=== PATIENT | female | born 1955 | race Caucasian/White ===

== ENCOUNTER 2023-05-05 10:41 | Outpatient (OUT) | payer MEDICARE, OTHER, SELFPAY ==
--- NOTE | 2023-05-05 10:57 | XR_ITS ---
[address] [address] Patient Name: MAXIMILIAN BLAIR MRN: [id number] date: 1955 Sex: F Assigned Patient Location: [facility] Current Patient Location: [facility] Accession/Order Number: [id number] Exam Date: 05/05/2023 10:59 Report Date: 05/05/2023 12:10 At the request of: DENISE DUGGAN Procedure: XR ankle LT min 3V PROCEDURE: XR ankle LT min 3V DATE: 05/05/2023 9:59 AM CDT COMPARISONS: None CLINICAL INDICATION: Ankle pain M25.579 FINDINGS: There is no evidence of fractures or other acute osseous abnormalities. Mild spurring of the distal medial lateral malleolar. Slight spurring of the distal tibia at the tibiotalar joint space. Diffuse soft tissue swelling about the ankle. Possible small ankle joint effusion identified on lateral view. Lateral view shows small amount of ascites spur off the posterior inferior os calcis. IMPRESSION: 1. No evidence of fractures of the left ankle 2. Mild scattered ankle degenerative changes 3. Soft tissue swelling about the ankle. 4. Possible small ankle joint effusion is demonstrated on lateral view.. Electronically authenticated by: ANGELICA PEARCE Date: 05/05/2023 12:10
== END 2023-05-05 10:42 | disposition home or self-care (01) ==
LOC: RAD 10:48
PROVIDERS: PCP Family Medicine; Visit Provider Family Medicine
DX: M25.572 Pain in left ankle and joints of left foot (principal)
CPT/HCPCS: 73610

== ENCOUNTER 2023-09-20 07:35 | Outpatient (OUT) | payer MEDICARE, OTHER, SELFPAY ==
[2023-09-20 07:54] LABS: Basophils Absolute Auto 0.1 10^3/uL (0.0-0.1); Basophils Percent Auto 0.7 % (0.2-2.0); Eosinophils Absolute Auto 0.1 10^3/uL (0.0-0.7); Eosinophils Percent Auto 0.9 % (0.9-7.0); Hematocrit 45.8 % (36.0-48.0); Hemoglobin 14.8 g/dL (12.0-16.0); Immature Granulocytes Abs Auto 0.04 10^3/uL (0.00-0.03); Immature Granulocytes Pct Auto 0.4 % (0.0-0.5); Lymphocytes Absolute Auto 2.9 10^3/uL (1.2-3.8); Lymphocytes Percent Auto 31.9 % (20.5-60.0); Mean Corpuscular HGB Conc 32.3 g/dL (29.9-35.2); Mean Corpuscular Hemoglobin 27.5 pg (26.7-34.0); Mean Corpuscular Volume 85.1 fL (81.0-99.0); Mean Platelet Volume 9.2 fL (9.5-13.5); Monocytes Absolute Auto 0.5 10^3/uL (0.3-0.8); Monocytes Percent Auto 5.9 % (1.7-12.0); Neutrophils Absolute Auto 5.5 10^3/uL (1.4-6.5); Neutrophils Percent Auto 60.2 % (43.0-75.0); Platelet Count 218 10^3/uL (150-450); Red Blood Count 5.38 10^6/uL (4.20-5.40); Red Cell Distribution Width 14.9 % (11.0-15.0); White Blood Count 9.1 10^3/uL (4.0-11.0)
[2023-09-20 08:16] LABS: Estimated Average Glucose 160 mg/dL; Glycohemoglobin A1C 7.2 % (4.5-6.2)
[2023-09-20 09:16] LABS: Alanine Aminotransferase 42 U/L (14-59); Albumin Globulin Ratio 1.1; Alkaline Phosphatase 36 U/L (46-116); Anion Gap 17.1; Aspartate Amino Transferase 24 U/L (15-37); BUN Creatinine Ratio 26.5; Bilirubin Total 0.4 mg/dL (0.2-1.0); Calcium 9.1 mg/dL (8.5-10.1); Carbon Dioxide 25.8 mmol/L (21.0-32.0); Chloride 99 mmol/L (98-107); Chol HDL Ratio 3.2; Cholesterol 123 mg/dL (<=200); Estimated GFR (African America >60 (>=60); Estimated GFR (Non-African Ame >60 (>=60); Free T3 2.34 pg/mL (2.18-3.98); Globulin 3.7 g/dL; Glucose 152 mg/dL (74-106); HDL Cholesterol 38 mg/dL (40-60); Potassium 3.9 mmol/L (3.5-5.1); Sodium 138 mmol/L (136-145); Thyroid Stimulating Hormone 2.944 uIU/mL (0.358-3.740); Total Protein 7.7 g/dL (6.4-8.2); Triglycerides 154 mg/dL (<=150); VLDL CHOLESTEROL 30.8 mg/dL
[2023-09-22 12:11] LABS: Insulin 16.4 uIU/mL (2.6-24.9)
== END 2023-09-20 07:36 | disposition home or self-care (01) ==
LOC: LAB 07:36
PROVIDERS: PCP Family Medicine; Visit Provider Nurse Practitioner Family
DX: R53.83 Other fatigue (principal); E11.9 Type 2 diabetes mellitus without complications; E78.00 Pure hypercholesterolemia, unspecified; D64.9 Anemia, unspecified; E03.9 Hypothyroidism, unspecified; E55.9 Vitamin D deficiency, unspecified
CPT/HCPCS: 36415; 80053; 80061; 82306; 83036; 83525; 83540; 84436; 84443; 84481; 85025

== ENCOUNTER 2023-09-30 08:44 | Outpatient (OUT) | payer MEDICARE, OTHER, SELFPAY ==
--- NOTE | 2023-09-30 | XR_ITS ---
The [address] [address] Patient Name: MAXIMILIAN BLAIR MRN: [id number] date: 1955 Sex: F Assigned Patient Location: Current Patient Location: Accession/Order Number: [id number] Exam Date: 09/30/2023 08:50 Report Date: 10/01/2023 04:47 At the request of: SANDRO TABARES Procedure: XR abdomen 1V EXAMINATION: XR abdomen 1V HISTORY: hx kidney stones COMPARISON: No relevant comparison available. FINDINGS: KIDNEY/URETER - RIGHT: No visible renal or ureteral calcifications. KIDNEY/URETER - LEFT: 3 mm stone projecting over inferior pole of kidney. PELVIS: Multiple calcifications within the pelvis favoring phleboliths. BOWEL: No abnormal dilation or deviation. BONES: No acute abnormality. OTHER: Negative. No abnormal gaseous collections. XR/XR abdomen 1V IMPRESSION: 1. Left nephrolithiasis. No visible right kidney stones, but evaluation is limited by dense overlying bowel content. 2. Bilateral pelvic calcifications suspected to represent phleboliths. Distal ureteral stones cannot be completely excluded. No prior studies for comparison. Electronically authenticated by: BLANCA MARIE Date: 10/01/2023 04:47
--- NOTE | 2023-09-30 | US_ITS ---
The [address] [address] Patient Name: MAXIMILIAN BLAIR MRN: [id number] date: 1955 Sex: F Assigned Patient Location: [place] Current Patient Location: [place] Accession/Order Number: [id number] Exam Date: 09/30/2023 09:00 Report Date: 09/30/2023 11:00 At the request of: SANDRO TABARES Procedure: US renal BI EXAM: Renal ultrasound HISTORY: . hx of kidney stones . COMPARISON: None. TECHNIQUE: Davis scale and color imaging was performed FINDINGS: Scanning of the right kidney demonstrates right kidney measure 9.8 x 5.8 x 4.9 cm. Color-flow is noted. There is a 6 mm nonobstructing calculus in the midpole of the right kidney. There are several a smaller echogenic foci within the right kidney consistent with nonobstructing calculi. Left kidney measures 10.7 x 5.4 x 5.7 cm. Color-flow is noted. Several echogenic foci are noted within the left kidney. The largest measures 4 mm. Findings are consistent with nonobstructing calculi. No hydronephrosis is noted. US/US renal BI IMPRESSION: 1. Bilateral nephrolithiasis. No hydronephrosis. Electronically authenticated by: LD ARAGON Date: 09/30/2023 11:00
== END 2023-09-30 08:45 | disposition home or self-care (01) ==
LOC: US 08:44
PROVIDERS: PCP Family Medicine; Visit Provider Physician Assistant
DX: N20.0 Calculus of kidney (principal)
CPT/HCPCS: 74018; 76775

== ENCOUNTER 2023-10-13 07:54 | Outpatient (OUT) | payer MEDICARE, OTHER, SELFPAY ==
--- NOTE | 2023-10-13 08:06 | CT_ITS ---
The [address] [address] Patient Name: MAXIMILIAN BLAIR MRN: [id number] date: 1955 Sex: F Assigned Patient Location: CT Current Patient Location: CT Accession/Order Number: [id number] Exam Date: 10/13/2023 08:04 Report Date: 10/13/2023 10:33 At the request of: SANDRO TABARES Procedure: CT abdomen pelvis wo con CT abdomen pelvis wo con, 10/13/2023 8:04 AM EST INDICATION: Kidney Stone COMPARISON: Renal ultrasound 09/30/2023. No prior CT scan of the abdomen and pelvis available for comparison at the time of this dictation. TECHNIQUE: Axial images of the abdomen and pelvis were obtained without IV contrast. Multiplanar reformatted images were generated and reviewed as needed. Dose reduction techniques were achieved by using automated exposure control and/or adjustment of mA and/or kV according to patient size and/or use of iterative reconstruction technique. FINDINGS: Scattered areas subsegmental atelectasis/scar at the lung bases. Calcified right middle lobe granuloma. No effusion. The gallbladder is contracted. Diffuse fatty infiltration within an enlarged liver. The pancreas, spleen and adrenals are unremarkable on the noncontrast scan. No hydronephrosis. Bilateral nonobstructing renal calculi, the largest a 5 mm left lower pole calculus. Calcified parenchymal scar lower pole the right kidney. Subcentimeter cortical hypodensities bilaterally to small to characterize. No ureteral or urinary bladder calculi. Hysterectomy. No adnexal mass. No aortic aneurysm. Small sliding hiatal hernia. No bowel obstruction or acute focal inflammation. Normal appendix. Large amount stool throughout the majority of the colon. No pneumatosis, pneumoperitoneum or ascites. No mesenteric or retroperitoneal lymphadenopathy. No acute fracture. Multilevel degenerative disc disease. Bilateral L5 pars defects with grade 1 anterolisthesis L5 on S1. Multiple small well-defined sclerotic lesions within the sternum, spine, pelvis and femur bilaterally. CT/CT abdomen pelvis wo con IMPRESSION: 1. Bilateral nonobstructing nephrolithiasis. 2. Hepatomegaly with diffuse hepatic steatosis. 3. Multiple small well-defined sclerotic osseous lesions. This finding is nonspecific. Differential considerations include bone islands, osteopoikilosis, metastasis. 4. Bilateral L5 spondylolysis with grade 1 spondylolisthesis L5/S1. 5. Large amount of stool throughout the majority of the colon can present clinically as constipation. Electronically authenticated by: RAMON HILL Date: 10/13/2023 10:33
== END 2023-10-13 07:55 | disposition home or self-care (01) ==
LOC: CT 07:54
PROVIDERS: PCP Family Medicine; Visit Provider Physician Assistant
DX: N20.0 Calculus of kidney (principal); R16.0 Hepatomegaly, not elsewhere classified
CPT/HCPCS: 74176

== ENCOUNTER 2023-10-14 07:47 | Outpatient (OUT) | payer MEDICARE, OTHER, SELFPAY ==
[2023-10-15 08:11] LABS: CA 19-9 23 U/mL (0-35)
== END 2023-10-14 07:48 | disposition home or self-care (01) ==
LOC: LAB 07:47
PROVIDERS: PCP Family Medicine; Visit Provider Family Medicine
DX: C43.9 Malignant melanoma of skin, unspecified (principal)
CPT/HCPCS: 36415; 86301

== ENCOUNTER 2024-01-17 12:31 | Outpatient (OUT) | payer MEDICARE, OTHER, SELFPAY ==
--- OUTSIDE RECORDS SUMMARY | 2024-01-17 12:47 | XMS_ITS | CCD ---
Author Organization [facility] Care Team Providers Care Nurse Consultant Name Role Phone AVINASH PAREDES Primary Care Physician AVINASH THORNTON Admitting Unavailable AVINASH THORNTON Attending Unavailable AVINASH THORNTON Primary Care Unavailable AVINASH THORNTON Consulting Unavailable AVINASH THORNTON Admitting Unavailable AVINASH THORNTON Attending Unavailable AVINASH THORNTON Primary Care Unavailable AVINASH THORNTON Consulting Unavailable EHSAN MORALES Referring Unavailable EHSAN MORALES Attending Unavailable SANDRO TABARES Attending Unavailable AVINASH PAREDES Consulting Unavailable REFERRAL, SELF Admitting Unavailable REFERRAL, SELF Attending Unavailable REFERRAL, SELF Referring Unavailable Fredy POTTS Attending Unavailable Allergies Allergy Classification Reported Allergen(s) Allergy Type Date of Onset Reaction(s) Facility (5 sources) Acetaminophen / oxyCODONE; Translations: [acetaminophen-ox ycodone] Drug Allergy Upset stomach (finding) [facility] (6 sources) Adhesive bandage; Translations: [Adhesive Bandage] Drug allergy Skin irritation (disorder) General [facility] (5 sources) catgut sutures; Translations: [catgut sutures] Drug allergy Irritation [facility] (1 source) Acetaminophen / oxyCODONE Drug Allergy [facility] Repository (1 source) Latex; Translations: [Latex] Propensity to adverse reactions (disorder) [facility] Repository Medications Current Medications Medication Drug Class(es) Dates Sig (Normalized) Sig (Original) allopurinol 300 mg oral tablet (4 sources) Xanthine Oxidase Inhibitor Start: 09-26-2023 take 1 tablet by mouth once daily allopurinol 300 mg Tab 300 mg, Oral, Daily, # 90 tab(s), Refills(s) 3, Pharmacy: [facility]/pharmacy #[id number], 163, cm, 09/26/23 14:05:00 EST, Height/Length Dosing, 98.1, kg, 09/26/23 14:05:00 EST, Weight Dosing Start Date: 09/26/23 Status: Ordered Start: 04-20-2020 take 1 tablet by eulogio once daily allopurinol 300 mg Tab 300 mg, Oral, Daily, # 90 tab(s), Refills(s) 3, Pharmacy: [facility]/pharmacy #[id number], 163, cm, 04/20/20 9:30:00 EDT, Height/Length Measured, 98.1, kg, 04/20/20 9:30:00 EDT, Weight Measured Start Date: 04/20/20 Status: Ordered aspirin 81 mg delayed release oral tablet (4 sources) Platelet Aggregation Inhibitor, Nonsteroidal Anti-inflammatory Drug Start: 07-19-2021 take 1 tablet by mouth once daily aspirin 81 mg Oral EC Tab 81 mg = 1 tab(s), Oral, Daily, Refills(s) 0 Start Date: 07/19/21 Status: Ordered ertugliflozin 5 mg oral tablet (4 sources) Start: 07-19-2021 take 1 tablet by mouth once daily in the morning Steglatro 5 mg oral tablet 5 mg = 1 tab(s), Oral, qAM, Refills(s) 0 Start Date: 07/19/21 Status: Ordered 3 ml insulin glargine 100 unt/ml pen injector (4 sources) Insulin Analog Start: 07-19-2021 Basaglar KwikPen 100 units/mL subcutaneous solution 38 unit(s), SubCutaneous, Daily, Refills(s) 0 Start Date: 07/19/21 Status: Ordered levothyroxine sodium 0.025 mg oral tablet (4 sources) l-Thyroxine Start: 07-19-2021 take 1 tablet by mouth once daily levothyroxine 25 mcg (0.025 mg) Tab 25 mcg = 1 tab(s), Oral, Daily, Refills(s) 0 Start Date: 07/19/21 Status: Ordered metFORMIN hydrochloride 1000 mg oral tablet (4 sources) Biguanide Start: 07-19-2021 take 1 tablet by mouth twice daily metformin 1000 mg oral tablet 1,000 mg = 1 tab(s), Oral, BID, Refills(s) 0 Start Date: 07/19/21 Status: Ordered sertraline 50 mg oral tablet (4 sources) Serotonin Reuptake Inhibitor Start: 07-19-2021 take 1 tablet by mouth once daily Zoloft 50 mg Tab 50 mg = 1 tab(s), Oral, Daily, Refills(s) 0 Start Date: 07/19/21 Status: Ordered simvastatin 20 mg oral tablet (4 sources) HMG-CoA Reductase Inhibitor Start: 07-19-2021 take 1 tablet by mouth once daily at bedtime simvastatin 20 mg Tab 20 mg = 1 tab(s), Oral, Once a day (at bedtime), Refills(s) 0 Start Date: 07/19/21 Status: Ordered Problems Active Problems Problem Classification Problem Date Documented Da te Episodic/Chronic Anxiety disorders (4 sources) Mixed anxiety and depressive disorder 07-19-2021 Chronic Calculus of urinary tract (5 sources) Kidney stone; Translations: [Calculus of kidney] Onset: 08-16-2022 04-16-2020 Episodic Cancer; other and unspecified primary (4 sources) H/O Malignant melanoma 07-19-2021 Episodic Deficiency and other anemia (1 source) Anemia, unspecified; Translations: [ANEMIA UNSPECIFIED] Onset: 10-28-2022 Episodic Diabetes mellitus without complication (9 sources) Diabetes mellitus; Translations: [Type 2 diabetes mellitus without complications] Onset: 10-28-2022 07-19-2021 Chronic Diabetes mellitus without complication (6 sources) Glycosuria; Translations: [Glycosuria] Onset: 08-16-2022 04-16-2020 Episodic Disorders of lipid metabolism (8 sources) Hyperlipidemia; Translations: [Hyperlipidemia, unspecified] Onset: 10-26-2022 07-19-2021 Chronic Nutritional deficiencies (1 source) Vitamin D deficiency, unspecified; Translations: [VITAMIN D DEFICIENCY UNSPECIFIED] Onset: 06-07-2022 Chronic Other and unspecified benign neoplasm (4 sources) Benign neoplasm of descending colon 08-20-2021 Episodic Other and unspecified benign neoplasm (4 sources) Hyperplastic polyp of large intestine 08-20-2021 Episodic Other nutritional; endocrine; and metabolic disorders (4 sources) Body mass index 30+ - obesity 07-21-2021 Chronic Other screening for suspected conditions (not mental disorders or infectious disease) (4 sources) Stool DNA-based colorectal cancer screening positive 07-21-2021 Episodic Thyroid disorders (5 sources) Hypothyroidism; Translations: [Hypothyroidism, unspecified] Onset: 06-07-2022 07-19-2021 Chronic Past or Other Problems Problem Classification Problem Date Documented Da te Episodic/Chronic Malaise and fatigue (1 source) Other fatigue; Translations: [OTHER FATIGUE] Onset: 06-07-2022 Episodic Results Test Name Value Interpretation Reference Range Facility [facility] Mamm Screen w/CAD if perf and 3D Bilon 10-19-2023 MA Mamm Screen w/CAD if perf and 3D Saleem Exam Date/Time: 10/17/2023 14:28 EST Reason for Exam: SCREENING Report IMPRESSION: BIRADS 1 NEGATIVE, NORMAL INTERVAL FOLLOW-UP Follow-up: 12 MONTH RECALL Density: Almost entirely fatty. Vascular calcifications: Absent. EXAM: MA Mamm Screen w/CAD if perf and 3D Saleem DATE: 10/17/2023 2:17 PM CLINICAL HISTORY: SCREENING. COMPARISONS: 10/17/2022, 10/15/2021, and 10/29/2020. TECHNIQUE: Routine full-field digital mammograms and 3D breast tomosynthesis of both breasts were obtained. FINDINGS: There are no developing masses, suspicious microcalcifications, or areas of architectural distortion identified on the current study. No significant changes are identified from the prior studies, given differences in technique and positioning. Dense Breast: No. CAD analysis was performed and used in the interpretation. Board Certified Radiologists. Accredited by the ACR and FDA. MAMMOGRAPHY IS VERY IMPORTANT TO YOUR HEALTH. THE CURRENT [employer] GUIDELINES RECOMMENDS ANNUAL MAMMOGRAPHY BEGINNING AT AGE 40. THIS FACILITY UTILIZES A REMINDER SYSTEM TO ENSURE ALL PATIENTS RECEIVE REMINDER NOTIFICATIONS AT THE APPROPRIATE TIME BASED ON THE RECOMMENDATIONS OF THIS EXAM. Report Ordering Provider: REFERRAL, SELF FINAL REPORT Dictated: 10/19/2023 11:21 am Gianni Lyn MD Signed (Electronic Signature): 10/19/2023 11:21 am Signed by: Gianni Lyn MD Transcribed by: FRANKO Technologist: TIANNA Assessment: BI-RADS Category 1-Negative Recommendation: Normal interval follow-up Normal [facility] Consent for Treatmenton 09-29 Consent for Treatment [id number] #1.00TIFF Normal [facility] RAD - CT Reporton 10-17-2023 RAD - CT Report [id number] #1.00TIFF Normal [facility] Lab Reportson 10-06-2023 Lab Reports [id number] #1.00TIFF Normal [facility] RAD - MISCon 10-06-2023 RAD - MISC [id number] 1#1.00TIFF Normal [facility] RAD - Ultrasound Reporton RAD - Ultrasound Report [id number] #1.00TIFF Normal [facility] Screenson 09-27-2023 Screens [id number] 1#1.00TIFF Normal [facility] Patient Educationon 09-26-20 Patient Education Urology Kidney Stones Kidney stones are rock-like masses that form inside of the kidneys. Kidneys are organs that make pee (urine). A kidney stone may move into other parts of the urinary tract, including: ? The tubes that connect the kidneys to the bladder (ureters). ? The bladder. ? The tube that carries urine out of the body (urethra). Kidney stones can cause very bad pain and can block the flow of pee. The stone usually leaves your body (passes) through your pee. You may need to have a doctor take out the stone. What are the causes? Kidney stones may be caused by: ? A condition in which certain glands make too much parathyroid hormone (primary hyperparathyroidism) . ? A buildup of a type of crystals in the bladder made of a chemical called uric acid. The body makes uric acid when you eat certain foods. ? Narrowing (stricture) of one or both of the ureters. ? A kidney blockage that you were born with. ? Past surgery on the kidney or the ureters, such as gastric bypass surgery. What increases the risk? You are more likely to develop this condition if: ? You have had a kidney stone in the past. ? You have a family history of kidney stones. ? You do not drink enough water. ? You eat a diet that is high in protein, salt (sodium), or sugar. ? You are overweight or very overweight (obese). What are the signs or symptoms? Symptoms of a kidney stone may include: ? Pain in the side of the belly, right below the ribs (flank pain). Pain usually spreads (radiates) to the groin. ? Needing to pee often or right away (urgently). ? Pain when going pee (urinating). ? Blood in your pee (hematuria). ? Feeling like you may vomit (nauseous). ? Vomiting. ? Fever and chills. How is this treated? Treatment depends on the size, location, and makeup of the kidney stones. The stones will often pass out of the body through peeing. You may need to: ? Drink more fluid to help pass the stone. In some cases, you may be given fluids through an IV tube put into one of your veins at the hospital. ? Take medicine for pain. ? Make changes in your diet to help keep kidney stones from coming back. Sometimes, medical procedures are needed to remove a kidney stone. This may involve: ? A procedure to break up kidney stones using a beam of light (laser) or shock waves. ? Surgery to remove the kidney stones. Follow these instructions at home: Medicines ? Take [id number] and prescription medicines only as told by your doctor. ? Ask your doctor if the medicine prescribed to you requires you to avoid driving or using heavy machinery. Eating and drinking ? Drink enough fluid to keep your pee pale yellow. You may be told to drink at least 8?10 glasses of water each day. This will help you pass the stone. ? If told by your doctor, change your diet. This may include: ? Limiting how much salt you eat. ? Eating more fruits and vegetables. ? Limiting how much meat, poultry, fish, and eggs you eat. ? Follow instructions from your doctor about eating or drinking restrictions. General instructions ? Collect pee samples as told by your doctor. You may need to collect a pee sample: ? 24 hours after a stone comes out. ? 8?12 weeks after a stone comes out, and every 6?12 months after that. ? Strain your pee every time you pee (urinate), for as long as told. Use the strainer that your doctor recommends. ? Do not throw out the stone. Keep it so that it can be tested by your doctor. ? Keep all follow-up visits as told by your doctor. This is important. You may need follow-up tests. How is this prevented? To prevent another kidney stone: ? Drink enough fluid to keep your pee pale yellow. This is the best way to prevent kidney stones. ? Eat healthy foods. ? Avoid certain foods as told by your doctor. You may be told to eat less protein. ? Stay at a healthy weight. Where to find more information ? National Kidney Foundation (NKF): www.kidney.org ? [employer] (UCF): www.urologyhealth.or g Contact a doctor if: ? You have pain that gets worse or does not get better with medicine. Get help right away if: ? You have a fever or chills. ? You get very bad pain. ? You get new pain in your belly (abdomen). ? You pass out (faint). ? You cannot pee. Summary ? Kidney stones are rock-like masses that form inside of the kidneys. ? Kidney stones can cause very bad pain and can block the flow of pee. ? The stones will often pass out of the body through peeing. ? Drink enough fluid to keep your pee pale yellow. This information is not intended to replace advice given to you by your health care provider. Make sure you discuss any questions you have with your health care provider. Document Revised: 06/20/2022 Document Reviewed: 06/20/2022 [employer] Patient Education ? 2022 [employer]. [facility] Urology Office/Clinic Noteon 09-26-2023 Urology Office/Clinic Note Chief Complaint F/U HPI Staff Former Dr. Potts pt. 68 yo female here for 1 yr f/u with KUB. Previous Dx: kidney stone, glycosuria. Pt. did not have KUB. Labs done 09/20/23. Dysuria: no Incomplete bladder emptying: no Hematuria: no Frequency: 2-3 hours Urgency: no Nocturia: no Stream: good stream Post void dripping: no Wearing pads/ Depends: no Urge incontinence: no Stress incontinence: no Incontinence without Sensory Awareness: no Abdominal pain: no Flank pain: no no UTIS. no gross hematuria. no issues/complaints. Review of Systems PHQ Score Initial Depression Screen Score: 0 SCORE no fever, chills, malaise, myalgia. no rash/lesions. no chest pain, palpitations, or SOB. no abdominal pain, nausea, vomiting. no unilateral calf swelling, redness, pain Physical Exam Vitals & Measurements HR: 105(Peripheral) RR: 16 BP: 127/91 HT: 64 in HT: 163 cm WT: 98.1 kg WT: 215.82 lb BMI: 36.92 General: nontoxic, NAD Mouth: moist mucosa Lungs: normal respiratory effort Cardio: regular rate, good distal perfusion Abdomen: nondistended, no suprapubic distention or tenderness, no CVA tenderness Neurologic: Grossly normal Skin: No rashes or suspicious lesions Assessment/Plan 1. Kidney stone (N20.0: Calculus of kidney) hx stones. can't recall last stone episode, was >5 yrs ago (last litho in our system was 2016). on Allopurinol 300mg qd. no bothersome side effects. refills sent. did not update imaging prior to today's appt. renal function looks good. UA completed in office today shows no microhematuria or signs of infection. -KUB/HARINI ordered today at [facility]. will call pt w results. if significant stone burden will need appt to discuss litho. if no stones/small stones can f/u in 1 yr w repeat imaging prior. may want to consider metabolic work-up in future to see if she still needs the allopurinol. didn't discuss this today since we didn't' have imaging to prove she's stone free. Ordered: Body Mass Index (BMI) documented 3008F Current tobacco non-user 1036F Depression Screening Negative 3352F E&M of Est. Patient Moderate 30-39 Min 29533 Influenza immunization status assessed 1030F Patient screen for fall risk: no falls in last year or 1 fall with no injury in last year 1101F Urnls Dip Stick Auto w/o Microscopy POC 63437 US Renal XR Abdomen 1 View Orders: allopurinol, 300 mg, Oral, Daily, # 90 tab(s), Refills(s) 3, Pharmacy: [facility] #[id number], 163, cm, 09/26/23 14:05:00 EST, Height/Length Dosing, 98.1, kg, 09/26/23 14:05:00 EST, Weight Dosing Follow-up With When Contact Information RAYSA BROOKE, SANDRO Salazar, URL Within 1 year Additional Instructions: Patient Education Kidney Stones, Iwxl-qh-Zlhj Problem List/Past Medical History Ongoing BMI 35.0-35.9,adult Depression with anxiety Diabetes Glycosuria History of melanoma Hyperlipidemia Hyperplastic colon polyp Hypothyroidism Kidney stone Positive colorectal cancer screening using Cologuard test Tubular adenoma Historical Diabetes Procedure/Surgical History Colonoscopy (08/11/2021), Cystoscopy, left retrograde ureteropyelogram, double-J stent (03/24/2017), cystoscopy, retrograde, laser ablation of any stone fragments with removal and restenting of the patient (06/30/2015), Stent removal (06/29/2015), Stent placement (06/24/2015), H/O: hysterectomy, Lithotripsy, Number of sections. Medications allopurinol 300 mg Tab, 300 mg, Oral, Daily, 3 refills aspirin 81 mg Oral EC Tab, 81 mg= 1 tab(s), Oral, Daily Basaglar KwikPen 100 units/mL subcutaneous solution, 38 unit(s), SubCutaneous, Daily levothyroxine 25 mcg (0.025 mg) Tab, 25 mcg= 1 tab(s), Oral, Daily metformin 1000 mg oral tablet, 1000 mg= 1 tab(s), Oral, BID simvastatin 20 mg Tab, 20 mg= 1 tab(s), Oral, Once a day (at bedtime) Steglatro 5 mg oral tablet, 5 mg= 1 tab(s), Oral, qAM Zoloft 50 mg Tab, 50 mg= 1 tab(s), Oral, Daily Allergies Adhesive Bandage (Skin irritation) Percocet 5/325 (Upset stomach) catgut sutures (Irritation) Social History Alcohol - Denies Alcohol Use, 06/28/2012 Substance Abuse - Denies Substance Abuse, 06/30/2015 Tobacco - Denies Tobacco Use, 06/30/2015 Never (less than 100 in lifetime) Tobacco Use:. Never Smokeless Tobacco Use:., 08/16/2022 Family History Diabetes mellitus type 2: Mother, Father, Sister and Brother. Heart failure: Father and Brother. Pancreatic adenocarcinoma: Mother and Sister. Immunizations Vaccine Date Status SARS-CoV-2 (COVID-19) mRNA BNT-162b2 vax 01/01/2021 Recorded SARS-CoV-2 (COVID-19) mRNA BNT-162b2 vax 12/11/2020 Recorded Lab Results Ambulatory Point of Care Results Bilirubin Urine Dipstick: Negative (09/26/23 14:02:00) Blood Urine Dipstick: Negative (09/26/23 14:02:00) Glucose Urine Dipstick: Negative (09/26/23 14:02:00) Ketones Urine Dipstick: Trace - 5 mg/dl (09/26/23 14:02:00) Leukocytes Urine Dipstick: Negative (09/26/23 14:02:00) Nitrite Urine Dipsti (more content not included)... Normal [facility] Comment on above: Result Comment: Elec tronically Signed By: RAYSA BROOKE, SANDRO Salazar\.br\Date and Time Signed: 09/26/23 14:50 EST INSULINon 10-27-2022 Insulin 37.5 uIU/mL Critically high 2.6-24.9 [facility] Comment on above: Performed By: #### L IPID, T7, CMP, TSH #### [facility] [address] [place] [address] Dr. Ora Samaniego CBC AUTO DIFFon 10-26-2022 BASO # 0.1 103/ul Normal 0.0-0.1 [facility] Comment on above: Performed By: #### L IPID, T7, CMP, TSH #### [facility] [address] [address] [address] Ora Samaniego Basophils/100 WBC (Bld) 0.6 % Normal 0.2-2.0 [facility] Comment on above: Performed By: #### L IPID, T7, CMP, TSH #### [facility] [address] [address] [address] Ora Samaniego EO # 0.2 103/ul Normal 0.0-0.7 [facility] Comment on above: Performed By: #### L IPID, T7, CMP, TSH #### [facility] [address] [address] [address] Ora Samaniego Eosinophils/100 WBC (Bld) 1.9 % Normal 0.9-7.0 [facility] Comment on above: Performed By: #### L IPID, T7, CMP, TSH #### [facility] [address] [address] [address] Ora Samaniego Erythrocyte distribution width (RBC) [Ratio] 15.4 % Critically high 11.0-15.0 [facility] Comment on above: Performed By: #### L IPID, T7, CMP, TSH #### [facility] [address] [address] [address] Ora Samaniego Hematocrit (Bld) [Volume fraction] 44.9 % Normal 36.0-48.0 [facility] Comment on above: Performed By: #### L IPID, T7, CMP, TSH #### [facility] [address] [place] [address] Dr. Ora Samaniego Hemoglobin (Bld) [Mass/Vol] 14.7 g/dL Normal 12.0-16.0 [facility] Comment on above: Performed By: #### L IPID, T7, CMP, TSH #### [facility] [address] [place] [address] Dr. Ora Samaniego IG # 0.07 10e3/ul Critically high 0.00-0.03 [facility] Comment on above: Performed By: #### L IPID, T7, CMP, TSH #### [facility] [address] [place] [address] Dr. Ora Samaniego IG % 0.8 % Critically high 0.0-0.5 [facility] Comment on above: Performed By: #### L IPID, T7, CMP, TSH #### [facility] [address] [place] [address] Dr. Ora Samaniego LYMPH # 2.8 103/ul Normal 1.2-3.8 [facility] Comment on above: Performed By: #### L IPID, T7, CMP, TSH #### [facility] [address] [place] [address] Dr. Ora Samaniego Lymphocytes/100 WBC (Bld) 31.5 % Normal 20.5-60.0 [facility] Comment on above: Performed By: #### L IPID, T7, CMP, TSH #### [facility] [address] [place] [address] Dr. Ora Samaniego MANUAL DIFF REQ NO Normal [facility] Comment on above: Performed By: #### L IPID, T7, CMP, TSH #### [facility] [address] [place] [address] Dr. Ora Samaniego MCH (RBC) [Entitic mass] 26.5 pg Critically low 26.7-34.0 [facility] Comment on above: Performed By: #### L IPID, T7, CMP, TSH #### [facility] [address] [place] [address] Dr. Ora Samaniego MCHC (RBC) [Mass/Vol] 32.7 g/dL Normal 29.9-35.2 [facility] Comment on above: Performed By: #### L IPID, T7, CMP, TSH #### [facility] [address] [place] [address] Dr. Ora Samaniego MCV (RBC) [Entitic vol] 81.0 fL Normal 81.0-99.0 [facility] Comment on above: Performed By: #### L IPID, T7, CMP, TSH #### [facility] [address] [place] [address] Dr. Ora Samaniego MONO # 0.6 103/ul Normal 0.3-0.8 [facility] Comment on above: Performed By: #### L IPID, T7, CMP, TSH #### [facility] [address] [place] [address] Dr. Ora Samaniego Monocytes/100 WBC (Bld) 6.3 % Normal 1.7-12.0 [facility] Comment on above: Performed By: #### L IPID, T7, CMP, TSH #### [facility] [address] [place] [address] Dr. Ora Samaniego NEUT # 5.2 103/ul Normal 1.4-6.5 [facility] Comment on above: Performed By: #### L IPID, T7, CMP, TSH #### [facility] [address] [place] [address] Dr. Ora Samaniego Neutrophils/100 WBC (Bld) 58.9 % Normal 43.0-75.0 [facility] Comment on above: Performed By: #### L IPID, T7, CMP, TSH #### [facility] [address] [address] [address] Ora Samaniego Platelet mean volume (Bld) [Entitic vol] 9.5 fL Normal 9.5-13.5 [facility] Comment on above: Performed By: #### L IPID, T7, CMP, TSH #### [facility] [address] [address] [address] Ora Samaniego PLT 249 103/ul Normal 150-450 [facility] Comment on above: Performed By: #### L IPID, T7, CMP, TSH #### [facility] [address] [place] [address] Dr. Ora Samaniego RBC 5.54 106/ul Critically high 4.20-5.40 [facility] Comment on above: Performed By: #### L IPID, T7, CMP, TSH #### [facility] [address] [place] [address] Dr. Ora Samaniego WBC 8.8 103/ul Normal 4.0-11.0 [facility] Comment on above: Performed By: #### L IPID, T7, CMP, TSH #### [facility] [address] [place] [address] Dr. Ora Samaniego FREE THYROXINE INDEX T7on FTI 2.65 Normal 1.30-4.50 [facility] Comment on above: Performed By: #### L IPID, T7, CMP, TSH #### [facility] [address] [place] [address] Dr. Ora Samaniego T3U 34.0 % Normal 30.0-39.0 [facility] Comment on above: Performed By: #### L IPID, T7, CMP, TSH #### [facility] [address] [place] [address] Dr. Ora Samaniego T4 [Mass/Vol] 7.80 ug/dL Normal 4.80-13.90 [facility] Comment on above: Performed By: #### L IPID, T7, CMP, TSH #### [facility] [address] [address] [address] Ora Samaniego GLYCOHEMOGLOBIN A1Con 2021 ADA RECOMMENDATION SEE BELOW Normal [facility] Comment on above: Result Comment: ADA RECOMMENDED LIMIT 4.0 - 6.0 ADA THERAPEUTIC TARGET < 7.0 ACTION SUGGESTED > 7.0 Performed By: #### L IPID, T7, CMP, TSH #### [facility] [address] [address] [address] Ora Samaniego Glucose [Mass/Vol] 148 mg/dL Normal [facility] Comment on above: Performed By: #### L IPID, T7, CMP, TSH #### [facility] [address] [address] [address] Ora Samaniego HbA1c (Bld) [Mass fraction] 6.8 % Critically high 4.5-6.2 [facility] Comment on above: Performed By: #### L IPID, T7, CMP, TSH #### [facility] [address] [address] [address] Ora Samaniego IRONon 10-26-2022 Iron [Mass/Vol] 51.0 ug/dL Normal 50.0-170.0 [facility] Comment on above: Performed By: #### I TEMITOPE #### [facility] [address] [address] [address] Ora Samaniego LIPID PROFILEon 10-26-2022 CHOL-HDL RATIO NORM SEE BELOW Normal [facility] Comment on above: Result Comment: 3.3 - 4.4 LOW RISK 4.4 - 7.1 AVERAGE RISK 7.1 - 11.0 MODERATE RISK >11.0 HIGH RISK Performed By: #### L IPID, T7, CMP, TSH #### [facility] [address] [address] [address] Ora Samaniego Cholesterol [Mass/Vol] 120 mg/dL Normal <=200 [facility] Comment on above: Performed By: #### L IPID, T7, CMP, TSH #### [facility] [address] [address] [address] Ora Samaniego Cholesterol in HDL [Mass/Vol] 34 mg/dL Critically low 40-60 [facility] Comment on above: Performed By: #### L IPID, T7, CMP, TSH #### [facility] [address] [address] [address] Ora Samaniego Cholesterol in LDL [Mass/Vol] 47.8 mg/dL Normal [facility] Comment on above: Performed By: #### L IPID, T7, CMP, TSH #### [facility] [address] [address] [address] Ora Samaniego Cholesterol.total/Chol esterol in HDL [Mass ratio] 3.5 {ratio} Normal [facility] Comment on above: Performed By: #### L IPID, T7, CMP, TSH #### [facility] [address] [address] [address] Ora Samaniego HDL NORMAL > or = 60 mg/dl - LOW CARDIOVASCULAR RISK <40 mg/dl - HIGH CARDIOVASCULAR RISK Normal [facility] Comment on above: Performed By: #### L IPID, T7, CMP, TSH #### [facility] [address] [address] [address] Ora Samaniego LDL CALC NORMAL SEE BELOW Normal [facility] Comment on above: Result Comment: <100 mg/dl OPTIMAL 100 - 129 mg/dl NEAR OR ABOVE OPTIMAL 130 - 159 mg/dl BORDERLINE HIGH 160 - 189 mg/dl HIGH >190 mg/dl VERY HIGH Performed By: #### L IPID, T7, CMP, TSH #### [facility] [address] [address] [address] Ora Samaniego Triglyceride [Mass/Vol] 191 mg/dL Critically high <=150 [facility] Comment on above: Performed By: #### L IPID, T7, CMP, TSH #### [facility] [address] [address] [address] Ora Samaniego VLDL CALC 38.2 mg/dL Normal [facility] Comment on above: Performed By: #### L IPID, T7, CMP, TSH #### [facility] [address] [place] [address] Dr. Ora Samaniego PROF 14(COMP METB)on 022 Albumin [Mass/Vol] 4.0 g/dL Normal 3.4-5.0 [facility] Comment on above: Performed By: #### L IPID, T7, CMP, TSH #### [facility] [address] [place] [address] Dr. Ora Samaniego Albumin/Globulin [Mass ratio] 1.0 {ratio} Normal [facility] Comment on above: Performed By: #### L IPID, T7, CMP, TSH #### [facility] [address] [place] [address] Dr. Ora Samaniego ALP [Catalytic activity/Vol] 34 U/L Critically low 46-116 [facility] Comment on above: Performed By: #### L IPID, T7, CMP, TSH #### [facility] [address] [place] [address] Dr. Ora Samaniego ALT [Catalytic activity/Vol] 27 U/L Normal 14-59 [facility] Comment on above: Performed By: #### L IPID, T7, CMP, TSH #### [facility] [address] [address] [address] Ora Samaniego Anion gap [Moles/Vol] 16.6 mmol/L Normal [facility] Comment on above: Performed By: #### L IPID, T7, CMP, TSH #### [facility] [address] [place] [address] Dr. Ora Samaniego AST [Catalytic activity/Vol] 19 U/L Normal 15-37 [facility] Comment on above: Performed By: #### L IPID, T7, CMP, TSH #### [facility] [address] [place] [address] Dr. Ora Samaniego Bilirubin [Mass/Vol] 0.2 mg/dL Normal 0.2-1.0 [facility] Comment on above: Performed By: #### L IPID, T7, CMP, TSH #### [facility] [address] [place] [address] Dr. Ora Samaniego Calcium [Mass/Vol] 9.5 mg/dL Normal 8.5-10.1 [facility] Comment on above: Performed By: #### L IPID, T7, CMP, TSH #### [facility] [address] [address] [address] Ora Samaniego Chloride [Moles/Vol] 98 mmol/L Normal 98-107 [facility] Comment on above: Performed By: #### L IPID, T7, CMP, TSH #### [facility] [address] [address] [address] Ora Samaniego CO2 [Moles/Vol] 27.5 mmol/L Normal 21.0-32.0 [facility] Comment on above: Performed By: #### L IPID, T7, CMP, TSH #### [facility] [address] [place] [address] Dr. Ora Samaniego Creatinine [Mass/Vol] 0.81 mg/dL Normal 0.55-1.02 [facility] Comment on above: Performed By: #### L IPID, T7, CMP, TSH #### [facility] [address] [address] [address] Ora Samaniego EGFR-AF SAO TOMEAN >60 Normal >=60 [facility] Comment on above: Performed By: #### L IPID, T7, CMP, TSH #### [facility] [address] [place] [address] Dr. Ora Samaniego EGFR-NON AF SAO TOMEAN >60 Normal >=60 [facility] Comment on above: Performed By: #### L IPID, T7, CMP, TSH #### [facility] [address] [address] [address] Ora Samaniego Globulin (S) [Mass/Vol] 4.1 g/dL Normal [facility] Comment on above: Performed By: #### L IPID, T7, CMP, TSH #### [facility] [address] [address] [address] Ora Samaniego Glucose [Mass/Vol] 169 mg/dL Critically high 74-106 [facility] Comment on above: Performed By: #### L IPID, T7, CMP, TSH #### [facility] [address] [address] [address] Ora Samaniego Potassium [Moles/Vol] 4.1 mmol/L Normal 3.5-5.1 [facility] Comment on above: Performed By: #### L IPID, T7, CMP, TSH #### [facility] [address] [place] [address] Dr. Ora Samaniego Protein [Mass/Vol] 8.1 g/dL Normal 6.4-8.2 [facility] Comment on above: Performed By: #### L IPID, T7, CMP, TSH #### [facility] [address] [place] [address] Dr. Ora Samaniego Sodium [Moles/Vol] 138 mmol/L Normal 136-145 [facility] Comment on above: Performed By: #### L IPID, T7, CMP, TSH #### [facility] [address] [place] [address] Dr. Ora Samaniego Urea nitrogen [Mass/Vol] 19.0 mg/dL Critically high 7.0-18.0 [facility] Comment on above: Performed By: #### L IPID, T7, CMP, TSH #### [facility] [address] [place] [address] Dr. Ora Samaniego Urea nitrogen/Creatinine [Mass ratio] 23.5 mg/mg Normal [facility] Comment on above: Performed By: #### L IPID, T7, CMP, TSH #### [facility] [address] [place] [address] Dr. Ora Samaniego TSHon 10-26-2022 TSH 2.769 uIU/mL Normal 0.358-3.740 [facility] Comment on above: Performed By: #### L IPID, T7, CMP, TSH #### [facility] [address] [place] [address] Dr. Ora Samaniego CHEMISTRYOrdered By: SYSTEM SYSTEM on 08-15-2022 Anion gap [Moles/Vol] 16 mmol/L Normal 6 - 16 mEq/L [facility] Chloride [Moles/Vol] 99 mmol/L Low 101 - 1 11 mmol/L [facility] CO2 [Moles/Vol] 27 mmol/L Normal 21 - 31 mmol/L [facility] Creatinine [Mass/Vol] 0.8 mg/dL Normal 0.5 - 1.3 mg/dL [facility] GFR/1.73 sq M.predicted among blacks MDRD (S/P/Bld) [Vol rate/Area] mL/min/1.73 m2 Normal >=59mL/min/1.7 3 m2 [facility] Chem S GFR/1.73 sq M.predicted among non-blacks MDRD (S/P/Bld) [Vol rate/Area] mL/min/1.73 m2 Normal >=59mL/min/1.7 3 m2 [facility] Chem S Potassium [Moles/Vol] 3.8 mmol/L Normal 3.5 - 5.3 mmol/L [facility]isol Sodium [Moles/Vol] 138 mmol/L Normal 135 - 145 mmol/L [facility] Urea nitrogen [Mass/Vol] 19 mg/dL Normal 5 - 21 mg/dL [facility] 25-HYDROXY VIT D (D2+D3 FRAC ) LC/MS-MSon 06-11-2022 25-Hydroxy, Vitamin D 21 ng/mL Critically low [facility] Comment on above: Result Comment: Refe rence Range: All Ages: Target levels 30 - 100 Performed By: #### L IPID, T7, CMP, TSH #### [facility] [address] [address] [address] Ora Samaniego 25-Hydroxy, Vitamin D-2 <1.0 Normal [facility] Comment on above: Result Comment: This test was developed and its performance characteristics determined by [facility]. It has not been cleared or approved by the Food and Drug Administration. Performed By: #### L IPID, T7, CMP, TSH #### [facility] [address] [place], [place] [address] Dr. Ora Samaniego 25-Hydroxy, Vitamin D-3 21 ng/mL Normal [facility] Comment on above: Result Comment: This test was developed and its performance characteristics determined by [facility]. It has not been cleared or approved by the Food and Drug Administration. Performed By: #### L IPID, T7, CMP, TSH #### [facility] [address] [place] [address] Dr. Ora Samaniego INSULINon 06-06-2022 Insulin 23.2 uIU/mL Normal 2.6-24.9 [facility] Comment on above: Performed By: #### L IPID, T7, CMP, TSH #### [facility] [address] [place] [address] Dr. Ora Samaniego BILIRUBIN CONJUGATED (DIRECT )on 06-04-2022 BILI, CONJUGATED 0.1 mg/dL Normal 0.0-0.2 [facility] Comment on above: Performed By: #### L IPID, T7, CMP, TSH #### [facility] [address] [place] [address] Dr. Ora Samaniego CBC AUTO DIFFon 06-04-2022 BASO # 0.1 103/ul Normal 0.0-0.1 [facility] Comment on above: Performed By: #### L IPID, T7, CMP, TSH #### [facility] [address] [place] [address] Dr. Ora Samaniego Basophils/100 WBC (Bld) 0.7 % Normal 0.2-2.0 [facility] Comment on above: Performed By: #### L IPID, T7, CMP, TSH #### [facility] [address] [place] [address] Dr. Ora Samaniego EO # 0.1 103/ul Normal 0.0-0.7 [facility] Comment on above: Performed By: #### L IPID, T7, CMP, TSH #### [facility] [address] [place] [address] Dr. Ora Samaniego Eosinophils/100 WBC (Bld) 1.4 % Normal 0.9-7.0 [facility] Comment on above: Performed By: #### L IPID, T7, CMP, TSH #### [facility] [address] [place] [address] Dr. Ora Samaniego Erythrocyte distribution width (RBC) [Ratio] 15.8 % Critically high 11.0-15.0 [facility] Comment on above: Performed By: #### L IPID, T7, CMP, TSH #### [facility] [address] [address] [address] Ora Samaniego Hematocrit (Bld) [Volume fraction] 46.3 % Normal 36.0-48.0 [facility] Comment on above: Performed By: #### L IPID, T7, CMP, TSH #### [facility] [address] [place] [address] Dr. Ora Samaniego Hemoglobin (Bld) [Mass/Vol] 14.9 g/dL Normal 12.0-16.0 [facility] Comment on above: Performed By: #### L IPID, T7, CMP, TSH #### [facility] [address] [place] [address] Dr. Ora Samaniego IG # 0.10 10e3/ul Critically high 0.00-0.03 [facility] Comment on above: Performed By: #### L IPID, T7, CMP, TSH #### [facility] [address] [place] [address] Dr. Ora Samaniego IG % 1.1 % Critically high 0.0-0.5 [facility] Comment on above: Performed By: #### L IPID, T7, CMP, TSH #### [facility] [address] [place] [address] Dr. Ora Samaniego LYMPH # 2.4 103/ul Normal 1.2-3.8 [facility] Comment on above: Performed By: #### L IPID, T7, CMP, TSH #### [facility] [address] [place] [address] Dr. Ora Samaniego Lymphocytes/100 WBC (Bld) 26.6 % Normal 20.5-60.0 [facility] Comment on above: Performed By: #### L IPID, T7, CMP, TSH #### [facility] [address] [place] [address] Dr. Ora Samaniego MANUAL DIFF REQ NO Normal [facility] Comment on above: Performed By: #### L IPID, T7, CMP, TSH #### [facility] [address] [place] [address] Dr. Ora Samaniego MCH (RBC) [Entitic mass] 26.6 pg Critically low 26.7-34.0 [facility] Comment on above: Performed By: #### L IPID, T7, CMP, TSH #### [facility] [address] [place] [address] Dr. Ora Samaniego MCHC (RBC) [Mass/Vol] 32.2 g/dL Normal 29.9-35.2 [facility] Comment on above: Performed By: #### L IPID, T7, CMP, TSH #### [facility] [address] [place] [address] Dr. Ora Samaniego MCV (RBC) [Entitic vol] 82.5 fL Normal 81.0-99.0 [facility] Comment on above: Performed By: #### L IPID, T7, CMP, TSH #### [facility] [address] [place] [address] Dr. Ora Samaniego MONO # 0.6 103/ul Normal 0.3-0.8 [facility] Comment on above: Performed By: #### L IPID, T7, CMP, TSH #### [facility] [address] [place] [address] Dr. Ora Samaniego Monocytes/100 WBC (Bld) 6.9 % Normal 1.7-12.0 [facility] Comment on above: Performed By: #### L IPID, T7, CMP, TSH #### [facility] [address] [place] [address] Dr. Ora Samaniego NEUT # 5.6 103/ul Normal 1.4-6.5 [facility] Comment on above: Performed By: #### L IPID, T7, CMP, TSH #### [facility] [address] [place] [address] Dr. Ora Samaniego Neutrophils/100 WBC (Bld) 63.3 % Normal 43.0-75.0 [facility] Comment on above: Performed By: #### L IPID, T7, CMP, TSH #### [facility] [address] [place] [address] Dr. Ora Samaniego Platelet mean volume (Bld) [Entitic vol] 9.4 fL Critically low 9.5-13.5 [facility] Comment on above: Performed By: #### L IPID, T7, CMP, TSH #### [facility] [address] [address] [address] Ora Samaniego PLT 213 103/ul Normal 150-450 [facility] Comment on above: Performed By: #### L IPID, T7, CMP, TSH #### [facility] [address] [address] [address] Ora Samaniego RBC 5.61 106/ul Critically high 4.20-5.40 [facility] Comment on above: Performed By: #### L IPID, T7, CMP, TSH #### [facility] [address] [place] [address] Dr. Ora Samaniego WBC 8.8 103/ul Normal 4.0-11.0 [facility] Comment on above: Performed By: #### L IPID, T7, CMP, TSH #### [facility] [address] [address] [address] Ora Samaniego FREE T3on 06-04-2022 FREE T3 2.87 pg/mlL Normal 2.18-3.98 [facility] Comment on above: Performed By: #### T 4, CMP, TSH, LIPID, FT3 #### [facility] [address] [place] [address] Dr. Ora Samaniego GLYCOHEMOGLOBIN A1Con 2021 ADA RECOMMENDATION SEE BELOW Normal [facility] Comment on above: Result Comment: ADA RECOMMENDED LIMIT 4.0 - 6.0 ADA THERAPEUTIC TARGET < 7.0 ACTION SUGGESTED > 7.0 Performed By: #### L IPID, T7, CMP, TSH #### [facility] [address] [place] [address] Dr. Ora Samaniego Glucose [Mass/Vol] 180 mg/dL Normal [facility] Comment on above: Performed By: #### L IPID, T7, CMP, TSH #### [facility] [address] [place] [address] Dr. Ora Samaniego HbA1c (Bld) [Mass fraction] 7.9 % Critically high 4.5-6.2 [facility] Comment on above: Performed By: #### L IPID, T7, CMP, TSH #### [facility] [address] [address] [address] Ora Samaniego IRONon 06-04-2022 Iron [Mass/Vol] 67.0 ug/dL Normal 50.0-170.0 [facility] Comment on above: Performed By: #### L IPID, T7, CMP, TSH #### [facility] [address] [address] [address] Ora Samaniego LIPID PROFILEon 06-04-2022 CHOL-HDL RATIO NORM SEE BELOW Normal [facility] Comment on above: Result Comment: 3.3 - 4.4 LOW RISK 4.4 - 7.1 AVERAGE RISK 7.1 - 11.0 MODERATE RISK >11.0 HIGH RISK Performed By: #### T 4, CMP, TSH, LIPID, FT3 #### [facility] [address] [address] [address] Ora Samaniego Cholesterol [Mass/Vol] 214 mg/dL Critically high <=200 [facility] Comment on above: Performed By: #### T 4, CMP, TSH, LIPID, FT3 #### [facility] [address] [address] [address] Ora Samaniego Cholesterol in HDL [Mass/Vol] 38 mg/dL Critically low 40-60 [facility] Comment on above: Performed By: #### T 4, CMP, TSH, LIPID, FT3 #### [facility] [address] [address] [address] Ora Samaniego Cholesterol in LDL [Mass/Vol] 110.6 mg/dL Normal [facility] Comment on above: Performed By: #### T 4, CMP, TSH, LIPID, FT3 #### [facility] [address] [place] [address] Dr. Ora Samaniego Cholesterol.total/Chol esterol in HDL [Mass ratio] 5.6 {ratio} Normal [facility] Comment on above: Performed By: #### T 4, CMP, TSH, LIPID, FT3 #### [facility] [address] [address] [address] Ora Samaniego HDL NORMAL > or = 60 mg/dl - LOW CARDIOVASCULAR RISK <40 mg/dl - HIGH CARDIOVASCULAR RISK Normal [facility] Comment on above: Performed By: #### T 4, CMP, TSH, LIPID, FT3 #### [facility] [address] [address] [address] Ora Samaniego LDL CALC NORMAL SEE BELOW Normal [facility] Comment on above: Result Comment: <100 mg/dl OPTIMAL 100 - 129 mg/dl NEAR OR ABOVE OPTIMAL 130 - 159 mg/dl BORDERLINE HIGH 160 - 189 mg/dl HIGH >190 mg/dl VERY HIGH Performed By: #### T 4, CMP, TSH, LIPID, FT3 #### [facility] [address] [address] [address] Ora Samaniego Triglyceride [Mass/Vol] 327 mg/dL Critically high <=150 [facility] Comment on above: Performed By: #### T 4, CMP, TSH, LIPID, FT3 #### [facility] [address] [place] [address] Dr. Ora Samaniego VLDL CALC 65.4 mg/dL Normal [facility] Comment on above: Performed By: #### T 4, CMP, TSH, LIPID, FT3 #### [facility] [address] [place] [address] Dr. Ora Samaniego PROF 14(COMP METB)on 022 Albumin [Mass/Vol] 4.1 g/dL Normal 3.4-5.0 [facility] Comment on above: Performed By: #### T 4, CMP, TSH, LIPID, FT3 #### [facility] [address] [address] [address] Ora Samaniego Albumin/Globulin [Mass ratio] 1.1 {ratio} Normal [facility] Comment on above: Performed By: #### T 4, CMP, TSH, LIPID, FT3 #### [facility] [address] [address] [address] Ora Samaniego ALP [Catalytic activity/Vol] 37 U/L Critically low 46-116 [facility] Comment on above: Performed By: #### T 4, CMP, TSH, LIPID, FT3 #### [facility] [address] [place] [address] Dr. Ora Samaniego ALT [Catalytic activity/Vol] 43 U/L Normal 14-59 [facility] Comment on above: Performed By: #### T 4, CMP, TSH, LIPID, FT3 #### [facility] [address] [place] [address] Dr. Ora Samaniego Anion gap [Moles/Vol] 14.9 mmol/L Normal Th [facility] Comment on above: Performed By: #### T 4, CMP, TSH, LIPID, FT3 #### [facility] [address] [place] [address] Dr. Ora Samaniego AST [Catalytic activity/Vol] 25 U/L Normal 15-37 [facility] Comment on above: Performed By: #### T 4, CMP, TSH, LIPID, FT3 #### [facility] [address] [place] [address] Dr. Ora Samaniego Bilirubin [Mass/Vol] 0.5 mg/dL Normal 0.2-1.0 [facility] Comment on above: Performed By: #### T 4, CMP, TSH, LIPID, FT3 #### [facility] [address] [place] [address] Dr. Ora Samaniego Calcium [Mass/Vol] 9.6 mg/dL Normal 8.5-10.1 [facility] Comment on above: Performed By: #### T 4, CMP, TSH, LIPID, FT3 #### [facility] [address] [place] [address] Dr. Ora Samaniego Chloride [Moles/Vol] 100 mmol/L Normal 98-107 [facility] Comment on above: Performed By: #### T 4, CMP, TSH, LIPID, FT3 #### [facility] [address] [place] [address] Dr. Ora Samaniego CO2 [Moles/Vol] 28.4 mmol/L Normal 21.0-32.0 [facility] Comment on above: Performed By: #### T 4, CMP, TSH, LIPID, FT3 #### [facility] [address] [address] [address] Ora Samaniego Creatinine [Mass/Vol] 0.87 mg/dL Normal 0.55-1.02 [facility] Comment on above: Performed By: #### T 4, CMP, TSH, LIPID, FT3 #### [facility] [address] [place] [address] Dr. Ora Samaniego EGFR-AF SAO TOMEAN >60 Normal >=60 [facility] Comment on above: Performed By: #### T 4, CMP, TSH, LIPID, FT3 #### [facility] [address] [place] [address] Dr. Ora Samaniego EGFR-NON AF SAO TOMEAN >60 Normal >=60 [facility] Comment on above: Performed By: #### T 4, CMP, TSH, LIPID, FT3 #### [facility] [address] [place] [address] Dr. Ora Samaniego Globulin (S) [Mass/Vol] 3.8 g/dL Normal [facility] Comment on above: Performed By: #### T 4, CMP, TSH, LIPID, FT3 #### [facility] [address] [place] [address] Dr. Ora Samaniego Glucose [Mass/Vol] 175 mg/dL Critically high 74-106 [facility] Comment on above: Performed By: #### T 4, CMP, TSH, LIPID, FT3 #### [facility] [address] [place] [address] Dr. Ora Samaniego Potassium [Moles/Vol] 4.3 mmol/L Normal 3.5-5.1 [facility] Comment on above: Performed By: #### T 4, CMP, TSH, LIPID, FT3 #### [facility] [address] [place] [address] Dr. Ora Samaniego Protein [Mass/Vol] 7.9 g/dL Normal 6.4-8.2 [facility] Comment on above: Performed By: #### T 4, CMP, TSH, LIPID, FT3 #### [facility] [address] [address] [address] Ora Sam[place]go Sodium [Moles/Vol] 139 mmol/L Normal 136-145 [facility] Comment on above: Performed By: #### T 4, CMP, TSH, LIPID, FT3 #### [facility] [address] [address] [address] Ora Samaniego Urea nitrogen [Mass/Vol] 19.0 mg/dL Critically high 7.0-18.0 [facility] Comment on above: Performed By: #### T 4, CMP, TSH, LIPID, FT3 #### [facility] [address] [address] [address] Ora Samaniego Urea nitrogen/Creatinine [Mass ratio] 21.8 mg/mg Normal [facility] Comment on above: Performed By: #### T 4, CMP, TSH, LIPID, FT3 #### [facility] [address] [address] [address] Ora Samaniego T4on 06-04-2022 T4 [Mass/Vol] 8.90 ug/dL Normal 4.80-13.90 [facility] Comment on above: Performed By: #### T 4, CMP, TSH, LIPID, FT3 #### [facility] [address] [address] [address] Ora Samaniego TSHon 06-04-2022 TSH 1.631 uIU/mL Normal 0.358-3.740 [facility] Comment on above: Performed By: #### T 4, CMP, TSH, LIPID, FT3 #### [facility] [address] [place] [address] Dr. Ora Samaniego Encounters Encounter Date Encounter Type Care Provider Facility Start: 10-17-2023 End: 10-18-2023 ambulatory AVINASH PARED[place] [place]: 10-17-2023 End: 10-17-2023 Patient encounter procedure SELF REFERRAL [facility] Start: 09-26-2023 End: 09-27-2023 ambulatory SANDRO TABARES Facility:[facility] Start: 09-26-2023 End: 09-26-2023 ambulatory EHSAN MORALES Not Available Start: 08-22-2023 ambulatory Fredy POTTS Facility: [facility] Start: 06-21-2023 ambulatory SANDRO TABARES Facility :[facility] Start: 10-26-2022 End: 10-27-2022 ambulatory AVINASH THORNTON Facility:[facility] Start: 10-17-2022 End: 10-17-2022 Patient encounter procedure SELF REFERRAL [facility] Start: 08-16-2022 End: 08-16-2022 Patient encounter procedure Fredy POTTS [facility] Start: 08-15-2022 End: 08-15-2022 Patient encounter procedure Fredy POTTS [facility] Start: 06-04-2022 End: 06-05-2022 ambulatory AVINASH THORNTON Facility:[facility] Procedures Date Procedure Procedure Detail Performing Clinician Start: 08-11-2021 Colonoscopy Fredy KEZIA Salazar Start: 03-24-2017 Cystoscopy, left retrograde ureteropyelogram, double-J stent Fredy POTTS Start: 06-30-2015 cystoscopy, retrogra de, laser ablation of any stone fragments with removal and restenting of the patient Fredy POTTS Start: 06-29-2015 Removal of stent Fredy POTTS Start: 06-24-2015 Placement of stent Robe CHETAN H/O: hysterectomy Fredy KEZIA E Lithotripsy Fredy POTTS Number of sections (observable entity) Fredy POTTS Comment on above: x3 Immunizations Immunization Date Immunization Notes Care Provider Fa cility 01-01-2021 SARS-CoV-2 (COVID-19 ) mRNA BNT-162b2 vax Fredy POTTS [facility] 12-11-2020 SARS-CoV-2 (COVID-19 ) mRNA BNT-162b2 saimax Fredy POTTS [facility] Payers Date Payer Category Payer Medicare [id number] 1958 Unknown [id number] 1955 Unknown [id number] 2.16.84 [id number] 1955 Unknown [id number] 2.16.84 [id number] 1955 Unknown [id number] 1955 Unknown [id number] 2.16.8 [id number] 1955 Unknown [id number] 2.16.8 [id number] 1955 Unknown [id number] 2.16.8 [id number] Social History Date Type Detail Facility Start: 08-20-2021 End: 08-16-2022 Tobacco smoking status Never smoked tobacco (finding) [facility] Tobacco smoking status Never [facility] Sex Assigned At Female [facility] Functional Status Date Assessment Result Facility 08-16-2022 Functional Status N/A [facility] Evaluation + Plan note 02-27-2023 LaboratoryRadiology Note Date & Type Note Facility 02-27-2023 Evaluation + Plan note Future Scheduled TestsBUN 02/27/23Creatinine 02/27/23Electrolyte Panel 02/27/23Electrolyte Panel 06/21/23XR Abdomen 1 View 02/27/23XR Abdomen 1 View 06/28/23 [facility] Hospital Discharge instructions 08-16-2022 Note Date & Type Note Facility 08-16-2022 Hospital Discharg e instructions Patient Education 08/16/2022 08:55:20 Kidney Stones, [place] Kidney Stones Kidney stones are rock-like masses that form inside of the kidneys. Kidneys are organs that make pee (urine). A kidney stone may move into other parts of the urinary tract, including: The tubes that connect the kidneys to the bladder (ureters). The bladder. The tube that carries urine out of the body (urethra). Kidney stones can cause very bad pain and can block the flow of pee. The stone usually leaves your body (passes) through your pee. You may need to have a doctor take out the stone. What are the causes? Kidney stones may be caused by: A condition in which certain glands make too much parathyroid hormone (primary hyperparathyroidism). A buildup of a type of crystals in the bladder made of a chemical called uric acid. The body makes uric acid when you eat certain foods. Narrowing (stricture) of one or both of the ureters. A kidney blockage that you were born with. Past surgery on the kidney or the ureters, such as gastric bypass surgery. What increases the risk? You are more likely to develop this condition if: You have had a kidney stone in the past. You have a family history of kidney stones. You do not drink enough water. You eat a diet that is high in protein, salt (sodium), or sugar. You are overweight or very overweight (obese). What are the signs or symptoms? Symptoms of a kidney stone may include: Pain in the side of the belly, right below the ribs (flank pain). Pain usually spreads (radiates) to the groin. Needing to pee often or right away (urgently). Pain when going pee (urinating). Blood in your pee (hematuria). Feeling like you may vomit (nauseous). Vomiting. Fever and chills. How is this treated? Treatment depends on the size, location, and makeup of the kidney stones. The stones will often pass out of the body through peeing. You may need to: Drink more fluid to help pass the stone. In some cases, you may be given fluids through an IV tube put into one of your veins at the hospital. Take medicine for pain. Make changes in your diet to help keep kidney stones from coming back. Sometimes, medical procedures are needed to remove a kidney stone. This may involve: A procedure to break up kidney stones using a beam of light (laser) or shock waves. Surgery to remove the kidney stones. Follow these instructions at home: Medicines Take wcyn-bxn-[id number] and prescription medicines only as told by your doctor. Ask your doctor if the medicine prescribed to you requires you to avoid driving or using heavy machinery. Eating and drinking Drink enough fluid to keep your pee pale yellow. You may be told to drink at least 8 10 glasses of water each day. This will help you pass the stone. If told by your doctor, change your diet. This may include: ?Limiting how much salt you eat. ?Eating more fruits and vegetables. ?Limiting how much meat, poultry, fish, and eggs you eat. Follow instructions from your doctor about eating or drinking restrictions. General instructions Collect pee samples as told by your doctor. You may need to collect a pee sample: ?24 hours after a stone comes out. ?8 12 weeks after a stone comes out, and every 6 12 months after that. Strain your pee every time you pee (urinate), for as long as told. Use the strainer that your doctor recommends. Do not throw out the stone. Keep it so that it can be tested by your doctor. Keep all follow-up visits as told by your doctor. This is important. You may need follow-up tests. How is this prevented? To prevent another kidney stone: Drink enough fluid to keep your pee pale yellow. This is the best way to prevent kidney stones. Eat healthy foods. Avoid certain foods as told by your doctor. You may be told to eat less protein. Stay at a healthy weight. Where to find more information National Kidney Foundation (NKF): www.kidney.org U[employer] (UCF): www.urologyhealth.org Contact a doctor if: You have pain that gets worse or does not get better with medicine. Get help right away if: You have a fever or chills. You get very bad pain. You get new pain in your belly (abdomen). You pass out (faint). You cannot pee. Summary Kidney stones are rock-like masses that form inside of the kidneys. Kidney stones can cause very bad pain and can block the flow of pee. The stones will often pass out of the body through peeing. Drink enough fluid to keep your pee pale yellow. This information is not intended to replace advice given to you by your health care provider. Make sure you discuss any questions you have with your health care provider. Document Released: 04/03/2009 Document Revised: 03/03/2020 Document Reviewed: 03/03/2020 [employer] Patient Education 2020 [employer]. Follow Up Care 08/17/2021 13:28:48 With:Fredy POTTS MD, URL Address: [address] [place] [address] [address] [id number]- When: Unknown [facility] Evaluation + Plan note Radiology Note Date & Type Note Facility Evaluation + Plan note Future Appointments Appointment Date:08/16/2022 08:15:00 AM Scheduled Provider:Fredy POTTS MD Location:[facility] Appointment Type:URO Office Visit Future Scheduled TestsXR Abdomen 1 View 07/30/22 [facility] Evaluation + Plan note LaboratoryRadiology Note Date & Type Note Facility Evaluation + Plan note Future Appointments Appointment Date:08/22/2023 08:15:00 AM Scheduled Provider:Fredy POTTS MD Location:[facility] Appointment Type:URO Office Visit Future Scheduled TestsBUN 02/27/23Creatinine 02/27/23Electrolyte Panel 02/27/23XR Abdomen 1 View 02/27/23XR Abdomen 1 View 07/30/22 [facility] Hospital course Narrative Note Date & Type Note Facility Hospital course Narrative No data available for this section [facility] Hospital Discharge instructions Note Date & Type Note Facility Hospital Discharge instructions No data available for this section [facility] Progress note Note Date & Type Note Facility Progress note No data available for this section [facility] Summary Purpose Family History No Family History Records FoundNo Family History Records Found No data available for this section No Family History Records Found Advance Directives No Advanced Directives Records FoundNo Advanced Directives Records FoundNo Advanced Directives Records Found Additional Source Comments Patient Care team informatio n (unrecognized section and content) Personnel Name: AVINASH PAREDES CNP Address: Address: [address] [place] [address] [place], [place] [address] Personnel Name: AVINASH PAREDES CNP Address: Address: [address] [facility], [place] [address]- Personnel Name: AVINASH PAREDES CNP Address: Address: [address] [facility], [place] [address]- Personnel Name: AVINASH PAREDES CNP Address: Address: [address] [facility], [place] [address]- INFORMATION SOURCE (unrecogn ized section and content) DATE CREATED AUTHOR 10/28/2022 [facility] DATE CREATED AUTHOR AUTHOR'S ORGANIZ ATION 09/27/2023 [facility] EPIC DATE CREATED AUTHOR AUTHOR'S ORGANIZ ATION 10/20/2023 [facility] FOR RECORDS PERTAINING TO PATIENTS WHO ARE OR HAVE BEEN ENROLLED IN A CHEMICAL DEPENDENCY/SUBSTANCEABUSE PROGRAM, SOME INFORMATION MAY BE OMITTED. This clinical summary was aggregated from multiple sources. Caution should be exercised in using it in the provision of clinical care. This summary normalizes information from multiple sources, and as a consequence, information in this document may materially change the coding, format and clinical context of patient data. In addition, data may be omitted in some cases. CLINICAL DECISIONS SHOULD BE BASED ON THE PRIMARY CLINICAL RECORDS. [employer] [facility]. provides no warranty or guarantee of the accuracy or completeness of information in this document.
--- NOTE | 2024-01-17 12:49 | XR_ITS ---
The [address] [address] Patient Name: MAXIMILIAN BLAIR MRN: [id number] date: 1955 Sex: F Assigned Patient Location: LAB Current Patient Location: Accession/Order Number: [id number] Exam Date: 01/17/2024 12:55 Report Date: 01/18/2024 06:59 At the request of: AVINASH THORNTON Procedure: XR abdomen 1V EXAMINATION: XR abdomen 1V HISTORY: Kidney Stone N20.0 COMPARISON: XR abdomen 09/30/2023, CT abdomen pelvis 10/13/2023 FINDINGS: KIDNEY/URETER - RIGHT: A few small faint calcifications projecting over the kidney. KIDNEY/URETER - LEFT: A few small faint calcifications projecting over the kidney. PELVIS: No convincing ureteral stones. Stable pelvic calcifications favoring phleboliths. BOWEL: No abnormal dilation or deviation. BONES: No acute abnormality. OTHER: Negative. No abnormal gaseous collections. XR/XR abdomen 1V IMPRESSION: 1. Bilateral nephrolithiasis. Electronically authenticated by: BLANCA MARIE Date: 01/18/2024 06:59
[2024-01-18 04:09] LABS: CA 19-9 24 U/mL (0-35)
== END 2024-01-17 12:32 | disposition home or self-care (01) ==
LOC: LAB 12:34
PROVIDERS: PCP Family Medicine; Visit Provider Nurse Practitioner Family
DX: N20.0 Calculus of kidney (principal); C43.9 Malignant melanoma of skin, unspecified
CPT/HCPCS: 36415; 74018; 86301

== ENCOUNTER 2025-02-13 07:37 | Outpatient (OUT) | payer MEDICARE, OTHER, SELFPAY ==
--- OUTSIDE RECORDS SUMMARY | 2025-02-13 07:45 | XMS_ITS | CCD ---
Author Organization [facility] Care Team Providers Care Multimedia Teacher Name Role Phone AVINASH PAREDES Primary Care Physician [phone] AVINASH THORNTON Admitting Unavailable AVINASH THORNTON Attending Unavailable AVINASH THORNTON Primary Care Unavailable AVINASH THORNTON Consulting Unavailable HILLARY, AVINASH Admitting Unavailable HILLARY, AVINASH Attending Unavailable AVINASH THORNTON Primary Care Unavailable AVINASH THORNTON Consulting Unavailable REFERRAL, SELF Admitting Unavailable REFERRAL, SELF Attending Unavailable REFERRAL, SELF Referring Unavailable AVINASH THORNTON Consulting Unavailable Jennifer Hart Attending Unavailable Fredy POTTS Attending Unavailable Galea, Jennifer Pretty Attending Unavailable SANDRO TABARES Attending Unavailable GalJennifer spain Referring Unavailable Galgrabiel, Jennifer Pretty Admitting Unavailable Jennifer Hart Attending Unavailable Paulette Morales DO Unavailable [phone] Denise Shane MD Primary Care Provider REFERRAL, SELF Referring Unavailable AVINASH THORNTON Consulting Unavailable REFERRAL, SELF Admitting Unavailable REFERRAL, SELF Attending Unavailable Jennifer Hart J Admitting Unavailable GalJennifer spain Attending Unavailable Jennifer Hart Referring Unavailable Paulette Morales DO Unavailable [phone] PAULETTE MORALES Attending Unavailable DENISE SHANE Referring Unavailable PAULETTE MORALES Attending Unavailable PAULETTE MORALES Attending Unavailable Allergies Allergy Classification Reported Allergen(s) Allergy Type Date of Onset Reaction(s) Facility (9 sources) Acetaminophen / oxyCODONE; Translations: [acetaminophen-ox ycodone] Drug Allergy Upset stomach (finding) [facility] (10 sources) Adhesive bandage; Translations: [Adhesive Bandage] Drug allergy Skin irritation (disorder) [facility] (9 sources) catgut sutures; Translations: [catgut sutures] Drug allergy Irritation [facility] (1 source) Acetaminophen / oxyCODONE Drug Allergy [facility] Repository (2 sources) Latex; Translations: [Latex] Propensity to adverse reactions (disorder) [facility] Repository (5 sources) Acetaminophen / oxyCODONE Drug Allergy 3 GI intolerance [facility] (5 sources) Wound Dressing Adhesive Drug Allergy 3 [facility] Healthcare Medications Current Medications Medication Drug Class(es) Dates Sig (Normalized) Sig (Original) allopurinol 300 mg oral tablet (12 sources) Xanthine Oxidase Inhibitor Start: 04-20-2020 take 1 tablet by mouth once daily allopurinol 300 mg Tab 300 mg, Oral, Daily, # 90 tab(s), Refills(s) 3, Pharmacy: [facility]/pharmacy #[id number], 163, cm, 09/26/23 14:05:00 EST, Height/Length Dosing, 98.1, kg, 09/26/23 14:05:00 EST, Weight Dosing Start Date: 09/26/23 Status: Ordered aspirin 81 mg delayed release oral tablet (12 sources) Platelet Aggregation Inhibitor, Nonsteroidal Anti-inflammatory Drug Start: 07-19-2021 take 1 tablet by mouth once daily aspirin 81 mg Oral EC Tab 81 mg = 1 tab(s), Oral, Daily, Refills(s) 0 Start Date: 07/19/21 Status: Ordered take 81 mg by mouth once daily A SPIRIN 81 PO Take 81 mg by mouth once per day. Active empagliflozin 25 mg oral tablet (2 sources) Sodium-Glucose Cotransporter 2 Inhibitor empagliflozin (Jardiance) 25 MG Take by mouth Active ergocalciferol 1.25 mg oral capsule (5 sources) Provitamin D2 Compound Start: 023 take 1 capsule by mouth every week ergocalciferol (Vitamin D2) 1.25 MG (71348 UT) capsule Take 1.25 mg by mouth 1 (one) time per week. 02/01/2023 Active ertugliflozin 15 mg oral tablet (12 sources) Start: 023 End: 025 take 1 tablet by mouth in the morning ertugliflozin (Steglatro) Indications: Type 2 diabetes mellitus without complication, with long-term current use of insulin Take 1 tablet (15 mg) by mouth in the morning. 09/26/2023 01/27/2025 Discontinued Start: 07-19-2021 take 1 tablet by eulogio th once daily in the morning Steglatro 5 mg oral tablet 5 mg = 1 tab(s), Oral, qAM, Refills(s) 0 Start Date: 07/19/21 Status: Ordered hydroCHLOROthiazide 25 mg oral tablet (5 sources) Thiazide Diuretic take 1 tablet by mouth in the morning hydroCHLOROthiazide (HYDRODiuril) 25 MG tablet Take 25 mg by mouth in the morning. Active 3 ml insulin glargine 100 unt/ml pen injector (14 sources) Insulin Analog Start: 2024 insulin glargine (Basaglar KwikPen) 100 UNIT/ML pen Indications: Type 2 diabetes mellitus without complication, with long-term current use of insulin Inject 25 units subcutaneous daily 3 mL 1 01/27/2025 Active Start: 01-27-2025 insulin glargi ne (Basaglar KwikPen) 100 UNIT/ML pen Indications: Type 2 diabetes mellitus without complication, with long-term current use of insulin Inject 25 units subcutaneous daily 3 mL 1 01/27/2025 Active Start: 11-13-2023 End: 01-27-2025 insulin glargine (Basaglar K Jayson) 100 UNIT/ML pen Indications: Type 2 diabetes mellitus without complication, with long-term current use of insulin Inject 22 units subcutaneous daily 3 mL 1 11/13/2023 01/27/2025 Discontinued (Dose adjustment) Start: 07-19-2021 Basaglar KwikP en 100 units/mL subcutaneous solution 38 unit(s), SubCutaneous, Daily, Refills(s) 0 Start Date: 07/19/21 Status: Ordered levothyroxine sodium 0.025 mg oral tablet (12 sources) l-Thyroxine Start: 07-19-2021 take 1 tablet by mouth once daily levothyroxine 25 mcg (0.025 mg) Tab 25 mcg = 1 tab(s), Oral, Daily, Refills(s) 0 Start Date: 07/19/21 Status: Ordered take 1 tablet by mouth in the mo rning levothyroxine (Synthroid, Levoxyl) 25 MCG tablet Take 25 mcg by mouth in the morning. Active metFORMIN hydrochloride 1000 mg oral tablet (12 sources) Biguanide Start: 07-19-2021 take 1 tablet by mouth in the morning metFORMIN (Glucophage) 1000 MG tablet Indications: Type 2 diabetes mellitus without complication, with long-term current use of insulin Take 1 tablet (1,000 mg) by mouth in the morning and 1 tablet (1,000 mg) before bedtime. 09/26/2023 Active Semaglutide, 2 MG/DOSE, (Ozempic, 2 MG/DOSE,) 8 MG/3ML solution pen-injector (5 sources) Start: 04-25-2024 inject 2 mg by subcutaneous injection every week Semaglutide, 2 MG/DOSE, (Ozempic, 2 MG/DOSE,) 8 MG/3ML solution pen-injector Indications: Type 2 diabetes mellitus without complication, with long-term current use of insulin Inject 2 mg under the skin 1 (one) time per week 9 mL 3 04/25/2024 Active Start: 04-25-2024 inject 2 mg by subcu taneous injection every week Semaglutide, 2 MG/DOSE, (Ozempic, 2 MG/DOSE,) 8 MG/3ML solution pen-injector Indications: Type 2 diabetes mellitus without complication, with long-term current use of insulin (CMS/HCC) Inject 2 mg under the skin 1 (one) time per week 9 mL 3 04/25/2024 Active sertraline 50 mg oral tablet (12 sources) Serotonin Reuptake Inhibitor Start: 07-19-2021 End: 01-27-2025 take 1 tablet by mouth once daily Zoloft 50 mg Tab 50 mg = 1 tab(s), Oral, Daily, Refills(s) 0 Start Date: 07/19/21 Status: Ordered simvastatin 20 mg oral tablet (12 sources) HMG-CoA Reductase Inhibitor Start: 07-19-2021 take 1 tablet by mouth once daily at bedtime simvastatin 20 mg Tab 20 mg = 1 tab(s), Oral, Once a day (at bedtime), Refills(s) 0 Start Date: 07/19/21 Status: Ordered tamsulosin hydrochloride 0.4 mg oral capsule (3 sources) alpha-Adrenergic Joy Start: 10-18-2023 take 1 capsule by mouth once daily Flomax 0.4 mg Cap 0.4 mg = 1 cap(s), Oral, Daily, # 10 cap(s), Refills(s) 0, Pharmacy: [facility]/pharmacy #[id number], 163, cm, 09/26/23 14:05:00 EST, Height/Length Dosing, 98.1, kg, 09/26/23 14:05:00 EST, Weight Dosing Start Date: 10/18/23 Status: Ordered triamcinolone acetonide 1 mg/ml topical cream (5 sources) Corticosteroid Start: 03-30-2023 triamcinolone (Kenalog) 0.1 % cream USE ONE APPLICATION EXTERNALLY TWICE A DAY FOR 28 DAYS 03/30/2023 Active Problems Active Problems Problem Classification Problem Date Documented Da te Episodic/Chronic Anxiety disorders (12 sources) Mixed anxiety and depressive disorder; Translations: [Other specified anxiety disorders] Onset: 09-26-2023 07-19-2021 Chronic Deficiency and other anemia (1 source) Anemia, unspecified; Translations: [ANEMIA UNSPECIFIED] Onset: 10-28-2022 Episodic Diabetes mellitus without complication (20 sources) Diabetes mellitus; Translations: [Type 2 diabetes mellitus without complications] Onset: 10-28-2022 Resolved: 09-26-2023 07-19-2021 Chronic Disorders of lipid metabolism (16 sources) Hyperlipidemia; Translations: [Hyperlipidemia, unspecified] Onset: 10-26-2022 07-19-2021 Chronic Nutritional deficiencies (1 source) Vitamin D deficiency, unspecified; Translations: [VITAMIN D DEFICIENCY UNSPECIFIED] Onset: 06-07-2022 Chronic Thyroid disorders (13 sources) Hypothyroidism; Translations: [Hypothyroidism, unspecified] Onset: 06-07-2022 07-19-2021 Chronic Past or Other Problems Problem Classification Problem Date Documented Da te Episodic/Chronic Calculus of urinary tract (14 sources) Kidney stone; Translations: [Calculus of kidney] Onset: 08-16-2022 04-16-2020 Episodic Cancer; other and unspecified primary (12 sources) H/O Malignant melanoma; Translations: [Personal history of malignant melanoma of skin] Onset: 09-26-2023 07-19-2021 Episodic Diabetes mellitus without complication (15 sources) Glycosuria; Translations: [Glycosuria] Onset: 08-16-2022 04-16-2020 Episodic Malaise and fatigue (1 source) Other fatigue; Translations: [OTHER FATIGUE] Onset: 06-07-2022 Episodic Other aftercare (5 sources) Long-term current use of insulin; 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] Onset: 06-12-2018 Resolved: 09-26-2023 09-26-2023 Episodic Other and unspecified benign neoplasm (12 sources) Benign neoplasm of descending colon; Translations: [Benign neoplasm of descending colon] Onset: 09-26-2023 08-20-2021 Episodic Other and unspecified benign neoplasm (12 sources) Hyperplastic polyp of large intestine; Translations: [Polyp of colon] Onset: 09-26-2023 08-20-2021 Episodic Other nutritional; endocrine; and metabolic disorders (12 sources) Body mass index 30+ - obesity; Translations: [Body mass index (BMI) 35.0-35.9, adult] Onset: 09-26-2023 Resolved: 09-26-2023 07-21-2021 Chronic Other nutritional; endocrine; and metabolic disorders (5 sources) Severe obesity; Translations: [Morbid (severe) obesity due to excess calories] Onset: 03-08-2023 Resolved: 09-26-2023 09-26-2023 Chronic Other screening for suspected conditions (not mental disorders or infectious disease) (12 sources) Stool DNA-based colorectal cancer screening positive; Translations: [Other fecal abnormalities] Onset: 09-26-2023 07-21-2021 Episodic Results Test Name Value Interpretation Reference Range Facility HbA1c (Bld) [Mass fraction]o n 01-27-2025 Interpretation and review of laboratory results Normal [facility] - Hematology and Cell countson 01-27-2025 HbA1c (Bld) [Mass fraction] 7.4 % [facility] Mamm Screen w/CAD if perf and 3D Bilon 10-25-2024 [place] Mamm Screen w/CAD if perf and 3D Saleem Exam Date/Time: 10/24/2024 14:05 EST Reason for Exam: Z12.31 Report IMPRESSION: BIRADS 1 NEGATIVE, NORMAL INTERVAL FOLLOW-UP Follow-up: 12 MONTH RECALL Density: There are scattered areas of fibroglandular density. Vascular calcifications: Absent. EXAM: MA Mamm Screen w/CAD if perf and 3D Saleem DATE: 10/24/2024 1:51 PM CLINICAL HISTORY: Z12.31. COMPARISONS: 10/17/2023, 10/17/2022, 10/15/2021, and 10/29/2020. TECHNIQUE: Routine full-field digital mammograms and 3D breast tomosynthesis were obtained of both breasts. FINDINGS: There are no developing densities, suspicious microcalcifications, or areas of architectural distortion identified on the current study. No significant changes are identified from the prior studies, given differences in technique and positioning. Dense Breast: No. CAD analysis was performed and used in the interpretation. Board Certified Radiologists. Accredited by the ACR and FDA. MAMMOGRAPHY IS VERY IMPORTANT TO YOUR HEALTH. THE CURRENT [employer] [place] AND [employer] GUIDELINES RECOMMENDS ANNUAL MAMMOGRAPHY BEGINNING AT AGE 40. THIS FACILITY UTILIZES A REMINDER SYSTEM TO ENSURE ALL PATIENTS RECEIVE REMINDER NOTIFICATIONS AT THE APPROPRIATE TIME BASED ON THE RECOMMENDATIONS OF THIS EXAM. Report Ordering Provider: REFERRAL, SELF FINAL REPORT Dictated: 10/25/2024 2:54 pm Gianni Lyn MD Signed (Electronic Signature): 10/25/2024 2:54 pm Signed by: Gianni Lyn MD Transcribed by: FRANKO Technologist: [facility] Assessment: BI-RADS Category 1-Negative Recommendation: Normal interval follow-up Normal [facility] HbA1c (Bld) [Mass fraction]o n 07-25-2024 Interpretation and review of laboratory results Normal [facility] POCT glycosylated hemoglobin (Hb A1C) docked deviceon 07-25-2024 HbA1c (Bld) [Mass fraction] 7.4 % [facility] Ambulatory Visit Summaryon 0 07-24-2024 Ambulatory Visit Summary Ambulatory Visit Summary ROSSY KERRI L :1955 Visit Date:08/05/2019 Ambulatory Visit Instructions Your Diagnosis Kidney stone Your Care Team Primary Care Physician - AVINASH PAREDES CNP This Is Your Medications List allopurinol (allopurinol 300 mg Tab) aspirin (aspirin 81 mg Oral EC Tab) ertugliflozin (Steglatro 5 mg oral tablet) insulin glargine (Basaglar KwikPen 100 units/mL subcutaneous solution) levothyroxine (levothyroxine 25 mcg (0.025 mg) Tab) metformin (metformin 1000 mg oral tablet) sertraline (Zoloft 50 mg Tab) simvastatin (simvastatin 20 mg Tab) tamsulosin (Flomax 0.4 mg Cap) Procedures Performed Colonoscopy (08/11/2021), Cystoscopy, left retrograde ureteropyelogram, double-J stent (03/24/2017), cystoscopy, retrograde, laser ablation of any stone fragments with removal and restenting of the patient (06/30/2015), Stent removal (06/29/2015), Stent placement (06/24/2015), H/O: hysterectomy, Lithotripsy, Number of sections. Medications What How Much When Instructions Changed allopurinol (allopurinol 300 mg Tab) 300 Milligram By Mouth Every day Changed metformin (metformin 1000 mg oral tablet) 1 Tablets By Mouth 2 times a day Unchanged aspirin (aspirin 81 mg Oral EC Tab) 1 Tablets By Mouth Every day Unchanged ertugliflozin (Steglatro 5 mg oral tablet) 1 Tablets By Mouth Once a day (in the morning) Unchanged insulin glargine (Basaglar KwikPen 100 units/ mL subcutaneous solution) 38 Units Subcutaneous Every day Unchanged levothyroxine (levothyroxine 25 mcg (0.025 mg) Tab) 1 Tablets By Mouth Every day Unchanged sertraline (Zoloft 50 mg Tab) 1 Tablets By Mouth Every day Unchanged simvastatin (simvastatin 20 mg Tab) 1 Tablets By Mouth Once a day (at bedtime) Unchanged tamsulosin (Flomax 0.4 mg Cap) 1 Capsules By Mouth Every day Allergies Adhesive Bandage (Skin irritation) Percocet 5/325 (Upset stomach) catgut sutures (Irritation) Problems Ongoing - Any problem that you are currently receiving treatment for. BMI 35.0-35.9,adult Depression with anxiety Diabetes Glycosuria History of melanoma Hyperlipidemia Hyperplastic colon polyp Hypothyroidism Kidney stone Positive colorectal cancer screening using Cologuard test Tubular adenoma Historical - Any problem that you are no longer receiving treatment for. Diabetes Patient Survey You may receive a survey via text or e-mail asking about your office visit. Please share your experience with us by completing your survey. We appreciate your feedback and thank you for choosing us for your care. Kristina [facility] Reminderson 07-24-2024 Reminders Reminders - From: Vielka Linder To: EU - Administrative; Sent: 07/24/2024 14:47:39 EDT Show up: 05/19/2025 14:47:00 EDT Subject: ONE YR APPT Due Date/Time: 07/21/2025 14:47:00 EDT Reminder/Recall SCHEDULE KERRI HORN IN ONE YEAR AND YURIYAll WITH JENNIFER Campbell [facility] Urology Office/Clinic Noteon 07-24-2024 Urology Office/Clinic Note Urology Office/Clinic Note Chief Complaint 10 mth f/u HPI Staff 69 yr old female here for f/u- stones Dysuria: _no Incomplete bladder emptying: _no Hematuria: _no Frequency: _q3-4hrs Urgency: _no Nocturia: _0-1x Stream: _normal Leaking: _no Post void dripping: _no Wearing pads/ Depends: _no Urge incontinence: _no Stress incontinence: _no Incontinence without Sensory Awareness: _no Abdominal pain: _no Flank pain: _no Sexual complaints: _no History of Present Illness Staff HPI reviewed and agree. Review of Systems PHQ Score Initial Depression Screen Score: 0 SCORE no fever, chills, malaise, myalgia. no rash/lesions. no chest pain, palpitations, or SOB. no abdominal pain, nausea, vomiting. no unilateral calf swelling, redness, pain Physical Exam Vitals & Measurements HR: 110(Peripheral) BP: 148/86 HT: 64 in HT: 163 cm WT: 85.0 kg WT: 187 lb BMI: 31.99 General: nontoxic, well-nourished, appears stated age Mouth: moist mucosa Lungs: normal respiratory effort Cardio: regular rate, good distal perfusion Abdomen: nondistended, no suprapubic distention or tenderness, no CVA tenderness Neurologic: Grossly normal Skin: No rashes or suspicious lesions Assessment/Plan Previous Dr. Potts pt 07/22/24 - BUN 16, Cre 0.6, GFR 97 1. Kidney stone (N20.0: Calculus of kidney) 10/13/23 CT abd/pelvis w/o con - 5mm L lower pole calculi 07/22/24 KUB - phleboliths unchanged 07/22/24 HARINI - no hydronephrosis, calculi or cystic/solid lesions UA today negative for blood or infection Pt denies recent stone episodes. Last stone treatment was in 2017. Pt reports that she completed a metabolic workup in [address] Potts started her on Allopurinol. Pt reports her stones are uric acid (unable to find stone analysis). Pt continues on Allopurinol 300mg PO daily. Discussed repeating a metabolic workup with patient to determine if she still needs allopurinol. Pt reports that she would like to continue this without completing workup. Discussed recent imaging and labs with patient. Pt aware that she has a 5mm stone in her L kidney. Pt denies recent pain or hematuria. Pt knows to call our office if she feels this stone is beginning to move out of the kidney and we can try MET or discuss treatment with MD. Advised pt to increase fluids. -Continue Allopurinol 300mg PO daily, pt reports PCP fills this -Increase fluids -HARINI/KUB & BUN/Cre labs in 1 year Ordered: Body Mass Index (BMI) documented 3008F Current tobacco non-user 1036F Depression Screening Negative 3352F E&M of Est. Patient Moderate 30-39 Min 29904 Influenza immunization status assessed 1030F Medication list documented in medical record 1159F Most recent diastolic blood pressure >=90 mm Hg 3080F Most recent systolic blood pressure >= 140 mm Hg 3077F Patient screen for fall risk: no falls in last year or 1 fall with no injury in last year 1101F Review of all meds by a prescribing practitioner or clinical pharmacist documented in EHR 1160F Urnls Dip Stick Auto w/o Microscopy POC 71491 US Renal XR Abdomen 1 View 2. Glycosuria (R81: Glycosuria) UA Glu >1000mg/dl BBSQ 4 Pt diabetic on insulin & metformin. Pt denies bothersome urination symptoms. Ordered: E&M of Est. Patient Moderate 30-39 Min 77006 Follow-up With When Contact Information Tanner MILNER, Jennifer Pretty, URL Within 1 year Additional Instructions: w/ KUB/HARINI & BUN/Cre Patient Education Kidney Stones, Ggzi-[id number] Total time spent reviewing previous notes/results/bridge crew member al documents, preparing the chart, conducting the encounter with the patient and family, ordering tests/medications, and documenting the encounter was 40 minutes. Problem List/Past Medical History Ongoing BMI 35.0-35.9,adult [...] units/mL subcutaneous solution, 38 unit(s), SubCutaneous, Daily Flomax 0.4 mg Cap, 0.4 mg= 1 cap(s), Oral, Daily levothyroxine 25 mcg (0.025 mg) Tab, 25 mcg= 1 tab(s), Oral, Daily metformin 1000 mg oral tablet, 1000 mg= 1 tab(s), Oral, BID simvastatin 20 mg Tab, 20 mg= 1 tab(s), Oral, Once a day (at bedtime) Steglatro 5 mg oral tablet, 5 mg= 1 tab(s), Oral, qAM Zoloft 50 mg Tab, 50 mg= 1 tab(s), Oral, Daily Allergies Adh (more content not included)... Normal [facility] Comment on above: Result Comment: Elec tronically Signed By: Jennifer Sherwood\.br\Date and Time Signed: 07/24/24 15:02 EDT US Renalon 07-23-2024 US Renal Exam Date/Time: 07/22/2024 09:52 EDT Reason for Exam: kidney stones;Other (please specify) Report IMPRESSION: NEGATIVE ULTRASOUND OF THE KIDNEYS. CLINICAL HISTORY: kidney stones. Asymptomatic. COMPARISON: NONE. Findings: Right kidney measures 11.3 x 5 x 6.3 cm. Left kidney measures 12.8 x 4.1 x 6.8 cm. Both kidneys normal in size, shape, echogenicity, color flow. No hydronephrosis, calculi, cystic/solid lesions, or cortical thinning bilaterally. Ordering Provider: Jennifer Hart FINAL REPORT Dictated: 07/23/2024 4:19 pm Bryan Jaffe MD Signed (Electronic Signature): 07/23/2024 4:19 pm Signed by: Bryan Jaffe MD Transcribed by: FRANKO Technologist: ALLISON Acevedo [facility] XR Abdomen 1 Viewon 07-23-20 XR Abdomen 1 View Exam Date/Time: 07/22/2024 09:53 EDT Reason for Exam: N20.0 Calculus of kidney;Kidney stone Report IMPRESSION: NONSPECIFIC ABDOMEN. CLINICAL HISTORY: Kidney stone, N20.0 Calculus of kidney COMPARISON: KUB, August 15, 2022. FINDINGS: Gas and stool in colon. Gas in small bowel. No diffuse small bowel dilatation. Phleboliths unchanged. Osseous structures intact. Ordering Provider: Jennifer Hart FINAL REPORT Dictated: 07/23/2024 5:16 pm Bryan Jaffe MD Signed (Electronic Signature): 07/23/2024 5:16 pm Signed by: Bryan Jaffe MD Transcribed by: FRANKO Technologist: RENNY Technical Comments Radiation Dose: Ka,r in mGy = na DAP = na Normal [facility] BMPon 07-22-2024 Anion gap [Moles/Vol] 13 mmol/L Normal 6-[address] [facility] Comment on above: Performed By: #### 2 [id number] #### [facility] [address] [place] [address] Calcium [Mass/Vol] 9.7 mg/dL Normal 8.9-11.1 [facility] Comment on above: Performed By: #### 2 [id number] #### [facility] [address] [place] [address] Chloride [Moles/Vol] 101 mmol/L Normal 101-111 [facility] Comment on above: Performed By: #### 2 [id number] #### [facility] [address] [place] [address] CO2 [Moles/Vol] 28 mmol/L Normal 21-31 [facility] Comment on above: Performed By: #### 2 [id number] #### [facility] [address] [place] [address] Creatinine [Mass/Vol] 0.6 mg/dL Normal 0.5-1.[address] [facility] Comment on above: Performed By: #### 2 [id number] #### [facility] [address] [place] [address] Glucose [Mass/Vol] 131 mg/dL Normal 55-199 [facility] Comment on above: Performed By: #### 2 [id number] #### [facility] [address] [place] [address] Potassium [Moles/Vol] 4.3 mmol/L Normal 3.5-5.[address] [facility] Comment on above: Performed By: #### 2 [id number] #### [facility] [address] [place] [address] Sodium [Moles/Vol] 138 mmol/L Normal 135-145 [facility] Comment on above: Performed By: #### 2 [id number] #### [facility] [address] [place] [address] Urea nitrogen [Mass/Vol] 16 mg/dL Normal 5-21 [facility] Comment on above: Performed By: #### 2 [id number] #### [facility] [address] [place] [address] Urea nitrogen/Creatinine [Mass ratio] 27 No Units High 10-20 [facility] Comment on above: Performed By: #### 2 [id number] #### [facility] [address] [place] [address] CHEMISTRYOrdered By: SYSTEM SYSTEM on 07-22-2024 Anion gap [Moles/Vol] 13 mmol/L Normal 6 - 16 mEq/L R emisol Chem Calcium [Mass/Vol] 9.7 mg/dL Normal 8.9 - 11. 1 mg/dL Remisol Chem Chloride [Moles/Vol] 101 mmol/L Normal 101 - 1 11 mmol/L Remisol Chem CO2 [Moles/Vol] 28 mmol/L Normal 21 - 31 mmol/L Remis ol Chem Creatinine [Mass/Vol] 0.6 mg/dL Normal 0.5 - 1.3 mg/dL Remisol Chem eGFR 97 mL/min/1.73 m2 Normal >=59mL/min /1.7 3 m2 Remisol Chem Glucose [Mass/Vol] 131 mg/dL Normal 55 - 199 mg/dL Re misol Chem Potassium [Moles/Vol] 4.3 mmol/L Normal 3.5 - 5.3 mmol/L [facility] Sodium [Moles/Vol] 138 mmol/L Normal 135 - 145 mmol/L [facility] Urea nitrogen [Mass/Vol] 16 mg/dL Normal 5 - 21 mg/dL [facility] Urea nitrogen/Creatinine [Mass ratio] 27 mg/mg High 10 - 20 [facility] eGFRon 07-22-2024 eGFR 97 mL/min/1.73 m2 Normal >=59 [facility] Comment on above: Performed By: #### 1 [id number] #### [facility] [address] [place] [address] MA Mamm Screen w/CAD if perf and [...] VERY IMPORTANT TO YOUR HEALTH. THE CURRENT [place] [employer] N[employer] COMPREHENSIVE CANCER [...] Category 1-Negative Recommendation: Normal interval follow-up Normal [facility] Consent for Treatmenton 09-29 Consent for Treatment [id number] #1.00TIFF Normal [facility] RAD - CT Reporton 10-16-2023 RAD - CT Report [id number] #1.00TIFF Normal [facility] Lab Reportson 10-06-2023 Lab Reports [id number] #1.00TIFF Normal [facility] RAD - MISCon 10-06-2023 RAD - MISC [id number] 1#1.00TIFF Normal [facility] RAD - Ultrasound Reporton RAD - Ultrasound Report [id number] #1.00TIFF Normal [facility] Screenson 09-27-2023 Screens [id number] 1#1.00TIFF Normal [facility] Patient Educationon 09-26-20 Patient Education Urology Kidney [...] these instructions at home: Medicines ? Take hyry-oje-dzxlklg and prescription medicines only as told by [...] provider. Document Revised: 06/20/2022 Document Reviewed: 06/20/2022 [employer] Patient Education ? 2022 [employer] Kristina Campbell [facility] Urology Office/Clinic Noteon 09-26-2023 Urology Office/Clinic Note [...] ago (last litho in our system was 2017). on Allopurinol 300mg qd. no bothersome side effects. refills sent. did not update imaging prior to today's appt. renal function looks good. UA completed in office today shows no microhematuria or signs of infection. -KUB/HARINI ordered today at [facility]. will call pt w results. if [...] E&M of Est. Patient Moderate 30-39 Min 72898 Influenza immunization status assessed 1030F Patient screen for fall risk: no falls in last year or 1 fall with no injury in last year 1101F Urnls Dip Stick Auto w/o Microscopy POC 43664 US Renal XR Abdomen 1 View Orders: allopurinol, 300 mg, Oral, Daily, # 90 tab(s), Refills(s) 3, Pharmacy: [facility]/pharmacy #[id number], 163, cm, 09/26/23 14:05:00 EST, Height/Length Dosing, 98.1, kg, 09/26/23 14:05:00 EST, Weight Dosing Follow-up With When Contact Information RAYSA BROOKE, JACI DOAN Within 1 year Additional Instructions: Patient Education Kidney Stones, [id number] Problem List/Past Medical History Ongoing BMI 35.0-35.9,adult [...] Urine Dipsti (more content not included)... Normal [facility] Comment on above: Result Comment: Elec tronically Signed By: SANDRO TABARES PA-C\.br\Date and Time Signed: 09/26/23 14:50 EST INSULINon 10-27-2022 Insulin 37.5 uIU/mL Critically high 2.6-24.9 [facility] Comment on above: Performed By: #### L IPID, T7, CMP, TSH #### [facility] [address] [address] [address] Ora Samaniego CBC AUTO DIFFon 10-26-2022 BASO # 0.1 103/ul Normal 0.0-0.1 [facility] Comment on above: Performed By: #### L IPID, T7, CMP, TSH #### [facility] [address] [address] [address] Ora Samaniego Basophils/100 WBC (Bld) 0.6 % Normal 0.2-2.0 [facility] Comment on above: Performed By: #### L IPID, T7, CMP, TSH #### [facility] [address] [place] [address] Dr. Ora Samaniego EO # 0.2 103/ul Normal 0.0-0.7 [facility] Comment on above: Performed By: #### L IPID, T7, CMP, TSH #### [facility] [address] [place] [address] Dr. Ora Samaniego Eosinophils/100 WBC (Bld) 1.9 % Normal 0.9-7.0 [facility] Comment on above: Performed By: #### L IPID, T7, CMP, TSH #### [facility] [address] [place] [address] Dr. Ora Samaniego Erythrocyte distribution width (RBC) [Ratio] 15.4 % Critically high 11.0-15.0 [facility] Comment on above: Performed By: #### L IPID, T7, CMP, TSH #### [facility] [address] [place] [address] Dr. Ora Samaniego Hematocrit (Bld) [Volume fraction] 44.9 % Normal 36.0-48.0 [facility] Comment on above: Performed By: #### L IPID, T7, CMP, TSH #### [facility] [address] [place] [address] Dr. Ora Samaniego Hemoglobin (Bld) [Mass/Vol] 14.7 g/dL Normal 12.0-16.0 [facility] Comment on above: Performed By: #### L IPID, T7, CMP, TSH #### [facility] [address] [place] [address] Dr. Ora Samaniego IG # 0.07 10e3/ul Critically high 0.00-0.03 [facility] Comment on above: Performed By: #### L IPID, T7, CMP, TSH #### [facility] [address] [place] [address] Dr. Ora Samaniego IG % 0.8 % Critically high 0.0-0.5 [facility] Comment on above: Performed By: #### L IPID, T7, CMP, TSH #### [facility] [address] [address] [address] Ora Samaniego LYMPH # 2.8 103/ul Normal 1.2-3.8 [facility] Comment on above: Performed By: #### L IPID, T7, CMP, TSH #### [facility] [address] [place] [address] Dr. Ora Samaniego Lymphocytes/100 WBC (Bld) 31.5 % Normal 20.5-60.0 [facility] Comment on above: Performed By: #### L IPID, T7, CMP, TSH #### [facility] [address] [place] [address] Dr. Ora Samaniego MANUAL DIFF REQ NO Normal [facility] Comment on above: Performed By: #### L IPID, T7, CMP, TSH #### [facility] [address] [place] [address] Dr. Ora Samaniego MCH (RBC) [Entitic mass] 26.5 pg Critically low 26.7-34.0 [facility] Comment on above: Performed By: #### L IPID, T7, CMP, TSH #### [facility] [address] [place] [address] Dr. Ora Samaniego MCHC (RBC) [Mass/Vol] 32.7 g/dL Normal 29.9-35.2 [facility] Comment on above: Performed By: #### L IPID, T7, CMP, TSH #### [facility] [address] [place] [address] Dr. Ora Samaniego MCV (RBC) [Entitic vol] 81.0 fL Normal 81.0-99.0 [facility] Comment on above: Performed By: #### L IPID, T7, CMP, TSH #### [facility] [address] [place] [address] Dr. Ora Samaniego MONO # 0.6 103/ul Normal 0.3-0.8 [facility] Comment on above: Performed By: #### L IPID, T7, CMP, TSH #### [facility] [address] [address] [address] Ora Samaniego Monocytes/100 WBC (Bld) 6.3 % Normal 1.7-12.0 [facility] Comment on above: Performed By: #### L IPID, T7, CMP, TSH #### [facility] [address] [address] [address] Ora Samaniego NEUT # 5.2 103/ul Normal 1.4-6.5 [facility] Comment on above: Performed By: #### L IPID, T7, CMP, TSH #### [facility] [address] [place] [address] Dr. Ora Samaniego Neutrophils/100 WBC (Bld) 58.9 % Normal 43.0-75.0 [facility] Comment on above: Performed By: #### L IPID, T7, CMP, TSH #### [facility] [address] [place] [address] Dr. Ora Samaniego Platelet mean volume (Bld) [Entitic vol] 9.5 fL Normal 9.5-13.5 [facility] Comment on above: Performed By: #### L IPID, T7, CMP, TSH #### [facility] [address] [place] [address] Dr. Ora Samaniego PLT 249 103/ul Normal 150-450 [facility] Comment on above: Performed By: #### L IPID, T7, CMP, TSH #### [facility] [address] [place] [address] Dr. Ora Samaniego RBC 5.54 106/ul Critically high 4.20-5.40 [facility] Comment on above: Performed By: #### L IPID, T7, CMP, TSH #### [facility] [address] [place] [address] Dr. Ora Samaniego WBC 8.8 103/ul Normal 4.0-11.0 [facility] Comment on above: Performed By: #### L IPID, T7, CMP, TSH #### [facility] [address] [place] [address] Dr. Ora Samaniego FREE THYROXINE INDEX T7on FTI 2.65 Normal 1.30-4.50 [facility] Comment on above: Performed By: #### L IPID, T7, CMP, TSH #### [facility] [address] [address] [address] Ora Samaniego T3U 34.0 % Normal 30.0-39.0 [facility] Comment on above: Performed By: #### L IPID, T7, CMP, TSH #### [facility] [address] [address] [address] Ora Samaniego T4 [Mass/Vol] 7.80 ug/dL Normal 4.80-13.90 [facility] Comment on above: Performed By: #### L IPID, T7, CMP, TSH #### [facility] [address] [place] [address] Dr. Ora Samaniego GLYCOHEMOGLOBIN A1Con 2021 ADA RECOMMENDATION SEE BELOW Normal [facility] Comment on above: Result Comment: ADA RECOMMENDED LIMIT 4.0 - 6.0 ADA THERAPEUTIC TARGET < 7.0 ACTION SUGGESTED > 7.0 Performed By: #### L IPID, T7, CMP, TSH #### [facility] [address] [address] [address] Ora Samaniego Glucose [Mass/Vol] 148 mg/dL Normal [facility] Comment on above: Performed By: #### L IPID, T7, CMP, TSH #### [facility] [address] [address] [address] Ora Samaniego HbA1c (Bld) [Mass fraction] 6.8 % Critically high 4.5-6.2 [facility] Comment on above: Performed By: #### L IPID, T7, CMP, TSH #### [facility] [address] [address] [address] Ora Samaniego IRONon 10-26-2022 Iron [Mass/Vol] 51.0 ug/dL Normal 50.0-170.0 [facility] Comment on above: Performed By: #### I TEMITOPE #### [facility] [address] [place] [address] Dr. Ora Samaniego LIPID PROFILEon 10-26-2022 CHOL-HDL RATIO NORM SEE BELOW Normal [facility] Comment on above: Result Comment: 3.3 - 4.4 LOW RISK 4.4 - 7.1 AVERAGE RISK 7.1 - 11.0 MODERATE RISK >11.0 HIGH RISK Performed By: #### L IPID, T7, CMP, TSH #### [facility] [address] [address] [address] Ora Samaniego Cholesterol [Mass/Vol] 120 mg/dL Normal <=200 [facility] Comment on above: Performed By: #### L IPID, T7, CMP, TSH #### [facility] [address] [address] [address] Ora Samaniego Cholesterol in HDL [Mass/Vol] 34 mg/dL Critically low 40-60 [facility] Comment on above: Performed By: #### L IPID, T7, CMP, TSH #### [facility] [address] [address] [address] Ora Samaniego Cholesterol in LDL [Mass/Vol] 47.8 mg/dL Normal [facility] Comment on above: Performed By: #### L IPID, T7, CMP, TSH #### [facility] [address] [address] [address] Ora Samaniego Cholesterol.total/Cho lesterol in HDL [Mass ratio] 3.5 {ratio} Normal [facility] Comment on above: Performed By: #### L IPID, T7, CMP, TSH #### [facility] [address] [address] [address] Ora Samaniego HDL NORMAL > or = 60 mg/dl - LOW CARDIOVASCULAR RISK <40 mg/dl - HIGH CARDIOVASCULAR RISK Normal [facility] Comment on above: Performed By: #### L IPID, T7, CMP, TSH #### [facility] [address] [address] [address] Ora Samaniego LDL CALC NORMAL SEE BELOW Normal [facility] Comment on above: Result Comment: <100 mg/dl OPTIMAL 100 - 129 mg/dl NEAR OR ABOVE OPTIMAL 130 - 159 mg/dl BORDERLINE HIGH 160 - 189 mg/dl HIGH >190 mg/dl VERY HIGH Performed By: #### L IPID, T7, CMP, TSH #### [facility] [address] [address] [address] Ora Samaniego Triglyceride [Mass/Vol] 191 mg/dL Critically high <=150 [facility] Comment on above: Performed By: #### L IPID, T7, CMP, TSH #### [facility] [address] [address] [address] Ora Samaniego VLDL CALC 38.2 mg/dL Normal [facility] Comment on above: Performed By: #### L IPID, T7, CMP, TSH #### [facility] [address] [address] [address] Ora Samaniego PROF 14(COMP METB)on 022 Albumin [Mass/Vol] 4.0 g/dL Normal 3.4-5.0 [facility] Comment on above: Performed By: #### L IPID, T7, CMP, TSH #### [facility] [address] [address] [address] Ora Samaniego Albumin/Globulin [Mass ratio] 1.0 {ratio} Normal [facility] Comment on above: Performed By: #### L IPID, T7, CMP, TSH #### [facility] [address] [address] [address] Ora Samaniego ALP [Catalytic activity/Vol] 34 U/L Critically low 46-116 [facility] Comment on above: Performed By: #### L IPID, T7, CMP, TSH #### [facility] [address] [address] [address] Ora Samaniego ALT [Catalytic activity/Vol] 27 U/L Normal 14-59 [facility] Comment on above: Performed By: #### L IPID, T7, CMP, TSH #### [facility] [address] [address] [address] Ora Samaniego Anion gap [Moles/Vol] 16.6 mmol/L Normal [facility] Comment on above: Performed By: #### L IPID, T7, CMP, TSH #### [facility] [address] [address] [address] Ora Samaniego AST [Catalytic activity/Vol] 19 U/L Normal 15-37 [facility] Comment on above: Performed By: #### L IPID, T7, CMP, TSH #### [facility] [address] [place] [address] Dr. Ora Samaniego Bilirubin [Mass/Vol] 0.2 mg/dL Normal 0.2-1.0 [facility] Comment on above: Performed By: #### L IPID, T7, CMP, TSH #### [facility] [address] [address] [address] Ora Samaniego Calcium [Mass/Vol] 9.5 mg/dL Normal 8.5-10.1 [facility] Comment on above: Performed By: #### L IPID, T7, CMP, TSH #### [facility] [address] [place] [address] Dr. Ora Samaniego Chloride [Moles/Vol] 98 mmol/L Normal 98-107 [facility] Comment on above: Performed By: #### L IPID, T7, CMP, TSH #### [facility] [address] [place] [address] Dr. Ora Samaniego CO2 [Moles/Vol] 27.5 mmol/L Normal 21.0-32.0 [facility] Comment on above: Performed By: #### L IPID, T7, CMP, TSH #### [facility] [address] [place] [address] Dr. Ora Samaniego Creatinine [Mass/Vol] 0.81 mg/dL Normal 0.55-1.02 [facility] Comment on above: Performed By: #### L IPID, T7, CMP, TSH #### [facility] [address] [place] [address] Dr. Ora Samaniego EGFR-AF [place] >60 Normal >=60 [facility] Comment on above: Performed By: #### L IPID, T7, CMP, TSH #### [facility] [address] [place] [address] Dr. Ora Samaniego EGFR-NON AF [place] >60 Normal >=60 [facility] Comment on above: Performed By: #### L IPID, T7, CMP, TSH #### [facility] [address] [address] [address] Ora Samaniego Globulin (S) [Mass/Vol] 4.1 g/dL Normal [facility] Comment on above: Performed By: #### L IPID, T7, CMP, TSH #### [facility] [address] [address] [address] Ora Samaniego Glucose [Mass/Vol] 169 mg/dL Critically high 74-106 [facility] Comment on above: Performed By: #### L IPID, T7, CMP, TSH #### [facility] [address] [address] [address] Ora Samaniego Potassium [Moles/Vol] 4.1 mmol/L Normal 3.5-5.1 [facility] Comment on above: Performed By: #### L IPID, T7, CMP, TSH #### [facility] [address] [address] [address] Ora Samaniego Protein [Mass/Vol] 8.1 g/dL Normal 6.4-8.2 [facility] Comment on above: Performed By: #### L IPID, T7, CMP, TSH #### [facility] [address] [place] [address] Dr. Ora Samaniego Sodium [Moles/Vol] 138 mmol/L Normal 136-145 [facility] Comment on above: Performed By: #### L IPID, T7, CMP, TSH #### [facility] [address] [place] [address] Dr. Ora Samaniego Urea nitrogen [Mass/Vol] 19.0 mg/dL Critically high 7.0-18.0 [facility] Comment on above: Performed By: #### L IPID, T7, CMP, TSH #### [facility] [address] [place] [address] Dr. Ora Samaniego Urea nitrogen/Creatinine [Mass ratio] 23.5 mg/mg Normal [facility] Comment on above: Performed By: #### L IPID, T7, CMP, TSH #### [facility] [address] [address] [address] Ora Samaniego TSHon 10-26-2022 TSH 2.769 uIU/mL Normal 0.358-3.740 [facility] Comment on above: Performed By: #### L IPID, T7, CMP, TSH #### [facility] [address] [address] [address] Ora Samaniego CHEMISTRYOrdered By: SYSTEM SYSTEM [...] 25-Hydroxy, Vitamin D 21 ng/mL Critically low [facility] Comment on above: Result Comment: Refe rence Range: All Ages: Target levels 30 - 100 Performed By: #### L IPID, T7, CMP, TSH #### [facility] [address] [address] [address] Oar Samaniego 25-Hydroxy, Vitamin D-2 <1.0 Normal [facility] Comment on above: Result Comment: This test was developed and its performance characteristics determined by [facility]. It has not been cleared or approved by the Food and Drug Administration. Performed By: #### L IPID, T7, CMP, TSH #### [facility] [address] [place] [address] Dr. Ora Samaniego 25-Hydroxy, Vitamin D-3 21 ng/mL Normal [facility] Comment on above: Result Comment: This test was developed and its performance characteristics determined by [facility]. It has not been cleared or approved by the Food and Drug Administration. Performed By: #### L IPID, T7, CMP, TSH #### [facility] [address] [place] [address] Dr. Ora Samaniego INSULINon 06-06-2022 Insulin 23.2 uIU/mL Normal 2.6-24.9 [facility] Comment on above: Performed By: #### L IPID, T7, CMP, TSH #### [facility] [address] [place] [address] Dr. Ora Samaniego BILIRUBIN CONJUGATED (DIRECT )on 06-04-2022 BILI, CONJUGATED 0.1 mg/dL Normal 0.0-0.2 [facility] Comment on above: Performed By: #### L IPID, T7, CMP, TSH #### [facility] [address] [place] [address] Dr. Ora Samaniego CBC AUTO DIFFon 06-04-2022 BASO # 0.1 103/ul Normal 0.0-0.1 [facility] Comment on above: Performed By: #### L IPID, T7, CMP, TSH #### [facility] [address] [place] [address] Dr. Ora Samaniego Basophils/100 WBC (Bld) 0.7 % Normal 0.2-2.0 [facility] Comment on above: Performed By: #### L IPID, T7, CMP, TSH #### [facility] [address] [place] [address] Dr. Ora Samaniego EO # 0.1 103/ul Normal 0.0-0.7 [facility] Comment on above: Performed By: #### L IPID, T7, CMP, TSH #### [facility] [address] [address] [address] Ora Samaniego Eosinophils/100 WBC (Bld) 1.4 % Normal 0.9-7.0 [facility] Comment on above: Performed By: #### L IPID, T7, CMP, TSH #### [facility] [address] [place] [address] Dr. Ora Samaniego Erythrocyte distribution width (RBC) [Ratio] 15.8 % Critically high 11.0-15.0 [facility] Comment on above: Performed By: #### L IPID, T7, CMP, TSH #### [facility] [address] [place] [address] Dr. Ora Samaniego Hematocrit (Bld) [Volume fraction] 46.3 % Normal 36.0-48.0 [facility] Comment on above: Performed By: #### L IPID, T7, CMP, TSH #### [facility] [address] [place] [address] Dr. Ora Samanigeo Hemoglobin (Bld) [Mass/Vol] 14.9 g/dL Normal 12.0-16.0 [facility] Comment on above: Performed By: #### L IPID, T7, CMP, TSH #### [facility] [address] [place] [address] Dr. Ora Samaniego IG # 0.10 10e3/ul Critically high 0.00-0.03 [facility] Comment on above: Performed By: #### L IPID, T7, CMP, TSH #### [facility] [address] [place] [address] Dr. Ora Samaniego IG % 1.1 % Critically high 0.0-0.5 [facility] Comment on above: Performed By: #### L IPID, T7, CMP, TSH #### [facility] [address] [place] [address] Dr. Ora Samaniego LYMPH # 2.4 103/ul Normal 1.2-3.8 [facility] Comment on above: Performed By: #### L IPID, T7, CMP, TSH #### [facility] [address] [place] [address] Dr. Ora Samaniego Lymphocytes/100 WBC (Bld) 26.6 % Normal 20.5-60.0 [facility] Comment on above: Performed By: #### L IPID, T7, CMP, TSH #### [facility] [address] [place] [address] Dr. Ora Samaniego MANUAL DIFF REQ NO Normal [facility] Comment on above: Performed By: #### L IPID, T7, CMP, TSH #### [facility] [address] [place] [address] Dr. Ora Samaniego MCH (RBC) [Entitic mass] 26.6 pg Critically low 26.7-34.0 [facility] Comment on above: Performed By: #### L IPID, T7, CMP, TSH #### [facility] [address] [place] [address] Dr. Ora Samaniego MCHC (RBC) [Mass/Vol] 32.2 g/dL Normal 29.9-35.2 [facility] Comment on above: Performed By: #### L IPID, T7, CMP, TSH #### [facility] [address] [place] [address] Dr. Ora Samaniego MCV (RBC) [Entitic vol] 82.5 fL Normal 81.0-99.0 [facility] Comment on above: Performed By: #### L IPID, T7, CMP, TSH #### [facility] [address] [place] [address] Dr. Ora Samaniego MONO # 0.6 103/ul Normal 0.3-0.8 [facility] Comment on above: Performed By: #### L IPID, T7, CMP, TSH #### [facility] [address] [place] [address] Dr. Ora Samaniego Monocytes/100 WBC (Bld) 6.9 % Normal 1.7-12.0 [facility] Comment on above: Performed By: #### L IPID, T7, CMP, TSH #### [facility] [address] [address] [address] Ora Samaniego NEUT # 5.6 103/ul Normal 1.4-6.5 [facility] Comment on above: Performed By: #### L IPID, T7, CMP, TSH #### [facility] [address] [address] [address] Ora Samaniego Neutrophils/100 WBC (Bld) 63.3 % Normal 43.0-75.0 [facility] Comment on above: Performed By: #### L IPID, T7, CMP, TSH #### [facility] [address] [address] [address] Ora Samaniego Platelet mean volume (Bld) [Entitic vol] 9.4 fL Critically low 9.5-13.5 [facility] Comment on above: Performed By: #### L IPID, T7, CMP, TSH #### [facility] [address] [address] [address] Ora Samaniego PLT 213 103/ul Normal 150-450 [facility] Comment on above: Performed By: #### L IPID, T7, CMP, TSH #### [facility] [address] [address] [address] Ora Samaniego RBC 5.61 106/ul Critically high 4.20-5.40 [facility] Comment on above: Performed By: #### L IPID, T7, CMP, TSH #### [facility] [address] [address] [address] Ora Samaniego WBC 8.8 103/ul Normal 4.0-11.0 [facility] Comment on above: Performed By: #### L IPID, T7, CMP, TSH #### [facility] [address] [address] [address] Ora Samaniego FREE T3on 06-04-2022 FREE T3 2.87 pg/mlL Normal 2.18-3.98 [facility] Comment on above: Performed By: #### T 4, CMP, TSH, LIPID, FT3 #### [facility] [address] [address] [address] Ora Samaniego GLYCOHEMOGLOBIN A1Con 2021 ADA RECOMMENDATION SEE BELOW Normal [facility] Comment on above: Result Comment: ADA RECOMMENDED LIMIT 4.0 - 6.0 ADA THERAPEUTIC TARGET < 7.0 ACTION SUGGESTED > 7.0 Performed By: #### L IPID, T7, CMP, TSH #### [facility] [address] [address] [address] Ora Samaniego Glucose [Mass/Vol] 180 mg/dL Normal [facility] Comment on above: Performed By: #### L IPID, T7, CMP, TSH #### [facility] [address] [address] [address] Ora Samaniego HbA1c (Bld) [Mass fraction] 7.9 % Critically high 4.5-6.2 [facility] Comment on above: Performed By: #### L IPID, T7, CMP, TSH #### [facility] [address] [address] [address] Ora Samaniego IRONon 06-04-2022 Iron [Mass/Vol] 67.0 ug/dL Normal 50.0-170.0 [facility] Comment on above: Performed By: #### L IPID, T7, CMP, TSH #### [facility] [address] [address] [address] Ora Samaniego LIPID PROFILEon 06-04-2022 CHOL-HDL RATIO NORM SEE BELOW Normal [facility] Comment on above: Result Comment: 3.3 - 4.4 LOW RISK 4.4 - 7.1 AVERAGE RISK 7.1 - 11.0 MODERATE RISK >11.0 HIGH RISK Performed By: #### T 4, CMP, TSH, LIPID, FT3 #### [facility] [address] [address] [address] Ora Samaniego Cholesterol [Mass/Vol] 214 mg/dL Critically high <=200 [facility] Comment on above: Performed By: #### T 4, CMP, TSH, LIPID, FT3 #### [facility] [address] [address] [address] Ora Samaniego Cholesterol in HDL [Mass/Vol] 38 mg/dL Critically low 40-60 [facility] Comment on above: Performed By: #### T 4, CMP, TSH, LIPID, FT3 #### [facility] [address] [address] [address] Ora Samaniego Cholesterol in LDL [Mass/Vol] 110.6 mg/dL Normal [facility] Comment on above: Performed By: #### T 4, CMP, TSH, LIPID, FT3 #### [facility] [address] [address] [address] Ora Samaniego Cholesterol.total/Cho lesterol in HDL [Mass ratio] 5.6 {ratio} Normal [facility] Comment on above: Performed By: #### T 4, CMP, TSH, LIPID, FT3 #### [facility] [address] [place] [address] Dr. Ora Samaniego HDL NORMAL > or = 60 mg/dl - LOW CARDIOVASCULAR RISK <40 mg/dl - HIGH CARDIOVASCULAR RISK Normal [facility] Comment on above: Performed By: #### T 4, CMP, TSH, LIPID, FT3 #### [facility] [address] [place] [address] Dr. Ora Samaniego LDL CALC NORMAL SEE BELOW Normal [facility] Comment on above: Result Comment: <100 mg/dl OPTIMAL 100 - 129 mg/dl NEAR OR ABOVE OPTIMAL 130 - 159 mg/dl BORDERLINE HIGH 160 - 189 mg/dl HIGH >190 mg/dl VERY HIGH Performed By: #### T 4, CMP, TSH, LIPID, FT3 #### [facility] [address] [address] [address] Ora Samaniego Triglyceride [Mass/Vol] 327 mg/dL Critically high <=150 [facility] Comment on above: Performed By: #### T 4, CMP, TSH, LIPID, FT3 #### [facility] [address] [place] [address] Dr. Ora Samaniego VLDL CALC 65.4 mg/dL Normal [facility] Comment on above: Performed By: #### T 4, CMP, TSH, LIPID, FT3 #### [facility] [address] [address] [address] Ora Samaniego PROF 14(COMP METB)on 022 Albumin [Mass/Vol] 4.1 g/dL Normal 3.4-5.0 [facility] Comment on above: Performed By: #### T 4, CMP, TSH, LIPID, FT3 #### [facility] [address] [place] [address] Dr. Ora Samaniego Albumin/Globulin [Mass ratio] 1.1 {ratio} Normal [facility] Comment on above: Performed By: #### T 4, CMP, TSH, LIPID, FT3 #### [facility] [address] [place] [address] Dr. Ora Samaniego ALP [Catalytic activity/Vol] 37 U/L Critically low 46-116 [facility] Comment on above: Performed By: #### T 4, CMP, TSH, LIPID, FT3 #### [facility] [address] [place] [address] Dr. Ora Samaniego ALT [Catalytic activity/Vol] 43 U/L Normal 14-59 [facility] Comment on above: Performed By: #### T 4, CMP, TSH, LIPID, FT3 #### [facility] [address] [place] [address] Dr. Ora Samaniego Anion gap [Moles/Vol] 14.9 mmol/L Normal [facility] Comment on above: Performed By: #### T 4, CMP, TSH, LIPID, FT3 #### [facility] [address] [place] [address] Dr. Ora Samaniego AST [Catalytic activity/Vol] 25 U/L Normal 15-37 [facility] Comment on above: Performed By: #### T 4, CMP, TSH, LIPID, FT3 #### [facility] [address] [place] [address] Dr. Ora Samaniego Bilirubin [Mass/Vol] 0.5 mg/dL Normal 0.2-1.0 [facility] Comment on above: Performed By: #### T 4, CMP, TSH, LIPID, FT3 #### [facility] [address] [place] [address] Dr. Ora Samaniego Calcium [Mass/Vol] 9.6 mg/dL Normal 8.5-10.1 [facility] Comment on above: Performed By: #### T 4, CMP, TSH, LIPID, FT3 #### [facility] [address] [address] [address] Ora Samaniego Chloride [Moles/Vol] 100 mmol/L Normal 98-107 [facility] Comment on above: Performed By: #### T 4, CMP, TSH, LIPID, FT3 #### [facility] [address] [place] [address] Dr. Ora Samaniego CO2 [Moles/Vol] 28.4 mmol/L Normal 21.0-32.0 [facility] Comment on above: Performed By: #### T 4, CMP, TSH, LIPID, FT3 #### [facility] [address] [place] [address] Dr. Ora Samaniego Creatinine [Mass/Vol] 0.87 mg/dL Normal 0.55-1.02 [facility] Comment on above: Performed By: #### T 4, CMP, TSH, LIPID, FT3 #### [facility] [address] [place] [address] Dr. Ora Samaniego EGFR-AF [place]LANDER >60 Normal >=60 [facility] Comment on above: Performed By: #### T 4, CMP, TSH, LIPID, FT3 #### [facility] [address] [place] [address] Dr. Ora Samaniego EGFR-NON AF [place]ER >60 Normal >=60 [facility] Comment on above: Performed By: #### T 4, CMP, TSH, LIPID, FT3 #### [facility] [address] [place] [address] Dr. Ora Samaniego Globulin (S) [Mass/Vol] 3.8 g/dL Normal [facility] Comment on above: Performed By: #### T 4, CMP, TSH, LIPID, FT3 #### [facility] [address] [place] [address] Dr. Ora Samaniego Glucose [Mass/Vol] 175 mg/dL Critically high 74-106 [facility] Comment on above: Performed By: #### T 4, CMP, TSH, LIPID, FT3 #### [facility] [address] [place] [address] Dr. Ora Samaniego Potassium [Moles/Vol] 4.3 mmol/L Normal 3.5-5.1 [facility] Comment on above: Performed By: #### T 4, CMP, TSH, LIPID, FT3 #### [facility] [address] [place] [address] Dr. Ora Samaniego Protein [Mass/Vol] 7.9 g/dL Normal 6.4-8.2 [facility] Comment on above: Performed By: #### T 4, CMP, TSH, LIPID, FT3 #### [facility] [address] [place] [address] Dr. Ora Samaniego Sodium [Moles/Vol] 139 mmol/L Normal 136-145 [facility] Comment on above: Performed By: #### T 4, CMP, TSH, LIPID, FT3 #### [facility] [address] [place] [address] Dr. Ora Samaniego Urea nitrogen [Mass/Vol] 19.0 mg/dL Critically high 7.0-18.0 [facility] Comment on above: Performed By: #### T 4, CMP, TSH, LIPID, FT3 #### [facility] [address] [place] [address] Dr. Ora Samaniego Urea nitrogen/Creatinine [Mass ratio] 21.8 mg/mg Normal [facility] Comment on above: Performed By: #### T 4, CMP, TSH, LIPID, FT3 #### [facility] [address] [place] [address] Dr. Ora Samaniego T4on 06-04-2022 T4 [Mass/Vol] 8.90 ug/dL Normal 4.80-13.[address] [facility] Comment on above: Performed By: #### T 4, CMP, TSH, LIPID, FT3 #### [facility] [address] [place] [address] Dr. Ora Samaniego TSHon 06-04-2022 TSH 1.631 uIU/mL Normal 0.358-3.740 [facility] Comment on above: Performed By: #### T 4, CMP, TSH, LIPID, FT3 #### [facility] [address] [place] [address] Dr. Ora Samaniego Vital Signs Date Time Vital Sign Value Performing Clinician Facility 01-27-2025 10:41-0400 Body height 157.5 cm Paulette Petznick DO Work Phone: [facility] 01-27-2025 10:41-0400 Body mass index (BMI) [Ratio] 34.02 kg/m2 Paulette Petznick DO Work Phone: [facility] 01-27-2025 10:41-0400 Body temperature 97.81 [degF] Paulette Petznick DO Work Phone: [facility] 01-27-2025 10:41-0400 Body weight 84.37 kg Paulette Petznick DO Work Phone: [facility] 01-27-2025 10:41-0400 Diastolic blood pressure 68 mm[Hg] Paulette Petznick DO Work Phone: [facility] 01-27-2025 10:41-0400 Heart rate 94 /min Paulette Petznick DO Work Phone: [facility] 01-27-2025 10:41-0400 SaO2% (BldA) [Mass fraction] 99 % Paulette Petznick DO Work Phone: [facility] 01-27-2025 10:41-0400 Systolic blood pressure 112 mm[Hg] Paulette Petznick DO Work Phone: [facility] 07-25-2024 10:11-0400 Body height 157.5 cm Paulette Petznick DO Work Phone: [facility] 07-25-2024 10:110400 Body mass index (BMI) [Ratio] 33.84 kg/m2 Paulette Petznick DO Work Phone: [facility] 07-25-2024 10:11-0400 Body temperature 97.81 [degF] Paulette Petznick DO Work Phone: [facility] 07-25-2024 10:11-0400 Body weight 83.92 kg Paulette Petznick DO Work Phone: [facility] 07-25-2024 10:11-0400 Diastolic blood pressure 68 mm[Hg] Paulette Petznick DO Work Phone: [facility] 07-25-2024 10:11-0400 Heart rate 100 /min Paulette Petznick DO Work Phone: [facility] 07-25-2024 10:11-0400 SaO2% (BldA) [Mass fraction] 94 % Paulette Petznick DO Work Phone: [facility] 07-25-2024 10:11-0400 Systolic blood pressure 122 mm[Hg] Paulette Petznick DO Work Phone: [facility] 07-24-2024 14:26-0400 Blood Pressure Location Jennifer Galea [facility] 07-24-2024 14:26-0400 Diastolic blood pressure 86 mm[Hg] Jennifer Galea [facility] 07-24-2024 14:26-0400 Heart rate 110 /min Jennifer Galea [facility] 07-24-2024 14:26-0400 Systolic blood pressure 148 mm[Hg] Jennifer Galea [facility] Encounters Encounter Date Encounter Type Care Provider Facility Start: 01-27-2025 End: 01-27-2025 Bamboo flowsheet Paulette M Petznick DO Work Phone: [facility] Start: 01-27-2025 End: 01-27-2025 Bamboo flowsheet Paulette M Petznick DO Work Phone: [facility] Start: 01-27-2025 End: 01-27-2025 Office outpatient visit 25 minutes Paulette M Petznick DO Work Phone: [facility] [phone] Comment on above: Type 2 diabetes nick itus without complication, with long-term current use of insulin ([facility]) Start: 01-27-2025 End: 01-27-2025 ambulatory PAULETTE MORALES Not Available Start: 01-24-2025 End: 01-24-2025 Telephone encounter Paulette Morales DO Work Phone: [facility] 230 Comment on above: Appointment Confirma tion Start: 10-24-2024 End: 10-24-2024 ambulatory SELF REFERRAL Facility[place] Start: 10-24-2024 End: 10-24-2024 Patient encounter procedure SELF REFERRAL [facility] Start: 07-25-2024 End: 07-25-2024 Office outpatient visit 25 minutes Paulette Morales DO Work Phone: [facility] [phone] Comment on above: Type 2 diabetes nick itus without complication, with long-term current use of insulin ([facility]) Start: 07-25-2024 End: 07-25-2024 ambulatory PAULETTE MORALES Not Available Start: 07-24-2024 End: 07-24-2024 ambulatory Jennifer J Galea Facility:[facility] Start: 07-24-2024 End: 07-24-2024 Patient encounter procedure Jennifer J Galea [facility] Start: 07-22-2024 ambulatory Jennifer J Galea Facility :[facility] Start: 07-22-2024 End: 07-22-2024 ambulatory Jennifer J Galea Facility:[facility] Start: 07-22-2024 End: 07-22-2024 Patient encounter procedure Jennifer J Galea [facility] Start: 04-25-2024 End: 04-25-2024 ambulatory PAULETTE MORALES Not Available Start: 10-17-2023 End: 10-17-2023 ambulatory SELF REFERRAL Facility:[facility] Start: 10-17-2023 End: 10-17-2023 Patient encounter procedure SELF REFERRAL [facility] Start: 09-26-2023 End: 09-26-2023 ambulatory SANDRO TABARES Facility:[facility] Start: 08-22-2023 ambulatory Fredy POTTS Facility: [facility] Start: 10-26-2022 End: 10-27-2022 ambulatory AVINASH HILLARY Facility: Start: 10-17-2022 End: 10-17-2022 Patient encounter procedure SELF REFERRAL [facility] Start: 08-16-2022 End: 08-16-2022 Patient encounter procedure Fredy POTTS [facility] Start: 08-15-2022 End: 08-15-2022 Patient encounter procedure Fredy POTTS [facility] Start: 06-04-2022 End: 06-05-2022 ambulatory AVINASH HILLARY Facility:[facility] Procedures Date Procedure Procedure Detail Performing Clinician Start: 01-27-2025 Hemoglobin glycosyla bobbi a1c Paulette Ashton Petznick DO Work Phone: Start: 07-25-2024 Hemoglobin glycosyla bobbi a1c Paulette Ashton Petznick DO Work Phone: Start: 08-11-2021 Colonoscopy Paulette benedict DO Work Phone: Start: 08-11-2021 Colonoscopy Fredy Salazar Start: 03-24-2017 Cystoscopy, left retrograde ureteropyelogram, double-J stent Fredy POTTS Start: 06-30-2015 cystoscopy, retrogra de, laser ablation of any stone fragments with removal and restenting of the patient Fredy POTTS Start: 06-29-2015 Removal of stent Fredy POTTS Start: 06-24-2015 Placement of stent Rudy POTTS H/O: hysterectomy Fredy Salazar Lithotripsy Fredy POTTS Number of sections (observable entity) Fredy POTTS Comment on above: x3 Plan of Treatment Date Care Activity Detail Author Start: 08-11-2031 Screening for malign ant neoplasm of colon [facility] Start: 07-29-2025 End: 07-29-2025 Patient encounter procedure 07/29/2025 8:15 AM EDT Office Visit [facility] [address] [place] [id number] Paulette Morales, DO [address] [place] [address] [facility] 230 Start: 07-22-2025 Urine screening for protein Diabetes: Urine Protein Screening [facility] Start: 04-28-2025 Hemoglobin A1c measurement Diabetes: Hemoglobin A1C [facility] Start: 01-27-2025 End: 01-27-[address] [facility] 230 Comment on above: Arrived Start: 01-14-2025 End: 01-14-2025 Patient encounter procedure 01/14/2025 10:30 AM EDT Office Visit [facility] [address] [place] [phone] Paulette Morales, DO [address] [place] [address] [facility] 230 Start: 10-24-2024 Hemoglobin A1c measurement Diabetes: Hemoglobin A1C [facility] Start: 09-14-2024 Pneumococcal Vaccine : 65+ Years (3 of 3 - PPSV23 or PCV20) Pneumococcal Vaccine: 65+ Years (3 of 3 - PPSV23 or PCV20) [facility] Start: 06-30-2024 Influenza vaccination Influenza Vacc ine (#1) [facility] Start: 01-29-2020 Glaucoma screening Diabetes: R etinopathy Screening [facility] Start: 1996 Screening for malign ant neoplasm of breast Mammogram [facility] Start: 02-16-1975 Urine screening for protein Diabetes: Urine Protein Screening [facility] Start: 1955 Medicare Annual Well ness (AWV) Medicare Annual Wellness (AWV) [facility] Start: 1955 Screening for malign ant neoplasm of colon [facility] Immunizations Immunization Date Immunization Notes Care Provider Fa madelainety 04-24-2024 zoster vaccine recombinant Paulette Petznick DO Work Phone: [facility] 02-12-2024 zoster vaccine recombinant Paulette Petznick DO Work Phone: [facility] 10-04-2023 Influenza, Seasonal, Quadrivalent, Adjuvanted Paulette Petznick DO Work Phone: [facility] 10-04-2023 influenza virus vacc ine, unspecified formulation Paulette Petznick DO Work Phone: [facility] 08-24-2022 Influenza, Seasonal, Quadrivalent, Adjuvanted Paulette Petznick DO Work Phone: [facility] 08-24-[address] 12 Years And Older Paulette Petznick DO Work Phone: [facility] 08-16-2021 Influenza, High-dose Seasonal, Quadrivalent, Preservative Free Paulette Petznick DO Work Phone: [facility] 06-16-2021 pneumococcal conjuga te vaccine, 13 valent Paulette Petznick DO Work Phone: [facility] 01-01-2021 SARS-CoV-2 (COVID-19 ) mRNA BNT-162b2 vax DoseMe [facility] 12-11-2020 SARS-CoV-2 (COVID-19 ) mRNA BNT-162b2 Lit Building Directory [facility] 08-19-2020 influenza, injectabl e, quadrivalent, preservative free Paulette Petznick DO Work Phone: [facility] 07-30-2020 influenza, high dose seasonal, preservative-free Paulette Petznick DO Work Phone: [facility] 09-14-2019 pneumococcal polysaccharide vaccine, 23 valent Paulette Petznick DO Work Phone: [facility] 08-21-2019 Influenza, injectabl e, Madin Anabell Canine Kidney, preservative free, quadrivalent Paulette Petznick DO Work Phone: [facility] 08-24-2018 influenza, injectabl e, quadrivalent, preservative free Paulette Petznick DO Work Phone: [facility] 09-28-2017 zoster vaccine, live Paulette Petznick DO Work Phone: [facility] Payers Date Payer Category Payer Private Health Insurance [employer] [id number] 2022 Unknown [employer] [id number] 2022-Present [address] [place] [address] [id number] 2021 Medicare [id number] 1959 Medicare [id number] 1959 Unknown [id number] 1956 Unknown [id number]. 593 1956 Unknown [id number] [id number]. 593 1956 Unknown [id number]. 727 1956 Unknown [id number] [id number]. 727 1956 Unknown [id number] [id number]. 727 1956 Unknown [id number] [id number]. 727 1956 Unknown [id number] [id number]. 727 1956 Unknown [id number] [id number]. 727 1956 Unknown [id number] [id number]. 727 1956 Unknown [id number] [id number]. 1259 1956 Unknown [id number]. 1259 1956 Unknown [id number]. 1259 Social History Date Type Detail Facility Start: 08-20-2021 End: 03-21-2023 Tobacco smoking status Never smoked tobacco (finding) [facility] Tobacco smoking status Never [facility] Start: 04-25-2024 End: 01-27-2025 Sex Assigned At Female [facility] Start: 03-21-2023 Tobacco use and exposure Smokeless tobacco non-user [facility] Start: 07-25-2024 End: 01-27-2025 Alcoholic beverage intake Lifetime non-drinker (finding) [facility] Start: 04-25-2024 End: 01-27-2025 History of Social function [facility] How often to you hav e a drink containing alcohol? Never [facility] Start: 1955 Sex assigned at Not on file [facility] Functional Status Date Assessment Result Facility 07-24-2024 Functional Status N/A [facility] [place] 08-16-2022 Functional Status N/A [facility] [place] Clinical Notes 08-16-2022 to 01-27-2025 Paulette Morales DO - 01/27/2025 12:56 PM EDTAvivien Morales DO - 01/27/2025 10:45 AM EDTTelephone Encounter - Adenike Plasencia - 01/24/2025 2:18 PM EDTLaboratoryRadiologyRadiologyLaboratory Note Date & Type Note Facility 01-27-2025 History of Presen t illness Narrative Associated Problem(s): Type 2 diabetes mellitus without complication, with long-term current use of insulin ([facility]) During the appointment today all pertinent labs, imaging, health maintenance, and glucose readings were reviewed. Encouraged to check blood glucose throughout the day with some fasting and some PP readings. They are to bring their glucose meter/cgm in to all appointments. All of the patients questions, treatment options, and current care plan and goals were discussed. A copy of this along with pertinent instructions were given to the patient at the end of the appointment. The patient voices understanding of all of this and is to call in between appointments if they have any problems or questions. Kerri Horn control is stable overall. , Will increase insulin slightly. , Instructions given today include: Dietary education. Will work on increasing her exercise with the goal of at least 150 min moderate intensity exercise weekly. Images from the original note were not included. Kerri Horn is a 69 y.o. female presents with chief complaint of Diabetes HPI: Diabetes Mellitus Follow-up: Kerri Horn is here for follow-up evaluation of diabetes mellitus. The initial diagnosis of diabetes was made in 2007 Complications include: None She has been checking her blood sugars twice a day. Bg running 140's in the am and 130's after dinner. Last A1c: 7.4 (07/25/24) Eye Exam: 01/28/2018 Current concerns include: BG levels: 120-150 during the day Diet: watching carbs and portion sizes Drinks: water, crystal light Exercise: silver sneakers for 90 mins 3 days a week Hypoglycemia: none SUBJECTIVE: PROBLEM LIST SOCIAL ALLERGIES: Patient Active Problem List Diagnosis Acquired hypothyroidism (CMS/HCC) Type 2 diabetes mellitus without complication, with long-term current use of insulin (CMS/HCC) Benign neoplasm of descending colon Depression with anxiety Glycosuria History of melanoma Hyperlipidemia (CMS/HCC) Hyperplastic colon polyp Kidney stone Positive colorectal cancer screening using Cologuard test Social History Tobacco Use Smoking status: Never Smokeless tobacco: Never Substance Use Topics Alcohol use: Never Drug use: Never Allergies Allergen Reactions Oxycodone-Acetaminophen GI intolerance Wound Dressing Adhesive Other Reaction(s): Skin irritation Synopsis SmartLink 01/27/2025 Antidiabetic medications Empagliflozin Take by mouth (25 MG TABS) Ertugliflozin L-PyroglutamicAc 15 mg Daily PO -Discontinued Insulin Glargine Inject 22 units subcutaneous daily (100 UNIT/ML SOPN) -Discontinued (Dose adjustm) Patient has taken differently: Taking as prescribed as of 01/27/2025 10:48 AM 22 Units Nightly as of 04/25/2024 10:05 AM Insulin Glargine Inject 25 units subcutaneous daily (100 UNIT/ML SOPN) metFORMIN HCl 1,000 mg BID PO Semaglutide 2 mg Weekly SC (8 MG/3ML SOPN) Labs [facility] [place] HEMOGLOBIN A1C/HEMOGLOBIN.TOTAL:MFR:PT:BL D:QN: 7.4 Outpatient prescription Medication marked as long-term Patient-reported The ASCVD Risk score ([place] DK, et al., 2019) failed to calculate for the following reasons: Cannot find a previous HDL lab Cannot find a previous total cholesterol lab REVIEW OF SYMPTOMS: Review of Systems Constitutional: Negative for appetite change, fatigue and unexpected weight change. Eyes: Negative for visual disturbance. Respiratory: Negative for cough, shortness of breath and wheezing. Cardiovascular: Negative for chest pain, palpitations and leg swelling. Neurological: Negative for numbness. Endocrine: Negative for polydipsia, polyphagia and polyuria. OBJECTIVE: 01/27/2025 10:41 AM 07/25/2024 10:11 AM 04/25/2024 9:53 AM Vitals BMI 34.02 kg/m2 33.84 kg/m2 34.93 kg/m2 Systolic 112 122 108 Diastolic 68 68 66 Heart Rate 94 100 96 Temp 97.8 F 97.8 F 97.8 F Height (in) 5' 2 5' 2 5' 2 Weight (lb) 186 185 191 Visit Report Report Report Report Physical Exam Constitutional: General: She is not in acute distress. Appearance: Normal appearance. Cardiovascular: Rate and Rhythm: Normal rate and regular rhythm. Heart sounds: No murmur heard. No friction rub. No gallop. Pulmonary: Breath sounds: Normal breath sounds. No wheezing, rhonchi or rales. Musculoskeletal: General: No swelling. Neurological: Mental Status: She is alert. ASSESSMENT AND PLAN: Problem List Items Addressed This Visit Type 2 diabetes mellitus without complication, with long-term current use of insulin ([facility]) During the appointment today all pertinent labs, imaging, health maintenance, and glucose readings were reviewed. Encouraged to check blood glucose throughout the day with some fasting and some PP readings. They are to bring their glucose meter/cgm in to all appointments. All of the patients questions, treatment options, and current care plan and goals were discussed. A copy of this along with pertinent instructions were given to the patient at the end of the appointment. The patient voices understanding of all of this and is to call in between appointments if they have any problems or questions. Kerri Horn control is stable overall. , Will increase insulin slightly. , Instructions given today include: Dietary education. Will work on increasing her exercise with the goal of at least 150 min moderate intensity exercise weekly. Relevant Medications insulin glargine (Basaglar KwikPen) 100 UNIT/ML pen Other Relevant Orders POCT glycosylated hemoglobin (Hb A1C) docked device (Completed) Follow up in about 6 months (around 07/29/2025) for Recheck. Patient's Medications New Prescriptions No medications on file Previous Medications ALLOPURINOL (ZYLOPRIM) 300 MG TABLET Take 300 mg by mouth in the morning. ASPIRIN 81 PO Take 81 mg by mouth once per day. EMPAGLIFLOZIN (JARDIANCE) 25 MG Take by mouth ERGOCALCIFEROL (VITAMIN D2) 1.25 MG (03675 UT) CAPSULE Take 1.25 mg by mouth 1 (one) time per week. HYDROCHLOROTHIAZIDE (HYDRODIURIL) 25 MG TABLET Take 25 mg by mouth in the morning. LEVOTHYROXINE (SYNTHROID, LEVOXYL) 25 MCG TABLET Take 25 mcg by mouth in the morning. METFORMIN (GLUCOPHAGE) 1000 MG TABLET Take 1 tablet (1,000 mg) by mouth in the morning and 1 tablet (1,000 mg) before bedtime. SEMAGLUTIDE, 2 MG/DOSE, (OZEMPIC, 2 MG/DOSE,) 8 MG/3ML SOLUTION PEN-INJECTOR Inject 2 mg under the skin 1 (one) time per week SIMVASTATIN (ZOCOR) 20 MG TABLET Take 20 mg by mouth at bedtime. TRIAMCINOLONE (KENALOG) 0.1 % CREAM USE ONE APPLICATION EXTERNALLY TWICE A DAY FOR 28 DAYS Modified Medications Modified Medication Previous Medication INSULIN GLARGINE (BASAGLAR KWIKPEN) 100 UNIT/ML PEN insulin glargine (Basaglar KwikPen) 100 UNIT/ML pen Inject 25 units subcutaneous daily Inject 22 units subcutaneous daily Discontinued Medications ERTUGLIFLOZIN (STEGLATRO) Take 1 tablet (15 mg) by mouth in the morning. SERTRALINE (ZOLOFT) 50 MG TABLET Take 50 mg by mouth in the morning. I have reviewed and reconciled the history and medication list with the patient today. documented in this encounter [facility] 01-24-2025 Telephone encounter Note P/c appointment reminder. Pt voiced confirmation [facility] 01-24-2025 Miscellaneous Notes P/c appointment reminder. Pt voiced confirmation documented in this encounter [facility] 07-25-2024 History of Presen t illness Narrative Associated Problem(s): Type 2 diabetes mellitus without complication, with long-term current use of insulin ([facility]) During the appointment today all pertinent labs, imaging, health maintenance, and glucose readings were reviewed. Encouraged to check blood glucose throughout the day with some fasting and some PP readings. They are to bring their glucose meter/cgm in to all appointments. All of the patients questions, treatment options, and current care plan and goals were discussed. A copy of this along with pertinent instructions were given to the patient at the end of the appointment. The patient voices understanding of all of this and is to call in between appointments if they have any problems or questions. Kerri Horn is doing very well and encouraged on this. , Will stay on current medications. Images from the original note were not included. Kerri Horn is a 69 y.o. female presents with chief complaint of Diabetes HPI: Diabetes Mellitus Follow-up: Kerri Horn is here for follow-up evaluation of diabetes mellitus. The initial diagnosis of diabetes was made in 2007 Complications include: None She has been checking her blood sugars twice a day Last A1c: 7.6 on 04/25/2024 Eye Exam: appt next Monday with Zoe doctor Current concerns include: Bg have been higher. She has been going to her grand kids activities over the summer and was eating on the go and eating late. Litglatro is expensive $400 for 3 month supply Asking what foods/fruits are good at breakfast Diet: watching carbs and portion sizes Drinks: water, crystal light, occasional coffee with unsweetened cream Exercise: nothing over the summer months. Has been getting back into silver sneakers for 90 mins 3 days a week Hypoglycemia: none SUBJECTIVE: PROBLEM LIST SOCIAL ALLERGIES: Patient Active Problem List Diagnosis Acquired hypothyroidism (CMS/HCC) Type 2 diabetes mellitus without complication, with long-term current use of insulin (CMS/HCC) Benign neoplasm of descending colon Depression with anxiety Glycosuria History of melanoma Hyperlipidemia (CMS/HCC) Hyperplastic colon polyp Kidney stone Positive colorectal cancer screening using Cologuard test Social History Tobacco Use Smoking status: Never Smokeless tobacco: Never Substance Use Topics Alcohol use: Never Drug use: Never Allergies Allergen Reactions Oxycodone-Acetaminophen GI intolerance Wound Dressing Adhesive Other Reaction(s): Skin irritation Synopsis [facility] 07/25/2024 10:23 Antidiabetic medications Ertugliflozin L-PyroglutamicAc 15 mg Daily PO No sig Insulin Glargine Inject 22 units subcutaneous daily (100 UNIT/ML SOPN) Patient taking differently: 22 Units Nightly as of 04/25/2024 10:05 AM No sig metFORMIN HCl 1,000 mg BID PO No sig Semaglutide 2 mg Weekly SC (8 MG/3ML SOPN) No sig Labs [facility] A1C 7.4 Outpatient prescription Medication marked as long-term Patient taking a medication differently REVIEW OF SYMPTOMS: Review of Systems Constitutional: Negative for appetite change, fatigue and unexpected weight change. Eyes: Negative for visual disturbance. Respiratory: Negative for cough, shortness of breath and wheezing. Cardiovascular: Negative for chest pain, palpitations and leg swelling. Neurological: Negative for numbness. Endocrine: Negative for polydipsia, polyphagia and polyuria. OBJECTIVE: 07/25/2024 10:11 AM 04/25/2024 9:53 AM 09/26/2023 8:24 AM Vitals BMI 33.84 kg/m2 34.93 kg/m2 33.43 kg/m2 Systolic 122 108 122 Diastolic 68 66 74 Heart Rate 100 96 108 Temp 97.8 F 97.8 F 96.2 F Height (in) 5' 2 5' 2 5' 2 Weight (lb) 185 191 182.8 Visit Report Report Report Report Physical Exam Constitutional: General: She is not in acute distress. Appearance: Normal appearance. Cardiovascular: Rate and Rhythm: Normal rate and regular rhythm. Heart sounds: No murmur heard. No friction rub. No gallop. Pulmonary: Breath sounds: Normal breath sounds. No wheezing, rhonchi or rales. Musculoskeletal: General: No swelling. Neurological: Mental Status: She is alert. ASSESSMENT AND PLAN: Problem List Items Addressed This Visit Type 2 diabetes mellitus without complication, with long-term current use of insulin ([facility]) During the appointment today all pertinent labs, imaging, health maintenance, and glucose readings were reviewed. Encouraged to check blood glucose throughout the day with some fasting and some PP readings. They are to bring their glucose meter/cgm in to all appointments. All of the patients questions, treatment options, and current care plan and goals were discussed. A copy of this along with pertinent instructions were given to the patient at the end of the appointment. The patient voices understanding of all of this and is to call in between appointments if they have any problems or questions. Kerri Horn is doing very well and encouraged on this. , Will stay on current medications. Relevant Orders POCT glycosylated hemoglobin (Hb A1C) docked device (Completed) Follow up in about 6 months (around 01/22/2025) for Recheck. Patient's Medications New Prescriptions No medications on file Previous Medications ALLOPURINOL (ZYLOPRIM) 300 MG TABLET Take 300 mg by mouth in the morning. ASPIRIN 81 PO Take 81 mg by mouth once per day. ERGOCALCIFEROL (VITAMIN D2) 1.25 MG (17662 UT) CAPSULE Take 1.25 mg by mouth 1 (one) time per week. ERTUGLIFLOZIN (STEGLATRO) Take 1 tablet (15 mg) by mouth in the morning. HYDROCHLOROTHIAZIDE (HYDRODIURIL) 25 MG TABLET Take 25 mg by mouth in the morning. INSULIN GLARGINE (BASAGLAR KWIKPEN) 100 UNIT/ML PEN Inject 22 units subcutaneous daily LEVOTHYROXINE (SYNTHROID, LEVOXYL) 25 MCG TABLET Take 25 mcg by mouth in the morning. METFORMIN (GLUCOPHAGE) 1000 MG TABLET Take 1 tablet (1,000 mg) by mouth in the morning and 1 tablet (1,000 mg) before bedtime. SEMAGLUTIDE, 2 MG/DOSE, (OZEMPIC, 2 MG/DOSE,) 8 MG/3ML SOLUTION PEN-INJECTOR Inject 2 mg under the skin 1 (one) time per week SERTRALINE (ZOLOFT) 50 MG TABLET Take 50 mg by mouth in the morning. SIMVASTATIN (ZOCOR) 20 MG TABLET Take 20 mg by mouth at bedtime. TRIAMCINOLONE (KENALOG) 0.1 % CREAM USE ONE APPLICATION EXTERNALLY TWICE A DAY FOR 28 DAYS Modified Medications No medications on file Discontinued Medications No medications on file I have reviewed and reconciled the history and medication list with the patient today. documented in this encounter [facility] 07-24-2024 Hospital Discharg e instructions Patient Education 07/24/2024 15:00:41 Kidney Stones, Rodr-og-Zlqz Kidney Stones Kidney stones are rock-like masses [...] pee. The stone usually leaves your body through your pee. A doctor may need to take out the stone. What are the causes? Kidney stones may be caused by: Too much calcium in the body. This may be caused by too much parathyroid hormone in the blood. Uric acid crystals in the bladder. The body makes uric acid when you eat certain foods. Narrowing of one or both of the ureters. A kidney blockage that you were born with. Past surgery on the kidney or the ureters. What increases the risk? You are more likely to develop this condition if: You have had a kidney stone in the past. Other people in your family have had kidney stones. You do not drink enough water. You eat a diet that is high in protein, salt (sodium), or sugar. You are very overweight (obese). What are the signs or symptoms? Symptoms of a kidney stone may include: Pain in the side of the belly, right below the ribs. Pain usually spreads to the groin. Needing to pee often or right away. Pain when peeing. Blood in your pee. Feeling like you may vomit (nauseous). Vomiting. Fever and chills. How is this treated? Treatment depends on the size, location, and makeup of the kidney stones. The stones will often pass out of the body when you pee. You may need to: Drink more fluid to help pass the stone. ?In some cases, you may be given fluids through an IV tube at the hospital. Take medicine for pain. Change your diet to help keep kidney stones from coming back. Sometimes, you may need: A procedure to break up kidney stones using a beam of light (laser) or shock waves. Surgery to remove the kidney stones. Follow these instructions at home: Medicines Take xevm-ksj-ybpgqyd and prescription medicines only as told by your doctor. Ask your doctor if the medicine prescribed to you requires you to avoid driving or using machinery. Eating and drinking Drink enough fluid to keep your pee pale yellow. ?You may be told to drink at least 8 10 glasses of water each day. This will help you pass the stone. If told by your doctor, change your diet. You may be told to: ?Limit how much salt you eat. ?Eat more fruits and vegetables. ?Limit how much meat, poultry, fish, and eggs you eat. Follow instructions from your doctor about what you may eat and drink. General instructions Collect pee samples as told by your doctor. You may need to collect a pee sample: ?24 hours after a stone comes out. ?8 12 weeks after a stone comes out, and every 6 12 months after that. Strain your pee every time you pee. Use the strainer that your doctor recommends. Do not throw out the stone. Keep it so that it can be tested by your doctor. Keep all follow-up visits. You may need X-rays and ultrasounds to make sure the stone has come out. How is this prevented? To prevent another kidney stone: Drink enough fluid to keep your pee pale yellow. This is the best way to prevent kidney stones. Eat healthy foods. Avoid certain foods as told by your doctor. You may be told to eat less protein. Stay at a healthy weight. Where to find more information National Kidney Foundation (NKF): kidney.org Urology Care Foundation (F): urologyhealth.org Contact a doctor if: You have pain that gets worse or does not get better with medicine. Get help right away if: You have a fever or chills. You get very bad pain. You get new pain in your belly. You faint. You cannot pee. This information is not intended to replace advice given to you by your health care provider. Make sure you discuss any questions you have with your health care provider. Document Revised: 06/09/2023 Document Reviewed: 06/09/2023 [employer]guide Patient Education 2023 LoggedIn. Follow Up Care 07/22/2024 09:03:03 With:Tanner MILNER, Jennifer Pretty, URL Address: When:1 year Comments:w/ FLORA/HARINI & BUN/Cre [facility] 07-24-2024 Note Patient Education Urology Kidney Stones Kidney stones [...] pee. The stone usually leaves your body through your pee. A doctor may need to take out the stone. What are the causes? Kidney stones may be caused by: ? Too much calcium in the body. This may be caused by too much parathyroid hormone in the blood. ? Uric acid crystals in the bladder. The body makes uric acid when you eat certain foods. ? Narrowing of one or both of the ureters. ? A kidney blockage that you were born with. ? Past surgery on the kidney or the ureters. What increases the risk? You are more likely to develop this condition if: ? You have had a kidney stone in the past. ? Other people in your family have had kidney stones. ? You do not drink enough water. ? You eat a diet that is high in protein, salt (sodium), or sugar. ? You are very overweight (obese). What are the signs or symptoms? Symptoms of a kidney stone may include: ? Pain in the side of the belly, right below the ribs. Pain usually spreads to the groin. ? Needing to pee often or right away. ? Pain when peeing. ? Blood in your pee. ? Feeling like you may vomit (nauseous). ? Vomiting. ? Fever and chills. How is this treated? Treatment depends on the size, location, and makeup of the kidney stones. The stones will often pass out of the body when you pee. You may need to: ? Drink more fluid to help pass the stone. ? In some cases, you may be given fluids through an IV tube at the hospital. ? Take medicine for pain. ? Change your diet to help keep kidney stones from coming back. Sometimes, you may need: ? A procedure to break up kidney stones using a beam of light (laser) or shock waves. ? Surgery to remove the kidney stones. Follow these instructions at home: Medicines ? Take esnv-nvs-wzfvhcp and prescription medicines only as told by your doctor. ? Ask your doctor if the medicine prescribed to you requires you to avoid driving or using machinery. Eating and drinking ? Drink enough fluid to keep your pee pale yellow. ? You may be told to drink at least 8?10 glasses of water each day. This will help you pass the stone. ? If told by your doctor, change your diet. You may be told to: ? Limit how much salt you eat. ? Eat more fruits and vegetables. ? Limit how much meat, poultry, fish, and eggs you eat. ? Follow instructions from your doctor about what you may eat and drink. General instructions ? Collect pee samples as told by your doctor. You may need to collect a pee sample: ? 24 hours after a stone comes out. ? 8?12 weeks after a stone comes out, and every 6?12 months after that. ? Strain your pee every time you pee. Use the strainer that your doctor recommends. ? Do not throw out the stone. Keep it so that it can be tested by your doctor. ? Keep all follow-up visits. You may need X-rays and ultrasounds to make sure the stone has come out. How is this prevented? To prevent another [...] more information ? National Kidney Foundation (NKF): kidney.org ? Urology Care Foundation (UCF): urologyhealth.org Contact a doctor if: ? You have pain that gets worse or does not get better with medicine. Get help right away if: ? You have a fever or chills. ? You get very bad pain. ? You get new pain in your belly. ? You faint. ? You cannot pee. This information is not intended to replace advice given to you by your health care provider. Make sure you discuss any questions you have with your health care provider. Document Revised: 06/09/2023 Document Reviewed: 06/09/2023 Snapguide Patient Education ? 2023 LoggedIn. [facility] 02-27-2023 Evaluation + Plan note Future Scheduled TestsBUN 02/27/23Creatinine 02/27/23Electrolyte Panel 02/27/23Electrolyte Panel 06/21/23XR Abdomen 1 View 02/27/23XR Abdomen 1 View 06/28/23 [facility] 08-16-2022 Hospital Discharg e instructions Patient Education 08/16/2022 08:55:20 Kidney Stones, Oncv-yd-Dmja Kidney Stones Kidney stones are rock-like masses [...] Follow these instructions at home: Medicines Take oytp-fuc-hiaztkh and prescription medicines only as told by [...] 04/03/2009 Document Revised: 03/03/2020 Document Reviewed: 03/03/2020 Elsevier Patient Education 2019 [employer] Follow Up Care 08/17/2021 13:28:48 With:Fredy POTTS MD, URL Address: [address] [place] [address] [place] [address]- When: Unknown [facility] Evaluation + Plan note Future Appointments Appointment Date:08/16/2022 08:15:00 AM Scheduled Provider:Fredy POTTS MD Location:[facility] Appointment Type:URO Office Visit Future Scheduled TestsXR Abdomen 1 View 07/30/22 [facility] Evaluation + Plan note Future Appointments Appointment Date:08/22/2023 08:15:00 AM Scheduled Provider:Fredy POTTS MD Location:[facility] Appointment Type:URO Office Visit Future Scheduled TestsBUN 02/27/23Creatinine 02/27/23Electrolyte Panel 02/27/23XR Abdomen 1 View 02/27/23XR Abdomen 1 View 07/30/22 [facility] Evaluation + Plan note Future Appointments Appointment Date:07/24/2024 02:30:00 PM Scheduled Provider:Jennifer Sherwood Location:[facility] Appointment Type:URO Office Visit [facility] Evaluation note Diagnosis Type 2 diabetes mellitus without complication, with long-term current use of insulin ([facility]) documented in this encounter [facility] HealthcareEvaluation note* Diagnosis Type 2 diabetes mellitus without complication, with long-term current use of insulin Type 2 diabetes mellitus without complication, with long-term current use of insulin Type 2 diabetes mellitus without complication, with long-term current use of insulin Type 2 diabetes mellitus without complication, with long-term current use of insulin documented in this encounter [facility] HealthcareHospital course Narrative No data available for this section [facility] No data available for this section [facility] No data available for this section [facility] Summary Purpose Family History No Family History Records Found No data available for this section No data available for this section No Family History Records Found No data available for this section No Family History Records Found No data available for this section No Family History Records FoundNo Family History Records Found Advance Directives No Advanced Directives Records FoundNo Advanced Directives Records FoundNo Advanced Directives Records FoundNo Advanced Directives Records FoundNo Advanced Directives Records Found Additional Source Comments Patient Care team informatio n (unrecognized section and content) Multimedia Teacher Relationship Specialty Start Date End Date Paulette Morales DO [address] [place] [address] PCP - ACO Reach 02/28/24 Denise Shane MD [address] [place] [address] PCP - General Family Medicine 07/25/24 Multimedia Teacher Relationship Specialty Start Date End Date Paulette Morales DO [address] [place] [address] PCP - ACO Reach 02/28/24 Denise Shane MD [address] [place] [address] PCP - General Family Medicine 07/25/24 Paulette Morales DO [address] [place] [address] PCP - Medical [employer] 01/28/21 10/29/99 Multimedia Teacher Relationship Specialty Start Date End Date Paulette Morales DO [address] [place] [address] PCP - ACO Reach 02/28/24 Denise Shane MD [address] [facility] [place] [address] PCP - General Family Medicine 07/25/24 Paulette Morales, [address] [place] [address] PCP - Medical [employer] 01/28/21 10/29/99 Multimedia Teacher Relationship Specialty Start Date End Date Paulette Morales DO [address] [place] [address] PCP - ACO Reach 02/28/24 Denise Shane MD [address] [facility] [place] [address] PCP - General Family Medicine 07/25/24 Paulette Morales DO [address] [place] [address] PCP - Medical [employer] 01/28/21 10/29/99 INFORMATION SOURCE (unrecogn ized section and content) DATE CREATED AUTHOR 10/28/2022 [facility] DATE CREATED AUTHOR AUTHOR'S ORGANIZ ATION 07/24/2024 [facility] DATE CREATED AUTHOR AUTHOR'S ORGANIZ ATION 07/26/2024 [facility] DATE CREATED AUTHOR AUTHOR'S ORGANIZ ATION 11/09/2024 [facility] DATE CREATED AUTHOR AUTHOR'S ORGANIZ ATION 01/28/2025 [facility] EPIC Reason for Visit (unrecogniz ed section and content) Reason Comments Diabetes Reason Onset Date Comments Appointment Confirmation 01/24/2025 FOR RECORDS PERTAINING TO PATIENTS WHO ARE [...] BE BASED ON THE PRIMARY CLINICAL RECORDS. [facility]. provides no warranty or guarantee of the accuracy or completeness of information in this document.
[2025-02-13 08:14] LABS: Basophils Absolute Auto 0.1 10^3/uL (0.0-0.1); Basophils Percent Auto 0.6 % (0.2-2.0); Eosinophils Absolute Auto 0.1 10^3/uL (0.0-0.7); Eosinophils Percent Auto 1.3 % (0.9-7.0); Hematocrit 44.9 % (36.0-48.0); Hemoglobin 14.5 g/dL (12.0-16.0); Immature Granulocytes Abs Auto 0.04 10^3/uL (0.00-0.03); Immature Granulocytes Pct Auto 0.5 % (0.0-0.5); Lymphocytes Absolute Auto 2.5 10^3/uL (1.2-3.8); Lymphocytes Percent Auto 30.2 % (20.5-60.0); Mean Corpuscular HGB Conc 32.3 g/dL (29.9-35.2); Mean Corpuscular Volume 83.6 fL (81.0-99.0); Mean Platelet Volume 9.7 fL (9.5-13.5); Monocytes Absolute Auto 0.5 10^3/uL (0.3-0.8); Monocytes Percent Auto 5.6 % (1.7-12.0); Neutrophils Absolute Auto 5.2 10^3/uL (1.4-6.5); Neutrophils Percent Auto 61.8 % (43.0-75.0); Platelet Count 194 10^3/uL (150-450); Red Blood Count 5.37 10^6/uL (4.20-5.40); Red Cell Distribution Width 15.1 % (11.0-15.0); White Blood Count 8.4 10^3/uL (4.0-11.0)
[2025-02-13 09:44] LABS: Estimated Average Glucose 177 mg/dL; Glycohemoglobin A1C 7.8 % (4.5-6.2)
[2025-02-13 09:58] LABS: Alanine Aminotransferase 30 U/L (14-59); Albumin Level 3.8 g/dL (3.4-5.0); Alkaline Phosphatase 39 U/L (46-116); Anion Gap 13.5; Aspartate Amino Transferase 26 U/L (15-37); BUN Creatinine Ratio 27.8; Bilirubin Total 0.3 mg/dL (0.2-1.0); Calcium 9.4 mg/dL (8.5-10.1); Carbon Dioxide 28.7 mmol/L (21.0-32.0); Chloride 102 mmol/L (98-107); Chol HDL Ratio 3.1; Cholesterol 136 mg/dL (<=200); Estimated GFR (African America >60 (>=60 mL/min/1.73m^2); Estimated GFR (Non-African Ame >60 (>=60 mL/min/1.73m^2); Free T3 2.41 pg/mL (2.18-3.98); Globulin 3.7 g/dL; Glucose 147 mg/dL (74-106); HDL Cholesterol 44 mg/dL (40-60); Potassium 4.2 mmol/L (3.5-5.1); Sodium 140 mmol/L (136-145); Thyroid Stimulating Hormone 3.814 uIU/mL (0.358-3.740); Total Protein 7.5 g/dL (6.4-8.2); Triglycerides 165 mg/dL (<=150)
[2025-02-14 04:27] LABS: Insulin 18.1 uIU/mL (2.6-24.9)
== END 2025-02-13 07:38 | disposition home or self-care (01) ==
LOC: RAD 07:38
PROVIDERS: PCP Family Medicine; Visit Provider Nurse Practitioner Family
DX: E03.9 Hypothyroidism, unspecified (principal); M81.0 Age-related osteoporosis without current pathological fracture
CPT/HCPCS: 36415; 77080; 80053; 80061; 82306; 83036; 83525; 83540; 84436; 84443; 84481; 85025

== ENCOUNTER 2025-05-04 03:35 | Inpatient (IN) | payer MEDICARE, OTHER, SELFPAY ==
--- OUTSIDE RECORDS SUMMARY | 2025-02-13 08:56 | XMS_ITS ---
Author Organization [facility] in [place] Address [address] [place] [address] Care Team Providers Care Managing Consultant Name Role Phone Lisset Alvarez Primary Care Provider REASON FOR VISIT labs Encounters Encounter Location Date Provider Diagnosis [facility] [address] [place] [address] 02/13/2025 Lisset Alvarez Plan Of Treatment No Information Progress Notes * Kerri HORN LDOB:[birth year] (69 yo F)Acc No.[id number]:02/13/2025 Patient: Poli WOOD Kerri Garrido :1955 A ge:69 Y S ex:Female Address:[facility] [place], [address] * true * Date: Generated for Printi ng/Faxing/eTransmitting on: 0 05/04/2025 03:40 AM EDT
--- OUTSIDE RECORDS SUMMARY | 2025-02-24 10:54 | XMS_ITS ---
Author Organization [facility] in [place] Address [address] [place] [address] Care Team Providers Care Operation Supervisor Name Role Phone Lisset Alvarez Primary Care Provider REASON FOR VISIT dexa results Medications Medication SIG (Take, Route, Fr equency, Duration) Notes Start Date End Date Status Calcium 500 MG 1 tablet with meals Orally Twice a day for 30 day(s) 02/24/2025 Active Encounters Encounter Location Date Provider Diagnosis [address] [address] 02/24/2025 Lisset Alvarez Plan Of Treatment Medication Medication Name Sig Start Date Stop Date Notes Calcium 500 MG 1 tablet with meals Orally Twice a day for 30 day(s) 02/24/2025 Progress Notes * Kerri HORN LDOB:[birth year] (70 yo F)Acc No.[id number]:02/24/2025 Patient: Jani ESPINALulysses Garrido :1955 A ge:70 Y S ex:Female Address:[address], [place], [address] * Refills Start Calcium Tablet, 500 MG, Orally, 60, 1 tablet with meals, Twice a day, 30 day(s) * true * Date: Generated for Nico strauss/Marquez/eTwansmitting on: 0 05/04/2025 03:40 AM EDT
--- OUTSIDE RECORDS SUMMARY | 2025-02-24 10:54 | XMS_ITS ---
Author Organization The [facility] in [place] Address [address] [address] Care Team Providers Care Web Site Project Manager Name Role Phone Lisset Alvarez Primary Care Provider REASON FOR VISIT dexa results Medications Medication SIG (Take, Route, Fr equency, Duration) Notes Start Date End Date Status Calcium 500 MG 1 tablet with meals Orally Twice a day for 30 day(s) 02/24/2025 Active Encounters Encounter Location Date Provider Diagnosis [facility] [address] [place] [address] 02/24/2025 Lisset Alvarez Plan Of Treatment Medication Medication Name Sig Start Date Stop Date Notes Calcium 500 MG 1 tablet with meals Orally Twice a day for 30 day(s) 02/24/2025 Next Appt Details Provider Name:Lisset kebede, 05/13/2025 09:30:00 AM, [address] [place], [address], Progress Notes * Kerri HORN LDOB:[birth year] (70 yo F)Acc No.[id number]:02/24/2025 Patient: Poli WOOD Kerri Garrido :1955 A ge:70 Y S ex:Female Address:[place], [address] * Refills Start Calcium Tablet, 500 MG, Orally, 60, 1 tablet with meals, Twice a day, 30 day(s) * true * Date: Generated for Printi ng/Faxing/eTransmitting on: 0 05/07/2025 09:23 AM EDT
--- OUTSIDE RECORDS SUMMARY | 2025-03-12 11:14 | XMS_ITS ---
Author Organization [facility] in [place] Address [address] [place] [address] Care Team Providers Care Marketing Copywriter Name Role Phone Lisset Alvarez Primary Care Provider [phone] REASON FOR VISIT CGM Medications Medication SIG (Take, Route, Frequency, Duration) Notes Start Date End Date Status FreeStyle Halima 3 Sensor - Use to test b lood sugar, change as directed- DX: E11.9 03/13/2025 Active FreeStyle Halima 3 [place] use as directed to test blood sugar- DX: E11.9 03/13/2025 Active Encounters Encounter Location Date Provider Diagnosis [place] [address] [place] [address] 03/12/2025 Lisset Alvarez Plan Of Treatment Medication Medication Name Sig Start Date Stop Date Notes FreeStyle Halima 3 Sensor - Use to test b lood sugar, change as directed- DX: E11.9 03/13/2025 FreeStyle Halima 3 [place] use as directed to test blood sugar- DX: E11.9 03/13/2025 Progress Notes * Kerri HORN LDOB:[birth year] (70 yo F)Acc No.[id number]:03/12/2025 Patient: Jani ESPINALulysses Garrido :1955 A ge:70 Y S ex:Female Address:[address], [place], [address] * Refills Start FreeStyle Halima 3 [place] Device, 1, use as directed to test blood sugar- DX: E11.9, Refills=0 Start FreeStyle Halima 3 Sensor Miscellaneous, -, 6 Each, Use to test blood sugar, change as directed- DX: E11.9, Refills=3 Subjective: * Chief Complaints: * C GM * Medical History: * Surgical History: * Hospitalization/Major Diagno stic Procedure: * Medications: Objective: * Vitals: * Physical Examination: Assessment: Plan: * Treatment: * Procedure Codes: * true * Date: Generated for Nico strauss/Marquez/[place] on: 0 05/04/2025 03:40 AM EDT
--- OUTSIDE RECORDS SUMMARY | 2025-03-12 11:14 | XMS_ITS ---
Author Organization [facility] in [place] Address [address] [place] [address] Care Team Providers Care Director Prison Name Role Phone Lisset Alvarez Primary Care Provider REASON FOR VISIT CGM Medications Medication SIG (Take, Route, Frequency, Duration) Notes Start Date End Date Status FreeStyle Halima 3 Sensor - Use to test b lood sugar, change as directed- DX: E11.9 03/13/2025 Active FreeStyle Halima 3 [place] use as directed to test blood sugar- DX: E11.9 03/13/2025 Active Encounters Encounter Location Date Provider Diagnosis [facility] [address] [place] [address] 03/12/2025 Lisset Alvarez Plan Of Treatment Medication Medication Name Sig Start Date Stop Date Notes FreeStyle Halima 3 Sensor - Use to test b lood sugar, change as directed- DX: E11.9 03/13/2025 FreeStyle Halima 3 [place] use as directed to test blood sugar- DX: E11.9 03/13/2025 Next Appt Details Provider Name:Lisset kebede, 05/13/2025 09:30:00 AM, [address] [place], [address], Progress Notes * Kerri HORN LDOB:[birth year] (70 yo F)Acc No.[id number]:03/12/2025 Patient: Poli WOOD Kerri Garrido :1955 A ge:70 Y S ex:Female Address:[address] [place] [address] [address], [place], [address] * Refills Start FreeStyle Hailma 3 [place] Device, 1, use as directed to test [...] * true * Date: Generated for Nico strauss/Marquez/[place] on: 0 05/07/2025 09:22 AM EDT
[2025-05-04] VITALS (8 sets, daily range): BP systolic 111–170; BP diastolic 70–92; PULSE 87–110; TEMP 36.5–37; O2SAT 90–98; BMI 32.2; BMI 33.9
--- OUTSIDE RECORDS SUMMARY | 2025-05-04 03:40 | XMS_ITS | Clinical Summary ---
Author Organization [facility] Address [address] [place] [address] Care Team Providers Care Chief Of Planning Name Role Phone Paulette Hurd DO Unavailable [phone] Chandler Shane MD Primary Care Provider +- Paulette Hurd DO Unavailable [phone] Allergies Active Allergy Reactions Criticality Noted Date Comments Oxycodone-Acetaminophen GI intolerance 09/26/20 23 Wound Dressing Adhesive 09/26/2023 Other Reaction(s): Skin irritation Medications allopurinol (Zyloprim) 300 MG tablet Take 300 mg by mouth in the morning. Active ASPIRIN 81 PO Take 81 mg by mouth once per day. Active hydroCHLOROthia zide (HYDRODiuril) 25 MG tablet Take 25 mg by mouth in the morning. Active levothyroxine (Synthroid, Levoxyl) 25 MCG tablet Take 25 mcg by mouth in the morning. Active simvastatin (Zocor) 20 MG tablet Take 20 mg by mouth at bedtime. Active ergocalciferol (Vitamin D2) 1.25 MG (77011 UT) capsule Take 1.25 mg by mouth 1 (one) time per week. 3 Active triamcinolone (Kenalog) 0.1 % cream USE ONE APPLICATION EXTERNALLY TWICE A DAY FOR 28 DAYS 3 Active metFORMIN (Glucophage) 1000 MG tabletIndicatio ns:Type 2 diabetes mellitus without complication, with long-term current use of insulin (HCC) Take 1 tablet (1,000 mg) by mouth in the morning and 1 tablet (1,000 mg) before bedtime. 3 Active Semaglutide, 2 MG/DOSE, (Ozempic, 2 MG/DOSE,) 8 MG/3ML solution pen-injectorInd ications:Type 2 diabetes mellitus without complication, with long-term current use of insulin (HCC) Inject 2 mg under the skin 1 (one) time per week 9 mL 3 4 Active empagliflozin (Jardiance) 25 MG Take by mouth Active insulin glargine (Basaglar KwikPen) 100 UNIT/ML penIndications: Type 2 diabetes mellitus without complication, with long-term current use of insulin (HCC) Inject 25 units subcutaneous daily 3 mL 1 5 Active Active Problems Problem Noted Date Diagnosed Date Benign neoplasm of descending colon 09/26/2023 Depression with anxiety 09/26/2023 Glycosuria 09/26/2023 History of melanoma 09/26/2023 Hyperlipidemia 09/26/2023 Hyperplastic colon polyp 09/26/2023 Kidney stone 09/26/2023 Positive colorectal cancer screening using Colog uard test 09/26/2023 Acquired hypothyroidism 03/08/2023 Type 2 diabetes mellitus wit hout complication, with long-term current use of insulin 03/08/2023 Assessment & Plan (01/27/2025 12:56 PM EDT): During the appointment today all pertinent labs, [...] they have any problems or questions. Kerri Honr control is stable overall. , Will increase insulin slightly. , Instructions given today include: Dietary education. Will work on increasing her exercise with the goal of at least 150 min moderate intensity exercise weekly. Assessment & Plan (07/25/2024 11:54 AM EDT): During the appointment today all pertinent labs, [...] this. , Will stay on current medications. Assessment & Plan (04/25/2024 7:26 PM EDT): During the appointment today all pertinent labs, [...] have any problems or questions. Kerri Horn blood sugars are worsening. , Discussed dietary changes at length. Encouraged to limit simple carbs and focus more on healthy protein/fat with all meals and snacks. They should also avoid any sugary drinks. , Instructions given today include: Dietary education. Will increase ozempic. She is working on getting back on track with lifestyle. Assessment & Plan (09/26/2023 8:48 AM EST): During the appointment today all pertinent labs, [...] this. , Will stay on current medications. Resolved Problems Problem Noted Date Diagnosed Date Resolved Date BMI 35.0-35.9,adult 09/26/2023 09/26/20 Diabetes 09/26/2023 09/26/2023 Severe obesity (BMI 35.0-39. 9) with comorbidity 03/08/2023 09/26/2023 long-term current use of insulin 06/12/2018 09/26/2023 Encounters Date Type Department Care Team Description 02/10/2025 Telephone [facility] [address] [place] [address] Paulette Hurd, DO A1C from Last 3 Months Immunizations Immunization Administration Dates Next Due Influenza, High Dose Seasonal, Preservative Free 07/30/2020 Influenza, High-dose Seasona l, Quadrivalent, Preservative Free 08/16/2021 Influenza, Seasonal, Quadrivalent, Adjuvanted ,08/24/2022 Influenza, injectable, MDCK, preservative free, quadrivalent 08/21/2019 Influenza, injectable, quadrivalent, preservativ e free 08/19/2020,08/24/2018 Pfizer Bivalent Booster 12 Years And Older 08/24 Pneumococcal Conjugate PCV 13 06/16/2021 Pneumococcal Polysaccharide PPSV23 09/14/2019 Zoster, Recombinant 04/24/2024,02/12/2024 Zoster, live 09/28/2017 Family History Medical History Relation Name Comments Diabetes Father Heart disease Father Hyperlipidemia Father Hypertension Father Diabetes Mother Pancreatic cancer Mother Relation Name Status Comments Father Mother Social History Tobacco Use Types Packs/Day Years Used Date Smoking Tobacco: Never Smokeless Tobacco: Never Tobacco Cessation:Counseling Given: Not Answered Alcohol Use Standard Drinks/Week Comments Never 0 (1 standard drink = 0.6 oz pur e alcohol) AUDIT-C Answer Date Recorded Q1: How often do you have a drink containing alcohol? Never 04/25/2024 Q2: How many drinks containi ng alcohol do you have on a typical day when you are drinking? Patient does not drink Q3: How often do you have si x or more drinks on one occasion? Never 04/25/2024 PHQ-2 Answer Date Recorded Patient Health Questionnaire-2 Score 0 01/27/2025 Comments Unknown Sex and Gender Information Value Date Recorded Sex Assigned at Not on file Legal Sex Female 6:41 PM EDT Gender Identity Not on file Sexual Orientation Not on file Last Filed Vital Signs Vital Sign Reading Time Taken Comments Blood Pressure 112/68 01/27/2025 10:41 AM EDT Pulse 94 01/27/2025 10:41 AM EDT Temperature 36.6 C (97.8 F) 01/27/2025 10:41 AM EDT Respiratory Rate - - Oxygen Saturation 99% 01/27/2025 10:41 AM EDT Inhaled Oxygen Concentration - - Weight 84.4 kg (186 lb) 01/27/2025 10:41 AM EDT Height 157.5 cm (5' 2 ) 01/27/2025 10:41 AM EDT Body Mass Index 34.02 01/27/2025 10:41 AM EDT Plan of Treatment Upcoming Encounters Date Type Department Care Team (Late st Contact Info) Description 07/29/2025 8:15 AM EDT Office Visit [facility] [address] [place] [address] Paulette Hurd DO [address] [place] [address] Health Maintenance Due Date Last Done Comments CT Colonography 1955 FIT-DNA 1955 FIT 1955 FOBT 1955 Medicare Annual Wellness (AWV) 1955 Sigmoidoscopy 1955 Diabetes: Urine Protein Screening 02/16/1975 Mammogram 1996 Diabetes: Retinopathy Screening 01/29/2020 8 Diabetes: Hemoglobin A1C 04/28/202501/27/ 025, 07/25/2024, 04/25/2024, Additional history exists Influenza Vaccine (#1) 2025 4, 10/04/2023, 08/24/2022, Additional history exists Pneumococcal Vaccine: 65+ Ye ars (3 of 3 - PCV20 or PCV21) 06/16/2026 06/16/2021, 09/14/2019 Colonoscopy 08/11/2031 08/11/2021 Colorectal Cancer Screening 08/11/2031 Procedures Procedure Name Priority Date/Time Associated Diagnosis Comments POCT GLYCOSYLATED HEMOGLOBIN (HGB A1C) Routine 01/27/2025 10:53 AM EDT Type 2 diabetes mellitus without complication, with long-term current use of insulin (HCC) COLOR FUNDUS PHOTOGRAPHY - OU - BOTH EYES Routine 01/28/2018 12:00 PM EDT from Last 3 Months or Most Recently Relevant to Health Maintenance Results * POCT glycosylated hemoglobin (Hb A1C) docked device (01/27/2025 10:53 AM EDT) Hemoglobin A1C 7.4 Blood Venous blood specimen / Unknown 01/27/2025 10:53 AM EDT us Paulette Hurd DO POINT OF CARE TEST ENTER/E DIT ORDERABLES Final Result * Color Fundus Photography - OU - Both Eyes (01/28/2018 12:00 PM EDT) Anatomical Region Laterality Modality Head Fundus Photograp hy 01/28/2018 12:0 0 PM EDT Narrative 01/28/2018 12:00 PM EDT PERFORMED AT [facility] LOCATION:[id number] Procedure Note CONVERSION, GENERIC - 03/15/2023 PERFORMED AT [facility] LOCATION:[id number] us Paulette Hurd DO OPHTH PHOTOGRAPHY Final Re sult from Last 3 Months or Most Recently Relevant to Health Maintenance Insurance [employer]ARE [employer] [place] Care Teams Chief Of Planning Relationship Specialty Start Date End Date Paulette Hurd DO [address] [place] [address] PCP - ACO Reach 02/28/24 Chandler Shane MD [address] [place] [address] PCP - General Family Medicine 07/25/24 Paulette Hurd DO [address] [facility] [address] [place] [address] PCP - Medical [place] [employer] 01/28/21 10/29/99
--- OUTSIDE RECORDS SUMMARY | 2025-05-04 03:40 | XMS_ITS | Patient Health Record ---
Author Organization [facility] in [place] Address [address] [place] [address] Care Team Providers Care Traveling Inventory Associate Name Role Phone Lisset Alvarez Primary Care Provider [phone] [place] Shane [phone] Allergies Allergen (clinical drug ingredient) Drug/Non Drug Allergy documented on EMR Reaction Allergy Type Onset Date Status Wound Dressing Adhesive rash Drug Allergy Active oxycodone oxyCODONE GI Intolerance Drug Allergy Ac tive Results Component Value Reference Range Notes TSH Reviewed date:02/13/2025 12:53:20 PM Interpretation: Performing Lab: Notes/Report: [facility] , Thyroid Stimulating Hormone 3.814 0.358-3.740 u IU/mL Performing Lab: see note ML - [facility] LB T4 Reviewed date:02/13/2025 12:53:20 PM Interpretation: Performing Lab: Notes/Report: [facility] , T4 Thyroxine 8.10 4.80-13.90 ug/dL Performing Lab: see note ML - [facility] LB PROF 14(COMP METB) Reviewed date:02/13/2025 12:53:20 PM Interpretation: Performing Lab: Notes/Report: [facility] , Sodium 140 136-145 mmol/L Potassium 4.2 3.5-5.1 mmol/L Chloride 102 98-107 mmol/L Carbon Dioxide 28.7 21.0-32.0 mmol/L Anion Gap 13.5 Glucose 147 74-106 mg/dL Blood Urea Nitrogen 22.0 7.0-18.0 mg/dL Creatinine 0.79 0.55-1.02 mg/dL Estimated GFR ( Mandy >60 >=60 mL/min/1.73m 2 Estimated GFR (Non- Jenifer >60 >=60 mL/min/1.73m 2 BUN Creatinine Ratio 27.8 Calcium 9.4 8.5-10.1 mg/dL Bilirubin Total 0.3 0.2-1.0 mg/dL Aspartate Amino Transferase 26 15-37 U/L Alanine Aminotransferase 30 14-59 U/L Alkaline Phosphatase 39 46-116 U/L Total Protein 7.5 6.4-8.2 g/dL Albumin Level 3.8 3.4-5.0 g/dL Globulin 3.7 Albumin Globulin Ratio 1.0 Performing Lab: see note ML - [facility] LIPID PROFILE Reviewed date:02/13/2025 12:53:20 PM Interpretation: Performing Lab: Notes/Report: [facility] , Triglycerides 165 <=150 mg/dL Cholesterol 136 <=200 mg/dL HDL Cholesterol 44 40-60 mg/dL <40 mg/dl - HIGH CARDIOVASCULAR RISK > or =60 mg/dl - LOW CARDIOVASCULAR RISK LDL Cholesterol Calculated 59.0 100-129 mg/dl NEAR OR ABOVE OPTIMAL 130-159 mg/dl BORDERLINE HIGH <100 mg/dl OPTIMAL 160-189 mg/dl HIGH >190 mg/dl VERY HIGH VLDL CHOLESTEROL 33.0 Chol HDL Ratio 3.1 >11.0 HIGH RISK 7.1 - 11.0 MODERATE RISK 4.4 - 7.1 AVERAGE RISK 3.3 - 4.4 LOW RISK Performing Lab: see note - [facility] IRON Reviewed date:02/13/2025 12:53:20 PM Interpretation: Performing Lab: Notes/Report: [facility] , Iron 58.0 50.0-170.0 ug/dL Performing Lab: see note ML - [facility] INSULIN Reviewed date:02/14/2025 08:34:15 AM Interpretation: Performing Lab: Notes/Report: [facility] , Insulin 18.1 2.6-24.9 uIU/mL [address] [place], [place] [id number] Plastics Scientist: Isaac Casillas PhD, Phone: [phone] Performed at: [facility] Performing Lab: see note - [facility] LB GLYCOHEMOGLOBIN A1C Reviewed date:02/13/2025 12:53:20 PM Interpretation: Performing Lab: Notes/Report: [facility] , Glycohemoglobin A1C 7.8 4.5-6.2 % ACTION SUGGESTED ADA THERAPEUTIC TARGET < 7.0 > 7.0 ADA RECOMMENDED LIMIT 4.0 - 6.0 Estimated Average Glucose 177 Performing Lab: see note ML - [facility] LB FREE T3 Reviewed date:02/13/2025 12:53:20 PM Interpretation: Performing Lab: Notes/Report: [facility] , Free T3 2.41 2.18-3.98 pg/mL Performing Lab: see note ML - [facility] LB CBC AUTO DIFF Reviewed date:02/13/2025 12:53:20 PM Interpretation: Performing Lab: Notes/Report: [facility] , White Blood Count 8.4 4.0-11.0 10 3/uL Red Blood Count 5.37 4.20-5.40 10 6/uL Hemoglobin 14.5 12.0-16.0 g/dL Hematocrit 44.9 36.0-48.0 % Mean Corpuscular Volume 83.6 81.0-99.0 fL Mean Corpuscular Hemoglobin 27.0 26.7-34.0 pg Mean Corpuscular HGB Conc 32.3 29.9-35.2 g/dL Red Cell Distribution Width 15.1 11.0-15.0 % Platelet Count 194 150-450 10 3/uL Mean Platelet Volume 9.7 9.5-13.5 fL Neutrophils Percent Auto 61.8 43.0-75.0 % Lymphocytes Percent Auto 30.2 20.5-60.0 % Monocytes Percent Auto 5.6 1.7-12.0 % Eosinophils Percent Auto 1.3 0.9-7.0 % Basophils Percent Auto 0.6 0.2-2.0 % Immature Granulocytes Pct Auto 0.5 0.0-0.5 % Neutrophils Absolute Auto 5.2 1.4-6.5 10 3/uL Lymphocytes Absolute Auto 2.5 1.2-3.8 10 3/uL Monocytes Absolute Auto 0.5 0.3-0.8 10 3/uL Eosinophils Absolute Auto 0.1 0.0-0.7 10 3/uL Basophils Absolute Auto 0.1 0.0-0.1 10 3/uL Immature Granulocytes Abs Auto 0.04 0.00-0.03 10 3/uL Performing Lab: see note ML - [facility] LB GLYCOHEMOGLOBIN A1C Reviewed date:07/21/2024 09:12:33 PM Interpretation: Performing Lab: Notes/Report: [facility] , Glycohemoglobin A1C 7.5 4.5-6.2 % ADA THERAPEUTIC TARGET < 7.0 ADA RECOMMENDED LIMIT 4.0 - 6.0 ACTION SUGGESTED > 7.0 Estimated Average Glucose 169 Performing Lab: see note - [facility] LB VITAMIN D 25 [place] Reviewed date:02/13/2025 12:53:20 PM Interpretation: Performing Lab: Notes/Report: [facility] , Vitamin D 58.9 30-100 ng/mL Vit D sufficient 20-<30 ng/mL Vit D insufficient <20 ng/mL Vit D deficient >100 ng/mL Potential Toxicity Performing Lab: see note ML - [facility] LB Reason For Referral No Information Medications Medication SIG (Take, Route, Frequency, Duration) Notes Start Date End Date Status FreeStyle Halima 3 Sensor - Use to test b lood sugar, change as directed- DX: E11.9 03/13/2025 Active FreeStyle Halima 3 [place] use as directed to test blood sugar- DX: E11.9 03/13/2025 Active Allopurinol 300 MG 1 tablet Orally Once a day for 90 days Active Basaglar KwikPen 100 UNIT/ML 28 units Weems bcutaneous Q HS Active Triamcinolone Acetonide 0.1 % 1 applicat ion Externally Twice a day for 28 days 03/30/2023 Active Adult Aspirin Regimen 81 MG 1 tablet Ora lly Once a day Active Lancets 33G - Use to test blood sugar daily for 90 days 04/25/2024 Active Levothyroxine Sodium 25 MCG TAKE 1 TABLE T BY MOUTH EVERY DAY for 90 Active hydroCHLOROthiazide 25 MG TAKE 1 TABLET BY MOUTH EVERY DAY for 90 Active Jardiance 25 MG 0.5 tablet Orally On a day 08/08/2024 Active Simvastatin 40 MG 1 tablet in the evening Orally Once a day for 90 days Active metFORMIN HCl 1000 MG 1 tablet with a me al Orally BID for 90 days Active Calcium 500 MG 1 tablet with meals Orally Twice a day for 30 day(s) 02/24/2025 Active Vitamin D (Ergocalciferol) 1.25 MG (75026 UT) TAKE 1 CAPSULE BY MOUTH ONE TIME PER WEEK for 84 Active Semaglutide (2 MG/DOSE) 8 MG/3ML Inject 2mg Subcutaneous once a week for 30 days 05/01/2024 Active Immunizations Vaccine Route Administration Date Status Comme nts Comirnaty Pfizer Syringe Pre -Filled 30 mcg/0.3 mL Unknown 09/11/2024 Administered Flu, Fluad (95219) 65 yrs+, single-dose syringe () Unknown 10/04/2023 Administered Pneumococcal (Pneumovax 23) Unknown 09/14/2019 Administ ered Pneumococcal (Prevnar 13) Unknown 06/16/2021 Administer ed SARS-COV-2 (COVID 19 Pfizer 30mcg/0.3mL) Unknown 12/11/2020 Administered SARS-COV-2 (COVID 19 Pfizer 30mcg/0.3mL) Unknown 01/01/2021 Administered SARS-COV-2 (COVID 19 Pfizer 30mcg/0.3mL) Unknown 07/24/2021 Administered SARS-COV-2 (COVID 19 Pfizer 30mcg/0.3mL), gabino sucrose Unknown 05/20/2022 Administered SARS-COV-2 (COVID 19) bivale nt 30 mcg/0.3 ml dose Unknown 08/24/2022 Administered ZOSTER (SHINGLES) VACCINE (HZV) Unknown 02/12/2024 Admi nistered ZOSTER (SHINGLES) VACCINE (HZV) Unknown 04/24/2024 Admi nistered Zoster (Zostavax) Unknown 09/28/2017 Administered Social History Tobacco Use: Social History Observation Description Date Details (start date - stop date) Never Smoker NA - NA Tobacco Use/Smoking Question Answer Notes Patient is a nonsmoker Additional Findings: Tobacco Non-User Current no n-smoker Alcohol Screen (Audit-C) Question Answer Notes Did you have a drink containing alcohol in the p ast year? No Points 0 Interpretation Negative AUDIT-C (Standard) Question Answer Notes Did you have a drink containing alcohol in the p ast year? No Points 0 Interpretation Negative Problems Problem Type SNOMED Code ICD Code Onset Dates Problem Status W/U Status Risk Notes Problem 704420634 Type 2 diabetes mellitus without complications (E11.9) Active confirmed Problem Furuncle of face (09402204) Furuncle of face (L02.02) Active confirmed Problem Cellulitis of face (303241381) Cellulitis of face (L03.211) Active confirmed Problem Hyperlipidaemia (80081883) Hyperlipemia (E78.5) Active confirmed Problem Hypothyroidism (07561231) Hypothyroidism (E03.9) Active confirmed Problem Anxiety (10605729) Anxiety (F41.9) Active confi rmed Problem Hypothyroid (43420846) Hypothyroid (E03.9) Active confirmed Problem Osteopenia (217131099) Osteopenia (M85.80) Active confirmed Problem Upper respiratory infection (95010749) URI (upper respiratory infection) (J06.9) Active confirmed Problem Tinnitus (22084234) Tinnitus (H93.19) Active confirmed Problem Kidney stone (26136841) Kidney stone (N20.0) Active confirmed Problem Boil (02985923) Boil (L02.92) Active confirmed Problem Colonic polyp (21352968) Colonic polyp (K63.5) Active confirmed Problem Obese class II (980964174512630) BMI 35.0-35.9,adult (Z68.35) Active confirmed Problem Hepatomegaly (91352186) Hepatomegaly (R16.0) Active confirmed Problem Overweight (253997230) Over weight (E66.3) Active confirmed Problem Malignant melanoma of skin (38715363) Melanoma (C43.9) Active confirmed Problem Neck stiffness (374278187) Neck stiffness (M43.6) Active confirmed Problem Annual wellness visit (582962282524474) Wellness examination (Z00.00) Active confirmed Problem Diabetes mellitus type 2 (04279646) Diabetes mellitus, type 2 (E11.9) Active confirmed Problem Type II diabetes mellitus without complication (369954764) Diabetes (E11.9) Active confirmed Problem COVID-19 (052733247) COVID-19 (U07.1) Active confirmed Problem Depression (212106451) Depression (F32.A) Active confirmed Vital Signs Blood pressure diastolic 68 mm Hg 02/11/2025 Height 63 in 02/11/2025 Blood pressure systolic 112 mm Hg 02/11/2025 Weight 187 lbs 02/11/2025 BMI 33.12 kg/m2 02/11/2025 Encounters Encounter Location Date Provider Diagnosis [facility] [id number] [place] [address] 01/23/2025 Lisset Alvarez Depression F32.A and Hypothyroid E03.9 [facility] [address] [place] [address] 02/11/2025 Lisset Alvarez Tinnitus H93.19 and Dizziness R42 [facility] [address] [place] [address] 01/01/2025 Lisset Alvarez [facility] [address] [place] [address] 01/07/2025 Lisset Alvarez [facility] [address] [place] [address] 01/23/2025 Lisset Alvarez Hypothyroid E03.9 an d Wellness examination Z00.00 [facility] [address] [place] [address] 02/13/2025 Lisset Alvarez [facility] [address] [place] [address] 02/24/2025 Lisset Alvarez [facility] [address] [place] [address] 03/12/2025 Lisset Alvarez [facility] [address] [place] [address] 07/21/2024 [facility] [address] [place] [address] 08/08/2024 Lisset Alvarez [facility] [address] [place] [address] 10/27/2024 [place] [address] [place] [address] 10/28/2024 Lisset Alvarez [facility] [address] [place] [address] 11/21/2024 Lisset Alvarez Assessments Encounter Date Diagnosis (ICD Code) Assessment Notes Treatment Notes Treatment Clinical Notes Section Notes 01/23/2025 Depression (ICD-10 - F32.A) would like to stop zoloft discussed how to taper dosing situtional, had lost siblings if mood worse after stopping med, fu continue with Silver Sneakers exercise has good family support 01/23/2025 Hypothyroid (ICD-10 - E03.9) checking on labs 02/11/2025 Tinnitus (ICD-10 - H93.19) continue to monitor hearing test, ENT referral next steps no ear wax build up 02/11/2025 Dizziness (ICD-10 - R42) increase fluids, add electrolytes 01/23/2025 Hypothyroid (ICD-10 - E03.9) 01/23/2025 Wellness examination (ICD-10 - Z00.00) Plan Of Treatment Pending Test Test Name Order Date CMP (COMPLETE METABOLIC PANEL) 3 HEMOGLOBIN A1C (GLYCO) 09/18/2023 HEMOGLOBIN A1C (GLYCO) 01/23/2025 IRON, TOTAL 01/23/2025 IRON, TOTAL 09/18/2023 LIPID PANEL (CHOL/TRIG/HDL/LDL) 09/18/20 23 LIPID PANEL (CHOL/TRIG/HDL/LDL) 01/24/20 25 CBC WITH DIFF 09/18/2023 VITAMIN D, 25 LEVEL (TOTAL) 09/18/2023 VITAMIN D, 25 LEVEL (TOTAL) 01/23/2025 XR Ankle LT (3 views) * (164) 05/05/2023 Insulin Level 01/23/2025 Insulin Level 09/18/2023 CA 19-9 10/13/2023 CA 19-9 01/17/2024 XR DEXA BONE DENSITY 01/23/2025 XR KUB 1 VIEW 01/17/2024 THYROID PANEL (T4/TSH/FREE T3) 3 THYROID PANEL (T4/TSH/FREE T3) 5 CMP (COMP MET LYONS) w/eGFR CKD-EPI 2024 CBC WITH DIFF 01/23/2025 Insurance Providers Payer Name Payer Address Payer Phone Subscriber Number Group Number Insured Name Patient Relationship to Insured Coverage Start Date Coverage End Date [employer] [place] [address] [phone] [id number] Kerri Horn Self - patient is the insured MMO MEDICARE [employer] T [address] [place] [phone] [id number] Kerri Horn Self - patient is the insured Medical (General) History Medical History History ICD Code COVID-19 U07.1 Colonic polyp K63.5 Hyperlipemia E78.5 Depression F32.A Anxiety F41.9 Melanoma C43.9 Kidney stone N20.0 Diabetes E11.9 Hypothyroidism E03.9 Neck stiffness M43.6 URI (upper respiratory infection) J06.9 Over weight E66.3 Cellulitis of face L03.211 Furuncle of face L02.02 Wellness examination Z00.00 BMI 35.0-35.9,adult Z68.35 Diabetes mellitus, type 2 E11.9 Hypothyroid E03.9 Surgical History Surgery Date(Month/Year) HYSTERECTOMY TOTAL Hospitalization History Reason Date(Month/Year) see above
--- OUTSIDE RECORDS SUMMARY | 2025-05-04 03:41 | XMS_ITS | CCD ---
Author Organization [facility] Care Team Providers Care Manager Target Name Role Phone AVINASH PAREDES Primary Care Physician [phone] AVINASH THORNTON Admitting Unavailable AVINASH THORNTON Attending [...] TABARES Attending Unavailable GalJennifer spain Referring Unavailable Galea, Jennifer Pretty Admitting Unavailable GalJennifer spain Attending Unavailable Paulette Morales DO Unavailable Denise Shane MD Primary Care Provider REFERRAL, SELF Referring Unavailable AVINASH THORNTON Consulting Unavailable REFERRAL, SELF Admitting Unavailable REFERRAL, SELF Attending Unavailable Jennifer Hart J Admitting Unavailable GalJennifer spain Attending Unavailable Jennifer Hart Referring Unavailable Paulette Morales DO Unavailable PAULETTE MORALES Attending Unavailable DENISE SHANE Referring Unavailable PAULETTE MORALES Attending Unavailable PAULETTE MORALES Attending Unavailable Allergies Allergy Classification Reported Allergen(s) Allergy Type Date of Onset Reaction(s) Facility (9 sources) Acetaminophen / oxyCODONE; Translations: [acetaminophen-ox ycodone] Drug Allergy Upset stomach (finding) [facility] (10 sources) Adhesive bandage; Translations: [Adhesive Bandage] Drug allergy Skin irritation (disorder) [facility] (9 sources) catgut sutures; Translations: [catgut sutures] Drug allergy Irritation [facility] (1 source) Acetaminophen / oxyCODONE Drug Allergy [facility] Rep[facility] (2 sources) Latex; Translations: [Latex] Propensity to adverse reactions (disorder) [facility] Repository (5 sources) Acetaminophen / oxyCODONE Drug Allergy 3 GI intolerance [facility] (5 sources) Wound Dressing Adhesive Drug Allergy 3 [facility] Healthcare Medications Current Medications Medication Drug Class(es) Dates Sig (Normalized) Sig (Original) allopurinol 300 mg oral tablet (12 sources) Xanthine Oxidase Inhibitor Start: 04-20-2020 take 1 tablet by mouth once daily allopurinol 300 mg Tab 300 mg, Oral, Daily, # 90 tab(s), Refills(s) 3, Pharmacy: [facility]/pharmacy #[id number], 163, cm, 09/26/23 14:05:00 EST, [...] every week ergocalciferol (Vitamin D2) 1.25 MG (83299 UT) capsule Take 1.25 mg by mouth [...] Daily, # 10 cap(s), Refills(s) 0, Pharmacy: [facility]/pharmacy #[id number], 163, cm, 09/26/23 14:05:00 EST, [...] sources) Long-term current use of insulin; 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 THE CURRENT [place]PREH[employer]IVE CANCER [...] Gianni Lyn MD Transcribed by: FRANKO Technologist: [facility] Assessment: BI-RADS Category 1-Negative Recommendation: Normal interval follow-up Normal [facility] HbA1c (Bld) [Mass fraction]o n 07-25-2024 Interpretation and review of laboratory results Normal [facility] POCT glycosylated hemoglobin (Hb A1C) docked deviceon 07-25-2024 HbA1c (Bld) [Mass fraction] 7.4 % [facility] Ambulatory Visit Summaryon 0 07-24-2024 [...] for choosing us for your care. Kristina [facility] Reminderson 07-24-2024 Reminders Reminders - From: Vielka Linder To: EU - Administrative; Sent: 07/24/2024 14:47:39 EDT Show up: 05/19/2025 14:47:00 EDT Subject: ONE YR APPT Due Date/Time: 07/21/2025 14:47:00 EDT Reminder/Recall SCHEDULE KERRI HORN IN ONE YEAR AND YURIYAll WITH JENNIFER Campbell [facility] Urology Office/Clinic Noteon 07-24-2024 Urology Office/Clinic [...] E&M of Est. Patient Moderate 30-39 Min 31197 Influenza immunization status assessed 1030F Medication list [...] Urnls Dip Stick Auto w/o Microscopy POC 09876 US Renal XR Abdomen 1 View 2. Glycosuria (R81: Glycosuria) UA Glu >1000mg/dl BBSQ 4 Pt diabetic on insulin & metformin. Pt denies bothersome urination symptoms. Ordered: E&M of Est. Patient Moderate 30-39 Min 11170 Follow-up With When Contact Information Tanner MILNER, Jennifer Pretty, URL Within 1 year Additional Instructions: w/ KUB/HARINI & BUN/Cre Patient Education Kidney Stones, Duuz-rj-Cbzj Total time spent reviewing previous notes/results/manager city al documents, preparing the chart, conducting the [...] Allergies Adh (more content not included)... Normal [facility] Comment on above: Result Comment: Elec [...] MD Transcribed by: FRANKO Technologist: ALLISON Acevedo [facility] XR Abdomen 1 Viewon 07-23-20 XR Abdomen [...] mGy = na DAP = na Normal [facility] BMPon 07-22-2024 Anion gap [Moles/Vol] 13 mmol/L Normal 6-16 [facility] Comment on above: Performed By: #### 2 [id number] #### [facility] [address] [place] [address] Calcium [Mass/Vol] 9.7 mg/dL Normal 8.9-11.1 [facility] Comment on above: Performed By: #### 2 [id number] #### [facility] [address] [place] [address] Chloride [Moles/Vol] 101 mmol/L Normal 101-111 [facility] Comment on above: Performed By: #### 2 [id number] #### [facility] [address] [place] [address] CO2 [Moles/Vol] 28 mmol/L Normal 21-31 [facility] Comment on above: Performed By: #### 2 [id number] #### [facility] [address] [place] [address] Creatinine [Mass/Vol] 0.6 mg/dL Normal 0.5-1.3 [facility] Comment on above: Performed By: #### 2 [id number] #### [facility] [address] [place] [address] Glucose [Mass/Vol] 131 mg/dL Normal 55-199 [facility] Comment on above: Performed By: #### 2 [id number] #### [facility] [address] [place] [address] Potassium [Moles/Vol] 4.3 mmol/L Normal 3.5-5.3 [facility] Comment on above: Performed By: #### 2 [id number] #### [facility] [address] [place] [address] Sodium [Moles/Vol] 138 mmol/L Normal 135-145 [facility] Comment on above: Performed By: #### 2 [id number] #### [facility] [address] [place] [address] Urea nitrogen [Mass/Vol] 16 mg/dL Normal 5-21 [facility] Comment on above: Performed By: #### 2 [id number] #### [facility] [address] [place] [address] Urea nitrogen/Creatinine [Mass ratio] 27 No Units High 10-20 [facility] Comment on above: Performed By: #### 2 [id number] #### [facility] [address] [place] [address] CHEMISTRYOrdered By: SYSTEM SYSTEM on 07-22-2024 Anion [...] 07-22-2024 eGFR 97 mL/min/1.73 m2 Normal >=59 [facility] Comment on above: Performed By: #### 1 [id number] #### [facility] [address] [place] [address] [place] Mamm Screen w/CAD if perf and [...] VERY IMPORTANT TO YOUR HEALTH. THE CURRENT [place] [employer] N[employer] COMPREHENSIVE CANCER [...] Category 1-Negative Recommendation: Normal interval follow-up Normal [facility] Consent for Treatmenton 09-29 Consent for Treatment [id number] #1.00TIFF Normal [facility] RAD - CT Reporton 10-16-2023 RAD - CT Report [id number] #1.00TIFF Normal [facility] Lab Reportson 10-06-2023 Lab Reports [id number] #1.00TIFF Normal [facility] RAD - MISCon 10-06-2023 RAD - MISC [id number] 1#1.00TIFF Normal [facility] RAD - Ultrasound Reporton RAD - Ultrasound Report [id number] #1.00TIFF Normal [facility] Screenson 09-27-2023 Screens [id number] 1#1.00TIFF Normal [facility] Patient Educationon 09-26-20 Patient Education Urology [...] these instructions at home: Medicines ? Take lzld-nff-syavpkf and prescription medicines only as told by [...] provider. Document Revised: 06/20/2022 Document Reviewed: 06/20/2022 [employer] Patient Education ? 2022 [employer] Kristina Campbell [facility] Urology Office/Clinic Noteon 09-26-2023 Urology Office/Clinic [...] signs of infection. -KUB/HARINI ordered today at [facility]. will call pt w results. if significant [...] E&M of Est. Patient Moderate 30-39 Min 07994 Influenza immunization status assessed 1030F Patient screen for fall risk: no falls in last year or 1 fall with no injury in last year 1101F Urnls Dip Stick Auto w/o Microscopy POC 30383 US Renal XR Abdomen 1 View Orders: allopurinol, 300 mg, Oral, Daily, # 90 tab(s), Refills(s) 3, Pharmacy: [facility]/pharmacy #[id number], 163, cm, 09/26/23 14:05:00 EST, Height/Length Dosing, 98.1, kg, 09/26/23 14:05:00 EST, Weight Dosing Follow-up With When Contact Information RAYSA BROOKE, JACI DOAN Within 1 year Additional Instructions: Patient Education Kidney Stones, Vutl-li-Jesi Problem List/Past Medical History Ongoing BMI 35.0-35.9,adult [...] Urine Dipsti (more content not included)... Normal [facility] Comment on above: Result Comment: Elec tronically Signed By: SANDRO TABARES PA-C\.br\Date and Time Signed: 09/26/23 14:50 EST INSULINon 10-27-2022 Insulin 37.5 uIU/mL Critically high 2.6-24.9 [facility] Comment on above: Performed By: #### L IPID, T7, CMP, TSH #### [facility] [address] [address] [address] Ora Samaniego CBC AUTO DIFFon 10-26-2022 BASO # 0.1 103/ul Normal 0.0-0.1 [facility] Comment on above: Performed By: #### L IPID, T7, CMP, TSH #### [facility] [address] [address] [address] Ora Samaniego Basophils/100 WBC (Bld) 0.6 % Normal 0.2-2.0 [facility] Comment on above: Performed By: #### L IPID, T7, CMP, TSH #### [facility] [address] [place] [address] Dr. Ora Samaniego EO # 0.2 103/ul Normal 0.0-0.7 [facility] Comment on above: Performed By: #### L IPID, T7, CMP, TSH #### [facility] [address] [place] [address] Dr. Ora Samaniego Eosinophils/100 WBC (Bld) 1.9 % Normal 0.9-7.0 [facility] Comment on above: Performed By: #### L IPID, T7, CMP, TSH #### [facility] [address] [place] [address] Dr. Ora Samaniego Erythrocyte distribution width (RBC) [Ratio] 15.4 % Critically high 11.0-15.0 [facility] Comment on above: Performed By: #### L IPID, T7, CMP, TSH #### [facility] [address] [place] [address] Dr. Ora Samaniego Hematocrit (Bld) [Volume fraction] 44.9 % Normal 36.0-48.0 [facility] Comment on above: Performed By: #### L IPID, T7, CMP, TSH #### [facility] [address] [place] [address] Dr. Ora Samaniego Hemoglobin (Bld) [Mass/Vol] 14.7 g/dL Normal 12.0-16.0 [facility] Comment on above: Performed By: #### L IPID, T7, CMP, TSH #### [facility] [address] [place] [address] Dr. Ora Samaniego IG # 0.07 10e3/ul Critically high 0.00-0.03 [facility] Comment on above: Performed By: #### L IPID, T7, CMP, TSH #### [facility] [address] [place] [address] Dr. Ora Samaniego IG % 0.8 % Critically high 0.0-0.5 [facility] Comment on above: Performed By: #### L IPID, T7, CMP, TSH #### [facility] [address] [address] [address] Ora Samaniego LYMPH # 2.8 103/ul Normal 1.2-3.8 [facility] Comment on above: Performed By: #### L IPID, T7, CMP, TSH #### [facility] [address] [place] [address] Dr. Ora Samaniego Lymphocytes/100 WBC (Bld) 31.5 % Normal 20.5-60.0 [facility] Comment on above: Performed By: #### L IPID, T7, CMP, TSH #### [facility] [address] [place] [address] Dr. Ora Samaniego MANUAL DIFF REQ NO Normal [facility] Comment on above: Performed By: #### L IPID, T7, CMP, TSH #### [facility] [address] [place] [address] Dr. Ora Samaniego MCH (RBC) [Entitic mass] 26.5 pg Critically low 26.7-34.0 [facility] Comment on above: Performed By: #### L IPID, T7, CMP, TSH #### [facility] [address] [place] [address] Dr. Ora Samaniego MCHC (RBC) [Mass/Vol] 32.7 g/dL Normal 29.9-35.2 [facility] Comment on above: Performed By: #### L IPID, T7, CMP, TSH #### [facility] [address] [place] [address] Dr. Ora Samaniego MCV (RBC) [Entitic vol] 81.0 fL Normal 81.0-99.0 [facility] Comment on above: Performed By: #### L IPID, T7, CMP, TSH #### [facility] [address] [place] [address] Dr. Ora Samaniego MONO # 0.6 103/ul Normal 0.3-0.8 [facility] Comment on above: Performed By: #### L IPID, T7, CMP, TSH #### [facility] [address] [address] [address] Ora Samaniego Monocytes/100 WBC (Bld) 6.3 % Normal 1.7-12.0 [facility] Comment on above: Performed By: #### L IPID, T7, CMP, TSH #### [facility] [address] [address] [address] Ora Samaniego NEUT # 5.2 103/ul Normal 1.4-6.5 [facility] Comment on above: Performed By: #### L IPID, T7, CMP, TSH #### [facility] [address] [place] [address] Dr. Ora Samaniego Neutrophils/100 WBC (Bld) 58.9 % Normal 43.0-75.0 [facility] Comment on above: Performed By: #### L IPID, T7, CMP, TSH #### [facility] [address] [place] [address] Dr. Ora Samaniego Platelet mean volume (Bld) [Entitic vol] 9.5 fL Normal 9.5-13.5 [facility] Comment on above: Performed By: #### L IPID, T7, CMP, TSH #### [facility] [address] [place] [address] Dr. Ora Samaniego PLT 249 103/ul Normal 150-450 [facility] Comment on above: Performed By: #### L IPID, T7, CMP, TSH #### [facility] [address] [place] [address] Dr. Ora Samaniego RBC 5.54 106/ul Critically high 4.20-5.40 [facility] Comment on above: Performed By: #### L IPID, T7, CMP, TSH #### [facility] [address] [place] [address] Dr. Ora Samaniego WBC 8.8 103/ul Normal 4.0-11.0 [facility] Comment on above: Performed By: #### L IPID, T7, CMP, TSH #### [facility] [address] [place] [address] Dr. Ora Samaniego FREE THYROXINE INDEX T7on FTI 2.65 Normal 1.30-4.50 [facility] Comment on above: Performed By: #### L IPID, T7, CMP, TSH #### [facility] [address] [address] [address] Ora Samaniego T3U 34.0 % Normal 30.0-39.0 [facility] Comment on above: Performed By: #### L IPID, T7, CMP, TSH #### [facility] [address] [address] [address] Ora Samaniego T4 [Mass/Vol] 7.80 ug/dL Normal 4.80-13.90 [facility] Comment on above: Performed By: #### L IPID, T7, CMP, TSH #### [facility] [address] [place] [address] Dr. Ora Samaniego GLYCOHEMOGLOBIN A1Con 2021 ADA RECOMMENDATION SEE BELOW Normal [facility] Comment on above: Result Comment: ADA RECOMMENDED LIMIT 4.0 - 6.0 ADA THERAPEUTIC TARGET < 7.0 ACTION SUGGESTED > 7.0 Performed By: #### L IPID, T7, CMP, TSH #### [facility] [address] [address] [address] Ora Samaniego Glucose [Mass/Vol] 148 mg/dL Normal [facility] Comment on above: Performed By: #### L IPID, T7, CMP, TSH #### [facility] [address] [address] [address] Ora Samaniego HbA1c (Bld) [Mass fraction] 6.8 % Critically high 4.5-6.2 [facility] Comment on above: Performed By: #### L IPID, T7, CMP, TSH #### [facility] [address] [address] [address] Ora Samaniego IRONon 10-26-2022 Iron [Mass/Vol] 51.0 ug/dL Normal 50.0-170.0 [facility] Comment on above: Performed By: #### I TEMITOPE #### [facility] [address] [place] [address] Dr. Ora Samaniego LIPID PROFILEon 10-26-2022 CHOL-HDL RATIO NORM SEE BELOW Normal [facility] Comment on above: Result Comment: 3.3 - 4.4 LOW RISK 4.4 - 7.1 AVERAGE RISK 7.1 - 11.0 MODERATE RISK >11.0 HIGH RISK Performed By: #### L IPID, T7, CMP, TSH #### [facility] [address] [address] [address] Ora Samaniego Cholesterol [Mass/Vol] 120 mg/dL Normal <=200 [facility] Comment on above: Performed By: #### L IPID, T7, CMP, TSH #### [facility] [address] [address] [address] Ora Samaniego Cholesterol in HDL [Mass/Vol] 34 mg/dL Critically low 40-60 [facility] Comment on above: Performed By: #### L IPID, T7, CMP, TSH #### [facility] [address] [address] [address] Ora Samaniego Cholesterol in LDL [Mass/Vol] 47.8 mg/dL Normal [facility] Comment on above: Performed By: #### L IPID, T7, CMP, TSH #### [facility] [address] [address] [address] Ora Samaniego Cholesterol.total/Cho lesterol in HDL [Mass ratio] 3.5 {ratio} Normal [facility] Comment on above: Performed By: #### L IPID, T7, CMP, TSH #### [facility] [address] [address] [address] Ora Samaniego HDL NORMAL > or = 60 mg/dl - LOW CARDIOVASCULAR RISK <40 mg/dl - HIGH CARDIOVASCULAR RISK Normal [facility] Comment on above: Performed By: #### L IPID, T7, CMP, TSH #### [facility] [address] [address] [address] Ora Samaniego LDL CALC NORMAL SEE BELOW Normal [facility] Comment on above: Result Comment: <100 mg/dl OPTIMAL 100 - 129 mg/dl NEAR OR ABOVE OPTIMAL 130 - 159 mg/dl BORDERLINE HIGH 160 - 189 mg/dl HIGH >190 mg/dl VERY HIGH Performed By: #### L IPID, T7, CMP, TSH #### [facility] [address] [address] [address] Ora Samaniego Triglyceride [Mass/Vol] 191 mg/dL Critically high <=150 [facility] Comment on above: Performed By: #### L IPID, T7, CMP, TSH #### [facility] [address] [address] [address] Ora Samaniego VLDL CALC 38.2 mg/dL Normal [facility] Comment on above: Performed By: #### L IPID, T7, CMP, TSH #### [facility] [address] [address] [address] Ora Samaniego PROF 14(COMP METB)on 022 Albumin [Mass/Vol] 4.0 g/dL Normal 3.4-5.0 [facility] Comment on above: Performed By: #### L IPID, T7, CMP, TSH #### [facility] [address] [address] [address] Ora Samaniego Albumin/Globulin [Mass ratio] 1.0 {ratio} Normal [facility] Comment on above: Performed By: #### L IPID, T7, CMP, TSH #### [facility] [address] [address] [address] Ora Samaniego ALP [Catalytic activity/Vol] 34 U/L Critically low 46-116 [facility] Comment on above: Performed By: #### L IPID, T7, CMP, TSH #### [facility] [address] [address] [address] Ora Samaniego ALT [Catalytic activity/Vol] 27 U/L Normal 14-59 [facility] Comment on above: Performed By: #### L IPID, T7, CMP, TSH #### [facility] [address] [address] [address] Ora Samaniego Anion gap [Moles/Vol] 16.6 mmol/L Normal [facility] Comment on above: Performed By: #### L IPID, T7, CMP, TSH #### [facility] [address] [address] [address] Ora Samaniego AST [Catalytic activity/Vol] 19 U/L Normal 15-37 [facility] Comment on above: Performed By: #### L IPID, T7, CMP, TSH #### [facility] [address] [place] [address] Dr. Ora Samaniego Bilirubin [Mass/Vol] 0.2 mg/dL Normal 0.2-1.0 [facility] Comment on above: Performed By: #### L IPID, T7, CMP, TSH #### [facility] [address] [address] [address] Ora Samaniego Calcium [Mass/Vol] 9.5 mg/dL Normal 8.5-10.1 [facility] Comment on above: Performed By: #### L IPID, T7, CMP, TSH #### [facility] [address] [place] [address] Dr. Ora Samaniego Chloride [Moles/Vol] 98 mmol/L Normal 98-107 [facility] Comment on above: Performed By: #### L IPID, T7, CMP, TSH #### [facility] [address] [place] [address] Dr. Ora Samaniego CO2 [Moles/Vol] 27.5 mmol/L Normal 21.0-32.0 [facility] Comment on above: Performed By: #### L IPID, T7, CMP, TSH #### [facility] [address] [place] [address] Dr. Ora Samaniego Creatinine [Mass/Vol] 0.81 mg/dL Normal 0.55-1.02 [facility] Comment on above: Performed By: #### L IPID, T7, CMP, TSH #### [facility] [address] [place] [address] Dr. Ora Samaniego EGFR-AF JAPANESE >60 Normal >=60 [facility] Comment on above: Performed By: #### L IPID, T7, CMP, TSH #### [facility] [address] [place] [address] Dr. Ora Samaniego EGFR-NON AF [place]ESE >60 Normal >=60 [facility] Comment on above: Performed By: #### L IPID, T7, CMP, TSH #### [facility] [address] [address] [address] Ora Samaniego Globulin (S) [Mass/Vol] 4.1 g/dL Normal [facility] Comment on above: Performed By: #### L IPID, T7, CMP, TSH #### [facility] [address] [address] [address] Ora Samaniego Glucose [Mass/Vol] 169 mg/dL Critically high 74-106 [facility] Comment on above: Performed By: #### L IPID, T7, CMP, TSH #### [facility] [address] [address] [address] Ora Samaniego Potassium [Moles/Vol] 4.1 mmol/L Normal 3.5-5.1 [facility] Comment on above: Performed By: #### L IPID, T7, CMP, TSH #### [facility] [address] [address] [address] Ora Samaniego Protein [Mass/Vol] 8.1 g/dL Normal 6.4-8.2 [facility] Comment on above: Performed By: #### L IPID, T7, CMP, TSH #### [facility] [address] [place] [address] Dr. Ora Samaniego Sodium [Moles/Vol] 138 mmol/L Normal 136-145 [facility] Comment on above: Performed By: #### L IPID, T7, CMP, TSH #### [facility] [address] [place] [address] Dr. Ora Samaniego Urea nitrogen [Mass/Vol] 19.0 mg/dL Critically high 7.0-18.0 [facility] Comment on above: Performed By: #### L IPID, T7, CMP, TSH #### [facility] [address] [place] [address] Dr. Ora Samaniego Urea nitrogen/Creatinine [Mass ratio] 23.5 mg/mg Normal [facility] Comment on above: Performed By: #### L IPID, T7, CMP, TSH #### [facility] [address] [address] [address] Ora Samaniego TSHon 10-26-2022 TSH 2.769 uIU/mL Normal 0.358-3.740 [facility] Comment on above: Performed By: #### L IPID, T7, CMP, TSH #### [facility] [address] [address] [address] Ora Samaniego CHEMISTRYOrdered By: SYSTEM SYSTEM [...] 25-Hydroxy, Vitamin D 21 ng/mL Critically low [facility] Comment on above: Result Comment: Refe rence Range: All Ages: Target levels 30 - 100 Performed By: #### L IPID, T7, CMP, TSH #### [facility] [address] [address] [address] Ora Samaniego 25-Hydroxy, Vitamin D-2 <1.0 Normal [facility] Comment on above: Result Comment: This test was developed and its performance characteristics determined by [facility]. It has not been cleared or approved by the Food and Drug Administration. Performed By: #### L IPID, T7, CMP, TSH #### [facility] [address] [place] [address] Dr. Ora Samaniego 25-Hydroxy, Vitamin D-3 21 ng/mL Normal [facility] Comment on above: Result Comment: This test was developed and its performance characteristics determined by [facility]. It has not been cleared or approved by the Food and Drug Administration. Performed By: #### L IPID, T7, CMP, TSH #### [facility] [address] [place] [address] Dr. Ora Samaniego INSULINon 06-06-2022 Insulin 23.2 uIU/mL Normal 2.6-24.9 [facility] Comment on above: Performed By: #### L IPID, T7, CMP, TSH #### [facility] [address] [place] [address] Dr. Ora Samaniego BILIRUBIN CONJUGATED (DIRECT )on 06-04-2022 BILI, CONJUGATED 0.1 mg/dL Normal 0.0-0.2 [facility] Comment on above: Performed By: #### L IPID, T7, CMP, TSH #### [facility] [address] [place] [address] Dr. Ora Samaniego CBC AUTO DIFFon 06-04-2022 BASO # 0.1 103/ul Normal 0.0-0.1 [facility] Comment on above: Performed By: #### L IPID, T7, CMP, TSH #### [facility] [address] [place] [address] Dr. Ora Samaniego Basophils/100 WBC (Bld) 0.7 % Normal 0.2-2.0 [facility] Comment on above: Performed By: #### L IPID, T7, CMP, TSH #### [facility] [address] [place] [address] Dr. Ora Samaniego EO # 0.1 103/ul Normal 0.0-0.7 [facility] Comment on above: Performed By: #### L IPID, T7, CMP, TSH #### [facility] [address] [address] [address] Ora Samaniego Eosinophils/100 WBC (Bld) 1.4 % Normal 0.9-7.0 [facility] Comment on above: Performed By: #### L IPID, T7, CMP, TSH #### [facility] [address] [place] [address] Dr. Ora Samaniego Erythrocyte distribution width (RBC) [Ratio] 15.8 % Critically high 11.0-15.0 [facility] Comment on above: Performed By: #### L IPID, T7, CMP, TSH #### [facility] [address] [place] [address] Dr. Ora Samaniego Hematocrit (Bld) [Volume fraction] 46.3 % Normal 36.0-48.0 [facility] Comment on above: Performed By: #### L IPID, T7, CMP, TSH #### [facility] [address] [place] [address] Dr. Ora Samaniego Hemoglobin (Bld) [Mass/Vol] 14.9 g/dL Normal 12.0-16.0 [facility] Comment on above: Performed By: #### L IPID, T7, CMP, TSH #### [facility] [address] [place] [address] Dr. Ora Samaniego IG # 0.10 10e3/ul Critically high 0.00-0.03 [facility] Comment on above: Performed By: #### L IPID, T7, CMP, TSH #### [facility] [address] [place] [address] Dr. Ora Samaniego IG % 1.1 % Critically high 0.0-0.5 [facility] Comment on above: Performed By: #### L IPID, T7, CMP, TSH #### [facility] [address] [place] [address] Dr. Ora Samaniego LYMPH # 2.4 103/ul Normal 1.2-3.8 [facility] Comment on above: Performed By: #### L IPID, T7, CMP, TSH #### [facility] [address] [place] [address] Dr. Ora Samaniego Lymphocytes/100 WBC (Bld) 26.6 % Normal 20.5-60.0 [facility] Comment on above: Performed By: #### L IPID, T7, CMP, TSH #### [facility] [address] [place] [address] Dr. Ora Samaniego MANUAL DIFF REQ NO Normal [facility] Comment on above: Performed By: #### L IPID, T7, CMP, TSH #### [facility] [address] [place] [address] Dr. Ora Samaniego MCH (RBC) [Entitic mass] 26.6 pg Critically low 26.7-34.0 [facility] Comment on above: Performed By: #### L IPID, T7, CMP, TSH #### [facility] [address] [place] [address] Dr. Ora Samaniego MCHC (RBC) [Mass/Vol] 32.2 g/dL Normal 29.9-35.2 [facility] Comment on above: Performed By: #### L IPID, T7, CMP, TSH #### [facility] [address] [place] [address] Dr. Ora Samaniego MCV (RBC) [Entitic vol] 82.5 fL Normal 81.0-99.0 [facility] Comment on above: Performed By: #### L IPID, T7, CMP, TSH #### [facility] [address] [place] [address] Dr. Ora Samaniego MONO # 0.6 103/ul Normal 0.3-0.8 [facility] Comment on above: Performed By: #### L IPID, T7, CMP, TSH #### [facility] [address] [place] [address] Dr. Ora Samaniego Monocytes/100 WBC (Bld) 6.9 % Normal 1.7-12.0 [facility] Comment on above: Performed By: #### L IPID, T7, CMP, TSH #### [facility] [address] [address] [address] Ora Samaniego NEUT # 5.6 103/ul Normal 1.4-6.5 [facility] Comment on above: Performed By: #### L IPID, T7, CMP, TSH #### [facility] [address] [address] [address] Ora Samaniego Neutrophils/100 WBC (Bld) 63.3 % Normal 43.0-75.0 [facility] Comment on above: Performed By: #### L IPID, T7, CMP, TSH #### [facility] [address] [address] [address] Ora Samaniego Platelet mean volume (Bld) [Entitic vol] 9.4 fL Critically low 9.5-13.5 [facility] Comment on above: Performed By: #### L IPID, T7, CMP, TSH #### [facility] [address] [address] [address] Ora Samaniego PLT 213 103/ul Normal 150-450 [facility] Comment on above: Performed By: #### L IPID, T7, CMP, TSH #### [facility] [address] [address] [address] Ora Samaniego RBC 5.61 106/ul Critically high 4.20-5.40 [facility] Comment on above: Performed By: #### L IPID, T7, CMP, TSH #### [facility] [address] [address] [address] Ora Samaniego WBC 8.8 103/ul Normal 4.0-11.0 [facility] Comment on above: Performed By: #### L IPID, T7, CMP, TSH #### [facility] [address] [address] [address] Ora Samaniego FREE T3on 06-04-2022 FREE T3 2.87 pg/mlL Normal 2.18-3.98 [facility] Comment on above: Performed By: #### T 4, CMP, TSH, LIPID, FT3 #### [facility] [address] [address] [address] Ora Samaniego GLYCOHEMOGLOBIN A1Con 2021 ADA RECOMMENDATION SEE BELOW Normal [facility] Comment on above: Result Comment: ADA RECOMMENDED LIMIT 4.0 - 6.0 ADA THERAPEUTIC TARGET < 7.0 ACTION SUGGESTED > 7.0 Performed By: #### L IPID, T7, CMP, TSH #### [facility] [address] [address] [address] Ora Samaniego Glucose [Mass/Vol] 180 mg/dL Normal [facility] Comment on above: Performed By: #### L IPID, T7, CMP, TSH #### [facility] [address] [address] [address] Ora Samaniego HbA1c (Bld) [Mass fraction] 7.9 % Critically high 4.5-6.2 [facility] Comment on above: Performed By: #### L IPID, T7, CMP, TSH #### [facility] [address] [address] [address] Ora Samaniego IRONon 06-04-2022 Iron [Mass/Vol] 67.0 ug/dL Normal 50.0-170.0 [facility] Comment on above: Performed By: #### L IPID, T7, CMP, TSH #### [facility] [address] [address] [address] Ora Samaniego LIPID PROFILEon 06-04-2022 CHOL-HDL RATIO NORM SEE BELOW Normal [facility] Comment on above: Result Comment: 3.3 - 4.4 LOW RISK 4.4 - 7.1 AVERAGE RISK 7.1 - 11.0 MODERATE RISK >11.0 HIGH RISK Performed By: #### T 4, CMP, TSH, LIPID, FT3 #### [facility] [address] [address] [address] Ora Samaniego Cholesterol [Mass/Vol] 214 mg/dL Critically high <=200 [facility] Comment on above: Performed By: #### T 4, CMP, TSH, LIPID, FT3 #### [facility] [address] [address] [address] Ora Samaniego Cholesterol in HDL [Mass/Vol] 38 mg/dL Critically low 40-60 [facility] Comment on above: Performed By: #### T 4, CMP, TSH, LIPID, FT3 #### [facility] [address] [address] [address] Ora Samaniego Cholesterol in LDL [Mass/Vol] 110.6 mg/dL Normal [facility] Comment on above: Performed By: #### T 4, CMP, TSH, LIPID, FT3 #### [facility] [address] [address] [address] Ora Samaniego Cholesterol.total/Cho lesterol in HDL [Mass ratio] 5.6 {ratio} Normal [facility] Comment on above: Performed By: #### T 4, CMP, TSH, LIPID, FT3 #### [facility] [address] [place] [address] Dr. Ora Samaniego HDL NORMAL > or = 60 mg/dl - LOW CARDIOVASCULAR RISK <40 mg/dl - HIGH CARDIOVASCULAR RISK Normal [facility] Comment on above: Performed By: #### T 4, CMP, TSH, LIPID, FT3 #### [facility] [address] [place] [address] Dr. Ora Samaniego LDL CALC NORMAL SEE BELOW Normal [facility] Comment on above: Result Comment: <100 mg/dl OPTIMAL 100 - 129 mg/dl NEAR OR ABOVE OPTIMAL 130 - 159 mg/dl BORDERLINE HIGH 160 - 189 mg/dl HIGH >190 mg/dl VERY HIGH Performed By: #### T 4, CMP, TSH, LIPID, FT3 #### [facility] [address] [address] [address] Ora Samaniego Triglyceride [Mass/Vol] 327 mg/dL Critically high <=150 [facility] Comment on above: Performed By: #### T 4, CMP, TSH, LIPID, FT3 #### [facility] [address] [place] [address] Dr. Ora Samaniego VLDL CALC 65.4 mg/dL Normal [facility] Comment on above: Performed By: #### T 4, CMP, TSH, LIPID, FT3 #### [facility] [address] [address] [address] Ora Samaniego PROF 14(COMP METB)on 022 Albumin [Mass/Vol] 4.1 g/dL Normal 3.4-5.0 [facility] Comment on above: Performed By: #### T 4, CMP, TSH, LIPID, FT3 #### [facility] [address] [place] [address] Dr. Ora Samaniego Albumin/Globulin [Mass ratio] 1.1 {ratio} Normal [facility] Comment on above: Performed By: #### T 4, CMP, TSH, LIPID, FT3 #### [facility] [address] [place] [address] Dr. Ora Samaniego ALP [Catalytic activity/Vol] 37 U/L Critically low 46-116 [facility] Comment on above: Performed By: #### T 4, CMP, TSH, LIPID, FT3 #### [facility] [address] [place] [address] Dr. Ora Samaniego ALT [Catalytic activity/Vol] 43 U/L Normal 14-59 [facility] Comment on above: Performed By: #### T 4, CMP, TSH, LIPID, FT3 #### [facility] [address] [place] [address] Dr. Ora Samaniego Anion gap [Moles/Vol] 14.9 mmol/L Normal [facility] Comment on above: Performed By: #### T 4, CMP, TSH, LIPID, FT3 #### [facility] [address] [place] [address] Dr. Ora Samaniego AST [Catalytic activity/Vol] 25 U/L Normal 15-37 [facility] Comment on above: Performed By: #### T 4, CMP, TSH, LIPID, FT3 #### [facility] [address] [place] [address] Dr. Ora Samaniego Bilirubin [Mass/Vol] 0.5 mg/dL Normal 0.2-1.0 [facility] Comment on above: Performed By: #### T 4, CMP, TSH, LIPID, FT3 #### [facility] [address] [place] [address] Dr. Ora Samaniego Calcium [Mass/Vol] 9.6 mg/dL Normal 8.5-10.1 [facility] Comment on above: Performed By: #### T 4, CMP, TSH, LIPID, FT3 #### [facility] [address] [address] [address] Ora Samaniego Chloride [Moles/Vol] 100 mmol/L Normal 98-107 [facility] Comment on above: Performed By: #### T 4, CMP, TSH, LIPID, FT3 #### [facility] [address] [place] [address] Dr. Ora Samaniego CO2 [Moles/Vol] 28.4 mmol/L Normal 21.0-32.0 [facility] Comment on above: Performed By: #### T 4, CMP, TSH, LIPID, FT3 #### [facility] [address] [place] [address] Dr. Ora Samaniego Creatinine [Mass/Vol] 0.87 mg/dL Normal 0.55-1.02 [facility] Comment on above: Performed By: #### T 4, CMP, TSH, LIPID, FT3 #### [facility] [address] [place] [address] Dr. Ora Samaniego EGFR-AF JAPANESE >60 Normal >=60 [facility] Comment on above: Performed By: #### T 4, CMP, TSH, LIPID, FT3 #### [facility] [address] [place] [address] Dr. Ora Samaniego EGFR-NON AF JAPANESE >60 Normal >=60 [facility] Comment on above: Performed By: #### T 4, CMP, TSH, LIPID, FT3 #### [facility] [address] [place] [address] Dr. Ora Samaniego Globulin (S) [Mass/Vol] 3.8 g/dL Normal [facility] Comment on above: Performed By: #### T 4, CMP, TSH, LIPID, FT3 #### [facility] [address] [place] [address] Dr. Ora Samaniego Glucose [Mass/Vol] 175 mg/dL Critically high 74-106 [facility] Comment on above: Performed By: #### T 4, CMP, TSH, LIPID, FT3 #### [facility] [address] [place] [address] Dr. Ora Samaniego Potassium [Moles/Vol] 4.3 mmol/L Normal 3.5-5.1 [facility] Comment on above: Performed By: #### T 4, CMP, TSH, LIPID, FT3 #### [facility] [address] [place] [address] Dr. Ora Samaniego Protein [Mass/Vol] 7.9 g/dL Normal 6.4-8.2 [facility] Comment on above: Performed By: #### T 4, CMP, TSH, LIPID, FT3 #### [facility] [address] [place] [address] Dr. Ora Samaniego Sodium [Moles/Vol] 139 mmol/L Normal 136-145 [facility] Comment on above: Performed By: #### T 4, CMP, TSH, LIPID, FT3 #### [facility] [address] [place] [address] Dr. Ora Samaniego Urea nitrogen [Mass/Vol] 19.0 mg/dL Critically high 7.0-18.0 [facility] Comment on above: Performed By: #### T 4, CMP, TSH, LIPID, FT3 #### [facility] [address] [place] [address] Dr. Ora Samaniego Urea nitrogen/Creatinine [Mass ratio] 21.8 mg/mg Normal [facility] Comment on above: Performed By: #### T 4, CMP, TSH, LIPID, FT3 #### [facility] [address] [place] [address] Dr. Ora Samaniego T4on 06-04-2022 T4 [Mass/Vol] 8.90 ug/dL Normal 4.80-13.90 [facility] Comment on above: Performed By: #### T 4, CMP, TSH, LIPID, FT3 #### [facility] [address] [place] [address] Dr. Ora Samaniego TSHon 06-04-2022 TSH 1.631 uIU/mL Normal 0.358-3.740 [facility] Comment on above: Performed By: #### T 4, CMP, TSH, LIPID, FT3 #### [facility] [address] [place] [address] Dr. Ora Samaniego Vital Signs Date Time Vital Sign Value Performing Clinician Facility 01-27-2025 10:41-0400 Body height 157.5 cm Paulette Petznick DO Work Phone: [facility] 01-27-2025 10:41-0400 Body mass index (BMI) [Ratio] 34.02 kg/m2 Paulette Petznick DO Work Phone: [facility] 01-27-2025 10:41-0400 Body temperature 97.81 [degF] Paulette Petznick DO Work Phone: [facility] 01-27-2025 10:41-0400 Body weight 84.37 kg Paulette Petznick DO Work Phone: [facility] 01-27-2025 10:41-0400 Diastolic blood pressure 68 mm[Hg] Paulette Petznick DO Work Phone: [facility] 01-27-2025 10:41-0400 Heart rate 94 /min Paulette Petznick DO Work Phone: [facility] 01-27-2025 10:41-0400 SaO2% (BldA) [Mass fraction] 99 % Paulette Petznick DO Work Phone: [facility] 01-27-2025 10:41-0400 Systolic blood pressure 112 mm[Hg] Paulette Petznick DO Work Phone: [facility] 07-25-2024 10:11-0400 Body height 157.5 cm Paulette Petznick DO Work Phone: [facility] 07-25-2024 10:[id number] Body mass index (BMI) [Ratio] 33.84 kg/m2 Paulette Petznick DO Work Phone: [facility] 07-25-2024 10:11-0400 Body temperature 97.81 [degF] Paulette Petznick DO Work Phone: [facility] 07-25-2024 10:11-0400 Body weight 83.92 kg Paulette Petznick DO Work Phone: [facility] 07-25-2024 10:11-0400 Diastolic blood pressure 68 mm[Hg] Paulette Petznick DO Work Phone: [facility] 07-25-2024 10:11-0400 Heart rate 100 /min Paulette Petznick DO Work Phone: [facility] 07-25-2024 10:11-0400 SaO2% (BldA) [Mass fraction] 94 % Paulette Petznick DO Work Phone: [facility] 07-25-2024 10:11-0400 Systolic blood pressure 122 mm[Hg] Paulette Petznick DO Work Phone: [facility] 07-24-2024 14:26-0400 Blood Pressure Location Jennifer Galea [facility] 07-24-2024 14:26-0400 Diastolic blood pressure 86 mm[Hg] Jennifer Galea [facility] 07-24-2024 14:26-0400 Heart rate 110 /min Jennifer Galea [facility] 07-24-2024 14:26-0400 Systolic blood pressure 148 mm[Hg] Jennifer Galea [facility] Encounters Encounter Date Encounter Type Care Provider Facility Start: 01-27-2025 End: 01-27-2025 Bamboo flowsheet Paulette M Petznick DO Work Phone: [facility] Start: 01-27-2025 End: 01-27-2025 Bamboo flowsheet Paulette M Petznick DO Work Phone: [facility] Start: 01-27-2025 End: 01-27-2025 Office outpatient visit 25 minutes Paulette M Petznick DO Work Phone: [facility] [phone] Comment on above: Type 2 diabetes nick itus without complication, with long-term current use of insulin ([facility] Start: 01-27-2025 End: 01-27-2025 ambulatory PAULETTE MORALES Not Available Start: 01-24-2025 End: 01-24-2025 Telephone encounter Paulette Morales DO Work Phone: [facility] 230 Comment on above: Appointment Confirma tion Start: 10-24-2024 End: 10-24-2024 ambulatory SELF REFERRAL Facility:[facility] Start: 10-24-2024 End: 10-24-2024 Patient encounter procedure SELF REFERRAL [facility] Start: 07-25-2024 End: 07-25-2024 Office outpatient visit 25 minutes Paulette Morales DO Work Phone: [facility] 520 Comment on above: Type 2 diabetes nick itus without complication, with long-term current use of insulin ([facility]) Start: 07-25-2024 End: 07-25-2024 ambulatory PAULETTE MORALES Not Available Start: 07-24-2024 End: 07-24-2024 ambulatory Jennifer J Galea Facility:[facility] Start: 07-24-2024 End: 07-24-2024 Patient encounter procedure Jennifer J Galea [facility] Start: 07-22-2024 ambulatory Jennifer J Galea Facility :[facility] Start: 07-22-2024 End: 07-22-2024 ambulatory Jennifer J Galea Facility:[facility] Start: 07-22-2024 End: 07-22-2024 Patient encounter procedure Jennifer J Galea [facility] Start: 04-25-2024 End: 04-25-2024 ambulatory PAULETTE MORALES Not Available Start: 10-17-2023 End: 10-17-2023 ambulatory SELF REFERRAL Facility:[facility] Start: 10-17-2023 End: 10-17-2023 Patient encounter procedure SELF REFERRAL [facility] Start: 09-26-2023 End: 09-26-2023 ambulatory SANDRO TABARES Facility:[facility] Start: 08-22-2023 ambulatory Fredy POTTS Facility: [facility] Start: 10-26-2022 End: 10-27-2022 ambulatory AVINASH HILLARY Facility: Start: 10-17-2022 End: 10-17-2022 Patient encounter procedure SELF REFERRAL [facility] Start: 08-16-2022 End: 08-16-2022 Patient encounter procedure Fredy POTTS [facility] Start: 08-15-2022 End: 08-15-2022 Patient encounter procedure Fredy POTTS [facility] Start: 06-04-2022 End: 06-05-2022 ambulatory AVINASH HILLARY [...] 07/29/2025 8:15 AM EDT Office Visit [facility] [address] [place] [id number] Paulette Morales, DO [address] [place] [address] [facility] 230 Start: 07-22-2025 Urine screening for protein Diabetes: Urine Protein Screening [facility] Start: 04-28-2025 Hemoglobin A1c measurement Diabetes: Hemoglobin A1C [facility] Start: 01-27-2025 End: 01-27-[address] [facility] 230 Comment on above: Arrived Start: 01-14-2025 End: 01-14-2025 Patient encounter procedure 01/14/2025 10:30 AM EDT Office Visit [facility] [address] [place] [phone] Paulette Morales, DO [address] [place] [address] [facility] 230 Start: 10-24-2024 Hemoglobin A1c measurement Diabetes: [...] for malign ant neoplasm of breast Mammogram [facility] Start: 02-16-1975 Urine screening for protein Diabetes: Urine Protein Screening [facility] Start: 1955 Medicare Annual Well ness (AWV) Medicare Annual Wellness (AWV) [facility] Start: 1955 Screening for malign ant neoplasm of colon [facility] Immunizations Immunization Date Immunization Notes Care Provider Fa madelainety 04-24-2024 zoster vaccine recombinant Paulette Petznick DO Work Phone: [facility] 02-12-2024 zoster vaccine recombinant Paulette Petznick DO Work Phone: [facility] 10-04-2023 Influenza, Seasonal, Quadrivalent, Adjuvanted Paulette Petznick DO Work Phone: [facility] 10-04-2023 influenza virus vacc ine, unspecified formulation Paulette Petznick DO Work Phone: [facility] 08-24-2022 Influenza, Seasonal, Quadrivalent, Adjuvanted Paulette Petznick DO Work Phone: [facility] 08-24-[address] Years [address] Older Paulette Petznick DO Work Phone: [facility] 08-16-2021 Influenza, High-dose Seasonal, Quadrivalent, Preservative Free Paulette Petznick DO Work Phone: [facility] 06-16-2021 pneumococcal conjuga te vaccine, 13 valent Paulette Petznick DO Work Phone: [facility] 01-01-2021 SARS-CoV-2 (COVID-19 ) mRNA BNT-162b2 vax Loved[facility]la [facility] 12-11-2020 SARS-CoV-2 (COVID-19 ) mRNA BNT-162b[address] [facility] [facility] 08-19-2020 influenza, injectabl e, quadrivalent, preservative free Paulette Petznick DO Work Phone: [facility] 07-30-2020 influenza, high dose seasonal, preservative-free Paulette Petznick DO Work Phone: [facility] 09-14-2019 pneumococcal polysaccharide vaccine, 23 valent Paulette Petznick DO Work Phone: [facility] 08-21-2019 Influenza, injectabl e, Madin [place] Canine Kidney, preservative free, quadrivalent Paulette Petznick DO Work Phone: [facility] 08-24-2018 influenza, injectabl e, quadrivalent, preservative free Paulette Petznick DO Work Phone: [facility] 09-28-2017 zoster vaccine, live Paulette Petznick DO Work Phone: [facility] Payers Date Payer Category Payer Private Health Insurance [employer] [id number] 2022 Unknown [employer] [id number] 2022-Present [address] [place] [address] [id number] 2021 Medicare [id number] 1958 Medicare [id number] 1958 Unknown [id number] 1955 Unknown [id number] [id number]. 593 1955 Unknown [id number] 2.16.840.1.695762.3.579.2. 593 1955 Unknown [id number] 2.16.840.1.296254.3.579.2. 727 1955 Unknown [id number] 2.16.840.1.728656.3.579.2. 727 1955 Unknown [id number] 2.16.840.1.971898.3.579.2. 727 1955 Unknown [id number] 2.16.840.1.225532.3.579.2. 727 1955 Unknown [id number] 2.16.840.1.658991.3.579.2. 727 1955 Unknown [id number] 2.16.840.1.473163.3.579.2. 727 1955 Unknown [id number] 2.16.840.1.190977.3.579.2. 727 1955 Unknown [id number] 2.16.840.1.152904.3.579.2. 1259 1955 Unknown [id number] 2.16.840.1.964842.3.579.2. 1259 1955 Unknown [id number] 2.16.840.1.457087.3.579.2. 1259 Social History Date Type Detail Facility Start: 08-20-2021 End: 03-21-2023 Tobacco smoking status Never smoked tobacco (finding) [facility] Tobacco smoking status Never [facility] Start: 04-25-2024 End: 01-27-2025 Sex Assigned At Female [facility] Start: 03-21-2023 Tobacco use and exposure Smokeless [...] 07-24-2024 Functional Status N/A [facility] [place] 08-16-2022 Functional Status N/A [facility] Katalina Clinical Notes 08-16-2022 to 01-27-2025 Paulette Morales DO - 01/27/2025 12:56 PM EDTAvivien Morales DO - 01/27/2025 10:45 AM EDTTelephone Encounter - Adenike Plasencia - 01/24/2025 2:18 PM EDTLaboratoryRadiologyRadiologyLaboratory Note Date & Type Note Facility 01-27-2025 History of Presen t illness Narrative Associated Problem(s): Type 2 diabetes mellitus without complication, with long-term current use of insulin ([facility]) During the appointment today all pertinent labs, [...] mg Weekly SC (8 MG/3ML SOPN) Labs [facility] HEMOGLOBIN A1C/HEMOGLOBIN.TOTAL:MFR:PT:BL D:QN: 7.4 Outpatient prescription Medication marked as long-term Patient-reported The ASCVD Risk score (Ransom DK, et al., 2019) failed to calculate [...] complication, with long-term current use of insulin ([facility]) During the appointment today all pertinent labs, [...] by mouth ERGOCALCIFEROL (VITAMIN D2) 1.25 MG (11319 UT) CAPSULE Take 1.25 mg by mouth [...] the patient today. documented in this encounter [facility] 01-24-2025 Telephone encounter Note P/c appointment reminder. Pt voiced confirmation [facility] 01-24-2025 Miscellaneous Notes P/c appointment reminder. Pt voiced confirmation documented in this encounter [facility] 07-25-2024 History of Presen t illness Narrative Associated Problem(s): Type 2 diabetes mellitus without complication, with long-term current use of insulin ([facility]) During the appointment today all pertinent labs, [...] complication, with long-term current use of insulin ([facility]) During the appointment today all pertinent labs, [...] per day. ERGOCALCIFEROL (VITAMIN D2) 1.25 MG (68631 UT) CAPSULE Take 1.25 mg by mouth [...] the patient today. documented in this encounter [facility] 07-24-2024 Hospital Discharg e instructions Patient Education 07/24/2024 15:00:41 Kidney Stones, Tdba-io-Wghp Kidney Stones Kidney stones are rock-like masses [...] Follow these instructions at home: Medicines Take qubd-acz-lyvtupj and prescription medicines only as told by [...] provider. Document Revised: 06/09/2023 Document Reviewed: 06/09/2023 [employer] Patient Education 2023 mobileo. Follow Up Care 07/22/2024 09:03:03 With:Tanner MILNER, Jennifer Pretty, URL Address: When:1 year Comments:w/ FLORA/HARINI & BUN/Cre [facility] 07-24-2024 Note Patient Education Urology Kidney [...] these instructions at home: Medicines ? Take pekm-puy-nqtpgau and prescription medicines only as told by [...] provider. Document Revised: 06/09/2023 Document Reviewed: 06/09/2023 [employer] Patient Education ? 2023 mobileo. [facility] 02-27-2023 Evaluation + Plan note Future Scheduled TestsBUN 02/27/23Creatinine 02/27/23Electrolyte Panel 02/27/23Electrolyte Panel 06/21/23XR Abdomen 1 View 02/27/23XR Abdomen 1 View 06/28/23 [facility] 08-16-2022 Hospital Discharg e instructions Patient Education 08/16/2022 08:55:20 Kidney Stones, Ymsb-qr-Tlqu Kidney Stones Kidney stones are rock-like masses [...] Follow these instructions at home: Medicines Take rkqv-vmw-gmgngge and prescription medicines only as told by [...] Document Reviewed: 03/03/2020 Elsevier Patient Education 2019 [employer] Follow Up Care 08/17/2021 13:28:48 With:Fredy POTTS MD, URL Address: [address] [place] [address] [place] [id number]- When: Unknown [facility] Evaluation + Plan note Future Appointments Appointment Date:08/16/2022 08:15:00 AM Scheduled Provider:Fredy POTTS MD Location:[facility] Appointment Type:URO Office Visit Future Scheduled TestsXR Abdomen 1 View 07/30/22 [facility] Evaluation + Plan note Future Appointments Appointment Date:08/22/2023 08:15:00 AM Scheduled Provider:Fredy POTTS MD Location:[facility] Appointment Type:URO Office Visit Future Scheduled TestsBUN 02/27/23Creatinine 02/27/23Electrolyte Panel 02/27/23XR Abdomen 1 View 02/27/23XR Abdomen 1 View 07/30/22 [facility] Evaluation + Plan note Future Appointments Appointment Date:07/24/2024 02:30:00 PM Scheduled Provider:Jennifer Sherwood [facility] Appointment Type:URO Office Visit [facility] Evaluation note Diagnosis Type 2 diabetes mellitus without complication, with long-term current use of insulin ([facility]) documented in this encounter [facility] HealthcareEvaluation note* Diagnosis Type 2 diabetes mellitus without complication, with long-term current use of insulin Type 2 diabetes mellitus without complication, with long-term current use of insulin Type 2 diabetes mellitus without complication, with long-term current use of insulin Type 2 diabetes mellitus without complication, with long-term current use of insulin documented in this encounter [facility] HealthcareHospital course Narrative No data available for this section [facility] No data available for this section [facility] No data available for this section [facility] Summary Purpose Family History No Family History [...] team informatio n (unrecognized section and content) Manager Target Relationship Specialty Start Date End Date Paulette Morales DO [address] [place] [address] PCP - ACO Reach 02/28/24 Denise Shane MD [address] [place] [address] PCP - General Family Medicine 07/25/24 Manager Target Relationship Specialty Start Date End Date Paulette Morales DO [address] [place] [address] PCP - ACO Reach 02/28/24 Denise Shane MD [address] [place] [address] PCP - General Family Medicine 07/25/24 Paulette Morales DO [address] [place] [address] PCP - Medical [employer] 01/28/21 10/29/99 Manager Target Relationship Specialty Start Date End Date Paulette Morales DO [address] [place] [address] PCP - ACO Reach 02/28/24 Denise Shane MD [address] [facility] [place] [address] PCP - General Family Medicine 07/25/24 Paulette Morales, [address] [place] [id number] PCP - Medical [employer] 01/28/21 10/29/99 Manager Target Relationship Specialty Start Date End Date Paulette Morales DO [address] [place] [address] PCP - ACO Reach 02/28/24 Denise Shane MD [address] [facility] [place] [address] PCP - General Family Medicine 07/25/24 Paulette Morales DO [address] [place] [address] PCP - Medical [employer] 01/28/21 10/29/99 INFORMATION SOURCE (unrecogn ized section and content) DATE CREATED AUTHOR 10/28/2022 [facility] DATE CREATED AUTHOR AUTHOR'S ORGANIZ ATION 07/24/2024 [facility] DATE CREATED AUTHOR AUTHOR'S ORGANIZ ATION 07/26/2024 [facility] DATE CREATED AUTHOR AUTHOR'S ORGANIZ ATION 11/09/2024 [facility] DATE CREATED AUTHOR AUTHOR'S ORGANIZ ATION 01/28/2025 [facility] EPIC Reason for Visit (unrecogniz [...] BE BASED ON THE PRIMARY CLINICAL RECORDS. [facility] [employer] [facility]. provides no warranty or guarantee of the accuracy or completeness of information in this document.
--- NOTE | 2025-05-04 03:58 | ED.GENADUL1 ---
HPI HPI - General Adult General Chief complaint: Weakness Stated complaint: WEAKNESS Time Seen by Provider: 05/04/25 03:53 Source: patient Mode of arrival: Wheelchair Limitations: no limitations History of Present Illness HPI narrative: past history of diabetes. Up to go to the bathroom. returning to bed and became dizzy. Room spinning. Became nauseated and sweaty. emesis once. Family helped her up and she remained dizzy and they brought her in. No headache or ear pain. No chest pain or palpitations. Still dizzy while sitting on the stretcher when she turns her head Related Data Home Medications ?Medication ?Instructions ?Recorded ?Confirmed allopurinol 300 mg tablet 300 mg PO DAILY 05/04/25 05/04/25 aspirin 81 mg capsule 81 mg PO DAILY 05/04/25 05/04/25 empagliflozin 25 mg tablet 12.5 mg PO DAILY 05/04/25 05/04/25 (Jardiance) ergocalciferol (vitamin D2) 1,250 1,250 mcg PO QWEEK 05/04/25 05/04/25 mcg (50,000 unit) capsule hydrochlorothiazide 25 mg tablet 25 mg PO DAILY 05/04/25 05/04/25 insulin glargine 100 unit/mL (3 25 unit subcut QPM 05/04/25 05/04/25 mL) subcutaneous pen (Basaglar KwikPen U-100 Insulin) ketoconazole 2 % topical cream 1 applic topical BID 05/04/25 05/04/25 levothyroxine 25 mcg tablet 25 mcg PO DAILY 05/04/25 05/04/25 metformin 1,000 mg tablet 1,000 mg PO BID 05/04/25 05/04/25 semaglutide 2 mg/dose (8 mg/3 mL) 2 mg subcut QWEEK 05/04/25 05/04/25 subcutaneous pen injector (Ozempic) sertraline 50 mg tablet 50 mg PO Q24H 05/04/25 05/04/25 simvastatin 40 mg tablet 40 mg PO .QHS 05/04/25 05/04/25 Allergies Allergy/AdvReac Type Severity Reaction Status Date / Time No Known Drug Allergies Allergy Verified 05/04/25 03:50 Opioid HPI Opioid Management Most Recent Opioid Data: Last Pain Scale 7 Today, 11:36 Last Pain Assessment Today, 09:15 Last ORT Total Score 0 Today, 09:11 Last ORT Risk Category Low Risk Today, 09:11 Review of Systems ROS Status of ROS 10 or more systems reviewed and unremarkable except as noted in history and below [facility] Medical History (Updated 05/04/25 @ 12:04 by LEE ANN SHAW MD) Other disorders of meninges, not elsewhere classified ?G96.198 - Other disorders of meninges, not elsewhere classified (ICD-10) Malignant neoplasm of lower lobe, left bronchus or lung ?C34.32 - Malignant neoplasm of lower lobe, left bronchus or lung (ICD-10) Kidney stones ?N20.0 - Calculus of kidney (ICD-10) Diabetes ?E11.9 - Type 2 diabetes mellitus without complications (ICD-10) Abnormal cholesterol test ?E78.9 - Disorder of lipoprotein metabolism, unspecified (ICD-10) Thyroid disease ?E07.9 - Disorder of thyroid, unspecified (ICD-10) Anxiety ?F41.9 - Anxiety disorder, unspecified (ICD-10) Surgical History (Updated 05/04/25 @ 10:11 by Sarah Oropeza RN) History of lithotripsy ?Z98.890 - Other specified postprocedural states (ICD-10) History of hysterectomy ?Z90.710 - Acquired absence of both cervix and uterus (ICD-10) Family History (Updated 05/04/25 @ 08:45 by Dimple Hair) Other Family history of CHF (congestive heart failure) Family history of cancer Family history of diabetes mellitus Family history of stroke Social History (Updated 05/04/25 @ 09:05 by Sarah Oropeza RN) Within the past year, how often did you have a drink containing alcohol: never Score interpretation: A score less than 3 is consistent with normal alcohol consumption. Smoking status: Never smoker Non-prescribed substance use: denies use Highest level of school completed/degree received: high school graduate Little interest or pleasure in doing things: not at all Feeling down, depressed, or hopeless: not at all Exam Constitutional Vital Signs, click to edit/add: Last Vital Signs Temp 98.6 F 05/04/25 16:09 Pulse 108 H 05/04/25 16:09 Resp 18 05/04/25 16:09 BP 114/74 05/04/25 16:09 Pulse Ox 92 L 05/04/25 16:09 O2 Del Method Room Air 05/04/25 16:09 Common normals: no apparent distress, average body habitus, oriented x3, no limitations, healthy appearing, alert and well nourished [facility] Common normals: normocephalic and head/scalp atraumatic Tympanic membrane: TMs normal bilaterally Eye Common normals: EOMs intact bilaterally and conjunctivae normal Respiratory Common normals: normal respiratory effort, no retractions, no use of accessory muscles and clear to auscultation bilaterally Cardio Common normals: regular rate, regular rhythm, S1 normal heart sound and S2 normal heart sound GI Common normals: Normal to inspection, nondistended, normoactive bowel sounds present, soft to palpation and non-tender Extremity Common normals: normal to inspection and full ROM Neuro Common normals: oriented x3, CN's II-XII intact bilaterally, moves all extremities and no focal motor deficits Psych Appearance: grossly normal Course Vital Signs Vital signs: Vital Signs Temperature 97.7 F 05/04/25 03:43 Pulse Rate 92 H 05/04/25 03:43 Respiratory Rate 22 H 05/04/25 03:43 Blood Pressure 170/92 H 05/04/25 03:43 Pulse Oximetry 98 05/04/25 03:43 Oxygen Delivery Method Room Air 05/04/25 03:43 Temperature 98.6 F 05/04/25 16:09 Pulse Rate 108 H 05/04/25 16:09 Respiratory Rate 18 05/04/25 16:09 Blood Pressure 114/74 05/04/25 16:09 Pulse Oximetry 92 L 05/04/25 16:09 Oxygen Delivery Method Room Air 05/04/25 16:09 Medical Decision Making [facility] Narrative Medical decision making narrative: patient presents from home with acute vertiginous symptoms. States she was returning from the bathroom to get in bed and became dizzy. Room spinning associated with nausea, sweating and vomited once. Arrives via private care. Still dizzy when she moves her head. No other symptoms. Labs ordered including CBC, BMP and UA. Treated with cocktail of solumedrol, ativan and meclizine. CT brain ordered and pending. Patient re evaluated and is feeling better. No longer feels dizzy lying down or turning her head and only mild symptoms when she sits up. Pt however is not able to walk because she is dizzy. CT brain pending. Care transferred to oncoming physician at change of shift Dr Cates Lab Data Labs: Lab Results 05/04/25 05/04/25 05/04/25 Range/Units 03:44 04:20 04:55 WBC 10.5 (4.0-11.0) 10^3/uL RBC 5.53 H (4.20-5.40) 10^6/uL Hgb 15.3 (12.0-16.0) g/dL Hct 45.3 (36.0-48.0) % MCV 81.9 (81.0-99.0) fL MCH 27.7 (26.7-34.0) pg MCHC 33.8 (29.9-35.2) g/dL RDW 15.3 H (11.0-15.0) % Plt Count 205 (150-450) 10^3/uL MPV 10.0 (9.5-13.5) fL Neut % (Auto) 68.8 (43.0-75.0) % Lymph % (Auto) 22.8 (20.5-60.0) % [place] % (Auto) 5.7 (1.7-12.0) % Eos % (Auto) 1.0 (0.9-7.0) % Baso % (Auto) 0.5 (0.2-2.0) % Neut # (Auto) 7.2 H (1.4-6.5) 10^3/uL Lymph # (Auto) 2.4 (1.2-3.8) 10^3/uL [place] # (Auto) 0.6 (0.3-0.8) 10^3/uL Eos # (Auto) 0.1 (0.0-0.7) 10^3/uL Baso # (Auto) 0.1 (0.0-0.1) 10^3/uL Abs Immat Gran (auto) 0.13 H (0.00-0.03) 10^3/uL Imm/Tot Granulo (auto) 1.2 H (0.0-0.5) % Sodium 141 (136-145) mmol/L Potassium 4.1 (3.5-5.1) mmol/L Chloride 101 (98-107) mmol/L Carbon Dioxide 27.4 (21.0-32.0) mmol/L Anion Gap 16.7 BUN 23.0 H (7.0-18.0) mg/dL Creatinine 0.73 (0.55-1.02) mg/dL Est GFR ( Amer) >60 (>=60 mL/min/1.73m^2) Est GFR (Non-Af Amer) >60 (>=60 mL/min/1.73m^2) BUN/Creatinine Ratio 31.5 Glucose 229 H (74-106) mg/dL Calcium 9.6 (8.5-10.1) mg/dL Urine Color Lt. yellow (YELLOW) Urine Clarity Clear (CLEAR) Urine pH 6.0 (5.0-9.0) Ur Specific [place] 1.015 (1.005-1.025) Urine Protein 30 A (NEG/TRACE) mg/dL Urine Glucose (UA) >=1000 A (NEGATIVE) mg/dL Urine Ketones Negative (NEGATIVE) mg/dL Urine Occult Blood Negative (NEGATIVE) Urine Nitrite Negative (NEGATIVE) Urine Bilirubin Negative (NEGATIVE) Urine Urobilinogen 0.2 (0.2-1.0) EU/dL Ur Leukocyte Esterase Negative (NEGATIVE) Urine RBC None seen (0-2) #/HPF Urine WBC 2-5 A (NONE SEEN) #/HPF Ur Squamous Epith Cells Moderate A (NONE/RARE) #/LPF Urine Crystals None seen (None Seen) #/HPF Urine Bacteria Small A (NONE SEEN) #/HPF Urine Casts None seen (NONE SEEN) #/LPF Urine Mucus None seen (NONE SEEN) Urine Yeast Seen A (NONE SEEN) Ur Culture Indicated? [facility] POC Glucose 197 H (74-106) mg/dL Discharge Plan Discharge Chief Complaint: Weakness Clinical Impression: Vertigo Patient Disposition: Admitted As Inpatient Time of Disposition Decision: 07:57 Condition: Good Discharge Date/Time: 05/04/25 08:51
--- NOTE | 2025-05-04 04:10 | ECG_ITS ---
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 Measurements Intervals [place] Rate: 93 P: 42 CT: 194 QRS: 270 QRSD: 132 T: 49 QT: 364 QTc: 415 Interpretive Statements 1100 Sinus rhythm 2450 Right bundle branch block 3114 Cannot rule out anterior myocardial infarction, age undetermined 3633 Inferior myocardial infarction, probably old 7100 Abnormal right axis deviation 9150 abnormal ECG No previous ECG available for comparison Electronically Signed On 05-05-2025 20:26:25 EDT by SEN SILVA M.D.
[2025-05-04 04:33] LABS: Hematocrit 45.3 % (36.0-48.0); Hemoglobin 15.3 g/dL (12.0-16.0); Immature Granulocytes Abs Auto 0.13 10^3/uL (0.00-0.03); Immature Granulocytes Pct Auto 1.2 % (0.0-0.5); Lymphocytes Absolute Auto 2.4 10^3/uL (1.2-3.8); Mean Corpuscular HGB Conc 33.8 g/dL (29.9-35.2); Mean Corpuscular Hemoglobin 27.7 pg (26.7-34.0); Mean Corpuscular Volume 81.9 fL (81.0-99.0); Platelet Count 205 10^3/uL (150-450); Red Blood Count 5.53 10^6/uL (4.20-5.40); White Blood Count 10.5 10^3/uL (4.0-11.0)
[2025-05-04 04:43] LABS: Anion Gap 16.7; Blood Urea Nitrogen 23.0 mg/dL (7.0-18.0); Calcium 9.6 mg/dL (8.5-10.1); Carbon Dioxide 27.4 mmol/L (21.0-32.0); Chloride 101 mmol/L (98-107); Estimated GFR (African America >60 (>=60 mL/min/1.73m^2); Estimated GFR (Non-African Ame >60 (>=60 mL/min/1.73m^2); Glucose 229 mg/dL (74-106); Potassium 4.1 mmol/L (3.5-5.1); Sodium 141 mmol/L (136-145)
[2025-05-04] MEDS: METHYLPREDNISOLONE SOD SUCC PF 125 MG/2 ML VIAL IVP (04:56)
[2025-05-04 05:13] LABS: Glucose Urine UA >=1000 mg/dL (NEGATIVE)
[2025-05-04] MEDS: MECLIZINE HCL 12.5 MG TABLET 25 MG PO (05:18)
[2025-05-04] MEDS: LORAZEPAM 0.5 MG TABLET PO (05:18)
[2025-05-04 05:19] LABS: Cast Seen? NONE SEEN #/LPF (NONE SEEN); Crystals Seen? None Seen #/HPF (None Seen); Urine Culture Indicated YES-FRMC
[2025-05-04] MEDS: 0.9 % SODIUM CHLORIDE 1,000 ML 1000 ML IV (05:26)
[2025-05-04] MEDS: LORAZEPAM 1 MG TABLET PO (06:53)
--- NOTE | 2025-05-04 08:03 | ED.GENADUL1 ---
HPI HPI - General Adult General Chief complaint: Weakness Stated complaint: WEAKNESS Time Seen by Provider: 05/04/25 03:53 Source: patient Mode of arrival: Wheelchair Limitations: no limitations History of Present Illness HPI narrative: 70-year-old female presents to the emergency department was initially seen by Dr. Post and signed out to me after discussing the case with him thoroughly. Please see his full history and physical exam. Related Data Home Medications ?Medication ?Instructions ?Recorded ?Confirmed allopurinol 300 mg tablet 300 mg PO DAILY 05/04/25 05/04/25 empagliflozin 25 mg tablet 12.5 mg PO DAILY 05/04/25 05/04/25 (Jardiance) hydrochlorothiazide 25 mg tablet 25 mg PO DAILY 05/04/25 05/04/25 insulin glargine 100 unit/mL (3 25 unit subcut QPM 05/04/25 05/04/25 mL) subcutaneous pen (Basaglar KwikPen U-100 Insulin) levothyroxine 25 mcg tablet 25 mcg PO DAILY 05/04/25 05/04/25 metformin 1,000 mg tablet 500 mg PO BID 05/04/25 05/04/25 semaglutide 2 mg/dose (8 mg/3 mL) 2 mg subcut QWEEK 05/04/25 05/04/25 subcutaneous pen injector (Ozempic) sertraline 50 mg tablet 50 mg PO Q24H 05/04/25 05/04/25 simvastatin 40 mg tablet 40 mg PO DAILY 05/04/25 05/04/25 Allergies Allergy/AdvReac Type Severity Reaction Status Date / Time No Known Drug Allergies Allergy Verified 05/04/25 03:50 PFSH [facility] Medical History (Updated 05/04/25 @ 06:35 by Jcarlos Post MD) Thyroid disease ?E07.9 - Disorder of thyroid, unspecified (ICD-10) Anxiety ?F41.9 - Anxiety disorder, unspecified (ICD-10) Social History Little interest or pleasure in doing things: not at all Feeling down, depressed, or hopeless: not at all Exam Constitutional Vital Signs, click to edit/add: Last Vital Signs Temp 97.7 F 05/04/25 03:43 Pulse 98 H 05/04/25 06:36 Resp 18 05/04/25 06:36 BP 132/70 05/04/25 06:36 Pulse Ox 94 L 05/04/25 06:36 O2 Del Method Room Air 05/04/25 06:36 Course Vital Signs Vital signs: Vital Signs Temperature 97.7 F 05/04/25 03:43 Pulse Rate 92 H 05/04/25 03:43 Respiratory Rate 22 H 05/04/25 03:43 Blood Pressure 170/92 H 05/04/25 03:43 Pulse Oximetry 98 05/04/25 03:43 Oxygen Delivery Method Room Air 05/04/25 03:43 Temperature 97.7 F 05/04/25 03:43 Pulse Rate 98 H 05/04/25 06:36 Respiratory Rate 18 05/04/25 06:36 Blood Pressure 132/70 05/04/25 06:36 Pulse Oximetry 94 L 05/04/25 06:36 Oxygen Delivery Method Room Air 05/04/25 06:36 Medical Decision Making MDM Narrative Medical decision making narrative: CT brain came back negative and the patient is symptomatic and unable to walk and she will be admitted. Findings were discussed with the patient and her family Lab Data Lab results reviewed: Yes I reviewed the patient's lab results Labs: Lab Results 05/04/25 05/04/25 05/04/25 Range/Units 03:44 04:20 04:55 WBC 10.5 (4.0-11.0) 10^3/uL RBC 5.53 H (4.20-5.40) 10^6/uL Hgb 15.3 (12.0-16.0) g/dL Hct 45.3 (36.0-48.0) % MCV 81.9 (81.0-99.0) fL MCH 27.7 (26.7-34.0) pg MCHC 33.8 (29.9-35.2) g/dL RDW 15.3 H (11.0-15.0) % Plt Count 205 (150-450) 10^3/uL MPV 10.0 (9.5-13.5) fL Neut % (Auto) 68.8 (43.0-75.0) % Lymph % (Auto) 22.8 (20.5-60.0) % [place] % (Auto) 5.7 (1.7-12.0) % Eos % (Auto) 1.0 (0.9-7.0) % Baso % (Auto) 0.5 (0.2-2.0) % Neut # (Auto) 7.2 H (1.4-6.5) 10^3/uL Lymph # (Auto) 2.4 (1.2-3.8) 10^3/uL [place] # (Auto) 0.6 (0.3-0.8) 10^3/uL Eos # (Auto) 0.1 (0.0-0.7) 10^3/uL Baso # (Auto) 0.1 (0.0-0.1) 10^3/uL Abs Immat Gran (auto) 0.13 H (0.00-0.03) 10^3/uL Imm/Tot Granulo (auto) 1.2 H (0.0-0.5) % Sodium 141 (136-145) mmol/L Potassium 4.1 (3.5-5.1) mmol/L Chloride 101 (98-107) mmol/L Carbon Dioxide 27.4 (21.0-32.0) mmol/L Anion Gap 16.7 BUN 23.0 H (7.0-18.0) mg/dL Creatinine 0.73 (0.55-1.02) mg/dL Est GFR ( Amer) >60 (>=60 mL/min/1.73m^2) Est GFR (Non-Af Amer) >60 (>=60 mL/min/1.73m^2) BUN/Creatinine Ratio 31.5 Glucose 229 H (74-106) mg/dL Calcium 9.6 (8.5-10.1) mg/dL Urine Color Lt. yellow (YELLOW) Urine Clarity Clear (CLEAR) Urine pH 6.0 (5.0-9.0) Ur Specific [place] 1.015 (1.005-1.025) Urine Protein 30 A (NEG/TRACE) mg/dL Urine Glucose (UA) >=1000 A (NEGATIVE) mg/dL Urine Ketones Negative (NEGATIVE) mg/dL Urine Occult Blood Negative (NEGATIVE) Urine Nitrite Negative (NEGATIVE) Urine Bilirubin Negative (NEGATIVE) Urine Urobilinogen 0.2 (0.2-1.0) EU/dL Ur Leukocyte Esterase Negative (NEGATIVE) Urine RBC None seen (0-2) #/HPF Urine WBC 2-5 A (NONE SEEN) #/HPF Ur Squamous Epith Cells Moderate A (NONE/RARE) #/LPF Urine Crystals None seen (None Seen) #/HPF Urine Bacteria Small A (NONE SEEN) #/HPF Urine Casts None seen (NONE SEEN) #/LPF Urine Mucus None seen (NONE SEEN) Urine Yeast Seen A (NONE SEEN) Ur Culture Indicated? [facility] [place] POC Glucose 197 H (74-106) mg/dL Imaging Data CT scan - head: Radiologist's impression: No acute findings Discharge Plan Discharge Chief Complaint: Weakness Clinical Impression: Vertigo Patient Disposition: Admitted As Inpatient Time of Disposition Decision: 07:57 Condition: Good
--- OUTSIDE RECORDS SUMMARY | 2025-05-04 08:57 | XMS_ITS | CCD ---
Author Organization [facility] Care Team Providers Care Technology Training Associate Name Role Phone AVINASH PAREDES Primary Care Physician AVINASH THORNTON Admitting Unavailable AVINASH THORNTON Attending Unavailable AVINASH THORNTON Primary Care Unavailable AVINASH THORNTON Consulting Unavailable HILLARY, AVINASH Admitting Unavailable HILLARY, AVINASH Attending Unavailable AVINASH THORNTON Primary Care Unavailable AVIANSH THORNTON Consulting Unavailable REFERRAL, SELF Admitting Unavailable REFERRAL, SELF Attending Unavailable REFERRAL, SELF Referring Unavailable AVINASH THORNTON Consulting Unavailable Jennifer Hart Attending Unavailable Fredy POTTS Attending Unavailable Galea, Jennifer Pretty Attending Unavailable SANDRO TABARES Attending Unavailable GalJennifer spain Referring Unavailable Galea, Jennifer Pretty Admitting Unavailable GalJennifer spain Attending Unavailable Paulette Morales DO Unavailable Denise Shane MD Primary Care Provider [phone] REFERRAL, SELF Referring Unavailable AVINASH THORNTON Consulting Unavailable REFERRAL, SELF Admitting Unavailable REFERRAL, SELF Attending Unavailable Jennifer Hart J Admitting Unavailable GalJennifer spain Attending Unavailable Jennifer Hart Referring Unavailable Paulette Morales DO Unavailable [phone] PAULETTE MORALES Attending Unavailable DENISE SHANE Referring Unavailable PAULETTE MORALES Attending Unavailable PAULETTE MORALES Attending Unavailable Allergies Allergy Classification Reported Allergen(s) Allergy Type Date of Onset Reaction(s) Facility (9 sources) Acetaminophen / oxyCODONE; Translations: [acetaminophen-ox ycodone] Drug Allergy Upset stomach (finding) [facility] (10 sources) Adhesive bandage; Translations: [Adhesive Bandage] Drug allergy Skin irritation (disorder) [facility] (9 sources) catgut sutures; Translations: [catgut sutures] Drug allergy Irritation [facility] (1 source) Acetaminophen / oxyCODONE Drug Allergy [facility] (2 sources) Latex; Translations: [Latex] Propensity to adverse reactions (disorder) [facility] Rep[facility] (5 sources) Acetaminophen / oxyCODONE Drug Allergy 3 GI intolerance [facility] (5 sources) Wound Dressing Adhesive Drug Allergy 3 [facility] Healthcare Medications Current Medications Medication Drug Class(es) Dates Sig (Normalized) Sig (Original) allopurinol 300 mg oral tablet (12 sources) Xanthine Oxidase Inhibitor Start: 04-20-2020 take 1 tablet by mouth once daily allopurinol 300 mg Tab 300 mg, Oral, Daily, # 90 tab(s), Refills(s) 3, Pharmacy: [facility]/pharmacy #[id number], 163, cm, 09/26/23 14:05:00 EST, Height/Length [...] every week ergocalciferol (Vitamin D2) 1.25 MG (50215 UT) capsule Take 1.25 mg by mouth [...] Daily, # 10 cap(s), Refills(s) 0, Pharmacy: [facility]/pharmacy #[id number], 163, cm, 09/26/23 14:05:00 EST, Height/Length [...] sources) Long-term current use of insulin; 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 THE CURRENT [employer] N[employer] COMPREHENSIVE CANCER [...] Gianni Lyn MD Transcribed by: FRANKO Technologist: [facility] Assessment: BI-RADS Category 1-Negative Recommendation: Normal interval follow-up Normal [facility] HbA1c (Bld) [Mass fraction]o n 07-25-2024 Interpretation and review of laboratory results Normal [facility] POCT glycosylated hemoglobin (Hb A1C) docked deviceon 07-25-2024 HbA1c (Bld) [Mass fraction] 7.4 % [facility] Ambulatory Visit Summaryon 0 07-24-2024 Ambulatory [...] for choosing us for your care. Kristina [facility] Reminderson 07-24-2024 Reminders Reminders - From: Vielka Linder To: EU - Administrative; Sent: 07/24/2024 14:47:39 EDT Show up: 05/19/2025 14:47:00 EDT Subject: ONE YR APPT Due Date/Time: 07/21/2025 14:47:00 EDT Reminder/Recall SCHEDULE KERRI HORN IN ONE YEAR AND YURIYAll WITH JENNIFER Campbell [facility] Urology Office/Clinic Noteon 07-24-2024 Urology Office/Clinic Note [...] E&M of Est. Patient Moderate 30-39 Min 36384 Influenza immunization status assessed 1030F Medication list [...] Urnls Dip Stick Auto w/o Microscopy POC 26546 US Renal XR Abdomen 1 View 2. Glycosuria (R81: Glycosuria) UA Glu >1000mg/dl BBSQ 4 Pt diabetic on insulin & metformin. Pt denies bothersome urination symptoms. Ordered: E&M of Est. 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 Normal [facility] Comment on above: Result Comment: Elec [...] MD Transcribed by: FRANKO Technologist: ALLISON Acevedo [facility] XR Abdomen 1 Viewon 07-23-20 XR [...] mGy = na DAP = na Normal [facility] BMPon 07-22-2024 Anion gap [Moles/Vol] 13 mmol/L Normal 6-16 [facility] Comment on above: Performed By: #### 2 [id number] #### [facility] [address] [place] [address] Calcium [Mass/Vol] 9.7 mg/dL Normal 8.9-11.1 [facility] Comment on above: Performed By: #### 2 [id number] #### [facility] [address] [place] [address] Chloride [Moles/Vol] 101 mmol/L Normal 101-111 [facility] Comment on above: Performed By: #### 2 [id number] #### [facility] [address] [place] [address] CO2 [Moles/Vol] 28 mmol/L Normal 21-31 [facility] Comment on above: Performed By: #### 2 [id number] #### [facility] [address] [place] [address] Creatinine [Mass/Vol] 0.6 mg/dL Normal 0.5-1.3 [facility] Comment on above: Performed By: #### 2 [id number] #### [facility] [address] [place] [address] Glucose [Mass/Vol] 131 mg/dL Normal 55-199 [facility] Comment on above: Performed By: #### 2 [id number] #### [facility] [address] [place] [address] Potassium [Moles/Vol] 4.3 mmol/L Normal 3.5-5.3 [facility] Comment on above: Performed By: #### 2 [id number] #### [facility] [address] [place] [address] Sodium [Moles/Vol] 138 mmol/L Normal 135-145 [facility] Comment on above: Performed By: #### 2 [id number] #### [facility] [address] [place] [address] Urea nitrogen [Mass/Vol] 16 mg/dL Normal 5-21 [facility] Comment on above: Performed By: #### 2 [id number] #### [facility] [address] [place] [address] Urea nitrogen/Creatinine [Mass ratio] 27 No Units High 10-20 [facility] Comment on above: Performed By: #### 2 [id number] #### [facility] [address] [place] [address] CHEMISTRYOrdered By: SYSTEM SYSTEM on 07-22-2024 Anion [...] 07-22-2024 eGFR 97 mL/min/1.73 m2 Normal >=59 [facility] Comment on above: Performed By: #### 1 [id number] #### [facility] [address] [place] [address] [place] Mamm Screen w/CAD if perf and [...] VERY IMPORTANT TO YOUR HEALTH. THE CURRENT [employer] AND NATIONAL COMPREHENSIVE CANCER [...] Category 1-Negative Recommendation: Normal interval follow-up Normal [facility] Consent for Treatmenton 09-29 Consent for Treatment [id number] #1.00TIFF Normal [facility] RAD - CT Reporton 10-16-2023 RAD - CT Report [id number] #1.00TIFF Normal [facility] Lab Reportson 10-06-2023 Lab Reports [id number] #1.00TIFF Normal [facility] RAD - MISCon 10-06-2023 RAD - MISC [id number] 1#1.00TIFF Normal [facility] RAD - Ultrasound Reporton RAD - Ultrasound Report [id number] #1.00TIFF Normal [facility] Screenson 09-27-2023 Screens [id number] 1#1.00TIFF Normal [facility] Patient Educationon 09-26-20 Patient Education Urology [...] these instructions at home: Medicines ? Take vxrn-pxw-jkzuamy and prescription medicines only as told by [...] provider. Document Revised: 06/20/2022 Document Reviewed: 06/20/2022 [employer] Patient Education ? 2022 [employer] Kristina Campbell [facility] Urology Office/Clinic Noteon 09-26-2023 Urology Office/Clinic Note [...] signs of infection. -KUB/HARINI ordered today at [facility]. will call pt w results. if [...] E&M of Est. Patient Moderate 30-39 Min 13811 Influenza immunization status assessed 1030F Patient screen for fall risk: no falls in last year or 1 fall with no injury in last year 1101F Urnls Dip Stick Auto w/o Microscopy POC 78770 US Renal XR Abdomen 1 View Orders: allopurinol, 300 mg, Oral, Daily, # 90 tab(s), Refills(s) 3, Pharmacy: [facility]/pharmacy #[id number], 163, cm, 09/26/23 14:05:00 EST, Height/Length Dosing, 98.1, kg, 09/26/23 14:05:00 EST, Weight Dosing Follow-up With When Contact Information RAYSA BROOKE, JACI DOAN Within 1 year Additional Instructions: Patient Education Kidney Stones, Nyii-qu-Gtqx Problem List/Past Medical History Ongoing BMI 35.0-35.9,adult [...] Urine Dipsti (more content not included)... Normal [facility] Comment on above: Result Comment: Elec tronically Signed By: SANDRO TABARES PA-C\.br\Date and Time Signed: 09/26/23 14:50 EST INSULINon 10-27-2022 Insulin 37.5 uIU/mL Critically high 2.6-24.9 [facility] Comment on above: Performed By: #### L IPID, T7, CMP, TSH #### [facility] [address] [address] [address] Ora Samaniego CBC AUTO DIFFon 10-26-2022 BASO # 0.1 103/ul Normal 0.0-0.1 [facility] Comment on above: Performed By: #### L IPID, T7, CMP, TSH #### [facility] [address] [address] [address] Ora Samaniego Basophils/100 WBC (Bld) 0.6 % Normal 0.2-2.0 [facility] Comment on above: Performed By: #### L IPID, T7, CMP, TSH #### [facility] [address] [place] [address] Dr. Ora Samaniego EO # 0.2 103/ul Normal 0.0-0.7 [facility] Comment on above: Performed By: #### L IPID, T7, CMP, TSH #### [facility] [address] [place] [address] Dr. Ora Samaniego Eosinophils/100 WBC (Bld) 1.9 % Normal 0.9-7.0 [facility] Comment on above: Performed By: #### L IPID, T7, CMP, TSH #### [facility] [address] [place] [address] Dr. Ora Samaniego Erythrocyte distribution width (RBC) [Ratio] 15.4 % Critically high 11.0-15.0 [facility] Comment on above: Performed By: #### L IPID, T7, CMP, TSH #### [facility] [address] [place] [address] Dr. Ora Samaniego Hematocrit (Bld) [Volume fraction] 44.9 % Normal 36.0-48.0 [facility] Comment on above: Performed By: #### L IPID, T7, CMP, TSH #### [facility] [address] [place] [address] Dr. Ora Samaniego Hemoglobin (Bld) [Mass/Vol] 14.7 g/dL Normal 12.0-16.0 [facility] Comment on above: Performed By: #### L IPID, T7, CMP, TSH #### [facility] [address] [place] [address] Dr. Ora Samaniego IG # 0.07 10e3/ul Critically high 0.00-0.03 [facility] Comment on above: Performed By: #### L IPID, T7, CMP, TSH #### [facility] [address] [place] [address] Dr. Ora Samaniego IG % 0.8 % Critically high 0.0-0.5 [facility] Comment on above: Performed By: #### L IPID, T7, CMP, TSH #### [facility] [address] [address] [address] Ora Samaniego LYMPH # 2.8 103/ul Normal 1.2-3.8 [facility] Comment on above: Performed By: #### L IPID, T7, CMP, TSH #### [facility] [address] [place] [address] Dr. Ora Samaniego Lymphocytes/100 WBC (Bld) 31.5 % Normal 20.5-60.0 [facility] Comment on above: Performed By: #### L IPID, T7, CMP, TSH #### [facility] [address] [place] [address] Dr. Ora Samaniego MANUAL DIFF REQ NO Normal [facility] Comment on above: Performed By: #### L IPID, T7, CMP, TSH #### [facility] [address] [place] [address] Dr. Ora Samaniego MCH (RBC) [Entitic mass] 26.5 pg Critically low 26.7-34.0 [facility] Comment on above: Performed By: #### L IPID, T7, CMP, TSH #### [facility] [address] [place] [address] Dr. Ora Samaniego MCHC (RBC) [Mass/Vol] 32.7 g/dL Normal 29.9-35.2 [facility] Comment on above: Performed By: #### L IPID, T7, CMP, TSH #### [facility] [address] [place] [address] Dr. Ora Samaniego MCV (RBC) [Entitic vol] 81.0 fL Normal 81.0-99.0 [facility] Comment on above: Performed By: #### L IPID, T7, CMP, TSH #### [facility] [address] [place] [address] Dr. Ora Samaniego MONO # 0.6 103/ul Normal 0.3-0.8 [facility] Comment on above: Performed By: #### L IPID, T7, CMP, TSH #### [facility] [address] [address] [address] Ora Samaniego Monocytes/100 WBC (Bld) 6.3 % Normal 1.7-12.0 [facility] Comment on above: Performed By: #### L IPID, T7, CMP, TSH #### [facility] [address] [address] [address] Ora Samaniego NEUT # 5.2 103/ul Normal 1.4-6.5 [facility] Comment on above: Performed By: #### L IPID, T7, CMP, TSH #### [facility] [address] [place] [address] Dr. Ora Samaniego Neutrophils/100 WBC (Bld) 58.9 % Normal 43.0-75.0 [facility] Comment on above: Performed By: #### L IPID, T7, CMP, TSH #### [facility] [address] [place] [address] Dr. Ora Samaniego Platelet mean volume (Bld) [Entitic vol] 9.5 fL Normal 9.5-13.5 [facility] Comment on above: Performed By: #### L IPID, T7, CMP, TSH #### [facility] [address] [place] [address] Dr. Ora Samaniego PLT 249 103/ul Normal 150-450 [facility] Comment on above: Performed By: #### L IPID, T7, CMP, TSH #### [facility] [address] [place] [address] Dr. Ora Samaniego RBC 5.54 106/ul Critically high 4.20-5.40 [facility] Comment on above: Performed By: #### L IPID, T7, CMP, TSH #### [facility] [address] [place] [address] Dr. Ora Samaniego WBC 8.8 103/ul Normal 4.0-11.0 [facility] Comment on above: Performed By: #### L IPID, T7, CMP, TSH #### [facility] [address] [place] [address] Dr. Ora Samaniego FREE THYROXINE INDEX T7on FTI 2.65 Normal 1.30-4.50 [facility] Comment on above: Performed By: #### L IPID, T7, CMP, TSH #### [facility] [address] [address] [address] Ora Samaniego T3U 34.0 % Normal 30.0-39.0 [facility] Comment on above: Performed By: #### L IPID, T7, CMP, TSH #### [facility] [address] [address] [address] Ora Samaniego T4 [Mass/Vol] 7.80 ug/dL Normal 4.80-13.90 [facility] Comment on above: Performed By: #### L IPID, T7, CMP, TSH #### [facility] [address] [place] [address] Dr. Ora Samaniego GLYCOHEMOGLOBIN A1Con 2021 ADA RECOMMENDATION SEE BELOW Normal [facility] Comment on above: Result Comment: ADA RECOMMENDED LIMIT 4.0 - 6.0 ADA THERAPEUTIC TARGET < 7.0 ACTION SUGGESTED > 7.0 Performed By: #### L IPID, T7, CMP, TSH #### [facility] [address] [address] [address] Ora Samaniego Glucose [Mass/Vol] 148 mg/dL Normal [facility] Comment on above: Performed By: #### L IPID, T7, CMP, TSH #### [facility] [address] [address] [address] Ora Samaniego HbA1c (Bld) [Mass fraction] 6.8 % Critically high 4.5-6.2 [facility] Comment on above: Performed By: #### L IPID, T7, CMP, TSH #### [facility] [address] [address] [address] Ora Samaniego IRONon 10-26-2022 Iron [Mass/Vol] 51.0 ug/dL Normal 50.0-170.0 [facility] Comment on above: Performed By: #### I TEMITOPE #### [facility] [address] [place] [address] Dr. Ora Samaniego LIPID PROFILEon 10-26-2022 CHOL-HDL RATIO NORM SEE BELOW Normal [facility] Comment on above: Result Comment: 3.3 - 4.4 LOW RISK 4.4 - 7.1 AVERAGE RISK 7.1 - 11.0 MODERATE RISK >11.0 HIGH RISK Performed By: #### L IPID, T7, CMP, TSH #### [facility] [address] [address] [address] Ora Samaniego Cholesterol [Mass/Vol] 120 mg/dL Normal <=200 [facility] Comment on above: Performed By: #### L IPID, T7, CMP, TSH #### [facility] [address] [address] [address] Ora Samaniego Cholesterol in HDL [Mass/Vol] 34 mg/dL Critically low 40-60 [facility] Comment on above: Performed By: #### L IPID, T7, CMP, TSH #### [facility] [address] [address] [address] Ora Samaniego Cholesterol in LDL [Mass/Vol] 47.8 mg/dL Normal [facility] Comment on above: Performed By: #### L IPID, T7, CMP, TSH #### [facility] [address] [address] [address] Ora Samaniego Cholesterol.total/Cho lesterol in HDL [Mass ratio] 3.5 {ratio} Normal [facility] Comment on above: Performed By: #### L IPID, T7, CMP, TSH #### [facility] [address] [address] [address] Ora Samaniego HDL NORMAL > or = 60 mg/dl - LOW CARDIOVASCULAR RISK <40 mg/dl - HIGH CARDIOVASCULAR RISK Normal [facility] Comment on above: Performed By: #### L IPID, T7, CMP, TSH #### [facility] [address] [address] [address] Ora Samaniego LDL CALC NORMAL SEE BELOW Normal [facility] Comment on above: Result Comment: <100 mg/dl OPTIMAL 100 - 129 mg/dl NEAR OR ABOVE OPTIMAL 130 - 159 mg/dl BORDERLINE HIGH 160 - 189 mg/dl HIGH >190 mg/dl VERY HIGH Performed By: #### L IPID, T7, CMP, TSH #### [facility] [address] [address] [address] Ora Samaniego Triglyceride [Mass/Vol] 191 mg/dL Critically high <=150 [facility] Comment on above: Performed By: #### L IPID, T7, CMP, TSH #### [facility] [address] [address] [address] Ora Samaniego VLDL CALC 38.2 mg/dL Normal [facility] Comment on above: Performed By: #### L IPID, T7, CMP, TSH #### [facility] [address] [address] [address] Ora Samaniego PROF 14(COMP METB)on 022 Albumin [Mass/Vol] 4.0 g/dL Normal 3.4-5.0 [facility] Comment on above: Performed By: #### L IPID, T7, CMP, TSH #### [facility] [address] [address] [address] Ora Samaniego Albumin/Globulin [Mass ratio] 1.0 {ratio} Normal [facility] Comment on above: Performed By: #### L IPID, T7, CMP, TSH #### [facility] [address] [address] [address] Ora Samaniego ALP [Catalytic activity/Vol] 34 U/L Critically low 46-116 [facility] Comment on above: Performed By: #### L IPID, T7, CMP, TSH #### [facility] [address] [address] [address] Ora Samaniego ALT [Catalytic activity/Vol] 27 U/L Normal 14-59 [facility] Comment on above: Performed By: #### L IPID, T7, CMP, TSH #### [facility] [address] [address] [address] Ora Samaniego Anion gap [Moles/Vol] 16.6 mmol/L Normal [facility] Comment on above: Performed By: #### L IPID, T7, CMP, TSH #### [facility] [address] [address] [address] Ora Samaniego AST [Catalytic activity/Vol] 19 U/L Normal 15-37 [facility] Comment on above: Performed By: #### L IPID, T7, CMP, TSH #### [facility] [address] [place] [address] Dr. Ora Samaniego Bilirubin [Mass/Vol] 0.2 mg/dL Normal 0.2-1.0 [facility] Comment on above: Performed By: #### L IPID, T7, CMP, TSH #### [facility] [address] [address] [address] Ora Samaniego Calcium [Mass/Vol] 9.5 mg/dL Normal 8.5-10.1 [facility] Comment on above: Performed By: #### L IPID, T7, CMP, TSH #### [facility] [address] [place] [address] Dr. Ora Samaniego Chloride [Moles/Vol] 98 mmol/L Normal 98-107 [facility] Comment on above: Performed By: #### L IPID, T7, CMP, TSH #### [facility] [address] [place] [address] Dr. Ora Samaniego CO2 [Moles/Vol] 27.5 mmol/L Normal 21.0-32.0 [facility] Comment on above: Performed By: #### L IPID, T7, CMP, TSH #### [facility] [address] [place] [address] Dr. Ora Samaniego Creatinine [Mass/Vol] 0.81 mg/dL Normal 0.55-1.02 [facility] Comment on above: Performed By: #### L IPID, T7, CMP, TSH #### [facility] [address] [place] [address] Dr. Ora Samaniego EGFR-AF BERMUDIAN >60 Normal >=60 [facility] Comment on above: Performed By: #### L IPID, T7, CMP, TSH #### [facility] [address] [place] [address] Dr. Ora Samaniego EGFR-NON AF BERMUDIAN >60 Normal >=60 [facility] Comment on above: Performed By: #### L IPID, T7, CMP, TSH #### [facility] [address] [address] [address] Ora Samaniego Globulin (S) [Mass/Vol] 4.1 g/dL Normal [facility] Comment on above: Performed By: #### L IPID, T7, CMP, TSH #### [facility] [address] [address] [address] Ora Samaniego Glucose [Mass/Vol] 169 mg/dL Critically high 74-106 [facility] Comment on above: Performed By: #### L IPID, T7, CMP, TSH #### [facility] [address] [address] [address] Ora Samaniego Potassium [Moles/Vol] 4.1 mmol/L Normal 3.5-5.1 [facility] Comment on above: Performed By: #### L IPID, T7, CMP, TSH #### [facility] [address] [address] [address] Ora Samaniego Protein [Mass/Vol] 8.1 g/dL Normal 6.4-8.2 [facility] Comment on above: Performed By: #### L IPID, T7, CMP, TSH #### [facility] [address] [place] [address] Dr. Ora Samaniego Sodium [Moles/Vol] 138 mmol/L Normal 136-145 [facility] Comment on above: Performed By: #### L IPID, T7, CMP, TSH #### [facility] [address] [place] [address] Dr. Ora Samaniego Urea nitrogen [Mass/Vol] 19.0 mg/dL Critically high 7.0-18.0 [facility] [facility] Comment on above: Performed By: #### L IPID, T7, CMP, TSH #### [facility] [address] [place] [address] Dr. Ora Samaniego Urea nitrogen/Creatinine [Mass ratio] 23.5 mg/mg Normal [facility] Comment on above: Performed By: #### L IPID, T7, CMP, TSH #### [facility] [address] [address] [address] Ora Samaniego TSHon 10-26-2022 TSH 2.769 uIU/mL Normal 0.358-3.740 [facility] Comment on above: Performed By: #### L IPID, T7, CMP, TSH #### [facility] [address] [address] [address] Ora Samaniego CHEMISTRYOrdered By: SYSTEM SYSTEM [...] 25-Hydroxy, Vitamin D 21 ng/mL Critically low [facility] Comment on above: Result Comment: Refe rence Range: All Ages: Target levels 30 - 100 Performed By: #### L IPID, T7, CMP, TSH #### [facility] [address] [address] [address] Ora Samaniego 25-Hydroxy, Vitamin D-2 <1.0 Normal [facility] Comment on above: Result Comment: This test was developed and its performance characteristics determined by [facility]. It has not been cleared or approved by the Food and Drug Administration. Performed By: #### L IPID, T7, CMP, TSH #### [facility] [address] [place] [address] Dr. Ora Samaniego 25-Hydroxy, Vitamin D-3 21 ng/mL Normal [facility] Comment on above: Result Comment: This test was developed and its performance characteristics determined by [facility]. It has not been cleared or approved by the Food and Drug Administration. Performed By: #### L IPID, T7, CMP, TSH #### [facility] [address] [place] [address] Dr. Ora Samaniego INSULINon 06-06-2022 Insulin 23.2 uIU/mL Normal 2.6-24.9 [facility] Comment on above: Performed By: #### L IPID, T7, CMP, TSH #### [facility] [address] [place] [address] Dr. Ora Samaniego BILIRUBIN CONJUGATED (DIRECT )on 06-04-2022 BILI, CONJUGATED 0.1 mg/dL Normal 0.0-0.2 [facility] Comment on above: Performed By: #### L IPID, T7, CMP, TSH #### [facility] [address] [place] [address] Dr. Ora Samaniego CBC AUTO DIFFon 06-04-2022 BASO # 0.1 103/ul Normal 0.0-0.1 [facility] Comment on above: Performed By: #### L IPID, T7, CMP, TSH #### [facility] [address] [place] [address] Dr. Ora Samaniego Basophils/100 WBC (Bld) 0.7 % Normal 0.2-2.0 [facility] Comment on above: Performed By: #### L IPID, T7, CMP, TSH #### [facility] [address] [place] [address] Dr. Ora Samaniego EO # 0.1 103/ul Normal 0.0-0.7 [facility] Comment on above: Performed By: #### L IPID, T7, CMP, TSH #### [facility] [address] [address] [address] Ora Samaniego Eosinophils/100 WBC (Bld) 1.4 % Normal 0.9-7.0 [facility] Comment on above: Performed By: #### L IPID, T7, CMP, TSH #### [facility] [address] [place] [address] Dr. Ora Samaniego Erythrocyte distribution width (RBC) [Ratio] 15.8 % Critically high 11.0-15.0 [facility] Comment on above: Performed By: #### L IPID, T7, CMP, TSH #### [facility] [address] [place] [address] Dr. Ora Samaniego Hematocrit (Bld) [Volume fraction] 46.3 % Normal 36.0-48.0 [facility] Comment on above: Performed By: #### L IPID, T7, CMP, TSH #### [facility] [address] [place] [address] Dr. Ora Samaniego Hemoglobin (Bld) [Mass/Vol] 14.9 g/dL Normal 12.0-16.0 [facility] Comment on above: Performed By: #### L IPID, T7, CMP, TSH #### [facility] [address] [place] [address] Dr. Ora Samaniego IG # 0.10 10e3/ul Critically high 0.00-0.03 [facility] Comment on above: Performed By: #### L IPID, T7, CMP, TSH #### [facility] [address] [place] [address] Dr. Ora Samaniego IG % 1.1 % Critically high 0.0-0.5 [facility] Comment on above: Performed By: #### L IPID, T7, CMP, TSH #### [facility] [address] [place] [address] Dr. Ora Samaniego LYMPH # 2.4 103/ul Normal 1.2-3.8 [facility] Comment on above: Performed By: #### L IPID, T7, CMP, TSH #### [facility] [address] [place] [address] Dr. Ora Samanieog Lymphocytes/100 WBC (Bld) 26.6 % Normal 20.5-60.0 [facility] Comment on above: Performed By: #### L IPID, T7, CMP, TSH #### [facility] [address] [place] [address] Dr. Ora Samaniego MANUAL DIFF REQ NO Normal [facility] Comment on above: Performed By: #### L IPID, T7, CMP, TSH #### [facility] [address] [place] [address] Dr. Ora Samaniego MCH (RBC) [Entitic mass] 26.6 pg Critically low 26.7-34.0 [facility] Comment on above: Performed By: #### L IPID, T7, CMP, TSH #### [facility] [address] [place] [address] Dr. Ora Samaniego MCHC (RBC) [Mass/Vol] 32.2 g/dL Normal 29.9-35.2 [facility] Comment on above: Performed By: #### L IPID, T7, CMP, TSH #### [facility] [address] [place] [address] Dr. Ora Samaniego MCV (RBC) [Entitic vol] 82.5 fL Normal 81.0-99.0 [facility] Comment on above: Performed By: #### L IPID, T7, CMP, TSH #### [facility] [address] [place] [address] Dr. Ora Samaniego MONO # 0.6 103/ul Normal 0.3-0.8 [facility] Comment on above: Performed By: #### L IPID, T7, CMP, TSH #### [facility] [address] [place] [address] Dr. Ora Samaniego Monocytes/100 WBC (Bld) 6.9 % Normal 1.7-12.0 [facility] Comment on above: Performed By: #### L IPID, T7, CMP, TSH #### [facility] [address] [address] [address] Ora Samaniego NEUT # 5.6 103/ul Normal 1.4-6.5 [facility] Comment on above: Performed By: #### L IPID, T7, CMP, TSH #### [facility] [address] [address] [address] Ora Samaniego Neutrophils/100 WBC (Bld) 63.3 % Normal 43.0-75.0 [facility] Comment on above: Performed By: #### L IPID, T7, CMP, TSH #### [facility] [address] [address] [address] Ora Samaniego Platelet mean volume (Bld) [Entitic vol] 9.4 fL Critically low 9.5-13.5 [facility] Comment on above: Performed By: #### L IPID, T7, CMP, TSH #### [facility] [address] [address] [address] Ora Samaniego PLT 213 103/ul Normal 150-450 [facility] Comment on above: Performed By: #### L IPID, T7, CMP, TSH #### [facility] [address] [address] [address] Ora Samaniego RBC 5.61 106/ul Critically high 4.20-5.40 [facility] Comment on above: Performed By: #### L IPID, T7, CMP, TSH #### [facility] [address] [address] [address] Ora Samaniego WBC 8.8 103/ul Normal 4.0-11.0 [facility] Comment on above: Performed By: #### L IPID, T7, CMP, TSH #### [facility] [address] [address] [address] Ora Samaniego FREE T3on 06-04-2022 FREE T3 2.87 pg/mlL Normal 2.18-3.98 [facility] Comment on above: Performed By: #### T 4, CMP, TSH, LIPID, FT3 #### [facility] [address] [address] [address] Ora Samaniego GLYCOHEMOGLOBIN A1Con 2021 ADA RECOMMENDATION SEE BELOW Normal [facility] Comment on above: Result Comment: ADA RECOMMENDED LIMIT 4.0 - 6.0 ADA THERAPEUTIC TARGET < 7.0 ACTION SUGGESTED > 7.0 Performed By: #### L IPID, T7, CMP, TSH #### [facility] [address] [address] [address] Ora Samaniego Glucose [Mass/Vol] 180 mg/dL Normal [facility] Comment on above: Performed By: #### L IPID, T7, CMP, TSH #### [facility] [address] [address] [address] Ora Samaniego HbA1c (Bld) [Mass fraction] 7.9 % Critically high 4.5-6.2 [facility] Comment on above: Performed By: #### L IPID, T7, CMP, TSH #### [facility] [address] [address] [address] Ora Samaniego IRONon 06-04-2022 Iron [Mass/Vol] 67.0 ug/dL Normal 50.0-170.0 [facility] Comment on above: Performed By: #### L IPID, T7, CMP, TSH #### [facility] [address] [address] [address] Ora Samaniego LIPID PROFILEon 06-04-2022 CHOL-HDL RATIO NORM SEE BELOW Normal [facility] Comment on above: Result Comment: 3.3 - 4.4 LOW RISK 4.4 - 7.1 AVERAGE RISK 7.1 - 11.0 MODERATE RISK >11.0 HIGH RISK Performed By: #### T 4, CMP, TSH, LIPID, FT3 #### [facility] [address] [address] [address] Ora Samaniego Cholesterol [Mass/Vol] 214 mg/dL Critically high <=200 [facility] Comment on above: Performed By: #### T 4, CMP, TSH, LIPID, FT3 #### [facility] [address] [address] [address] Ora Samaniego Cholesterol in HDL [Mass/Vol] 38 mg/dL Critically low 40-60 [facility] Comment on above: Performed By: #### T 4, CMP, TSH, LIPID, FT3 #### [facility] [address] [address] [address] Ora Samaniego Cholesterol in LDL [Mass/Vol] 110.6 mg/dL Normal [facility] Comment on above: Performed By: #### T 4, CMP, TSH, LIPID, FT3 #### [facility] [address] [address] [address] Ora Samaniego Cholesterol.total/Cho lesterol in HDL [Mass ratio] 5.6 {ratio} Normal [facility] Comment on above: Performed By: #### T 4, CMP, TSH, LIPID, FT3 #### [facility] [address] [place] [address] Dr. Ora Samaniego HDL NORMAL > or = 60 mg/dl - LOW CARDIOVASCULAR RISK <40 mg/dl - HIGH CARDIOVASCULAR RISK Normal [facility] Comment on above: Performed By: #### T 4, CMP, TSH, LIPID, FT3 #### [facility] [address] [place] [address] Dr. Ora Samaniego LDL CALC NORMAL SEE BELOW Normal [facility] Comment on above: Result Comment: <100 mg/dl OPTIMAL 100 - 129 mg/dl NEAR OR ABOVE OPTIMAL 130 - 159 mg/dl BORDERLINE HIGH 160 - 189 mg/dl HIGH >190 mg/dl VERY HIGH Performed By: #### T 4, CMP, TSH, LIPID, FT3 #### [facility] [address] [address] [address] Ora Samaniego Triglyceride [Mass/Vol] 327 mg/dL Critically high <=150 [facility] Comment on above: Performed By: #### T 4, CMP, TSH, LIPID, FT3 #### [facility] [address] [place] [address] Dr. Ora Samaniego VLDL CALC 65.4 mg/dL Normal [facility] Comment on above: Performed By: #### T 4, CMP, TSH, LIPID, FT3 #### [facility] [address] [address] [address] Ora Samaniego PROF 14(COMP METB)on 022 Albumin [Mass/Vol] 4.1 g/dL Normal 3.4-5.0 [facility] Comment on above: Performed By: #### T 4, CMP, TSH, LIPID, FT3 #### [facility] [address] [place] [address] Dr. Ora Samaniego Albumin/Globulin [Mass ratio] 1.1 {ratio} Normal [facility] Comment on above: Performed By: #### T 4, CMP, TSH, LIPID, FT3 #### [facility] [address] [place] [address] Dr. Ora Samaniego ALP [Catalytic activity/Vol] 37 U/L Critically low 46-116 [facility] Comment on above: Performed By: #### T 4, CMP, TSH, LIPID, FT3 #### [facility] [address] [place] [address] Dr. Ora Samaniego ALT [Catalytic activity/Vol] 43 U/L Normal 14-59 [facility] Comment on above: Performed By: #### T 4, CMP, TSH, LIPID, FT3 #### [facility] [address] [place] [address] Dr. Ora Samaniego Anion gap [Moles/Vol] 14.9 mmol/L Normal [facility] Comment on above: Performed By: #### T 4, CMP, TSH, LIPID, FT3 #### [facility] [address] [place] [address] Dr. Ora Samaniego AST [Catalytic activity/Vol] 25 U/L Normal 15-37 [facility] Comment on above: Performed By: #### T 4, CMP, TSH, LIPID, FT3 #### [facility] [address] [place] [address] Dr. Ora Samaniego Bilirubin [Mass/Vol] 0.5 mg/dL Normal 0.2-1.0 [facility] Comment on above: Performed By: #### T 4, CMP, TSH, LIPID, FT3 #### [facility] [address] [place] [address] Dr. Ora Samaniego Calcium [Mass/Vol] 9.6 mg/dL Normal 8.5-10.1 [facility] Comment on above: Performed By: #### T 4, CMP, TSH, LIPID, FT3 #### [facility] [address] [address] [address] Ora Samaniego Chloride [Moles/Vol] 100 mmol/L Normal 98-107 [facility] Comment on above: Performed By: #### T 4, CMP, TSH, LIPID, FT3 #### [facility] [address] [place] [address] Dr. Ora Samaniego CO2 [Moles/Vol] 28.4 mmol/L Normal 21.0-32.0 [facility] Comment on above: Performed By: #### T 4, CMP, TSH, LIPID, FT3 #### [facility] [address] [place] [address] Dr. Ora Samaniego Creatinine [Mass/Vol] 0.87 mg/dL Normal 0.55-1.02 [facility] Comment on above: Performed By: #### T 4, CMP, TSH, LIPID, FT3 #### [facility] [address] [place] [address] Dr. Ora Samaniego EGFR-AF BERMUDIAN >60 Normal >=60 [facility] Comment on above: Performed By: #### T 4, CMP, TSH, LIPID, FT3 #### [facility] [address] [place] [address] Dr. Ora Samaniego EGFR-NON AF BERMUDIAN >60 Normal >=60 [facility] Comment on above: Performed By: #### T 4, CMP, TSH, LIPID, FT3 #### [facility] [address] [place] [address] Dr. Ora Samaniego Globulin (S) [Mass/Vol] 3.8 g/dL Normal [facility] Comment on above: Performed By: #### T 4, CMP, TSH, LIPID, FT3 #### [facility] [address] [place] [address] Dr. Ora Samaniego Glucose [Mass/Vol] 175 mg/dL Critically high 74-106 [facility] Comment on above: Performed By: #### T 4, CMP, TSH, LIPID, FT3 #### [facility] [address] [place] [address] Dr. Ora Samaniego Potassium [Moles/Vol] 4.3 mmol/L Normal 3.5-5.1 [facility] Comment on above: Performed By: #### T 4, CMP, TSH, LIPID, FT3 #### [facility] [address] [place] [address] Dr. Ora Samaniego Protein [Mass/Vol] 7.9 g/dL Normal 6.4-8.2 [facility] Comment on above: Performed By: #### T 4, CMP, TSH, LIPID, FT3 #### [facility] [address] [place] [address] Dr. Ora Samaniego Sodium [Moles/Vol] 139 mmol/L Normal 136-145 [facility] Comment on above: Performed By: #### T 4, CMP, TSH, LIPID, FT3 #### [facility] [address] [place] [address] Dr. Ora Samaniego Urea nitrogen [Mass/Vol] 19.0 mg/dL Critically high 7.0-18.0 [facility] Comment on above: Performed By: #### T 4, CMP, TSH, LIPID, FT3 #### [facility] [address] [place] [address] Dr. Ora Samaniego Urea nitrogen/Creatinine [Mass ratio] 21.8 mg/mg Normal [facility] Comment on above: Performed By: #### T 4, CMP, TSH, LIPID, FT3 #### [facility] [address] [place] [address] Dr. Ora Samaniego T4on 06-04-2022 T4 [Mass/Vol] 8.90 ug/dL Normal 4.80-13.90 [facility] Comment on above: Performed By: #### T 4, CMP, TSH, LIPID, FT3 #### [facility] [address] [place] [address] Dr. Ora Samaniego TSHon 06-04-2022 TSH 1.631 uIU/mL Normal 0.358-3.740 [facility] Comment on above: Performed By: #### T 4, CMP, TSH, LIPID, FT3 #### [facility] [address] [place] [address] Dr. Ora Samaniego Vital Signs Date Time Vital Sign Value Performing Clinician Facility 01-27-2025 10:41-0400 Body height 157.5 cm Paulette Petznick DO Work Phone: [facility] 01-27-2025 10:41-0400 Body mass index (BMI) [Ratio] 34.02 kg/m2 Paulette Petznick DO Work Phone: [facility] 01-27-2025 10:41-0400 Body temperature 97.81 [degF] Paulette Petznick DO Work Phone: [facility] 01-27-2025 10:41-0400 Body weight 84.37 kg Paulette Petznick DO Work Phone: [facility] 01-27-2025 10:41-0400 Diastolic blood pressure 68 mm[Hg] Paulette Petznick DO Work Phone: [facility] 01-27-2025 10:41-0400 Heart rate 94 /min Paulette Petznick DO Work Phone: [facility] 01-27-2025 10:41-0400 SaO2% (BldA) [Mass fraction] 99 % Paulette Petznick DO Work Phone: [facility] 01-27-2025 10:41-0400 Systolic blood pressure 112 mm[Hg] Paulette Petznick DO Work Phone: [facility] 07-25-2024 10:11-0400 Body height 157.5 cm Paulette Petznick DO Work Phone: [facility] 07-25-2024 [id number] Body mass index (BMI) [Ratio] 33.84 kg/m2 Paulette Petznick DO Work Phone: [facility] 07-25-2024 10:11-0400 Body temperature 97.81 [degF] Paulette Petznick DO Work Phone: [facility] 07-25-2024 10:11-0400 Body weight 83.92 kg Paulette Petznick DO Work Phone: [facility] 07-25-2024 10:11-0400 Diastolic blood pressure 68 mm[Hg] Paulette Petznick DO Work Phone: [facility] 07-25-2024 10:11-0400 Heart rate 100 /min Paulette Petznick DO Work Phone: [facility] 07-25-2024 10:11-0400 SaO2% (BldA) [Mass fraction] 94 % Paulette Petznick DO Work Phone: [facility] 07-25-2024 10:11-0400 Systolic blood pressure 122 mm[Hg] Paulette Petznick DO Work Phone: [facility] 07-24-2024 14:26-0400 Blood Pressure Location Jennifer Galea [facility] 07-24-2024 14:26-0400 Diastolic blood pressure 86 mm[Hg] Jennifer Galea [facility] 07-24-2024 14:26-0400 Heart rate 110 /min Jennifer Galea [facility] 07-24-2024 14:26-0400 Systolic blood pressure 148 mm[Hg] Jennifer Galea [facility] Encounters Encounter Date Encounter Type Care Provider Facility Start: 01-27-2025 End: 01-27-2025 Bamboo flowsheet Paulette M Petznick DO Work Phone: [facility] Start: 01-27-2025 End: 01-27-2025 Bamboo flowsheet Paulette M Petznick DO Work Phone: [facility] Start: 01-27-2025 End: 01-27-2025 Office outpatient visit 25 minutes Paulette M Petznick DO Work Phone: [facility] 543 Comment on above: Type 2 diabetes nick itus without complication, with long-term current use of insulin ([facility] Start: 01-27-2025 End: 01-27-2025 ambulatory PAULETTE MORALES Not Available Start: 01-24-2025 End: 01-24-2025 Telephone encounter Paulette Morales DO Work Phone: [facility] 230 Comment on above: Appointment Confirma tion Start: 10-24-2024 End: 10-24-2024 ambulatory SELF REFERRAL [place] Start: 10-24-2024 End: 10-24-2024 Patient encounter procedure SELF REFERRAL [facility] Start: 07-25-2024 End: 07-25-2024 Office outpatient visit 25 minutes Paulette Morales DO Work Phone: [facility] 116 Comment on above: Type 2 diabetes nick itus without complication, with long-term current use of insulin ([facility] Start: 07-25-2024 End: 07-25-2024 ambulatory PAULETTE MORALES Not Available Start: 07-24-2024 End: 07-24-2024 ambulatory Jennifer J Galea Facility:[facility] Start: 07-24-2024 End: 07-24-2024 Patient encounter procedure Jennifer J Galea [facility] Start: 07-22-2024 ambulatory Jennifer J Galea Facility :[facility] Start: 07-22-2024 End: 07-22-2024 ambulatory Jennifer J Galea Facility[facility] Start: 07-22-2024 End: 07-22-2024 Patient encounter procedure Jennifer J Galea [facility] Start: 04-25-2024 End: 04-25-2024 ambulatory PAULETTE MORALES Not Available Start: 10-17-2023 End: 10-17-2023 ambulatory SELF REFERRAL Facility:[facility] Start: 10-17-2023 End: 10-17-2023 Patient encounter procedure SELF REFERRAL [facility] Start: 09-26-2023 End: 09-26-2023 ambulatory SANDRO TABARES Facility:[facility] Start: 08-22-2023 ambulatory Fredy POTTS Facility: [facility] Start: 10-26-2022 End: 10-27-2022 ambulatory AVINASH HILLARY Facility: Start: 10-17-2022 End: 10-17-2022 Patient encounter procedure SELF REFERRAL [facility] Start: 08-16-2022 End: 08-16-2022 Patient encounter procedure Fredy POTTS [facility] Start: 08-15-2022 End: 08-15-2022 Patient encounter procedure Fredy POTTS [facility] Start: 06-04-2022 End: 06-05-2022 ambulatory AVINASH [...] 07/29/2025 8:15 AM EDT Office Visit [facility] [address] [place] [id number] Paulette Morales, DO [address] [place] [address] [facility] 230 Start: 07-22-2025 Urine screening for protein Diabetes: Urine Protein Screening [facility] Start: 04-28-2025 Hemoglobin A1c measurement Diabetes: Hemoglobin A1C [facility] Start: 01-27-2025 End: 01-27-2025 Patient encounter procedure [facility] 230 Comment on above: Arrived Start: 01-14-2025 End: 01-14-2025 Patient encounter procedure 01/14/2025 10:30 AM EDT Office Visit [facility] [address] [place] [phone] Paulette Morales, DO [address] [place] [address] [facility] 230 Start: 10-24-2024 Hemoglobin A1c measurement [...] for malign ant neoplasm of breast Mammogram [facility] Start: 02-16-1975 Urine screening for protein Diabetes: Urine Protein Screening [facility] Start: 1955 Medicare Annual Well ness (AWV) Medicare Annual Wellness (AWV) [facility] Start: 1955 Screening for malign ant neoplasm of colon [facility] Immunizations Immunization Date Immunization Notes Care Provider Fa madelainety 04-24-2024 zoster vaccine recombinant Paulette Petznick DO Work Phone: [facility] 02-12-2024 zoster vaccine recombinant Paulette Petznick DO Work Phone: [facility] 10-04-2023 Influenza, Seasonal, Quadrivalent, Adjuvanted Paulette Petznick DO Work Phone: [facility] 10-04-2023 influenza virus vacc ine, unspecified formulation Paulette Petznick DO Work Phone: [facility] 08-24-2022 Influenza, Seasonal, Quadrivalent, Adjuvanted Paulette Petznick DO Work Phone: [facility] 08-24-[address] Years [address]er Paulette Petznick DO Work Phone: [facility] 08-16-2021 Influenza, High-dose Seasonal, Quadrivalent, Preservative Free Paulette Petznick DO Work Phone: [facility] 06-16-2021 pneumococcal conjuga te vaccine, 13 valent Paulette Petznick DO Work Phone: [facility] 01-01-2021 SARS-CoV-2 (COVID-19 ) mRNA BNT-162b2 vax [employer] [facility] 12-11-2020 SARS-CoV-2 (COVID-19 ) mRNA BNT-162b2 [employer] [facility] 08-19-2020 influenza, injectabl e, quadrivalent, preservative free Paulette Petznick DO Work Phone: [facility] 07-30-2020 influenza, high dose seasonal, preservative-free Paulette Petznick DO Work Phone: [facility] 09-14-2019 pneumococcal polysaccharide vaccine, 23 valent Paulette Petznick DO Work Phone: [facility] 08-21-2019 Influenza, injectabl e, Madin [place] Canine Kidney, preservative free, quadrivalent Paulette Petznick DO Work Phone: [facility] 08-24-2018 influenza, injectabl e, quadrivalent, preservative free Paulette Petznick DO Work Phone: [facility] 09-28-2017 zoster vaccine, live Paulette Petznick DO Work Phone: [facility] Payers Date Payer Category Payer Private Health Insurance [employer] [id number] 2022 Unknown [employer] [id number] 2022-Present [address] [place] [address] [id number] 2021 Medicare [id number] 1959 Medicare [id number] 1959 Unknown [id number] 1955 Unknown [id number] [id number]. 593 1956 Unknown [id number] 2.16.840.1.765583.3.579.2. 593 1956 Unknown [id number] 2.16.840.1.562972.3.579.2. 727 1956 Unknown [id number] 2.16.840.1.757185.3.579.2. 727 1956 Unknown [id number] 2.16.840.1.584330.3.579.2. 727 1956 Unknown [id number] 2.16.840.1.841826.3.579.2. 727 1956 Unknown [id number] 2.16.840.1.671977.3.579.2. 727 1956 Unknown [id number] 2.16.840.1.089921.3.579.2. 727 1956 Unknown [id number] 2.16.840.1.792612.3.579.2. 727 1956 Unknown [id number] 2.16.840.1.128080.3.579.2. 1259 1956 Unknown [id number] 2.16.840.1.216055.3.579.2. 1259 1956 Unknown [id number] 2.16.840.1.182106.3.579.2. 1259 Social History Date Type Detail Facility Start: 08-20-2021 End: 03-21-2023 Tobacco smoking status Never smoked tobacco (finding) [facility] Tobacco smoking status Never [facility] Start: 04-25-2024 End: 01-27-2025 Sex Assigned At Female [facility] Start: 03-21-2023 Tobacco use and exposure Smokeless [...] 07-24-2024 Functional Status N/A [facility] [place] 08-16-2022 Functional Status N/A [facility] [place] Clinical Notes 08-16-2022 to 01-27-2025 Paulette Morales DO - 01/27/2025 12:56 PM EDTAvivien Morales DO - 01/27/2025 10:45 AM EDTTelephone Encounter - Adenike Plasencia - 01/24/2025 2:18 PM EDTLaboratoryRadiologyRadiologyLaboratory Note Date & Type Note Facility 01-27-2025 History of Presen t illness Narrative Associated Problem(s): Type 2 diabetes mellitus without complication, with long-term current use of insulin ([facility]) During the appointment today all pertinent labs, [...] mg Weekly SC (8 MG/3ML SOPN) Labs [facility] HEMO[place] A1C/HEMOGLOBIN.TOTAL:MFR:PT:BL D:QN: 7.4 Outpatient prescription Medication marked as long-term Patient-reported The ASCVD Risk score (Everett DK, et al., 2019) failed to calculate [...] complication, with long-term current use of insulin ([facility]) During the appointment today all pertinent labs, [...] by mouth ERGOCALCIFEROL (VITAMIN D2) 1.25 MG (49100 UT) CAPSULE Take 1.25 mg by mouth [...] the patient today. documented in this encounter [facility] 01-24-2025 Telephone encounter Note P/c appointment reminder. Pt voiced confirmation [facility] 01-24-2025 Miscellaneous Notes P/c appointment reminder. Pt voiced confirmation documented in this encounter [facility] 07-25-2024 History of Presen t illness Narrative Associated Problem(s): Type 2 diabetes mellitus without complication, with long-term current use of insulin ([facility]) During the appointment today all pertinent labs, [...] complication, with long-term current use of insulin ([facility]) During the appointment today all pertinent labs, [...] per day. ERGOCALCIFEROL (VITAMIN D2) 1.25 MG (66929 UT) CAPSULE Take 1.25 mg by mouth [...] the patient today. documented in this encounter [facility] 07-24-2024 Hospital Discharg e instructions Patient Education 07/24/2024 15:00:41 Kidney Stones, Mbwy-tu-Qrjy Kidney Stones Kidney stones are rock-like masses [...] Follow these instructions at home: Medicines Take meey-led-oztzjwp and prescription medicines only as told by [...] provider. Document Revised: 06/09/2023 Document Reviewed: 06/09/2023 [employer] Patient Education 2023 [employer]. Follow Up Care 07/22/2024 09:03:03 With:Tanner MILNER, Jennifer Pretty, URL Address: When:1 year Comments:w/ FLORA/HARINI & BUN/Cre [facility] 07-24-2024 Note Patient Education Urology Kidney [...] these instructions at home: Medicines ? Take ebqn-mhh-ejisuxq and prescription medicines only as told by [...] provider. Document Revised: 06/09/2023 Document Reviewed: 06/09/2023 [employer] Patient Education ? 2023 [employer]. [facility] 02-27-2023 Evaluation + Plan note Future Scheduled TestsBUN 02/27/23Creatinine 02/27/23Electrolyte Panel 02/27/23Electrolyte Panel 06/21/23XR Abdomen 1 View 02/27/23XR Abdomen 1 View 06/28/23 [facility] 08-16-2022 Hospital Discharg e instructions Patient Education 08/16/2022 08:55:20 Kidney Stones, Kxox-fg-Dhjp Kidney Stones Kidney stones are rock-like masses [...] Follow these instructions at home: Medicines Take sjvn-iua-cmjpccb and prescription medicines only as told by [...] Document Reviewed: 03/03/2020 Elsevier Patient Education 2019 [employer] Follow Up Care 08/17/2021 13:28:48 With:Fredy POTTS MD, URL Address: [address] [place] [address] [place] [address]- When: Unknown [facility] Evaluation + Plan note Future Appointments Appointment Date:08/16/2022 08:15:00 AM Scheduled Provider:Fredy POTTS MD Location:[facility] Appointment Type:URO Office Visit Future Scheduled TestsXR Abdomen 1 View 07/30/22 [facility] Evaluation + Plan note Future Appointments Appointment Date:08/22/2023 08:15:00 AM Scheduled Provider:Fredy POTTS MD Location:[facility] Appointment Type:URO Office Visit Future Scheduled TestsBUN 02/27/23Creatinine 02/27/23Electrolyte Panel 02/27/23XR Abdomen 1 View 02/27/23XR Abdomen 1 View 07/30/22 [facility] Evaluation + Plan note Future Appointments Appointment Date:07/24/2024 02:30:00 PM Scheduled Provider:Jennifer Sherwood Location:[facility] Appointment Type:URO Office Visit [facility] Evaluation note Diagnosis Type 2 diabetes mellitus without complication, with long-term current use of insulin ([facility]) documented in this encounter [facility] HealthcareEvaluation note* Diagnosis Type 2 diabetes mellitus without complication, with long-term current use of insulin Type 2 diabetes mellitus without complication, with long-term current use of insulin Type 2 diabetes mellitus without complication, with long-term current use of insulin Type 2 diabetes mellitus without complication, with long-term current use of insulin documented in this encounter [facility] HealthcareHospital course Narrative No data available for this section [facility] No data available for this section [facility] No data available for this section [facility] Summary Purpose Family History No Family [...] team informatio n (unrecognized section and content) Technology Training Associate Relationship Specialty Start Date End Date Paulette Morales DO [address] [place] [address] PCP - ACO Reach 02/28/24 Denise Shane MD [address] [place] [address] PCP - General Family Medicine 07/25/24 Technology Training Associate Relationship Specialty Start Date End Date Paulette Morales DO [address] [place] [address] PCP - ACO Reach 02/28/24 Denise Shane MD [address] [place] [address] PCP - General Family Medicine 07/25/24 Paulette Morales DO [address] [place] [address] PCP - Medical [place] [facility] 01/28/21 10/29/99 Technology Training Associate Relationship Specialty Start Date End Date Paulette Morales DO [address] [place] [address] PCP - ACO Reach 02/28/24 Denise Shane MD [address] [facility] [place] [address] PCP - General Family Medicine 07/25/24 Paulette Morales, [address] [place] [address] PCP - Medical [place] [facility] 01/28/21 10/29/99 Technology Training Associate Relationship Specialty Start Date End Date Paulette Morales DO [address] [place] [address] PCP - ACO Reach 02/28/24 Denise Shane MD [address] [facility] [place] [address] PCP - General Family Medicine 07/25/24 Paulette Morales DO [address] [place] [address] PCP - Medical [place] [employer] 01/28/21 10/29/99 INFORMATION SOURCE (unrecogn ized section and content) DATE CREATED AUTHOR 10/28/2022 [facility] DATE CREATED AUTHOR AUTHOR'S ORGANIZ ATION 07/24/2024 [facility] DATE CREATED AUTHOR AUTHOR'S ORGANIZ ATION 07/26/2024 [facility] DATE CREATED AUTHOR AUTHOR'S ORGANIZ ATION 11/09/2024 [facility] DATE CREATED AUTHOR AUTHOR'S ORGANIZ ATION 01/28/2025 [facility] EPIC Reason for Visit (unrecogniz [...] BE BASED ON THE PRIMARY CLINICAL RECORDS. [facility] [employer] [facility]. provides no warranty or guarantee of the accuracy or completeness of information in this document.
--- NOTE | 2025-05-04 09:40 | CT_ITS ---
The [address] [address] Patient Name: MAXIMILIAN BLAIR MRN: [id number] date: 1955 Sex: F Assigned Patient Location: Current Patient Location: Accession/Order Number: [id number] Exam Date: 05/04/2025 11:05 Report Date: 05/04/2025 11:12 At the request of: LEE ANN SHAW MD Procedure: CT angio neck CTA Head and Neck TECHNIQUE: Axial imaging of the head and neck with 2-D and 3-D reconstruction. 100 cc of Isovue 350.. The CT exam was performed using one or more the following dose reduction techniques: Automated exposure control, adjustment of the MA and/or Kv according to patient size, or use of the iterative reconstruction technique. Stenoses were measured using the NASCET criteria. COMPARISON: Head CT 05/04/2025 HISTORY: Dizziness and nausea The visualized aortic arch and great vessels are unremarkable. Subclavian arteries are patent No carotid dissection, critical stenosis or occlusion identified. Mild atherosclerosis of carotid bifurcations with minimal stenosis. No vertebral dissection, occlusion or abrupt cut off identified. The carotid siphons and vertebral basilar systems are patent. No intracranial aneurysm, dissection, abrupt cut off or critical stenosis identified.. . CT/CT angio neck IMPRESSION: No occlusion, critical stenosis or dissection of the extracranial or intracranial circulation. Impression dictated by: Agustin Portillo M.D. 05/04/2025 11:12 AM Dictation Location: [place] Electronically authenticated by: [id number] Y Date: 05/04/2025 11:12
--- NOTE | 2025-05-04 09:40 | CT_ITS ---
The [address] [address] Patient Name: MAXIMILIAN BLAIR MRN: [id number] date: 1955 Sex: F Assigned Patient Location: Current Patient Location: Accession/Order Number: [id number] Exam Date: 05/04/2025 11:05 Report Date: 05/04/2025 11:12 At the request of: LEE ANN SHAW MD Procedure: CT angio neck CTA Head and Neck TECHNIQUE: Axial imaging of the head and neck with 2-D and 3-D reconstruction. 100 cc of Isovue 350.. The CT exam was performed using one or more the following dose reduction techniques: Automated exposure control, adjustment of the MA and/or Kv according to patient size, or use of the iterative reconstruction technique. Stenoses were measured using the NASCET criteria. COMPARISON: Head CT 05/04/2025 HISTORY: Dizziness and nausea The visualized aortic arch and great vessels are unremarkable. Subclavian arteries are patent No carotid dissection, critical stenosis or occlusion identified. Mild atherosclerosis of carotid bifurcations with minimal stenosis. No vertebral dissection, occlusion or abrupt cut off identified. The carotid siphons and vertebral basilar systems are patent. No intracranial aneurysm, dissection, abrupt cut off or critical stenosis identified.. . CT/CT angio head IMPRESSION: No occlusion, critical stenosis or dissection of the extracranial or intracranial circulation. Impression dictated by: Agustin Portillo M.D. 05/04/2025 11:12 AM Dictation Location: [employer] Electronically authenticated by: [id number] Y Date: 05/04/2025 11:12
--- NOTE | 2025-05-04 11:00 | MR_ITS ---
The [address] [address] Patient Name: MAXIMILIAN BLAIR MRN: [id number] date: 1955 Sex: F Assigned Patient Location: [place] Current Patient Location: [place] Accession/Order Number: [id number] Exam Date: 05/05/2025 09:52 Report Date: 05/05/2025 10:14 At the request of: LEE ANN SHAW MD Procedure: MR head/brain wo con MR head/brain wo con 05/05/2025 8:28 AM SIGN AND SYMPTOMS: ^r/o stroke, weakness, syncope PROTOCOL: Multiplanar multisequence MR images of the brain without IV contrast COMPARISON: 05/04/2025 FINDINGS: Extra axial spaces: There is age-related cortical atrophy. Hemorrhage: None. Ventricular system: Within normal limits. Basal cisterns: Within normal limits and not effaced. Cerebral parenchyma: T2 and FLAIR hyperintense signal is noted in the periventricular and subcortical white matter consistent with chronic microvascular ischemic change. Midline shift: None.. Cerebellum: Within normal limits. Brainstem: Within normal limits. OTHER: Calvarium: Normal marrow signal. Vascular system: Satisfactory flow voids within the anterior and posterior circulation. Visualized Paranasal sinuses: Within normal limits. Visualized Orbits: Within normal limits. Visualized upper cervical spine: Within normal limits. Sella and skull base: Within normal limits. MR/MR head/brain wo con IMPRESSION: No acute intracranial pathology. Chronic age-related neurodegenerative changes are noted as above. Impression dictated by: Gabe Green M.D. 05/05/2025 10:14 AM Dictation Location: [place] [address] Electronically authenticated by: [id number] Y Date: 05/05/2025 10:14
[2025-05-04] MEDS: LEVOTHYROXINE SODIUM 25 MCG TABLET PO (11:33)
--- NOTE | 2025-05-04 11:33 | PM.IMHP1 ---
Internal Medicine - H&P: HPI History of Present Illness Chief complaint: WEAKNESS, vertigo Narrative: Kerri Horn is a 70 y/o F, h/o DM II on insulin, non-smoker, no cardiac or neurologic history, presented to [facility] on 05/04/25 in am with sudden onset lightheadedness and transient loss of vision, prompting request for medical admission. On assessment at bedside on the regular nursing floor, patient resting comfortably in bed, at bedside, states that earlier this morning went up to go to the bathroom and developed sudden onset of vertigo, as well as loss of vision, did say had element of curtain falling. Return of vision after approximately 10-15 minutes. No ringing in ears or loss of hearing. Denied any prior episodes of this happening, no loss of conciousness. Denies any recent trauma, fevers, chills, chest pain, shortness of breath. Did eat dinner without issue, no changes in insulin or diabetes regimen however did not check glucose, on assessment in the ER glucose found to be elevated. Review of Systems ROS Status of ROS 10 or more systems reviewed and unremarkable except as noted in history and below [facility] Medical History (Updated 05/04/25 @ 12:04 by LEE ANN SHAW MD) Other disorders of meninges, not elsewhere classified ?G96.198 - Other disorders of meninges, not elsewhere classified (ICD-10) Malignant neoplasm of lower lobe, left bronchus or lung ?C34.32 - Malignant neoplasm of lower lobe, left bronchus or lung (ICD-10) Kidney stones ?N20.0 - Calculus of kidney (ICD-10) Diabetes ?E11.9 - Type 2 diabetes mellitus without complications (ICD-10) Abnormal cholesterol test ?E78.9 - Disorder of lipoprotein metabolism, unspecified (ICD-10) Thyroid disease ?E07.9 - Disorder of thyroid, unspecified (ICD-10) Anxiety ?F41.9 - Anxiety disorder, unspecified (ICD-10) Surgical History (Updated 05/04/25 @ 10:11 by Sarah Oropeza RN) History of lithotripsy ?Z98.890 - Other specified postprocedural states (ICD-10) History of hysterectomy ?Z90.710 - Acquired absence of both cervix and uterus (ICD-10) Family History (Updated 05/04/25 @ 08:45 by Dimple Hair) Other Family history of CHF (congestive heart failure) Family history of cancer Family history of diabetes mellitus Family history of stroke Social History (Updated 05/04/25 @ 09:05 by Sarah Oropeza RN) Within the past year, how often did you have a drink containing alcohol: never Score interpretation: A score less than 3 is consistent with normal alcohol consumption. Smoking status: Never smoker Non-prescribed substance use: denies use Highest level of school completed/degree received: high school graduate Little interest or pleasure in doing things: not at all Feeling down, depressed, or hopeless: not at all Meds Home Medications and Allergies Home Medications ?Medication ?Instructions ?Recorded ?Confirmed ?Type allopurinol 300 mg tablet 300 mg PO DAILY 05/04/25 05/04/25 History aspirin 81 mg capsule 81 mg PO DAILY 05/04/25 05/04/25 History empagliflozin 25 mg tablet 12.5 mg PO DAILY 05/04/25 05/04/25 History (Jardiance) ergocalciferol (vitamin D2) 1,250 1,250 mcg PO QWEEK 05/04/25 05/04/25 History mcg (50,000 unit) capsule hydrochlorothiazide 25 mg tablet 25 mg PO DAILY 05/04/25 05/04/25 History insulin glargine 100 unit/mL (3 25 unit subcut QPM 05/04/25 05/04/25 History mL) subcutaneous pen (Basaglar KwikPen U-100 Insulin) ketoconazole 2 % topical cream 1 applic topical BID 05/04/25 05/04/25 History levothyroxine 25 mcg tablet 25 mcg PO DAILY 05/04/25 05/04/25 History metformin 1,000 mg tablet 1,000 mg PO BID 05/04/25 05/04/25 History semaglutide 2 mg/dose (8 mg/3 mL) 2 mg subcut QWEEK 05/04/25 05/04/25 History subcutaneous pen injector (Ozempic) sertraline 50 mg tablet 50 mg PO Q24H 05/04/25 05/04/25 History simvastatin 40 mg tablet 40 mg PO .QHS 05/04/25 05/04/25 History Allergies Allergy/AdvReac Type Severity Reaction Status Date / Time No Known Drug Allergies Allergy Verified 05/04/25 03:50 Exam Narrative Exam Narrative: Gen.: Awake, alert, in no distress Head: Normocephalic, atraumatic ENT: Moist mucous membranes Respiratory: No respiratory distress, lungs clear bilaterally Cardio: Regular rate and rhythm Gastrointestinal: Abdomen is soft, nondistended and nontender to palpation Extremities: Moves extremities equally Psych: Normal mood and affect Neuro: No focal neuro deficit, CN II-XII grossly intact, no upper or lower extremity weakness, no drift Skin: Warm, dry, intact Constitutional Vital Signs, click to edit/add: Last Vital Signs Temp 98.3 F 05/04/25 09:17 Pulse 110 H 05/04/25 09:17 Resp 18 05/04/25 09:17 BP 137/83 05/04/25 09:17 Pulse Ox 98 05/04/25 09:17 O2 Del Method Room Air 05/04/25 09:27 Internal Medicine - H&P: Reslt Labs Labs: Short CBC 05/04/25 Range/Units 04:20 WBC 10.5 (4.0-11.0) 10^3/uL Hgb 15.3 (12.0-16.0) g/dL Hct 45.3 (36.0-48.0) % Plt Count 205 (150-450) 10^3/uL BMP 05/04/25 04:20 Sodium 141 Potassium 4.1 Chloride 101 Carbon Dioxide 27.4 BUN 23.0 H Creatinine 0.73 Glucose 229 H Calcium 9.6 Urine 05/04/25 Range/Units 04:55 Urine Color Lt. yellow (YELLOW) Urine Clarity Clear (CLEAR) Urine pH 6.0 (5.0-9.0) Ur Specific [place] 1.015 (1.005-1.025) Urine Protein 30 A (NEG/TRACE) mg/dL Urine Glucose (UA) >=1000 A (NEGATIVE) mg/dL Assessment and Plan Assessment and Plan (1) Vertigo: (2) Diabetes: (3) Amaurosis fugax: Plan Kerri Horn is a 70 y/o F, h/o DM II on insulin, non-smoker, no cardiac or neurologic history, presented to [facility] on 05/04/25 in am with sudden onset lightheadedness and transient loss of vision, prompting request for medical admission. 1. sudden onset vertigo and transient loss of vision 2/2 CVA vs TIA - CT head and neck imaging negative for acute stroke, bilateral loss of vision unusual for embolic phenomenon - improvement in vision, no focal deficits, NIH = 0 laying in bed, however states persistent unsteadiness with balance - TTE and MRI head w/o ordered - continue home meds including aspirin - continue telemetry 2. h/o DM II, hypothyroidism, depression with anxiety - continue home meds and insulin regimen - continue levothyroxine, - continue sertraline Diet: diabetic Lines/tubes: PIV VTE prophylaxis: lovenox Code status: full Dispo: inpatient
[2025-05-04] MEDS: ALLOPURINOL 300 MG TABLET PO (12:25)
[2025-05-04] MEDS: KETOCONAZOLE 15 APPLIC TUBE TOPICAL (12:25)
[2025-05-04] MEDS: SERTRALINE HCL 50 MG TABLET PO (12:25)
[2025-05-04] MEDS: ERGOCALCIFEROL (VITAMIN D2) 1,250 MCG/50,000 UNITS CAPSULE 1250 MCG PO (12:25)
[2025-05-04] MEDS: ASPIRIN 81 MG TAB.CHEW PO (12:25)
[2025-05-04] MEDS: HYDROCHLOROTHIAZIDE 25 MG TABLET PO (12:25)
[2025-05-04] MEDS: INSULIN GLARGINE 300 UNIT/3 ML INSULN.PEN 25 UNIT SQ (21:12)
[2025-05-04] MEDS: ATORVASTATIN CALCIUM 20 MG TABLET PO (21:12)
[2025-05-05] VITALS (18 sets, daily range): BP systolic 111–147; BP diastolic 68–81; PULSE 18–98; TEMP 36.5–37.1; O2SAT 90–94
[2025-05-05 05:58] LABS: Hematocrit 42.8 % (36.0-48.0); Hemoglobin 14.0 g/dL (12.0-16.0); Immature Granulocytes Abs Auto 0.11 10^3/uL (0.00-0.03); Immature Granulocytes Pct Auto 1.0 % (0.0-0.5); Lymphocytes Absolute Auto 2.9 10^3/uL (1.2-3.8); Mean Corpuscular HGB Conc 32.7 g/dL (29.9-35.2); Mean Corpuscular Hemoglobin 26.9 pg (26.7-34.0); Mean Corpuscular Volume 82.3 fL (81.0-99.0); Platelet Count 190 10^3/uL (150-450); Red Blood Count 5.20 10^6/uL (4.20-5.40); White Blood Count 11.5 10^3/uL (4.0-11.0)
[2025-05-05] MEDS: LEVOTHYROXINE SODIUM 25 MCG TABLET PO (06:07)
[2025-05-05 06:15] LABS: Anion Gap 14.5; Blood Urea Nitrogen 24.0 mg/dL (7.0-18.0); Calcium 9.1 mg/dL (8.5-10.1); Carbon Dioxide 28.2 mmol/L (21.0-32.0); Chloride 104 mmol/L (98-107); Estimated GFR (African America >60 (>=60 mL/min/1.73m^2); Estimated GFR (Non-African Ame >60 (>=60 mL/min/1.73m^2); Glucose 166 mg/dL (74-106); Potassium 3.7 mmol/L (3.5-5.1); Sodium 143 mmol/L (136-145)
[2025-05-05] MEDS: ALLOPURINOL 300 MG TABLET PO (08:53)
[2025-05-05] MEDS: HYDROCHLOROTHIAZIDE 25 MG TABLET PO (08:53)
[2025-05-05] MEDS: ASPIRIN 81 MG TAB.CHEW PO (08:53)
[2025-05-05] MEDS: KETOCONAZOLE 15 APPLIC TUBE TOPICAL ×2 (08:54→20:14)
[2025-05-05] MEDS: SERTRALINE HCL 50 MG TABLET PO (08:54)
--- OUTSIDE RECORDS SUMMARY | 2025-05-05 09:08 | XMS_ITS | Encounter Summary ---
Author Organization [facility] tem Address [facility] [id number] [address] [place] [address] Care Team Providers Care Code Enforcement Supervisor Name Role Phone Unavailable Primary Care Provider Unavailabl e Encounter Details Date Type Department Care Team (Late st Contact Info) Description 05/05/2025 9:08 AM EDT - 05/06/2025 11:07 AM EDT Emergency [facility] Tele Stroke [address] [place] [address] Discharge Disposition: Telemedicine Discharge Social History Tobacco Use Types Packs/Day Years Used Date Smoking Tobacco: Never Assessed Comments Unknown Sex and Gender Information Value Date Recorded Sex Assigned at Not on file Legal Sex Female 9:04 AM EDT Gender Identity Not on file Sexual Orientation Not on file documented as of this encounter Miscellaneous Notes * Telehealth Consult - Sadie Mobley MD - 05/05/2025 4:12 PM EDT Images from the original note were not included. [facility] TELENEUROLOGY CONSULTATION NOTE Telemedicine consultation was requested on this patient. To the best of my ability the purpose of teleneurology was reviewed with patient prior to initiation of visit and verbal consent was obtained. Hospital: [facility] Patient Seen: Floor Neurology Consult Note Consult Date: 05/05/2025 Referring Physician: No att. providers found Reason for Consult I have been asked to see the patient in neurological consultation to render advice and opinion regarding vertigo. History of Present Illness Kerri Horn is a RIGHT hand dominant 70 y.o. female with history of T2DM, hypothyroidism, and anxiety who presented to [facility] after an episode of sudden onset of lightheadedness and vision disturbance. The symptoms occurred on the morning of 05/04/2025 when she awoke to use the restroom. In total duration symptoms lasted about 10-15 minutes. She denies any auditory symptoms. She did undergo neurovascular imaging including CT brain, CT angiography head and neck, and MRI of the brain without contrast. All the studies were negative for any acute pathology. Consultation was requested of teleneurology. Currently, Kerri is resting in bed. She confirms that symptoms started one month ago. She notes bilateral aural fullness with decreased hearing and bilateral tinnitus (worse on right). She went to see her PCP. An otoscopic exam was done and felt to be normal. More recently she had the event in which she was returning back to bed from the bathroom when she felt lightheaded and had transient blindness that lasted a few seconds. Since admission she has had not further episodes of lightheadedness or visual disturbance. However, she continues with dizziness/ gait disturbance. She denies ay previous episodes of vertigo. She denies any recent illness/ URI. Orthostatics negative. Past Medical History Allergies NKDA Home Medications: Social History Family History No family history on file. REVIEW OF SYSTEMS: Review of Systems Exam 97.8F 128/76 96 18 92RA General appearance: Awake and alert, in no distress Cardiovascular: Chest: Appears unlabored Extremities: Unable to tell through limits of video visit Abdomen: No overt distention noted through limits of video visit Skin: No rashes or lesions noted. Neurological Examination: Neuro: A&Ox4, follows all commands, unable to assess pupils, EOM full, no nystagmus noted with sitting up or standing, no facial asymmetry noted, no dysarthria, tongue midline, shoulder shrug symmetric, no focal hemiplegia - able to lift all extremities off the plane of the bed with no pronatordrift, rapid alternating movements within normal limits, gait with minimal assist, narrow base, slightly unsteady with pivot Unable to test sensation/reflexes/proprioception/tone Lab Review Imaging 05/04 CTH:no acute intracranial abnormality 05/04 CTA Head/ Neck: 05/04 MRI Brain: wo: Clinical Impression: Lightheadedness/ Dizziness Transient Visual Disturbance Recent Auditory Symptoms Balance Disturbance Recommendations: Kerri Horn is a RIGHT hand dominant 70 y.o. female with history of T2DM, hypothyroidism, and anxiety who presented to [facility] after an episode of sudden onset of lightheadedness and vision disturbance. She admits to recent auditory symptoms and balance disturbance. Presentation is concerning for BPPV vs Meniere's disease. At this time advise: Domonique Maneuver (see if in house provider can conduct this maneuver) Would recommend holding antivert if this is able to be done.. Otherwise, will need to see vestibular therapy outpatient. I, Luisa Cook PA-C, assisted with documentation during the assessment of this patient. Please note case was done in collaboration with: Dr. Sadie Mobley. Teleneurology will sign off. Admitting physician, Dr. Worthington was contacted re: plan of care. I have spent 45 minutes personally reviewing previous history, imaging, and performing a face to face physical assessment on this patient. If you have any further questions please feel free to contact us. Thank you for asking us to be part of this patient's care. [id number] Telestroke Consult from 30-50 minutes This note is dictated with the use of M*Modal.Please note that this dictation was completed with computer voice recognition software. Quite often unanticipated grammatical, syntax, homophones, and other interpretive errors are inadvertently transcribed by the computer software. Please disregard these errors. Please excuse any errors that have escaped final proofreading. Consults Tele-Neurology Telemedicine Consult Note Consent Statement: I discussed risks, benefits, and alternatives of a real-time synchronous audiovisual consultation with the patient (and any accompanying persons) including the risks that the patient's personal health details and medical records will be discussed over real-time, synchronous, interactive video/audio/telecommunication technology, the visitwill not be recorded without the express consent of both the provider and the patient, and that there are some limitations compared to [id number] evaluations. We elected to proceed. EYAL Ashraf 05/05/25 [id number] EYAL Ashraf 05/05/25 0115 ISadie MD, provided the documented services for this patient. I personally reviewed previous medical history, laboratory studies, neuroimaging, and completed a [id number] physical assessment on this patient via live audio/ video camera. To the best of my ability, the assessment and plan was discussed with patient and bedside staff. documented in this encounter Plan of Treatment Not on file documented as of this encounter Visit Diagnoses Not on filedocumented in this encounter
--- NOTE | 2025-05-05 09:44 | SWNOTE1 ---
Important Message from Medicare reviewed and discussed with patient. Pt. verbalized understanding and signed the form. Original given to patient and copy placed in patient?s chart.
--- NOTE | 2025-05-05 09:45 | SWNOTE1 ---
АННА and I met with patient in room. Pt is from home and lives with her . Pt is independent, she does not use any DME or have services coming into the home. I asked pt if she had any concerns for discharge at this time and pt voiced no. SW has no concerns for discharge at this time.
[2025-05-05] MEDS: ENOXAPARIN SODIUM 40 MG/0.4 ML SYRINGE SUBQ (11:00)
[2025-05-05] MEDS: ASPIRIN 325 MG TABLET PO (11:01)
[2025-05-05] MEDS: INSULIN ASPART 300 UNIT/3 ML PEN SUBQ ×3 (11:26→20:09)
--- NOTE | 2025-05-05 11:59 | CA_ITS ---
Patient Name: MAXIMILIAN BLAIR MR#: [id number] : 1955 Exam Date: 05/05/2025 Ordering Doctor: LEE ANN SHAW ECHOCARDIOGRAM REPORT PROCEDURE: CA ECHO DOPPLER COMPLETE INDICATIONS: Weakness, diabetes COMPARISON: None. DESCRIPTION: COMPLETE ECHOCARDIOGRAM Real-time transthoracic echocardiography with 2D, M-mode, spectral and color flow Doppler performed. QUALITY: Technical quality was adequate. LEFT VENTRICLE: Normal chamber size. Normal left ventricular wall thickness. Systolic function is normal. LV EF: Normal left ventricular ejection fraction, (>55%). DIASTOLIC: Diastolic function is indeterminate. ATRIAL SEPTUM: LEFT ATRIUM: Normal chamber size. RIGHT ATRIUM: Normal chamber size. RIGHT VENTRICLE: Appears mildly dilated. Normal systolic function. TRICUSPID VALVE: Normal mobility and thickness. No stenosis with no regurgitation. MITRAL VALVE: Normal mobility and thickness. No evidence of mitral valve stenosis. There is no mitral annular calcification. No mitral regurgitation. AORTIC VALVE: Normal trileaflet appearance. No visible sclerosis. Normal leaflet mobility. No evidence of aortic valve stenosis. No aortic regurgitation. AORTIC ROOT: Normal diameter and appearance, measuring 3.0 cm. Ascending aorta is normal in size, measuring 2.8 cm. PULMONIC VALVE: Not well visualized. No stenosis. No regurgitation. PERICARDIUM: No evidence of pericardial effusion. IVC: Not well visualized. PLEURA: CONCLUSION: 1. Left ventricular is normal in size and exhibits normal systolic function. LVEF is estimated at 60 to 65%. 2. The right ventricle appears mildly dilated with normal systolic function. 3. No significant valvular dysfunction. 4. Unable to assess right-sided pressures due to lack of measurable tricuspid regurgitation. Adult Echocardiography Procedure Report Left Ventricle LVEDD (3.7 - 5.6 cm): 3.71 cm LVESD (2.2 - 4.0 cm): 2.23 cm LVIVS thickness (0.6 - 1.2 cm): 1.03 cm LVPW thickness (0.5 - 1.0 cm): 0.80 cm e': 0.04 m/s E - e': 10.56 LVOT Max Gradient: 1.92 mm[Hg] LVOT Area (cm2): 0.69 m/s Peak Velocity (LVOT): 0.69 m/s LVOT Diameter 2.61 cm Left Atrium LA Volume Index (2D A2C): 22.56 ml/m2 Left Atrium Systolic Dimension: 3.26 cm Mitral Valve MV E to A Ratio: 0.73 Mitral Valve A-Wave Peak Velocity: 0.62 m/s Mitral Valve E-Wave Peak Velocity: 0.45 m/s Right Ventricle Aorta AO Root Diam: 2.99 cm Ascending Ao Diam: 2.78 cm Aortic Valve Tricuspid Valve Pulmonic Valve Peak Velocity: 0.72 m/s Peak Gradient: 2.06 mm[Hg] Right Atrium Dictated by: Derrick Infante M.D. on 05/05/2025 at 19:46 Approved by: Derrick Infante M.D. on 05/05/2025 at 19:50
[2025-05-05] MEDS: OZEMPIC 2 EACH SUBQ (12:05)
--- NOTE | 2025-05-05 12:21 | P.PN_ITS ---
Progress Note: Subjective Subjective Interval history: Patient continues to be symptomatic but less intense than before. Less dizziness, less ataxia. No chest pain. No focal weakness or numbness. No fever or chills. No slurred speech. No change in mental status Exam Narrative Exam Narrative: [pt is awake and alert. oriented to place, time and person HEENT: [place] conjunctiva and NL buccal mucosa Neck: Supple, no tenderness Endocrine: No Thyromegaly. Vascular: No JVD or carotid bruit. Lymphatic: No cervical lymphadenopathy. Chest: CTA no DTP. Heart RRR, no extra sound or murmur. Abd: Soft, no tenderness, no rebound and no rigidity. Increase abd girth therefore clinically I could not exclude the possibility of intra abd mass or organomegaly. LE: No cyanosis or clubbing, no varices or edema. Neuro: A A O. Nl speech, comprehension and attention. Nl and symetrical motor and tone examination through out. No nystagmus. Normal finger nose testing Patient is somewhat unsteady on her feet. She needed my supervision and assist to prevent falls []] Constitutional Vital Signs, click to edit/add: Last Vital Signs Temp 97.8 F 05/05/25 11:17 Pulse 88 05/05/25 11:55 Resp 18 05/05/25 11:17 BP 128/76 05/05/25 11:17 Pulse Ox 92 L 05/05/25 11:17 O2 Del Method Room Air 05/05/25 11:17 Progress Note: Objective Labs Labs: Short CBC 05/05/25 Range/Units 05:09 WBC 11.5 H (4.0-11.0) 10^3/uL Hgb 14.0 (12.0-16.0) g/dL Hct 42.8 (36.0-48.0) % Plt Count 190 (150-450) 10^3/uL BMP 05/05/25 05:09 Sodium 143 Potassium 3.7 Chloride 104 Carbon Dioxide 28.2 BUN 24.0 H Creatinine 0.69 Glucose 166 H Calcium 9.1 Progress Note: A&P Assessment and Plan (1) Vertigo: (2) Diabetes: (3) Hypertension: (4) Hypothyroidism: (5) Hyperlipidemia: Plan Dizziness, spinning sensation, ataxia Broad differential diagnosis including but not limited to transient ischemic attack involving the brainstem or cerebellum Benign paroxysmal positional vertigo, vestibular neuritis, labyrinthitis, M?ni?re's disease, orthostatic hypotension, cardiac dysrhythmia less likely No hearing loss or tinnitus to suggest M?ni?re's, no nystagmus. CT head does not show any acute intracranial process. CTA head and neck does not show any critical stenosis MRI is pending. Patient is on baby aspirin. Increased up to 325 mg daily. Pending MRI report, echocardiogram and neuroconsultation Start the patient on meclizine as well Check orthostatic hypotension. Pending PT OT eval and treatment. Diabetes type 2. Recent A1c was 7.4. Continue Lantus. Add a sliding scale. Titrate to keep blood sugar between 125 and 160. Hypertension, fair control Check orthostatic blood pressure. Hypothyroidism Continue Synthroid Hyperlipidemia Continue statin Depression Continue preadmission Zoloft Chronic medical conditions not listed above, incidental findings seen on labs and imaging. These would need to be addressed. Could be addressed when time and condition are appropriate. Could be addressed in the outpatient setting by PCP co llaboration with other needed outpatient providers. I discussed her case with her daughter at the bedside. I provided her information about her disease, prognosis, expectation and trajectory. Answered all her questions.
[2025-05-05] MEDS: MECLIZINE HCL 12.5 MG TABLET PO (14:22)
--- NOTE | 2025-05-05 14:27 | SWNOTE1 ---
АННА spoke to pt about recommendations of outpt therapy. Pt is in agreement and voiced she will do whatever it takes to get better. She asked what all they will do. SW advised they will evaluate her at first appointment and determine treatment plan. Pt voiced she would like to go to [place] for this. АННА updated nurse and had physician sign the form. АННА faxed to oupt rehab services. Original order given to pt and copy placed in chart.
[2025-05-05] MEDS: ATORVASTATIN CALCIUM 20 MG TABLET PO (20:13)
[2025-05-06] VITALS (8 sets, daily range): BP systolic 127–130; BP diastolic 73–83; PULSE 67–104; TEMP 36.7–36.8; O2SAT 91–94
[2025-05-06] MEDS: LEVOTHYROXINE SODIUM 25 MCG TABLET PO (05:10)
[2025-05-06 05:45] LABS: Hematocrit 42.9 % (36.0-48.0); Hemoglobin 14.0 g/dL (12.0-16.0); Immature Granulocytes Abs Auto 0.12 10^3/uL (0.00-0.03); Immature Granulocytes Pct Auto 1.5 % (0.0-0.5); Lymphocytes Absolute Auto 2.9 10^3/uL (1.2-3.8); Mean Corpuscular HGB Conc 32.6 g/dL (29.9-35.2); Mean Corpuscular Hemoglobin 26.7 pg (26.7-34.0); Mean Corpuscular Volume 81.7 fL (81.0-99.0); Platelet Count 169 10^3/uL (150-450); Red Blood Count 5.25 10^6/uL (4.20-5.40); White Blood Count 7.8 10^3/uL (4.0-11.0)
--- OUTSIDE RECORDS SUMMARY | 2025-05-06 05:54 | XMS_ITS ---
Author Organization [facility] [place] Address [address] [place] [address] Care Team Providers Care Life Skills Trainer Name Role Phone Lisset Alvarez Primary Care Provider REASON FOR VISIT tcm- CALL MONDAY Encounters Encounter Location Date Provider Diagnosis [address] [address] 05/06/2025 Lisset Alvarez Plan Of Treatment Next Appt Details Provider Name:Lisset kebede, 05/13/2025 09:30:00 AM, [address] [place], [address], Progress Notes * Kerri HORN LDOB:[birth year] (70 yo F)Acc No.[id number]:05/06/2025 UNLOCKED PROGRESS NOTE Patient: Jani ESPINALulysses Garrido :1955 A ge:70 Y S ex:Female Address:[address], [facility] [address] * * Date:
[2025-05-06 06:03] LABS: Anion Gap 14.1; Blood Urea Nitrogen 25.0 mg/dL (7.0-18.0); Calcium 9.1 mg/dL (8.5-10.1); Carbon Dioxide 27.6 mmol/L (21.0-32.0); Chloride 102 mmol/L (98-107); Estimated GFR (African America >60 (>=60 mL/min/1.73m^2); Estimated GFR (Non-African Ame >60 (>=60 mL/min/1.73m^2); Glucose 147 mg/dL (74-106); Potassium 3.7 mmol/L (3.5-5.1); Sodium 140 mmol/L (136-145)
--- NOTE | 2025-05-06 08:54 | SWNOTE1 ---
АННА spoke with nurse and physician. SW did confirm that SW did set up pt with outpt therapy, SW to call over to outpt rehab services and get a time for pt. Nurse also mentioned that the daughter would like pt to have a walker as well. SW spoke with pt and she did voice that her daughter does want her to have a walker, pt is in agreement with this. She would like the most standard walker with wheels. She would like a DME company in [place]. АННА to send to [facility]. АННА advised pt that SW will also call over to outpt rehab services and set up first appoinment, pt in agreement. АННА spoke with physician about walker and he signed DME form. SW called over to outpt rehab services and set up first appointment. Pt is set for 05/08 at 3:00pm. SW to let pt know and put information in the pt's discharge paperwork.
[2025-05-06] MEDS: SERTRALINE HCL 50 MG TABLET PO (09:41)
[2025-05-06] MEDS: HYDROCHLOROTHIAZIDE 25 MG TABLET PO (09:41)
[2025-05-06] MEDS: ASPIRIN 325 MG TABLET PO (09:41)
[2025-05-06] MEDS: ALLOPURINOL 300 MG TABLET PO (09:41)
[2025-05-06] MEDS: KETOCONAZOLE 15 APPLIC TUBE TOPICAL (09:42)
--- NOTE | 2025-05-06 10:10 | SWNOTE1 ---
SW received a message from pt's nurse. Pt's is here and he has voiced that they do have walkers and does not need SW to get one.
--- NOTE | 2025-05-06 10:40 | PM.DS1 ---
DS: Providers Provider Date of admission: 05/04/25 08:51 Primary care physician: Chandler Shane MD Consults: 05/04/25 12:07 Consult to TeleNeurology Routine Reason for consultation: vertigo and transient loss of vision, TIA vs stroke 05/05/25 09:27 Physical Therapy Eval and Treat Routine Reason for consultation: TIA 05/05/25 09:28 Occupational Therapy Eval and Treat Routine Reason for consultation: TIA DS: Diagnosis Discharge Diagnosis (1) Vertigo: (2) Diabetes: (3) Hypertension: (4) Hypothyroidism: (5) Hyperlipidemia: DS: Summary Hospital Course Hospital Course: Mrs Horn is a 70-year-old female who came in with progressive dizziness, spinning sensation, vertigo, some unsteady gait that has been going on for several weeks, probable several months but got worse for a day or 2 prior to this ER presentation. Patient reported that she had seen her primary care doctor for similar symptoms. He inspected her ears and did not find anything significant as she stated. Dizziness, spinning sensation, ataxia Broad differential diagnosis including but not limited to transient ischemic attack involving the brainstem or cerebellum Benign paroxysmal positional vertigo, vestibular neuritis, labyrinthitis, M?ni?re's disease, orthostatic hypotension, cardiac dysrhythmia less likely No hearing loss or tinnitus to suggest M?ni?re's, no nystagmus. CT head does not show any acute intracranial process. CTA head and neck does not show any critical stenosis MRI did not show any acute intracranial process but positive for chronic changes Patient is on baby aspirin. Increased up to 325 mg daily. Echocardiogram does not show any significant valvular disease or cardiomyopathy Start the patient on meclizine as well. Patient is feeling better. Continue meclizine on discharge. Check orthostatic hypotension. Patient is not orthostatic Patient was seen by PT OT and recommended to have an outpatient physical therapy and a habitation to improve her strength, gait abnormality. The patient also will be prescribed a walker. Patient is feeling much better today. She is able to ambulate to the bathroom. Her neuroexam is unremarkable. Diabetes type 2. Recent A1c was 7.4. Continue Lantus. Add a sliding scale. Titrate to keep blood sugar between 125 and 160. Hypertension, fair control Check orthostatic blood pressure. Hypothyroidism Continue Synthroid Hyperlipidemia Continue statin Depression Continue preadmission Zoloft Chronic medical conditions not listed above, incidental findings seen on labs and imaging. These would need to be addressed. Could be addressed when time and condition are appropriate. Could be addressed in the outpatient setting by PCP collaboration with other needed outpatient providers. Patient has multiple complex medical issues as listed above and others that are not listed. All appear to be stable. I do not have any clear or strong clinical justification to extend inpatient hospitalization. Patient however will require close and frequent monitoring as well as additional work-up, investigation and therapeutic intervention that could take place from this point on post discharge. That is to prevent relapse, decompensation, rehospitalization and other medical implications. I instructed patient to ask her primary care doctor to obtain [facility] record entirely to address abnormalities seen on labs and imaging that I have and have not addressed during this hospitalization, follow-up on pending blood work, imaging and pathology is if available and to follow-up on needed medical care in the outpatient setting. Time Spent with Patient Time attestation: Total time spent providing and/or coordinating discharge services: Time spent: greater than 30 minutes Exam Narrative Exam Narrative: [pt is awake and alert. oriented to place, time and person HEENT: [place] conjunctiva and NL buccal mucosa Neck: Supple, no tenderness Endocrine: No Thyromegaly. Vascular: No JVD or carotid bruit. Lymphatic: No cervical lymphadenopathy. Chest: CTA no DTP. Heart RRR, no extra sound or murmur. Abd: Soft, no tenderness, no rebound and no rigidity. Increase abd girth therefore clinically I could not exclude the possibility of intra abd mass or organomegaly. LE: No cyanosis or clubbing, no varices or edema. Neuro: A A O. Nl speech, comprehension and attention. Nl and symetrical motor and tone examination through out. No nystagmus, normal finger nose testing I performed the Domonique procedure. Patient felt somewhat better after that. Patient needs some assist changing position from sitting to standing however she is fairly steady when she takes off. []] Constitutional Vital Signs, click to edit/add: Last Vital Signs Temp 98.1 F 05/06/25 07:47 Pulse 87 05/06/25 09:52 Resp 18 05/06/25 07:47 BP 127/83 05/06/25 07:47 Pulse Ox 91 L 05/06/25 07:47 O2 Del Method Room Air 05/06/25 07:47 DS: Data Data Completed and Pending Labs on day of discharge: Labs from last 24 hours 05/06/25 05/05/25 05/05/25 04:57 20:09 16:47 WBC 7.8 RBC 5.25 Hgb 14.0 Hct 42.9 MCV 81.7 MCH 26.7 MCHC 32.6 RDW 15.1 H Plt Count 169 MPV 9.7 Neut % (Auto) 51.9 Lymph % (Auto) 37.2 [place] % (Auto) 7.1 Eos % (Auto) 1.7 Baso % (Auto) 0.6 Neut # (Auto) 4.0 Lymph # (Auto) 2.9 [place] # (Auto) 0.6 Eos # (Auto) 0.1 Baso # (Auto) 0.1 Abs Immat Gran (auto) 0.12 H Imm/Tot Granulo (auto) 1.5 H Sodium 140 Potassium 3.7 Chloride 102 Carbon Dioxide 27.6 Anion Gap 14.1 BUN 25.0 H Creatinine 0.62 Est GFR ( Amer) >60 Est GFR (Non-Af Amer) >60 BUN/Creatinine Ratio 40.3 Glucose 147 H Calcium 9.1 POC Glucose 166 H 183 H 05/05/25 11:22 WBC RBC Hgb Hct MCV MCH MCHC RDW Plt Count MPV Neut % (Auto) Lymph % (Auto) [place] % (Auto) Eos % (Auto) Baso % (Auto) Neut # (Auto) Lymph # (Auto) [place] # (Auto) Eos # (Auto) Baso # (Auto) Abs Immat Gran (auto) Imm/Tot Granulo (auto) Sodium Potassium Chloride Carbon Dioxide Anion Gap BUN Creatinine Est GFR ( Amer) Est GFR (Non-Af Amer) BUN/Creatinine Ratio Glucose Calcium POC Glucose 258 H Preliminary micro results at discharge 05/04/25 04:55 Urine Culture - Preliminary Urine,Clean Catch Pending - Specimen sent to [facility] Discharge Plan Discharge Disposition: Home, Self-Care Condition: Good Health Concerns: I may not have addressed or treated all of your medical illnesses or the abnormal blood work or imaging studies during this hospitalization. Please ask your primary care provider to obtain [facility] records entirely to follow up on all of the abnormal physical, laboratory, and imaging findings that I have not addressed. Please return back to the emergency room or seek medical attention if your symptoms worsen or return. Check your blood sugar 3 times a day before meals. Document these numbers on a blood glucose log and bring them with you to your follow-up appointment with your primary care doctor. Communicate with your primary care doctor or recreation specialist if your blood sugar is under 100 or above 300 on 2 consecutive checks. Communicate with your primary care doctor or recreation specialist if you have any questions about your diabetes medications. Signs of a low blood sugar include sweating, racing heart, dizziness and/or weakness. Check your blood sugar if you have any of the symptoms. Discharging you from [facility] does not mean that your medical care ends here and now. You may still need additional monitoring, work up, investigation, and treatment plan to be handled from this point on by out patient providers including your primary care provider and specialists. For any medication question, please contact your retail pharmacist or your primary care provider. Thank you. Discharge Medications: New aspirin 325 mg Tablet 325 mg PO QD Qty: 30 2RF meclizine 12.5 mg Tablet 12.5 mg PO TID Qty: 21 1RF Continued allopurinol 300 mg tablet 300 mg PO DAILY sertraline 50 mg tablet 50 mg PO Q24H levothyroxine 25 mcg tablet 25 mcg PO DAILY metformin 1,000 mg tablet 1,000 mg PO BID Jardiance 25 mg tablet 12.5 mg PO DAILY hydrochlorothiazide 25 mg tablet 25 mg PO DAILY simvastatin 40 mg tablet 40 mg PO .QHS insulin glargine [Basaglar KwikPen U-100 Insulin] 100 unit/mL (3 mL) insulin pen 25 unit subcut QPM Ozempic 2 mg/dose (8 mg/3 mL) pen injector 2 mg subcut QWEEK Patient Comments: On Mondays ergocalciferol (vitamin D2) 1,250 mcg (50,000 unit) capsule 1,250 mcg PO QWEEK Rx Instructions: Sundays ketoconazole 2 % cream 1 applic TOPICAL BID Discontinued aspirin 81 mg capsule 81 mg PO DAILY Print Language: Nauruan Manufacturing Supervisor 2Nd Shift/Cardiovascular Technologist Instructions: 1st outpt physical therapy appointment scheduled for 05/08/25 at 3:00pm. Outpatient Rehab Services [facility] [place] [address] Ext. [facility]. May 13 @ 9:30am with Dr. Shane [phone] Forms: Portal Instructions
--- NOTE | 2025-05-06 13:10 | CM.NOTE ---
Rounds made with Dr. Worthington. Plan for discharge today. Follow up with PCP and outpatient Physical Therapy. Kerri verbalizes understanding.
--- OUTSIDE RECORDS SUMMARY | 2025-05-07 09:23 | XMS_ITS | Clinical Summary ---
Author Organization [facility] Address [address] [place] [address] Care Team Providers Care Dynamic Balancer Set Up Worker Name Role Phone Paulette Hurd DO Unavailable [phone] Chandler Shane MD Primary Care Provider [...] bedtime. Active ergocalciferol (Vitamin D2) 1.25 MG (11214 UT) capsule Take 1.25 mg by mouth [...] (BMI 35.0-39. 9) with comorbidity 03/08/2023 09/26/2023 half-way current use of insulin 06/12/2018 09/26/2023 Encounters Date Type Department Care Team Description 02/10/2025 Telephone [facility] [address] [place] [address] Paulette Hurd, DO A1C from [...] [address] [place] [address] Paulette Hurd DO [address] [place] [address] Health Maintenance Due Date Last Done Comments [...] Narrative 01/28/2018 12:00 PM EDT PERFORMED AT [facility] LOCATION:[id number] Procedure Note CONVERSION, GENERIC - 03/15/2023 PERFORMED AT [facility] LOCATION:[id number] us Paulette Hurd DO OPHTH PHOTOGRAPHY Final Re sult from Last 3 Months or Most Recently Relevant to Health Maintenance Insurance [employer] Care Teams Dynamic Balancer Set Up Worker Relationship Specialty Start Date End Date Paulette Hurd DO [address] [place] [address] PCP - ACO Reach 02/28/24 Chandler Shane MD [address] [place] [address] PCP - General Family Medicine 07/25/24 Paulette Hurd DO [address] [facility] [address] [place] [address] PCP - Medical [place] [employer] 01/28/21 10/29/99
--- OUTSIDE RECORDS SUMMARY | 2025-05-07 09:23 | XMS_ITS | Clinical Summary ---
Author Organization [employer] Address [id number] [address] [place] [address] Care Team Providers Care Coal Cutter Name Role Phone Unavailable Primary Care Provider Unavailabl e Encounters Date Type Department Care Team Description 05/05/2025 9:08 AM EDT - 05/06/2025 11:07 AM EDT Emergency [facility] Tele Stroke [address] [place] [phone] Discharge Disposition: Telemedicine Discharge from Last 3 Months Social History Tobacco Use Types Packs/Day Years Used Date Smoking Tobacco: Never Assessed Comments Unknown Sex and Gender Information Value Date Recorded Sex Assigned at Not on file Legal Sex Female 9:04 AM EDT Gender Identity Not on file Sexual Orientation Not on file Plan of Treatment Health Maintenance Due Date Last Done Comments Depression Screening 1967 Tobacco Screening 1967 Adult BMI Screening 02/16/1974 DTaP,Tdap and Td Vaccines (1 - Tdap) 02/16/1975 Fall Risk Screening 02/16/2021 COVID-19 Vaccine (2023-2 5 season) 2025 09/11/2024, 08/24/2022, 05/20/2022, Additional history exists Influenza Vaccine 06/30/2025 09/30/2024, , 08/24/2022, Additional history exists Zoster (Shingles) Vaccine Completed 2023, 02/12/2024, 09/28/2017 Medical Devices Not on file Insurance [employer]
--- OUTSIDE RECORDS SUMMARY | 2025-05-07 09:23 | XMS_ITS | Encounter Summary ---
Author Organization [facility] Address [address] [place] [address] Care Team Providers Care Ditch Tender Name Role Phone Paulette Hurd DO Unavailable [phone] Unallocated, [facility] Provider Primary Care Provi makenzie Paulette Hurd DO Unavailable [phone] Chandler Shane MD Primary Care Provider [phone] Paulette Hurd DO Unavailable [phone] Encounter Details Date Type Department Care Team (Late st Contact Info) Description 09/26/2023 Orders Only [facility] [address] [facility] [address] [place] [address] A, Unknown Practice [address] [place], [place] [phone] Social History Tobacco Use Types Packs/Day Years Used Date Smoking Tobacco: Never Smokeless Tobacco: Never PHQ-2 Answer Date Recorded Patient Health Questionnaire-2 Score 0 03/21/2023 Comments Unknown Sex and Gender Information Value Date Recorded Sex Assigned at Not on file Legal Sex Female 6:41 PM EDT Gender Identity Not on file Sexual Orientation Not on file documented as of this encounter Plan of Treatment Upcoming Encounters Date Type Department Care Team (Late st Contact Info) Description 07/29/2025 8:15 AM EDT Office Visit [facility] [address] [facility] [address] [place] [phone] Paulette Hurd, DO [address] [facility] [address] [place] [address] documented as of this encounter Procedures Procedure Name Priority Date/Time Associated Diagnosis Comments SCANNED LABS Routine 09/20/2023 11:47 AM EST SCANNED LABS Routine 09/20/2023 10:44 AM EST documented in this encounter Results * SCANNED LABS (09/20/2023 11:47 AM EST) us Unknown Practice A LAB CHG PERFORMABLES Final Re sult * SCANNED LABS (09/20/2023 10:44 AM EST) us Unknown Practice A LAB CHG PERFORMABLES Final Re sult documented in this encounter Visit Diagnoses Not on filedocumented in this encounter Care Teams Ditch Tender Relationship Specialty Start Date End Date Paulette Hurd, DO [address] [place] [address] PCP - ACO Reach 03/23/23 12/28/23 Unallocated, [facility] MD [facility] [address] [place] [address] PCP - General 09/26/23 07/24/24 Paulette Hurd, [address] [place] [address] PCP - ACO Reach 02/28/24 Chandler Shane MD [address] [place] [address] PCP - General Family Medicine 07/25/24 Paulette Hurd, DO [address] [place] [address] PCP - Medical [place] [employer] 01/28/21 10/29/99 documented as of this encounter
--- OUTSIDE RECORDS SUMMARY | 2025-05-07 09:23 | XMS_ITS | Patient Health Record ---
Author Organization [facility] in [place] Address [address] [place] [address] Care Team Providers Care Credit Control Assistant Name Role Phone Lisset Alvarez Primary Care Provider Chilango Shane [phone] Allergies Allergen (clinical drug ingredient) Drug/Non Drug Allergy documented on EMR Reaction Allergy Type Onset Date Status Wound Dressing Adhesive rash Drug Allergy Active oxycodone oxyCODONE GI Intolerance Drug Allergy Ac tive Results Component Value Reference Range Notes FREE T3 Reviewed date:02/13/2025 12:53:20 PM Interpretation: Performing Lab: Notes/Report: [facility] , Free T3 2.41 2.18-3.98 pg/mL Performing Lab: see note ML - [facility] LB T4 Reviewed date:02/13/2025 12:53:20 PM Interpretation: Performing Lab: Notes/Report: [facility] , T4 Thyroxine 8.10 4.80-13.90 ug/dL Performing Lab: see note ML - [facility] LB TSH Reviewed date:02/13/2025 12:53:20 PM Interpretation: Performing Lab: Notes/Report: [facility] , Thyroid Stimulating Hormone 3.814 0.358-3.740 uIU/mL Performing Lab: see note ML - [facility] LB CBC AUTO DIFF Reviewed date:05/04/2025 01:42:39 PM Interpretation: Performing Lab: Notes/Report: [facility] , White Blood Count 10.5 4.0-11.0 10 3/uL Red Blood Count 5.53 4.20-5.40 10 6/uL Hemoglobin 15.3 12.0-16.0 g/dL Hematocrit 45.3 36.0-48.0 % Mean Corpuscular Volume 81.9 81.0-99.0 fL Mean Corpuscular Hemoglobin 27.7 26.7-34.0 pg Mean Corpuscular HGB Conc 33.8 29.9-35.2 g/dL Red Cell Distribution Width 15.3 11.0-15.0 % Platelet Count 205 150-450 10 3/uL Mean Platelet Volume 10.0 9.5-13.5 fL Neutrophils Percent Auto 68.8 43.0-75.0 % Lymphocytes Percent Auto 22.8 20.5-60.0 % Monocytes Percent Auto 5.7 1.7-12.0 % Eosinophils Percent Auto 1.0 0.9-7.0 % Basophils Percent Auto 0.5 0.2-2.0 % Immature Granulocytes Pct Auto 1.2 0.0-0.5 % Neutrophils Absolute Auto 7.2 1.4-6.5 10 3/uL Lymphocytes Absolute Auto 2.4 1.2-3.8 10 3/uL Monocytes Absolute Auto 0.6 0.3-0.8 10 3/uL Eosinophils Absolute Auto 0.1 0.0-0.7 10 3/uL Basophils Absolute Auto 0.1 0.0-0.1 10 3/uL Immature Granulocytes Abs Auto 0.13 0.00-0.03 10 3/uL Performing Lab: see note ML - [facility] PROF CHEM 8 (BAS METB) Reviewed date:05/04/2025 01:42:39 PM Interpretation: Performing Lab: Notes/Report: [facility] , Sodium 141 136-145 mmol/L Potassium 4.1 3.5-5.1 mmol/L Chloride 101 98-107 mmol/L Carbon Dioxide 27.4 21.0-32.0 mmol/L Anion Gap 16.7 Glucose 229 74-106 mg/dL Blood Urea Nitrogen 23.0 7.0-18.0 mg/dL Creatinine 0.73 0.55-1.02 mg/dL Estimated GFR ( Mandy >60 >=60 mL/min/1.73m 2 Estimated GFR (Non- Jenifer >60 >=60 mL/min/1.73m 2 BUN Creatinine Ratio 31.5 Calcium 9.6 8.5-10.1 mg/dL Performing Lab: see note ML - [facility] LB UA (CLEAN or CATCH) BUILDING RENTAL MANAGER or M ICRO IF IND. Reviewed date:05/04/2025 01:42:39 PM Interpretation: Performing Lab: Notes/Report: [facility] , Color Urine LT. YELLOW YELLOW Clarity Urine CLEAR CLEAR Specific Apex Urine 1.015 1.005-1.025 pH Urine 6.0 5.0-9.0 Protein Urine 30 NEG/TRACE mg/dL Glucose Urine UA >=1000 NEGATIVE mg/dL Bilirubin Urine NEGATIVE NEGATIVE Ketones Urine NEGATIVE NEGATIVE mg/dL Blood Urine NEGATIVE NEGATIVE Nitrite Urine NEGATIVE NEGATIVE Urobilinogen Urine 0.2 0.2-1.0 EU/dL Leukocyte Esterase Urine NEGATIVE NEGATIVE Urine Microscopic Indicated YES Performing Lab: see note ML - [facility] LB URINE MICROSCOPIC ONLY Reviewed date:05/04/2025 01:42:39 PM Interpretation: Performing Lab: Notes/Report: [facility] , WBC Urine 2-5 NONE SEEN #/HPF RBC Urine NONE SEEN 0-2 #/HPF Bacteria Urine SMALL NONE SEEN #/HPF Mucus Urine NONE SEEN NONE SEEN Squamous Epithelial Cell Urine MODERATE NONE/RARE #/LPF Crystals Seen? None Seen None Seen #/HPF Cast Seen? NONE SEEN NONE SEEN #/LPF Yeast Urine SEEN NONE SEEN Few budding yea st Urine Culture Indicated YES[place] Performing Lab: see note ML - [facility] LB Urine Culture - [facility] Reviewed date:05/06/2025 07:14:58 PM Interpretation: Performing Lab: Notes/Report: [facility] , Urine Culture - [facility] See Below For Report Urine Culture - [facility] Testing performed at [facility] O:PROMIR Isolated Urine Culture - [facility] Organism Comments Organism: 1.1 Antibiotic Interpretation ARIANNE Status Urine Culture - [facility] [address], [place] [address] Urine Culture - [facility] Testing performed at [facility] O:PROMIR Isolated Urine Culture - [facility] Organism Comments Organism: 1.1 Antibiotic Interpretation ARIANNE Status Urine Culture - [facility] See Below For Report Urine Culture - [facility] Testing performed at [facility] O:PROMIR Isolated Urine Culture - [facility] Organism Comments Organism: 1.1 Antibiotic Interpretation ARIANNE Status Urine Culture - [facility] See Below For Report Urine Culture - [facility] Testing performed at [facility] O:PROMIR Isolated Urine Culture - [facility] Organism Comments Organism: 1.1 Antibiotic Interpretation ARIANNE Status Urine Culture - [facility] 50,000 CFU/ML Urine Culture - [facility] Testing performed at [facility] O:PROMIR Isolated Urine Culture - [facility] Organism Comments Organism: 1.1 Antibiotic Interpretation ARIANNE Status Urine Culture - [facility] See Below For Report Urine Culture - [facility] Testing performed at [facility] O:PROMIR Isolated Urine Culture - [facility] Organism Comments Organism: 1.1 Antibiotic Interpretation ARIANNE Status Urine Culture - [facility] Amikacin S F Urine Culture - [facility] Testing performed at [facility] O:PROMIR Isolated Urine Culture - [facility] Organism Comments Organism: 1.1 Antibiotic Interpretation ARIANNE Status Urine Culture - [facility] Amoxicillin/Clavula hayden S F Urine Culture - [facility] Testing performed at [facility] O:PROMIR Isolated Urine Culture - [facility] Organism Comments Organism: 1.1 Antibiotic Interpretation ARIANNE Status Urine Culture - [facility] Ampicillin S F Urine Culture - [facility] Testing performed at [facility] O:PROMIR Isolated Urine Culture - [facility] Organism Comments Organism: 1.1 Antibiotic Interpretation ARIANNE Status Urine Culture - [facility] Aztreonam S F Urine Culture - [facility] Testing performed at [facility] O:PROMIR Isolated Urine Culture - [facility] Organism Comments Organism: 1.1 Antibiotic Interpretation ARIANNE Status Urine Culture - [facility] Ceftazidime S F Urine Culture - [facility] Testing performed at [facility] O:PROMIR Isolated Urine Culture - [facility] Organism Comments Organism: 1.1 Antibiotic Interpretation ARIANNE Status Urine Culture - [facility] Ceftazidime/Avibactam S F Urine Culture - [facility] Testing performed at [facility] O:PROMIR Isolated Urine Culture - [facility] Organism Comments Organism: 1.1 Antibiotic Interpretation ARIANNE Status Urine Culture - [facility] Ceftolozane/Tazobac vasquez S F Urine Culture - [facility] Testing performed at [facility] O:PROMIR Isolated Urine Culture - [facility] Organism Comments Organism: 1.1 Antibiotic Interpretation ARIANNE Status Urine Culture - [facility] Ciprofloxacin S F Urine Culture - [facility] Testing performed at [facility] O:PROMIR Isolated Urine Culture - [facility] Organism Comments Organism: 1.1 Antibiotic Interpretation ARIANNE Status Urine Culture - [facility] Ertapenem S F Urine Culture - [facility] Testing performed at [facility] O:PROMIR Isolated Urine Culture - [facility] Organism Comments Organism: 1.1 Antibiotic Interpretation ARIANNE Status Urine Culture - [facility] Gentamicin S F Urine Culture - [facility] Testing performed at [facility] O:PROMIR Isolated Urine Culture - [facility] Organism Comments Organism: 1.1 Antibiotic Interpretation ARIANNE Status Urine Culture - [facility] Levofloxacin S F Urine Culture - [facility] Testing performed at [facility] O:PROMIR Isolated Urine Culture - [facility] Organism Comments Organism: 1.1 Antibiotic Interpretation ARIANNE Status Urine Culture - [facility] Meropenem S F Urine Culture - [facility] Testing performed at [facility] O:PROMIR Isolated Urine Culture - [facility] Organism Comments Organism: 1.1 Antibiotic Interpretation ARIANNE Status Urine Culture - [facility] Meropenem/Vaborbactam S F Urine Culture - [facility] Testing performed at [facility] O:PROMIR Isolated Urine Culture - [facility] Organism Comments Organism: 1.1 Antibiotic Interpretation ARIANNE Status Urine Culture - [facility] Tobramycin S F Urine Culture - [facility] Testing performed at [facility] O:PROMIR Isolated Urine Culture - [facility] Organism Comments Organism: 1.1 Antibiotic Interpretation ARIANNE Status Urine Culture - [facility] Ampicillin/Sulbactam S F Urine Culture - [facility] Testing performed at [facility] O:PROMIR Isolated Urine Culture - [facility] Organism Comments Organism: 1.1 Antibiotic Interpretation ARIANNE Status Urine Culture - [facility] Cefazolin S F Urine Culture - [facility] Testing performed at [facility] O:PROMIR Isolated Urine Culture - [facility] Organism Comments Organism: 1.1 Antibiotic Interpretation ARIANNE Status Urine Culture - [facility] Cefepime S F Urine Culture - [facility] Testing performed at [facility] O:PROMIR Isolated Urine Culture - [facility] Organism Comments Organism: 1.1 Antibiotic Interpretation ARIANNE Status Urine Culture - [facility] Ceftriaxone S F Urine Culture - [facility] Testing performed at [facility] O:PROMIR Isolated Urine Culture - [facility] Organism Comments Organism: 1.1 Antibiotic Interpretation ARIANNE Status Urine Culture - [facility] Cefuroxime S F Urine Culture - [facility] Testing performed at [facility] O:PROMIR Isolated Urine Culture - [facility] Organism Comments Organism: 1.1 Antibiotic Interpretation ARIANNE Status Urine Culture - [facility] Piperacillin/Tazoba ctam S F Urine Culture - [facility] Testing performed at [facility] O:PROMIR Isolated Urine Culture - [facility] Organism Comments Organism: 1.1 Antibiotic Interpretation ARIANNE Status Urine Culture - [facility] Trimethoprim/Sulfa S F Urine Culture - [facility] [place] performed at [facility] O:PROMIR Isolated Urine Culture - [facility] Organism Comments Organism: 1.1 Antibiotic Interpretation ARIANNE Status Performing Lab: see note ML - [facility] LB SEE REPORT - Signals Intelligence Superintendent Id information not found for OBX-specific game producer legend ECG 12 lead Reviewed date:05/05/2025 08:33:15 PM Interpretation: Performing Lab: Notes/Report: Source Facility: [place] [address] Electrocardiograph Report Signed Patient: KERRI HORN MR#: [id number] : 1955 Acct:[id number] Age/Sex: 70 / F ADM Date: 05/04/25 Loc: MS 215-[address]: LEE ANN SHAW M.D. 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 Measurements Intervals [place] Rate: 93 P: 42 CT: 194 QRS: 270 QRSD: 132 T: 49 QT: 364 QTc: 415 Interpretive Statements 1100 Sinus rhythm 2450 Right bundle branch block 3114 Cannot rule out anterior myocardial infarction, age undetermined 3633 Inferior myocardial infarction, probably old 7100 Abnormal right axis deviation 9150 abnormal ECG No previous ECG available for comparison Electronically Signed On 05-05-2025 20:26:25 EDT by SEN SILVA M.D. Dictated By: SEN SILVA Signed By: 05/05/252025 DD/ 1 TD/TT: Archaeologist: [place] [address] Electrocardiograph Report Signed Patient: GELACIO HORN MR#: [id number] : 1955 Acct:[id number] Age/Sex: 70 / F ADM Date: 05/04/25 Loc: MS 215-[address]: LEE ANN SHAW M.D. 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 Measurements Intervals [place] Rate: 93 P: 42 CT: 194 QRS: 270 QRSD: 132 T: 49 QT: 364 QTc: 415 Interpretive Statements 1100 Sinus rhythm 2450 Right bundle br anch block 3114 Cannot rule out anterior myocardial infarction, age undetermined 3633 Inferior myocar dial infarction, probably old 7100 Abnormal right axis deviation 9150 abnormal ECG No previous ECG avai lable for comparison Electronically Abigail d On 05-05-2025 20:26:25 EDT by SEN SILVA M.D. Dictated By: SEN SILVA Signed By: 05/05/252025 DD/ 1 TD/TT: Archaeologist: CT angio neck Reviewed date:05/04/2025 01:42:39 PM Interpretation: Performing Lab: Notes/Report: Source Facility: [place] [address] [place] [address] CT Scan Report Signed Patient: KERRI HORN MR#: [id number] : 1955 Acct:[id number] Age/Sex: 70 / F ADM Date: 05/04/25 Loc: MS 215Jasmine1 Attending Dr: LEE ANN SHAW M.D. Ordering Physician: Lee Ann Shaw Date of Service: 05/04/25 Procedure(s): CT angio neck Accession Number(s): [id number] cc: Chandler Shane M.D. [place] [address] Patient Name: KERRI HORN MRN: [id number] date: 1955 Sex: F Assigned Patient Location: MS Current Patient Location: MS Accession/Order Number: [id number] Exam Date: 05/04/2025 11:05 Report Date: 05/04/2025 11:12 At the request of: LEE ANN SHAW MD Procedure: CT angio neck CTA Head and Neck TECHNIQUE: Axial imaging of the head and neck with 2-D and 3-D reconstruction. 100 cc of Isovue 350.. The CT exam was performed using one or more the following dose reduction techniques: Automated exposure control, adjustment of the MA and/or Kv according to patient size, or use of the iterative reconstruction technique. Stenoses were measured using the NASCET criteria. COMPARISON: Head CT 05/04/2025 HISTORY: Dizziness and nausea The visualized aortic arch and great vessels are unremarkable. Subclavian arteries are patent No carotid dissection, critical stenosis or occlusion identified. Mild atherosclerosis of carotid bifurcations with minimal stenosis. No vertebral dissection, occlusion or abrupt cut off identified. The carotid siphons and vertebral basilar systems are patent. No intracranial aneurysm, dissection, abrupt cut off or critical stenosis identified.. . CT/CT angio neck IMPRESSION: No occlusion, critical stenosis or dissection of the extracranial or intracranial circulation. Impression dictated by: Agustin Portillo M.D. 05/04/2025 11:12 AM Dictation Location: [place] [address] Electronically authenticated by: [id number] Y Date: 05/04/2025 11:12 Dictated By: Agustin Portillo D.O. Signed By: 05/04/25 1115 DD/ 1112 TD/TT: Archaeologist: [place] [address] CT Scan Report Signed Patient: GELACIO HORN MR#: [id number] : 1955 Acct:[id number] Age/Sex: 70 / F ADM Date: 05/04/25 Loc: MS 215-[address]: LEE ANN SHAW M.D. Ordering Physician: Lee Ann Shaw Date of Service: 05/04/25 Procedure(s): CT ang io neck Accession Number(s): [id number] cc: Chandler Shane M.D. [facility] [place] [address] Patient Name: KERRI HORN MRN: [id number] date: 1955 Sex: F Assigned Patient Location: MS Current Patient Loca tion: MS Accession/Order Numb er: [id number] Exam Date: 05/04/2025 11:05 Report Date: 05/04/2025 11:12 At the request of: LEE ANN SHAW MD Procedure: CT angio neck CTA Head and Neck TECHNIQUE: Axial bessie ging of the head and neck with 2-D and 3-D reconstruction. 100 cc of Isovue [address] exam was performed using one or more the following dose reduc tion techniques: Automated exposure control, adjustment of the MA and/or Kv according to patient size, or use of the iterative reconstruction techn ique. Stenoses were measured using the NASCET criteria. COMPARISON: Head CT 05/04/2025 HISTORY: Dizziness a nd nausea The visualized aorti c arch and great vessels are unremarkable. Subclavian arteries are patent No carotid dissectio n, critical stenosis or occlusion identified. Mild atherosclerosis of carotid bifurcations with minimal stenosis. No vertebral dissect ion, occlusion or abrupt cut off identified. The carotid siphons and vertebral basilar systems are patent. No intracranial aneu rysm, dissection, abrupt cut off or critical stenosis identified.. . C T/CT angio neck IMPRESSION: No occlu ezra, critical stenosis or dissection of the extracranial or intracranial circulation. Impression dictated by: Agustin Portillo M.D. 05/04/2025 11:12 AM Dictation Location: [place] [address] Electronically authenticated by: [id number] Y Date: 05/04/2025 11:12 Dictated By: Tayo Portillo D.O. Signed By: 05/04/25 1115 DD/ 1112 TD/TT: Archaeologist: CT angio head Reviewed date:05/04/2025 01:42:39 PM Interpretation: Performing Lab: Notes/Report: Source Facility: [facility] [place] [address] CT Scan Report Signed Patient: KERRI HORN MR#: [id number] : 1955 Acct:[id number] Age/Sex: 70 / F ADM Date: 05/04/25 Loc: MS 215-[address]: LEE ANN SHAW M.D. Ordering Physician: Lee Ann Shaw Date of Service: 05/04/25 Procedure(s): CT angio head Accession Number(s): [id number] cc: Chandler Shane M.D. [place] [address] Patient Name: KERRI HORN MRN: [id number] date: 1955 Sex: F Assigned Patient Location: ND Current Patient Location: ND Accession/Order Number: [id number] Exam Date: 05/04/2025 11:05 Report Date: 05/04/2025 11:12 At the request of: LEE ANN SHAW MD Procedure: CT angio neck CTA Head and Neck TECHNIQUE: Axial imaging of the head and neck with 2-D and 3-D reconstruction. 100 cc of Isovue 350.. The CT exam was performed using one or more the following dose reduction techniques: Automated exposure control, adjustment of the MA and/or Kv according to patient size, or use of the iterative reconstruction technique. Stenoses were measured using the NASCET criteria. COMPARISON: Head CT 05/04/2025 HISTORY: Dizziness and nausea The visualized aortic arch and great vessels are unremarkable. Subclavian arteries are patent No carotid dissection, critical stenosis or occlusion identified. Mild atherosclerosis of carotid bifurcations with minimal stenosis. No vertebral dissection, occlusion or abrupt cut off identified. The carotid siphons and vertebral basilar systems are patent. No intracranial aneurysm, dissection, abrupt cut off or critical stenosis identified.. . CT/CT angio head IMPRESSION: No occlusion, critical stenosis or dissection of the extracranial or intracranial circulation. Impression dictated by: Agustin Portillo M.D. 05/04/2025 11:12 AM Dictation Location: [place] [address] Electronically authenticated by: [id number] Y Date: 05/04/2025 11:12 Dictated By: Agustin Portillo D.O. Signed By: 05/04/25 1115 DD/ 1112 TD/TT: Archaeologist: The [address] [address] [address] Scan Report Signed Patient: GELACIO HORN MR#: [id number] : 1955 Acct:[id number] Age/Sex: 70 / F ADM Date: 05/04/25 Loc: MS 215-[address]: LEE ANN SHAW M.D. Ordering Physician: Lee Ann Shaw Date of Service: 05/04/25 Procedure(s): CT ang io head Accession Number(s): [id number] cc: Chandler Shane M.D. [place] [id number] Patient Name: KERRI HORN MRN: [id number] date: 1955 Sex: F Assigned Patient Location: MS Current Patient Loca tion: MS Accession/Order Numb er: [id number] Exam Date: 05/04/2025 11:05 Report Date: 05/04/2025 11:12 At the request of: LEE ANN SHAW MD Procedure: CT angio neck CTA Head and Neck TECHNIQUE: Axial bessie ging of the head and neck with 2-D and 3-D reconstruction. 100 cc of Isovue [address] exam was performed using one or more the following dose reduc tion techniques: Automated exposure control, adjustment of the MA and/or Kv according to patient size, or use of the iterative reconstruction techn ique. Stenoses were measured using the NASCET criteria. COMPARISON: Head CT 05/04/2025 HISTORY: Dizziness a nd nausea The visualized aorti c arch and great vessels are unremarkable. Subclavian arteries are patent No carotid dissectio n, critical stenosis or occlusion identified. Mild atherosclerosis of carotid bifurcations with minimal stenosis. No vertebral dissect ion, occlusion or abrupt cut off identified. The carotid siphons and vertebral basilar systems are patent. No intracranial aneu rysm, dissection, abrupt cut off or critical stenosis identified.. . C T/CT angio head IMPRESSION: No occlu ezra, critical stenosis or dissection of the extracranial or intracranial circulation. Impression dictated by: Agustin Portillo M.D. 05/04/2025 11:12 AM Dictation Location: [place] [address] Electronically authenticated by: [id number] Y Date: 05/04/2025 11:12 Dictated By: Tayo Portillo D.O. Signed By: 05/04/25 1115 DD/ 111 TD/TT: Archaeologist: CBC AUTO DIFF Reviewed date:05/05/2025 08:28:33 AM Interpretation: Performing Lab: Notes/Report: [facility] , White Blood Count 11.5 4.0-11.0 10 3/uL Red Blood Count 5.20 4.20-5.40 10 6/uL Hemoglobin 14.0 12.0-16.0 g/dL Hematocrit 42.8 36.0-48.0 % Mean Corpuscular Volume 82.3 81.0-99.0 fL Mean Corpuscular Hemoglobin 26.9 26.7-34.0 pg Mean Corpuscular HGB Conc 32.7 29.9-35.2 g/dL Red Cell Distribution Width 15.4 11.0-15.0 % Platelet Count 190 150-450 10 3/uL Mean Platelet Volume 10.0 9.5-13.5 fL Neutrophils Percent Auto 66.7 43.0-75.0 % Lymphocytes Percent Auto 25.1 20.5-60.0 % Monocytes Percent Auto 6.6 1.7-12.0 % Eosinophils Percent Auto 0.3 0.9-7.0 % Basophils Percent Auto 0.3 0.2-2.0 % Immature Granulocytes Pct Auto 1.0 0.0-0.5 % Neutrophils Absolute Auto 7.6 1.4-6.5 10 3/uL Lymphocytes Absolute Auto 2.9 1.2-3.8 10 3/uL Monocytes Absolute Auto 0.8 0.3-0.8 10 3/uL Eosinophils Absolute Auto 0.0 0.0-0.7 10 3/uL Basophils Absolute Auto 0.0 0.0-0.1 10 3/uL Immature Granulocytes Abs Auto 0.11 0.00-0.03 10 3/uL Performing Lab: see note ML - [facility] PROF CHEM 8 (BAS METB) Reviewed date:05/05/2025 08:28:33 AM Interpretation: Performing Lab: Notes/Report: [facility] , Sodium 143 136-145 mmol/L Potassium 3.7 3.5-5.1 mmol/L Chloride 104 98-107 mmol/L Carbon Dioxide 28.2 21.0-32.0 mmol/L Anion Gap 14.5 Glucose 166 74-106 mg/dL Blood Urea Nitrogen 24.0 7.0-18.0 mg/dL Creatinine 0.69 0.55-1.02 mg/dL Estimated GFR ( Mandy >60 >=60 mL/min/1.73m 2 Estimated GFR (Non- Jenifer >60 >=60 mL/min/1.73m 2 BUN Creatinine Ratio 34.8 Calcium 9.1 8.5-10.1 mg/dL Performing Lab: see note ML - [facility] CA echo doppler complete Reviewed date:05/05/2025 08:20:43 PM Interpretation: Performing Lab: Notes/Report: Source Facility: [place] [address] Cardiology Report Signed Patient: KERRI HORN MR#: [id number] : 1955 Acct:[id number] Age/Sex: 70 / F ADM Date: 05/04/25 Loc: MS 215-[address]: LEE ANN SHAW M.D. Ordering Physician: Lee Ann Shaw Date of Service: 05/05/25 Procedure(s): CA echo doppler complete Accession Number(s): [id number] cc: Chandler Shane M.D.; Lee Ann Shaw Patient Name: KERRI HORN MR#: [id number] : 1955 Exam Date: 05/05/2025 Ordering Doctor: LEE ANN SHAW ECHOCARDIOGRAM REPORT PROCEDURE: CA ECHO DOPPLER COMPLETE INDICATIONS: Weakness, diabetes COMPARISON: None. DESCRIPTION: COMPLETE ECHOCARDIOGRAM Real-time transthoracic echocardiography with 2D, M-mode, spectral and color flow Doppler performed. QUALITY: Technical quality was adequate. LEFT VENTRICLE: Normal chamber size. Normal left ventricular wall thickness. Systolic function is normal. LV EF: Normal left ventricular ejection fraction, (>55%). DIASTOLIC: Diastolic function is indeterminate. ATRIAL SEPTUM: LEFT ATRIUM: Normal chamber size. RIGHT ATRIUM: Normal chamber size. RIGHT VENTRICLE: Appears mildly dilated. Normal systolic function. TRICUSPID VALVE: Normal mobility and thickness. No stenosis with no regurgitation. MITRAL VALVE: Normal mobility and thickness. No evidence of mitral valve stenosis. There is no mitral annular calcification. No mitral regurgitation. AORTIC VALVE: Normal trileaflet appearance. No visible sclerosis. Normal leaflet mobility. No evidence of aortic valve stenosis. No aortic regurgitation. AORTIC ROOT: Normal diameter and appearance, measuring 3.0 cm. Ascending aorta is normal in size, measuring 2.8 cm. PULMONIC VALVE: Not well visualized. No stenosis. No regurgitation. PERICARDIUM: No evidence of pericardial effusion. IVC: Not well visualized. PLEURA: CONCLUSION: 1. Left ventricular is normal in size and exhibits normal systolic function. LVEF is estimated at 60 to 65%. 2. The right ventricle appears mildly dilated with normal systolic function. 3. No significant valvular dysfunction. 4. Unable to assess right-sided pressures due to lack of measurable tricuspid regurgitation. Adult Echocardiography Procedure Report Left Ventricle LVEDD (3.7 - 5.6 cm): 3.71 cm LVESD (2.2 - 4.0 cm): 2.23 cm LVIVS thickness (0.6 - 1.2 cm): 1.03 cm LVPW thickness (0.5 - 1.0 cm): 0.80 cm e': 0.04 m/s E - e': 10.56 LVOT Max Gradient: 1.92 mm[Hg] LVOT Area (cm2): 0.69 m/s Peak Velocity (LVOT): 0.69 m/s LVOT Diameter 2.61 cm Left Atrium LA Volume Index (2D A2C): 22.56 ml/m2 Left Atrium Systolic Dimension: 3.26 cm Mitral Valve MV E to A Ratio: 0.73 Mitral Valve A-Wave Peak Velocity: 0.62 m/s Mitral Valve E-Wave Peak Velocity: 0.45 m/s Right Ventricle Aorta AO Root Diam: 2.99 cm Ascending Ao Diam: 2.78 cm Aortic Valve Tricuspid Valve Pulmonic Valve Peak Velocity: 0.72 m/s Peak Gradient: 2.06 mm[Hg] Right Atrium Dictated by: Sen Silva M.D. on 05/05/2025 at 19:46 Approved by: Sen Silva M.D. on 05/05/2025 at 19:50 Dictated By: SEN SILVA Signed By: 05/05/251950 DD/ 49 TD/TT: Archaeologist: [place] [address] Cardiology Report Signed Patient: GELACIO HORN MR#: [id number] : 1955 Acct:[id number] Age/Sex: 70 / F ADM Date: 05/04/25 Loc: [place] 215-[address]: LEE ANN SHAW M.D. Ordering Physician: Lee Ann Shaw Date of Service: 05/05/25 Procedure(s): CA ech o doppler complete Accession Number(s): [id number] cc: Chandler Shane M.D. ; Lee Ann Shaw Patient Name: KERRI HORN MR#: [id number] : 1955 Exam Date: 05/05/2025 Ordering Doctor: MONE SHAW ECHOCARDIOGRAM REPORT PROCEDURE: CA ECHO DOPPLER COMPLETE INDICATIONS: Weaknes s, diabetes COMPARISON: None. DESCRIPTION: COMPLET E ECHOCARDIOGRAM Real-time transthoracic echocardiography wit h 2D, M-mode, spectral and color flow Doppler performed. QUALITY: Technical quality was adequate. LEFT VENTRICLE: Norm al chamber size. Normal left ventricular wall thickness. Systolic function is normal. LV EF: Normal left ventricular ejection fraction, (>55%). DIASTOLIC: Diastolic function is indeterminate. ATRIAL SEPTUM: LEFT ATRIUM: Normal chamber size. RIGHT ATRIUM: Normal chamber size. RIGHT VENTRICLE: [place] ears mildly dilated. Normal systolic function. TRICUSPID VALVE: [place] mal mobility and thickness. No stenosis with no regurgitation. MITRAL VALVE: Normal mobility and thickness. No evidence of mitral valve stenosis. There is n o mitral annular calcification. No mitral regurgitation. AORTIC VALVE: Normal trileaflet appearance. No visible sclerosis. Normal leaflet mobility. No evidence of aortic valve stenosis. No aortic regurgitation. AORTIC ROOT: Normal diameter and appearance, measuring 3.0 cm. Ascending aorta is normal in s ize, measuring 2.8 cm. PULMONIC VALVE: Not well visualized. No stenosis. No regurgitation. PERICARDIUM: No evid ence of pericardial effusion. IVC: Not well visualized. PLEURA: CONCLUSION: 1. Left ventricular is normal in size and exhibits normal systolic function. LVEF is estimated at 60 to 65%. 2. The right ventric le appears mildly dilated with normal systolic function. 3. No significant valvular dysfunction. 4. Unable to assess right-sided pressures due to lack of measurable tricuspid regurgitation. Adult Echocardiograp hy Procedure Report Left Ventricle LVEDD (3.7 - 5.6 cm) : 3.71 cm LVESD (2.2 - 4.0 cm) : 2.23 cm LVIVS thickness (0.6 - 1.2 cm): 1.03 cm LVPW thickness (0.5 - 1.0 cm): 0.80 cm e': 0.04 m/s E - e': 10.56 LVOT Max Gradient: 1 .92 mm[Hg] LVOT Area (cm2): 0.69 m/s Peak Velocity (LVOT) : 0.69 m/s LVOT Diameter 2.61 cm Left Atrium LA Volume Index (2D A2C): 22.56 ml/m2 Left Atrium Systolic Dimension: 3.26 cm Mitral Valve MV E to A Ratio: 0.73 Mitral Valve A-Wave Peak Velocity: 0.62 m/s Mitral Valve E-Wave Peak Velocity: 0.45 m/s Right Ventricle Aorta AO Root Diam: 2.99 cm Ascending Ao Diam: 2 .78 cm Aortic Valve Tricuspid Valve Pulmonic Valve Peak Velocity: 0.72 m/s Peak Gradient: 2.06 mm[Hg] Right Atrium Dictated by: Sen Silva M.D. on 05/05/2025 at 19:46 Approved by: Sen Silva M.D. on 05/05/2025 at 19:50 Dictated By: SEN SILVA Signed By: 05/05/251950 DD/ 49 TD/TT: Archaeologist: head/brain wo con Reviewed date:05/05/2025 12:47:05 PM Interpretation: Performing Lab: Notes/Report: Source Facility: [facility] [place] [address] [place] [address] Magnetic Resonance Report Signed Patient: KERRI HORN#: [id number] : 1955 Acct:[id number] Age/Sex: 70 / F ADM Date: 05/04/25 Loc: [place] 215-[address]: LEE ANN SHAW M.D. Ordering Physician: Lee Ann Shaw Date of Service: 05/04/25 Procedure(s): MR head/brain wo con Accession Number(s): [id number] cc: Chandler Shane M.D.; Lee Ann Shaw [place] [address] Patient Name: KERRI HORN MRN: [id number] date: 1955 Sex: F Assigned Patient Location: MS Current Patient Location: [place] Accession/Order Number: [id number] Exam Date: 05/05/2025 09:52 Report Date: 05/05/2025 10:14 At the request of: LEE ANN SHAW MD Procedure: MR head/brain wo con MR head/brain wo con 05/05/2025 8:28 AM SIGN AND SYMPTOMS: r/o stroke, weakness, syncope PROTOCOL: Multiplanar multisequence MR images of the brain without IV contrast COMPARISON: 05/04/2025 FINDINGS: Extra axial spaces: There is age-related cortical atrophy. Hemorrhage: None. Ventricular system: Within normal limits. Basal cisterns: Within normal limits and not effaced. Cerebral parenchyma: T2 and FLAIR hyperintense signal is noted in the periventricular and subcortical white matter consistent with chronic microvascular ischemic change. Midline shift: None.. Cerebellum: Within normal limits. Brainstem: Within normal limits. OTHER: Calvarium: Normal marrow signal. Vascular system: Satisfactory flow voids within the anterior and posterior circulation. Visualized Paranasal sinuses: Within normal limits. Visualized Orbits: Within normal limits. Visualized upper cervical spine: Within normal limits. Sella and skull base: Within normal limits. MR/MR head/brain wo con IMPRESSION: No acute intracranial pathology. Chronic age-related neurodegenerative changes are noted as above. Impression dictated by: Gabe Green M.D. 05/05/2025 10:14 AM Dictation Location: [place] [address] Electronically authenticated by: [id number] Y Date: 05/05/2025 10:14 Dictated By: Gabe Green M.D. Signed By: 05/05/25 1017 DD/ 1014 TD/TT: Archaeologist: [place] [address] Magnetic Resonance Report Signed Patient: GELACIO HORN MR#: [id number] : 1955 Acct:[id number] Age/Sex: 70 / F ADM Date: 05/04/25 Loc: MS 215-[address]: LEE ANN SHAW M.D. Ordering Physician: Lee Ann Shaw Date of Service: 05/04/25 Procedure(s): MR head/brain wo con Accession Number(s): [id number] cc: Chandler Shane M.D. ; LeeA nn Shaw [place] [address] Patient Name: KERRI HORN MRN: [id number] date: 1955 Sex: F Assigned Patient Location: MS Current Patient Loca tion: MS Accession/Order Numb er: [id number] Exam Date: 05/05/2025 09:52 Report Date: 05/05/2025 10:14 At the request of: LEE ANN SHAW MD Procedure: MR head/b rain wo con MR head/brain wo con 05/05/2025 8:28 AM SIGN AND SYMPTOMS: r/o stroke, weakness , syncope PROTOCOL: Multiplana r multisequence MR images of the brain without IV contrast COMPARISON: 05/04/2025 FINDINGS: Extra axial spaces: There is age-related cortical atrophy. Hemorrhage: None. Ventricular system: Within normal limits. Basal cisterns: With in normal limits and not effaced. Cerebral parenchyma: T2 and FLAIR hyperintense signal is noted in the periventricular and subcortical white matter consistent with chronic microvascular ischem ic change. Midline shift: None.. Cerebellum: Within n ormal limits. Brainstem: Within no rmal limits. OTHER: Calvarium: Normal ma rrow signal. Vascular system: Satisfactory flow voids within the anterior and posterior circulation. Visualized Paranasal sinuses: Within normal limits. Visualized Orbits: W ithin normal limits. Visualized upper cer vical spine: Within normal limits. Sella and skull base : Within normal limits. M R/MR head/brain wo con IMPRESSION: No acute intracrania l pathology. Chronic age-related neurodegenerative changes are noted as above. Impression dictated by: Gabe Green M.D. 05/05/2025 10:14 AM Dictation Location: [place] [address] Electronically authenticated by: [id number] Y Date: 05/05/2025 10:14 Dictated By: Gabe Green M.D. Signed By: 05/05/25 1017 DD/ 1014 TD/TT: Archaeologist: CBC AUTO DIFF Reviewed date:05/06/2025 07:14:58 PM Interpretation: Performing Lab: Notes/Report: [facility] , White Blood Count 7.8 4.0-11.0 10 3/uL Red Blood Count 5.25 4.20-5.40 10 6/uL Hemoglobin 14.0 12.0-16.0 g/dL Hematocrit 42.9 36.0-48.0 % Mean Corpuscular Volume 81.7 81.0-99.0 fL Mean Corpuscular Hemoglobin 26.7 26.7-34.0 pg Mean Corpuscular HGB Conc 32.6 29.9-35.2 g/dL Red Cell Distribution Width 15.1 11.0-15.0 % Platelet Count 169 150-450 10 3/uL Mean Platelet Volume 9.7 9.5-13.5 fL Neutrophils Percent Auto 51.9 43.0-75.0 % Lymphocytes Percent Auto 37.2 20.5-60.0 % Monocytes Percent Auto 7.1 1.7-12.0 % Eosinophils Percent Auto 1.7 0.9-7.0 % Basophils Percent Auto 0.6 0.2-2.0 % Immature Granulocytes Pct Auto 1.5 0.0-0.5 % Neutrophils Absolute Auto 4.0 1.4-6.5 10 3/uL Lymphocytes Absolute Auto 2.9 1.2-3.8 10 3/uL Monocytes Absolute Auto 0.6 0.3-0.8 10 3/uL Eosinophils Absolute Auto 0.1 0.0-0.7 10 3/uL Basophils Absolute Auto 0.1 0.0-0.1 10 3/uL Immature Granulocytes Abs Auto 0.12 0.00-0.03 10 3/uL Performing Lab: see note ML - [facility] PROF CHEM 8 (BAS METB) Reviewed date:05/06/2025 07:14:58 PM Interpretation: Performing Lab: Notes/Report: [facility] , Sodium 140 136-145 mmol/L Potassium 3.7 3.5-5.1 mmol/L Chloride 102 98-107 mmol/L Carbon Dioxide 27.6 21.0-32.0 mmol/L Anion Gap 14.1 Glucose 147 74-106 mg/dL Blood Urea Nitrogen 25.0 7.0-18.0 mg/dL Creatinine 0.62 0.55-1.02 mg/dL Estimated GFR ( Mandy >60 >=60 mL/min/1.73m 2 Estimated GFR (Non- Jenifer >60 >=60 mL/min/1.73m 2 BUN Creatinine Ratio 40.3 Calcium 9.1 8.5-10.1 mg/dL Performing Lab: see note ML - [facility] LB VITAMIN D 25 [place] Reviewed date:02/13/2025 12:53:20 PM Interpretation: Performing Lab: Notes/Report: [facility] , Vitamin D 58.9 <20 ng/mL Vit D deficient 20-<30 ng/mL Vit D insufficient 30-100 ng/mL Vit D sufficient >100 ng/mL Potential Toxicity Performing Lab: see note - [facility] PROF 14(COMP METB) Reviewed date:02/13/2025 12:53:20 PM Interpretation: Performing Lab: Notes/Report: [facility] , Sodium 140 136-145 mmol/L Potassium 4.2 [...] 1.0 Performing Lab: see note ML - [facility] LIPID PROFILE Reviewed date:02/13/2025 12:53:20 PM Interpretation: Performing Lab: Notes/Report: [facility] , Triglycerides 165 <=150 mg/dL Cholesterol 136 <=200 mg/dL HDL Cholesterol 44 40-60 mg/dL > or =60 mg/dl - LOW CARDIOVASCULAR RISK <40 mg/dl - HIGH CARDIOVASCULAR RISK LDL Cholesterol Calculated 59.0 <100 mg/dl OPTIMAL 100-129 mg/dl NEAR OR ABOVE OPTIMAL 130-159 mg/dl BORDERLINE HIGH 160-189 mg/dl HIGH >190 mg/dl VERY HIGH VLDL CHOLESTEROL 33.0 Chol HDL Ratio 3.1 3.3 - 4.4 LOW RISK 4.4 - 7.1 AVERAGE RISK 7.1 - 11.0 MODERATE RISK >11.0 HIGH RISK Performing Lab: see note ML - [facility] IRON Reviewed date:02/13/2025 12:53:20 PM Interpretation: Performing Lab: Notes/Report: [facility] , Iron 58.0 50.0-170.0 ug/dL Performing Lab: see note ML - [facility] LB INSULIN Reviewed date:02/14/2025 08:34:15 AM Interpretation: Performing Lab: Notes/Report: [facility] , Insulin 18.1 2.6-24.9 uIU/mL Performed at: [facility] [address] [id number] [employer] Skiver: Isaac Casillas PhD, Phone: [phone] Performing Lab: see note - [facility] LB GLYCOHEMOGLOBIN A1C Reviewed date:02/13/2025 12:53:20 PM Interpretation: Performing Lab: Notes/Report: [facility] , Glycohemoglobin A1C 7.8 4.5-6.2 % ADA RECOMMENDED LIMIT 4.0 - 6.0 ADA THERAPEUTIC TARGET < 7.0 ACTION SUGGESTED > 7.0 Estimated Average Glucose 177 Performing Lab: see note ML - [facility] LB CBC AUTO DIFF Reviewed date:02/13/2025 12:53:20 PM Interpretation: Performing Lab: Notes/Report: [facility] , White Blood Count 8.4 4.0-11.0 10 [...] Performing Lab: see note ML - [facility] LB GLYCOHEMOGLOBIN A1C Reviewed date:07/21/2024 09:12:33 PM Interpretation: Performing Lab: Notes/Report: [facility] , Glycohemoglobin A1C 7.5 4.5-6.2 % ADA RECOMMENDED LIMIT 4.0 - 6.0 ADA THERAPEUTIC TARGET < 7.0 ACTION SUGGESTED > 7.0 Estimated Average Glucose 169 Performing Lab: see note ML - [facility] LB Reason For Referral No Information Medications Medication SIG (Take, Route, Frequency, Duration) Notes Start Date End Date Status FreeStyle Halima 3 Sensor - Use to test b lood sugar, change as directed- DX: E11.9 03/13/2025 Active FreeStyle Halima 3 [place] use as directed to test blood sugar- [...] Jardiance 25 MG 0.5 tablet Orally On ce a day 08/08/2024 Active Simvastatin 40 MG 1 tablet in the evening Orally Once a day for 90 days Active metFORMIN HCl 1000 MG 1 tablet with a me al Orally BID for 90 days Active Calcium 500 MG 1 tablet with meals Orally Twice a day for 30 day(s) 02/24/2025 Active Vitamin D (Ergocalciferol) 1.25 MG (11589 UT) TAKE 1 CAPSULE BY MOUTH ONE TIME PER WEEK for 84 Active Semaglutide (2 MG/DOSE) 8 MG/3ML Inject 2mg Subcutaneous once a week for 30 days 05/01/2024 Active Immunizations Vaccine Route Administration Date Status Comme nts Irene Pfizer Syringe Pre -Filled 30 mcg/0.3 mL Unknown 09/11/2024 Administered Flu, Fluad (36393) 65 yrs+, single-dose syringe (0858-4884) Unknown 10/04/2023 Administered Pneumococcal (Pneumovax 23) Unknown [...] Problem Status W/U Status Risk Notes Problem 717381758 Type 2 diabetes mellitus without complications (E11.9) Active confirmed Problem Furuncle of face (19806150) Furuncle of face (L02.02) Active confirmed Problem Cellulitis of face (896130738) Cellulitis of face (L03.211) Active confirmed Problem Hyperlipidaemia (69492819) Hyperlipemia (E78.5) Active confirmed Problem Hypothyroidism (05568359) Hypothyroidism (E03.9) Active confirmed Problem Anxiety (42479502) Anxiety (F41.9) Active confi rmed Problem Hypothyroid (24225162) Hypothyroid (E03.9) Active confirmed Problem Osteopenia (888131786) Osteopenia (M85.80) Active confirmed Problem Upper respiratory infection (16886408) URI (upper respiratory infection) (J06.9) Active confirmed Problem Tinnitus (82050961) Tinnitus (H93.19) Active confirmed Problem Kidney stone (69421518) Kidney stone (N20.0) Active confirmed Problem Boil (43832372) Boil (L02.92) Active confirmed Problem Colonic polyp (37601955) Colonic polyp (K63.5) Active confirmed Problem Obese class II (595801541675282) BMI 35.0-35.9,adult (Z68.35) Active confirmed Problem Hepatomegaly (31745853) Hepatomegaly (R16.0) Active confirmed Problem Overweight (928821866) Over weight (E66.3) Active confirmed Problem Malignant melanoma of skin (38121255) Melanoma (C43.9) Active confirmed Problem Neck stiffness (174909125) Neck stiffness (M43.6) Active confirmed Problem Annual wellness visit (236626668497040) Wellness examination (Z00.00) Active confirmed Problem Diabetes mellitus type 2 (00469896) Diabetes mellitus, type 2 (E11.9) Active confirmed Problem Type II diabetes mellitus without complication (353661969) Diabetes (E11.9) Active confirmed Problem COVID-19 (203313044) COVID-19 (U07.1) Active confirmed Problem Depression (175712582) Depression (F32.A) Active confirmed Vital Signs Blood pressure diastolic 68 mm Hg 02/11/2025 Height 63 in 02/11/2025 Blood pressure systolic 112 mm Hg 02/11/2025 Weight 187 lbs 02/11/2025 BMI 33.12 kg/m2 02/11/2025 Encounters Encounter Location Date Provider Diagnosis [facility] [address] [place] [address] [facility] [address] [place] [address] 03/12/2025 Lisset [facility] [address] [place] [address] 11/21/2024 Lisset Alvarez [facility] [address] [place] [address] 01/01/2025 Lisset Alvarez [facility] [address] [place] [address] 01/07/2025 [facility] [address] [place] [address] 01/23/2025 Lisset Alvarez Hypothyroid E03.9 an d Wellness examination Z00.00 [facility] [address] [facility] [place] [address] 02/13/2025 Lisset Alvarez [facility] [address] [facility] [place] [address] 02/24/2025 Lisset Alvarez [facility] [address] [facility] [place] [address] 07/21/2024 Chilango joana [facility] [address] [facility] [place] [address] 08/08/2024 Lisset Alvarez [facility] [address] [facility] [place] [address] 10/27/2024 [facility] [address] [facility] [place] [address] 10/28/2024 Lisset Alvarez [facility] [address] [facility] [place] [address] 01/23/2025 Lisset Alvarez Depression F32.A and Hypothyroid E03.9 [facility] [address] [facility] [place] [address] 02/11/2025 Lisset Alvarez Tinnitus H93.19 and Dizziness R42 Assessments Encounter Date Diagnosis (ICD Code) Assessment [...] (3 views) * (164) 05/05/2023 Insulin Level 09/18/2023 Insulin Level 01/23/2025 CA 19-9 10/13/2023 CA 19-9 01/17/2024 XR DEXA BONE DENSITY 01/23/2025 XR KUB 1 VIEW 01/17/2024 THYROID PANEL (T4/TSH/FREE T3) 5 THYROID PANEL (T4/TSH/FREE T3) 3 CMP (COMP MET LYONS) w/eGFR CKD-EPI 2024 CBC WITH DIFF 01/23/2025 Next Appt Details Provider Name:Lisset kebede, 05/13/2025 09:30:00 AM, [address] [place], [address], Insurance Providers Payer Name Payer Address Payer Phone Subscriber Number Group Number Insured Name Patient Relationship to Insured Coverage Start Date Coverage End Date [place]ARE [place] [address] [id number] Kerri Horn Self - patient is the insured MMO MEDICARE SU[employer] T [address] [place] [address] [id number] Kerri Horn Self - patient is the [...]
--- NOTE | 2025-05-07 11:24 | CM.DCFOLLOWU ---
1st attempt 05/07/25, no answer
--- NOTE | 2025-05-08 09:27 | CM.NOTE ---
05/08) 09:25 Faxed urine cx results to Dr Shane's office. Called to verify they received and spoke to nurseMary and they did receive them and will let Dr Shane know and also scan them into the chart.
--- NOTE | 2025-05-08 13:27 | CM.DCFOLLOWU ---
2nd attempt 05/08/25, no answer
--- NOTE | 2025-05-09 11:46 | CM.DCFOLLOWU ---
3rd attempt 05/09/25, no answer
== END 2025-05-06 12:51 | disposition home or self-care (01) | DRG 149 ==
LOC: ER 07:57 → MS 05-06 09:42
PROVIDERS: Internal Medicine; Admitting Provider Student in an Organized Health Care Education/Training Program; Emergency Provider Emergency Medicine; PCP Family Medicine; Visit Provider Internal Medicine
DX: R42 Dizziness and giddiness (principal); G45.3 Amaurosis fugax; R82.71 Bacteriuria; B96.4 Proteus (mirabilis) (morganii) as the cause of diseases classified elsewhere; E11.9 Type 2 diabetes mellitus without complications; I10 Essential (primary) hypertension; E03.9 Hypothyroidism, unspecified; F41.9 Anxiety disorder, unspecified; E78.5 Hyperlipidemia, unspecified; Z79.82 Long term (current) use of aspirin; Z79.890 Hormone replacement therapy; Z79.899 Other long term (current) drug therapy; F32.A Depression, unspecified; Z79.84 Long term (current) use of oral hypoglycemic drugs; Z79.4 Long term (current) use of insulin; Z85.118 Personal history of other malignant neoplasm of bronchus and lung
CPT/HCPCS: 36415; 70450; 70496; 70498; 70551; 80048; 81001; 82948; 85025; 87086; 87088; 87186; 93005; 93306; 96361; 96374; 96375; 97161; 97165; 99285; J1650; J2405; J2919; Q9967

== ENCOUNTER 2025-05-08 14:35 | Outpatient (RCR) | payer MEDICARE, OTHER, SELFPAY | END 2025-05-09 13:23 | disposition home or self-care (01) | LOC: PT 14:35 | PROVIDERS: PCP Family Medicine; Visit Provider Family Medicine | DX: H81.13 Benign paroxysmal vertigo, bilateral (principal); R53.1 Weakness | CPT/HCPCS: 97112; 97162 ==

== ENCOUNTER 2025-09-02 14:51 | Outpatient (RCR) | payer MEDICARE, OTHER, SELFPAY | END 2025-09-17 08:30 | disposition home or self-care (01) | LOC: PT 14:51 | PROVIDERS: PCP Family Medicine; Visit Provider Family Medicine | DX: R42 Dizziness and giddiness (principal) | CPT/HCPCS: 97162; 97530 ==